=== PATIENT | female | born 1955 | race Caucasian/White ===

== ENCOUNTER 2022-09-16 08:45 | Day surgery (SDC) | payer MEDICARE, SELFPAY ==
[2022-09-16 09:23] LABS: Glucometer 117 mg/dL (74-106)
[2022-09-16 09:37] VITALS: BP 121/89; PULSE 63; RESP 16; TEMP 36.6; O2SAT 97
[2022-09-16 09:46] VITALS: RESP 20
[2022-09-16 09:47] VITALS: BP 146/73; PULSE 64; O2SAT 94
[2022-09-16] MEDS: METHYLPREDNISOLONE ACETATE 40 MG/ML VIAL INJ (09:50)
[2022-09-16] MEDS: IOHEXOL 240 MG/ML - 10 ML VIAL INJ (09:50)
[2022-09-16] MEDS: 0.9 % SODIUM CHLORIDE 10 ML SYRINGE - SALINE FLUSH 2 ML INJ (09:50)
[2022-09-16] MEDS: BUPIVACAINE HCL 0.25% PF 25 MG/10 ML VIAL 5 ML INJ (09:50)
[2022-09-16] MEDS: LIDOCAINE HCL 2% PF 100 MG/5 ML VIAL INJ (09:50)
[2022-09-16 09:53] VITALS: BP 141/71; PULSE 60; RESP 20; O2SAT 95
--- NOTE | 2022-09-16 11:47 | P.ON_ITS ---
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 Immediate complications none. Anesthesia: 2% lidocaine plain for skin wheal. After informed consent was obtained, patient brought to the OR placed in the supine position. Skin overlying the area was prepped and draped using betadine. 25-gauge 1/2 inch needle was used for skin wheal over the medial aspect of the joint identified under fluoroscopy. Omnipaque dye was used to confirm needle tip placement within the glenohumeral joint space 0.5 mL use of the injection. Subsequently Depomedrol 40mg and Marcaine 0.25% 4ml was injected into the space. No indication of intravascular or intraneuronal needle tip placement or injection was noted post procedure. The needle was removed, patient transferred to Recovery room in stable condition to discharged home after meeting criteria. Surgeon: Contreras Christian Condition: stable
== END 2022-09-16 09:55 | disposition home or self-care (01) ==
PROVIDERS: PCP Family Medicine; Visit Provider Anesthesiology Pain Medicine
DX: M19.012 Primary osteoarthritis, left shoulder (principal); M19.011 Primary osteoarthritis, right shoulder; Z79.84 Long term (current) use of oral hypoglycemic drugs
CPT/HCPCS: 20610; 36415; 77002; 82948; J1030; Q9966

== ENCOUNTER 2022-10-07 12:50 | Outpatient (OUT) | payer MEDICARE, SELFPAY ==
--- NOTE | 2022-10-07 | CONS_ITS ---
CONSULTATION DATE: ??10/07/2022 TO:? Rene Contreras M.D. HISTORY:? Patient presents today complaining of 5-7/10 pain in her lower back, predominantly on the right side.? It was sharp, stabbing pain, increased with activities such as standing, walking and performing transitioning maneuvers.? She feels most comfortable in the semi-recumbent position.? Denies any change in bowel and bladder habits or new sensorimotor changes in the lower extremities.? Since her last visit, she discontinued her baclofen, Flexeril, diclofenac and Norflex.? EXAM:? Her examination is notable for patient having no clinical radiculopathy or myelopathy involving the lower extremities.? Patient had severe pain with lumbar facet joint loading maneuvers, occurring on the right at L4-5 and L5-S1 with associated myofascial spasm of the lumbar paravertebral muscles.? IMPRESSION:? Our impression is patient appears to have chronic pain secondary to lumbosacral spondylosis with facet loading pain clinically.? Her last rhizotomy at the L3, 4 and 5 level was performed on 11/19/2021.? She reports she had significant reduction in pain symptoms starting in the immediate post procedural period, and she had significant relief until approximately 4-6 weeks ago in the lumbar area.? RECOMMENDATIONS:? At this point, it would be appropriate to repeat her rhizotomy using radiofrequency ablation of the right L3, L4 and L5 medial branches for pain relief.? In the interim, I have provided her with Tylenol #3, one pill daily to b.i.d. p.r.n. as tolerated.? I have given her 45 pills to last one month?s time. As part of providing excellent, safe, comprehensive care, the following was completed at our patient's visit: 1. A medication reconciliation and review to ensure accurate knowledge of current/active medications, including asking our patients to inform us about any dqce-gwx-ugjbels medications or herbal remedies/nutritional supplements/alternative remedies. 2. A review to specifically ensure our patients have had annual screening for: elevated body mass index (BMI, see intake chart for exact total), tobacco use, screening for depression, and screening for unhealthy alcohol use.? When screening is concerning, patients are provided with education and the specific recommendation to discuss the concerning health issue and treatment options with their primary care provider. CARLOS A
== END 2022-10-07 12:51 | disposition home or self-care (01) ==
PROVIDERS: PCP Family Medicine; Visit Provider Anesthesiology Pain Medicine
DX: M47.817 Spondylosis without myelopathy or radiculopathy, lumbosacral region (principal); M54.50 Low back pain, unspecified; G89.29 Other chronic pain
CPT/HCPCS: G0463

== ENCOUNTER 2022-11-25 06:47 | Day surgery (SDC) | payer MEDICARE, SELFPAY ==
[2022-11-25 07:06] VITALS: BP 135/77; PULSE 57; RESP 16; TEMP 36.5; O2SAT 95
[2022-11-25] MEDS: 0.9 % SODIUM CHLORIDE 500 ML IV (07:14)
[2022-11-25 07:27] LABS: Glucometer 132 mg/dL (74-106)
[2022-11-25] MEDS: BUPIVACAINE HCL 0.25% PF 25 MG/10 ML VIAL 4 ML INJ (07:45)
[2022-11-25] MEDS: LIDOCAINE HCL 2% 400 MG/20 ML MDV 8 ML INJ (07:46)
[2022-11-25] MEDS: METHYLPREDNISOLONE ACETATE 40 MG/ML VIAL INJ (07:46)
[2022-11-25 08:05] VITALS: BP 126/84; PULSE 67; RESP 16; TEMP 36.6; O2SAT 99
[2022-11-25 08:06] VITALS: BP 127/79; PULSE 68; RESP 16; TEMP 36.6; O2SAT 97
--- NOTE | 2022-11-25 08:25 | W.PM.PROCNOT ---
Date of procedure: 11/25/22 Pre-op diagnosis: lumbar spondylosis Post-op diagnosis: same as pre-op Procedure: Right lumbar 3,4,5 Radiofrequency ablation Under fluoroscopic guidance Rhizotomy was created using radio frequency ablation at 80?C for 90 seconds 1 to 2 lesions created at each site. Post lesioning injection of 2 mL each of 0.25% Marcaine and 2% lidocaine with Depo-Medrol 40mg. 0.5 to 1 mL injected at each site IV in place yes If Intravenous fluids: NS at KVO Anesthesia local 2% lidocaine for Anesthesia Other: MAC Timeout process compliant After informed consent obtained.Patient brought to the procedure room placed in the prone position skin overlying the area was prepped and draped in a sterile fashion using betadine. 25 gauge needle was used to create a skin wheal over each of the targeted areas utilizing 2% lidocaine. A rhizotomy needle with a 10 mm active tip was inserted over each of the anesthetized areas and directed towards each of the medial branches accomplished under fluoroscopic guidance. after encountering the same we had positive sensory stimulation, negative motor stimulation was noted. lesions were then created. Post lesioning, steroid solution was injected needles removed. Patient was transferred to recovery room in stable condition to be discharged home after meeting criteria. Anesthesia: MAC Surgeon: Contreras Christian Condition: stable
== END 2022-11-25 08:24 | disposition home or self-care (01) ==
PROVIDERS: PCP Family Medicine; Visit Provider Anesthesiology Pain Medicine
DX: M47.816 Spondylosis without myelopathy or radiculopathy, lumbar region (principal); K21.9 Gastro-esophageal reflux disease without esophagitis; F41.9 Anxiety disorder, unspecified; E78.00 Pure hypercholesterolemia, unspecified; I10 Essential (primary) hypertension; E66.9 Obesity, unspecified; M19.90 Unspecified osteoarthritis, unspecified site; Z68.37 Body mass index [BMI] 37.0-37.9, adult
CPT/HCPCS: 36415; 36416; 64635; 64636; 82948; J1030; J2704

== ENCOUNTER 2022-12-16 12:38 | Outpatient (OUT) | payer MEDICARE, SELFPAY ==
[2022-12-16 12:57] LABS: Bilirubin Urine NEGATIVE (NEGATIVE); Blood Urine NEGATIVE (NEGATIVE); Clarity Urine CLEAR (CLEAR); Color Urine LT. YELLOW (YELLOW); Glucose Urine UA NEGATIVE (NEGATIVE); Ketones Urine NEGATIVE (NEGATIVE); Leukocyte Esterase Urine LARGE (NEGATIVE); Nitrite Urine NEGATIVE (NEGATIVE); Protein Urine NEGATIVE (NEG/TRACE); Urobilinogen Urine 0.2 EU/dL (0.2-1.0)
== END 2022-12-16 12:39 | disposition home or self-care (01) ==
PROVIDERS: PCP Family Medicine; Visit Provider Family Medicine
DX: R30.0 Dysuria (principal)
CPT/HCPCS: 81003; 87086

== ENCOUNTER 2022-12-25 13:49 | Outpatient (OUT) | payer MEDICARE, SELFPAY ==
--- NOTE | 2022-12-25 14:32 | P.CN_ITS ---
Consult Note: HPI Data of Consult Patient: known to practice within the last 3 years Requesting Physician: Charlee Vargas NP Primary Care Provider: Rene Contreras MD Consult Narrative Reason for consult: procedure f/u Narrative: Carin Duncan a pleasant 67 year old female presents to the office for follow up on chronic low back pain. Recently underwent a Right lumbar 3,4,5 Radiofrequency ablation with no pain relief or functional improvement. Today rating pain 8/10. cc:: CC: Charlee Vargas NP Review of Systems ROS Status of ROS 10 or more systems reviewed and unremarkable except as noted in history and below Musculoskeletal Reports: back pain PFSH PFSH Medical History Surgical History Social History Smoking status: Never smoker Meds Home Medications and Allergies Home Medications Medication Instructions Recorded Confirmed Type acetaminophen 325 mg tablet 650 mg PO Q4H PRN pain 09/11/22 11/25/22 History (Tylenol) ascorbic acid (vitamin C) 1,000 mg 1 g PO QDAY 09/11/22 11/25/22 History capsule aspirin 81 mg tablet,delayed 81 mg PO QDAY 09/11/22 11/25/22 History release biotin 5 mg capsule 5 mg PO QDAY 09/11/22 11/25/22 History cholecalciferol (vitamin D3) 50 50 mcg PO BID 09/11/22 11/25/22 History mcg (2,000 unit) capsule cinnamon bark 500 mg capsule 1,000 mg PO QDAY 09/11/22 11/25/22 History (Cinnamon) cranberry 500 mg capsule 500 mg PO BID 09/11/22 11/25/22 History garlic 500 mg capsule 500 mg PO QDAY 09/11/22 11/25/22 History hydrochlorothiazide 12.5 mg capsule 12.5 mg PO QDAY 09/11/22 11/25/22 History losartan 25 mg tablet 25 mg PO QDAY 09/11/22 11/25/22 History metformin 500 mg tablet 500 mg PO BID 09/11/22 11/25/22 History metoprolol succinate 100 mg 100 mg PO BID 09/11/22 11/25/22 History tablet,extended release 24 hr omega 2-bap-suh-fish oil 1,200 mg 1,250 cap PO .daily 09/11/22 11/25/22 History (144 mg-216 mg) capsule (Fish Oil) pantoprazole 40 mg tablet,delayed 40 mg PO QAM 09/11/22 11/25/22 History release (Protonix) liothyronine 5 mcg tablet 5 mcg PO 09/16/22 History acetaminophen 300 mg-codeine 30 mg 1 tab PO BID 10/07/22 11/25/22 History tablet baclofen 10 mg tablet 10 mg PO BID 10/07/22 11/25/22 History magnesium oxide 400 mg PO DAILY 11/25/22 11/25/22 History red beet root 250 mg-sour rodriguez tab PO 11/25/22 History extract 0.5 mg chewable tablet zinc 50 mg tablet 50 mg PO DAILY 11/25/22 11/25/22 History Allergies Allergy/AdvReac Type Severity Reaction Status Date / Time hydrocodone [From Vicodin] Allergy Mild ITCHY Verified 11/25/22 06:53 nickel Allergy Mild RASH, ITCHY Verified 11/25/22 06:53 oxycodone [From Percocet] Allergy Mild ITCHY Verified 11/25/22 06:53 latex AdvReac Mild Blister Verified 11/25/22 06:53 PCN Allergy Mild Rash Uncoded 11/25/22 06:53 Exam Constitutional Documenting provider has reviewed patient's vital signs: yes Common normals: no apparent distress, oriented x3, healthy appearing, alert and well nourished General appearance: cooperative [facility] Common normals: normocephalic, hearing grossly normal bilaterally and moist oral mucous membranes Head and scalp: normocephalic Eye Common normals: PERRL Pupil: PERRL Neck & C-Spine Common normals: full ROM General: normal visual inspection Chest Common normals: inspection of chest normal Respiratory Common normals: normal respiratory effort, no retractions and no use of accessory muscles Back & Pelvis Lumbar spine/lower back: ROM limited, pain with ROM and straight leg raise negative bilaterally Other: predominately axial low back pain on right side without radiculopathy. no trigger points identified Neuro Common normals: oriented x3, CN's II-XII intact bilaterally, moves all extremities, no focal motor deficits, no sensory deficits noted and deep tendon reflexes 2+ bilaterally Sensorium/orientation: alert Gait (neuro): antalgic Motor exam: strength 5/5 throughout and no movement abnormalities noted Psych Common normals: mental status grossly normal, thought process normal, cooperative, affect normal, speech normal and activity/motor behavior normal Speech: normal speech Thought process: normal thought process Results Additional Findings Additional findings: I have checked an [place] report on this patient today and there are no aberrancies noted in the prescribing history.?? A drug screen was completed and reviewed within the last year, and if there has not been a drug screen completed we ordered one today to monitor higher risk, state monitored pain medication use. As part of providing excellent, safe, comprehensive care, the following was completed at our patient's visit: 1. A medication reconciliation and review to ensure accurate knowledge of current/active medications, including asking our patients to inform us about any alew-nqv-libxxdj medications or herbal remedies/nutritional supplements/alternative remedies. 2. A review to specifically ensure our patients have had annual screening for: elevated body mass index (BMI), tobacco use, screening for depression, and sc reening for unhealthy alcohol use. When screening is concerning, patients are provided with education and the specific recommendation to discuss the concerning health issue and treatment options with their primary care provider. Assessment and Plan Assessment and Plan (1) Lumbar spondylosis: (2) Low back pain: (3) Muscle spasm: (4) Obesity: Assessment and Plan: The patient was counseled that proper dietary changes and consistent participation in a home exercise plan can lead to weight loss. Weight loss can help to improve functionality in patients with chronic pain.? Plan patient did not respond to most recent procedure right l3/4 4/5 RFA discussed discrepancies in [place]AR[place] report, if patient continues to fill with other physicians after surgical repair of left shoulder management is done she will be switched to a NNCP (she had been receiving narcotics from PCP due to a misunderstanding) start duloxetine 30mg HS after surgery, can increase to 60mg hs after four weeks if no side effects f/u 6 weeks
== END 2022-12-25 13:50 | disposition home or self-care (01) ==
LOC: PM 13:50
PROVIDERS: PCP Family Medicine; Visit Provider Nurse Practitioner
DX: M47.816 Spondylosis without myelopathy or radiculopathy, lumbar region (principal); M54.50 Low back pain, unspecified; M62.838 Other muscle spasm; E66.9 Obesity, unspecified
CPT/HCPCS: G0463

== ENCOUNTER 2022-12-25 15:00 | Outpatient (OUT) | payer MEDICARE, SELFPAY ==
--- NOTE | 2022-12-25 16:05 | CA_ITS ---
Patient: MIK ANDERSEN Exam Date: 12/25/2022 : 1955 Gender:F [facility] : [facility] Admission #: [id number] Family : Order #: [id number] CLICK HERE TO VIEW EXAM ECHOCARDIOGRAM REPORT PROCEDURE: CA ECHO DOPPLER COMPLETE INDICATIONS: PRE OP COMPARISON: None. DESCRIPTION: COMPLETE ECHOCARDIOGRAM Real-time transthoracic echocardiography with 2D, M-mode, spectral and color flow Doppler performed. QUALITY: Technical quality was good. LEFT VENTRICLE: Normal chamber size. Mild concentric left ventricular hypertrophy. LV EF: Global left ventricular systolic function is normal. Calculated left ventricular ejection fraction is 61% DIASTOLIC: Normal diastolic function. ATRIAL SEPTUM: Inadequately seen. LEFT ATRIUM: Moderate dilatation. RIGHT ATRIUM: Mild dilatation. RIGHT VENTRICLE: Normal chamber size. Normal right ventricular systolic function. TRICUSPID VALVE: Normal mobility and thickness. No stenosis with trivial regurgitation. No evidence of pulmonary hypertension. RVSP 27mmHg MITRAL VALVE: Normal mobility and thickness. No evidence of mitral valve stenosis. Mitral annular calcification. Mild mitral regurgitation. AORTIC VALVE: Normal trileaflet appearance. No visible sclerosis. Normal leaflet mobility. No evidence of aortic valve stenosis. Trivial aortic regurgitation. AORTIC ROOT: Normal diameter and appearance. PULMONIC VALVE: Normal thickness and mobility. No stenosis. No regurgitation. PERICARDIUM: No evidence of pericardial effusion. IVC: Collapses with inspirations. Normal size. CONCLUSION: Global left ventricular systolic function is normal; visually estimated ejection fraction is 60 to 65%. Mild left ventricular hypertrophy. Biatrial enlargement. The right ventricle is normal in size and systolic function. Mild mitral regurgitation. Adult Echocardiography Procedure Report Left Ventricle LVEDD (3.7 - 5.6 cm): 4.16 cm LVESD (2.2 - 4.0 cm): 2.45 cm LVIVS thickness (0.6 - 1.2 cm): 1.24 cm LVPW thickness (0.5 - 1.0 cm): 0.96 cm e': 0.11 m/s E - e': 7.82 LVOT Max Gradient: 5.87 mm[Hg] LVOT Area (cm2): 1.21 m/s Peak Velocity (LVOT): 1.21 m/s Mean Velocity (LVOT): 0.77 m/s LVOT Diameter 2.07 cm Left Ventricular Ejection Fraction: 60.92 % Left Atrium LA Volume Index (2D A2C): 52.79 ml/m2 Left Atrium Systolic Dimension: 4.20 cm Mitral Valve MV E to A Ratio: 0.92 Mitral Valve A-Wave Peak Velocity: 0.92 m/s Mitral Valve E-Wave Peak Velocity: 0.84 m/s Right Ventricle RV Internal Diastolic Dimension: 3.38 cm Aorta AO Root Diam: 2.90 cm Ascending Ao Diam: 2.97 cm Aortic Valve Deceleration Bracken: 0.79 m/s2 Pressure Half-Time: 1.19 s Peak Velocity(Antegrade Flow): 1.64 m/s Peak Gradient(Antegrade Flow): 10.71 mm[Hg] Mean Velocity(Antegrade Flow): 1.04 m/s Mean Gradient(Antegrade Flow): 5.08 mm[Hg] Velocity Time Integral: 38.94 cm Tricuspid Valve Peak Velocity (Regurgitant Flow): 2.21 m/s, 2.16 m/s, 2.43 m/s Pulmonic Valve Mean Gradient: 2.27 mm[Hg], 3.14 mm[Hg] Mean Velocity: 0.71 m/s, 0.83 m/s Peak Velocity: 1.10 m/s Peak Gradient: 4.13 mm[Hg], 5.69 mm[Hg] Right Atrium Right Atrium Systolic Pressure: 78.52 ml, 78.52 ml Dictated by: Nola Adnrade M.D. on 12/26/2022 at 10:10 Approved by: Nola Andrade M.D. on 12/26/2022 at 10:12
== END 2022-12-25 15:01 | disposition home or self-care (01) ==
LOC: CARD 15:00
PROVIDERS: PCP Family Medicine; Visit Provider Nurse Practitioner Family
DX: M47.816 Spondylosis without myelopathy or radiculopathy, lumbar region (principal); M54.50 Low back pain, unspecified; M62.838 Other muscle spasm; E66.9 Obesity, unspecified; Z01.818 Encounter for other preprocedural examination; I34.0 Nonrheumatic mitral (valve) insufficiency
CPT/HCPCS: 93306; G0463

== ENCOUNTER 2023-02-04 13:39 | Outpatient (OUT) | payer MEDICARE, SELFPAY ==
--- NOTE | 2023-02-04 14:02 | P.CN_ITS ---
Consult Note: HPI Data of Consult Patient: known to practice within the last 3 years Requesting Physician: Charlee Vargas NP Primary Care Provider: Rene Contreras MD Consult Narrative Reason for consult: procedure f/u Narrative: Carin Duncan a pleasant 67 year old female presents to the office for follow up on chronic low back pain. Today rating pain 10/10 in low back. Patient is now cleared by orthopedics and can be medically managed by our office. Patient would like to discuss restarting opioid therapy as she previously benefitted from this. cc:: CC: Charlee Vargas NP Review of Systems ROS Status of ROS 10 or more systems reviewed and unremarkable except as noted in history and below Musculoskeletal Reports: back pain PFSH PFSH Medical History Acid reflux ?K21.9 - Gastro-esophageal reflux disease without esophagitis (ICD-10) Anxiety ?F41.9 - Anxiety disorder, unspecified (ICD-10) Bronchitis ?J40 - Bronchitis, not specified as acute or chronic (ICD-10) High cholesterol ?E78.00 - Pure hypercholesterolemia, unspecified (ICD-10) Hypertension ?I10 - Essential (primary) hypertension (ICD-10) Low back pain ?M54.50 - Low back pain, unspecified (ICD-10) Obesity ?E66.9 - Obesity, unspecified (ICD-10) Osteoarthritis ?M19.90 - Unspecified osteoarthritis, unspecified site (ICD-10) Surgical History H/O total hip arthroplasty ?Z96.649 - Presence of unspecified artificial hip joint (ICD-10) H/O total hip arthroplasty ?Z96.649 - Presence of unspecified artificial hip joint (ICD-10) History of cholecystectomy ?Z90.49 - Acquired absence of other specified parts of digestive tract (ICD- 10) History of excision of lesion ?Z98.890 - Other specified postprocedural states (ICD-10) ?Z87.2 - Personal history of diseases of the skin and subcutaneous tissue (ICD-10) History of tonsillectomy ?Z90.89 - Acquired absence of other organs (ICD-10) Hx of adenoidectomy ?Z90.89 - Acquired absence of other organs (ICD-10) S/P rotator cuff repair ?Z98.890 - Other specified postprocedural states (ICD-10) Social History Smoking status: Never smoker Meds Home Medications and Allergies Home Medications Medication Instructions Recorded Confirmed Type acetaminophen 325 mg tablet 650 mg PO Q4H PRN pain 09/11/22 11/25/22 History (Tylenol) ascorbic acid (vitamin C) 1,000 mg 1 g PO QDAY 09/11/22 11/25/22 History capsule aspirin 81 mg tablet,delayed 81 mg PO QDAY 09/11/22 11/25/22 History release biotin 5 mg capsule 5 mg PO QDAY 09/11/22 11/25/22 History cholecalciferol (vitamin D3) 50 50 mcg PO BID 09/11/22 11/25/22 History mcg (2,000 unit) capsule cinnamon bark 500 mg capsule 1,000 mg PO QDAY 09/11/22 11/25/22 History (Cinnamon) cranberry 500 mg capsule 500 mg PO BID 09/11/22 11/25/22 History garlic 500 mg capsule 500 mg PO QDAY 09/11/22 11/25/22 History hydrochlorothiazide 12.5 mg capsule 12.5 mg PO QDAY 09/11/22 11/25/22 History losartan 25 mg tablet 25 mg PO QDAY 09/11/22 11/25/22 History metformin 500 mg tablet 500 mg PO BID 09/11/22 11/25/22 History metoprolol succinate 100 mg 100 mg PO BID 09/11/22 11/25/22 History tablet,extended release 24 hr omega 4-nhu-stx-fish oil 1,200 mg 1,250 cap PO .daily 09/11/22 11/25/22 History (144 mg-216 mg) capsule (Fish Oil) pantoprazole 40 mg tablet,delayed 40 mg PO QAM 09/11/22 11/25/22 History release (Protonix) liothyronine 5 mcg tablet 5 mcg PO 09/16/22 History acetaminophen 300 mg-codeine 30 mg 1 tab PO BID 10/07/22 11/25/22 History tablet baclofen 10 mg tablet 10 mg PO BID 10/07/22 11/25/22 History magnesium oxide 400 mg PO DAILY 11/25/22 11/25/22 History red beet root 250 mg-sour rodriguez tab PO 11/25/22 History extract 0.5 mg chewable tablet zinc 50 mg tablet 50 mg PO DAILY 11/25/22 11/25/22 History Allergies Allergy/AdvReac Type Severity Reaction Status Date / Time hydrocodone [From Vicodin] Allergy Mild ITCHY Verified 11/25/22 06:53 nickel Allergy Mild RASH, ITCHY Verified 11/25/22 06:53 oxycodone [From Percocet] Allergy Mild ITCHY Verified 11/25/22 06:53 latex AdvReac Mild Blister Verified 11/25/22 06:53 PCN Allergy Mild Rash Uncoded 11/25/22 06:53 Exam Constitutional Documenting provider has reviewed patient's vital signs: yes Common normals: no apparent distress, oriented x3, healthy appearing, alert and well nourished General appearance: cooperative [facility]EN[facility] Common normals: normocephalic, hearing grossly normal bilaterally and moist oral mucous membranes Head and scalp: normocephalic Eye Common normals: PERRL Pupil: PERRL Neck & C-Spine Common normals: full ROM General: normal visual inspection Chest Common normals: inspection of chest normal Respiratory Common normals: normal respiratory effort, no retractions and no use of accessory muscles Back & Pelvis Lumbar spine/lower back: ROM limited, pain with ROM and straight leg raise negative bilaterally Other: continues to have low back pain on right side weakness and increase in pain with standing Extremity Common normals: normal to inspection and full ROM Neuro Common normals: oriented x3, CN's II-XII intact bilaterally, moves all extremities, no focal motor deficits, no sensory deficits noted and deep tendon reflexes 2+ bilaterally Sensorium/orientation: alert Gait (neuro): antalgic Motor exam: strength 5/5 throughout and no movement abnormalities noted Psych Common normals: mental status grossly normal, thought process normal, cooperative, affect normal, speech normal and activity/motor behavior normal Speech: normal speech Thought process: normal thought process Assessment and Plan Assessment and Plan (1) Lumbar spondylosis: (2) Low back pain: (3) Muscle spasm: (4) Lumbar degenerative disc disease: Plan -right L4-5 L5-S1 TFESI with Dr Palacio based on chronic pain and MRI findings -precinct captain reviewed and signed -yearly UDS today, should be negative for opioids -continue duloxetine 60mg daily, will consider increasing dose in the future -restart tylenol #3 QD-BID PRN moderate severe pain -narcan discussed and prescribed -f/u 2 weeks after injection
== END 2023-02-04 13:40 | disposition home or self-care (01) ==
PROVIDERS: PCP Family Medicine; Visit Provider Nurse Practitioner
DX: M47.816 Spondylosis without myelopathy or radiculopathy, lumbar region (principal); M54.50 Low back pain, unspecified; M62.838 Other muscle spasm; M51.36 Other intervertebral disc degeneration, lumbar region
CPT/HCPCS: G0463

== ENCOUNTER 2023-02-16 07:48 | Day surgery (SDC) | payer MEDICARE, SELFPAY ==
[2023-02-16 08:26] VITALS: BP 142/87; PULSE 61; RESP 16; TEMP 36.2; O2SAT 98
[2023-02-16 08:30] LABS: Glucometer 121 mg/dL (74-106)
[2023-02-16 09:27] VITALS: BP 171/81; PULSE 63; RESP 18; O2SAT 94
[2023-02-16] MEDS: TRIAMCINOLONE ACETONIDE 40 MG/ML VIAL 80 MG INJ (09:27)
[2023-02-16] MEDS: LIDOCAINE HCL 2% PF 100 MG/5 ML VIAL 4 ML INJ (09:27)
[2023-02-16] MEDS: BUPIVACAINE HCL 0.25% PF 25 MG/10 ML VIAL 2 ML INJ (09:27)
[2023-02-16 09:28] VITALS: BP 150/82; PULSE 60; RESP 18; O2SAT 95
--- NOTE | 2023-02-16 09:29 | P.ON_ITS ---
Date of procedure: 02/16/23 Pre-op diagnosis: Lumbar stenosis with neurogenic claudication Post-op diagnosis: same as pre-op Procedure: Procedure: Right L4-5, L5-S1 transforaminal epidural steroid injection Medications: Bupivacaine 0.25% 2cc, kenalog 80mg The patient was seen and examined in the preoperative holding area.? Informed consent was obtained and placed on the chart.? Patient was brought to the medical procedure unit and placed in the prone position where a timeout was completed verifying the correct patient, procedure site, position, and planned special equipment using sterile aseptic technique.? Under direct fluoroscopic visualization a 25-gauge Quincke tipped spinal needle was advanced to the designated neural foramen where contrast dye was injected to show adequate spread.? The needle was inserted at level right L4-5. There was no evidence of vascular or adverse uptake.? Epidural spread was appreciated.? The above- mentioned injectate was then placed in a 1.5 mL aliquot preceded by negative aspiration.? The needle was removed. The needle was inserted and the procedure repeated at level right L5-S1.? The surgery site was covered.? Patient was taken to the postprocedural recovery area and monitored for an appropriate length of time before found suitable for discharge in the accompaniment of a responsible adult. Anesthesia: Local Surgeon: Flaquito Palacio Pathology: none sent Condition: stable Disposition: no change
== END 2023-02-16 09:32 | disposition home or self-care (01) ==
PROVIDERS: PCP Family Medicine; Visit Provider Anesthesiology
DX: M48.062 Spinal stenosis, lumbar region with neurogenic claudication (principal); Z79.84 Long term (current) use of oral hypoglycemic drugs; Z79.82 Long term (current) use of aspirin; Z79.899 Other long term (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 therapy
CPT/HCPCS: 36415; 64483; 64484; 82948

== ENCOUNTER 2023-02-26 13:29 | Outpatient (OUT) | payer MEDICARE, SELFPAY ==
--- NOTE | 2023-02-26 14:15 | P.CN_ITS ---
Consult Note: HPI Data of Consult Patient: known to practice within the last 3 years Requesting Physician: Charlee Vargas NP Primary Care Provider: Rene Contreras MD Consult Narrative Reason for consult: f/u Narrative: Carin Duncan a pleasant 67 year old female presents for evaluation and management of chronic low back pain. Pain 5-6/10 in low back without radiculopathy. Patient reporting 50-60% pain relief and functional improvement ongoing. Patient reports this is the best she has felt in a long time and this injection worked really well for her. Patient benefitting from current medication regimen, has not needed tylenol #3 or NSAIDs since injection. cc:: CC: Charlee Vargas NP Review of Systems ROS Status of ROS 10 or more systems reviewed and unremarkable except as noted in history and below Musculoskeletal Reports: back pain PFSH PFSH Medical History Acid reflux ?K21.9 - Gastro-esophageal reflux disease without esophagitis (ICD-10) Anxiety ?F41.9 - Anxiety disorder, unspecified (ICD-10) Bronchitis ?J40 - Bronchitis, not specified as acute or chronic (ICD-10) High cholesterol ?E78.00 - Pure hypercholesterolemia, unspecified (ICD-10) Hypertension ?I10 - Essential (primary) hypertension (ICD-10) Low back pain ?M54.50 - Low back pain, unspecified (ICD-10) Obesity ?E66.9 - Obesity, unspecified (ICD-10) Osteoarthritis ?M19.90 - Unspecified osteoarthritis, unspecified site (ICD-10) Surgical History H/O total hip arthroplasty ?Z96.649 - Presence of unspecified artificial hip joint (ICD-10) H/O total hip arthroplasty ?Z96.649 - Presence of unspecified artificial hip joint (ICD-10) History of cholecystectomy ?Z90.49 - Acquired absence of other specified parts of digestive tract (ICD- 10) History of excision of lesion ?Z98.890 - Other specified postprocedural states (ICD-10) ?Z87.2 - Personal history of diseases of the skin and subcutaneous tissue (ICD-10) History of tonsillectomy ?Z90.89 - Acquired absence of other organs (ICD-10) Hx of adenoidectomy ?Z90.89 - Acquired absence of other organs (ICD-10) S/P rotator cuff repair ?Z98.890 - Other specified postprocedural states (ICD-10) Social History Smoking status: Never smoker Meds Home Medications and Allergies Home Medications Medication Instructions Recorded Confirmed Type acetaminophen 325 mg tablet 650 mg PO Q4H PRN pain 09/11/22 02/16/23 History (Tylenol) ascorbic acid (vitamin C) 1,000 mg 1 g PO QDAY 09/11/22 02/16/23 History capsule aspirin 81 mg tablet,delayed 81 mg PO QDAY 09/11/22 02/16/23 History release biotin 5 mg capsule 5 mg PO QDAY 09/11/22 02/16/23 History cholecalciferol (vitamin D3) 50 50 mcg PO BID 09/11/22 02/16/23 History mcg (2,000 unit) capsule cinnamon bark 500 mg capsule 1,000 mg PO QDAY 09/11/22 02/16/23 History (Cinnamon) cranberry 500 mg capsule 500 mg PO BID 09/11/22 02/16/23 History garlic 500 mg capsule 500 mg PO QDAY 09/11/22 02/16/23 History hydrochlorothiazide 12.5 mg capsule 12.5 mg PO QDAY 09/11/22 02/16/23 History losartan 25 mg tablet 25 mg PO QDAY 09/11/22 02/16/23 History metformin 500 mg tablet 500 mg PO BID 09/11/22 02/16/23 History metoprolol succinate 100 mg 100 mg PO BID 09/11/22 02/16/23 History tablet,extended release 24 hr omega 8-dtl-utg-fish oil 1,200 mg 1,250 cap PO .daily 09/11/22 02/16/23 History (144 mg-216 mg) capsule (Fish Oil) pantoprazole 40 mg tablet,delayed 40 mg PO QAM 09/11/22 02/16/23 History release (Protonix) liothyronine 5 mcg tablet 5 mcg PO 09/16/22 History baclofen 10 mg tablet 10 mg PO BID 10/07/22 02/16/23 History magnesium oxide 400 mg PO DAILY 11/25/22 02/16/23 History red beet root 250 mg-sour rodriguez tab PO 11/25/22 History extract 0.5 mg chewable tablet zinc 50 mg tablet 50 mg PO DAILY 11/25/22 02/16/23 History acetaminophen 300 mg-codeine 30 mg 1 tab PO BID PRN pain #45 tabs 02/04/23 02/16/23 Rx tablet duloxetine 60 mg capsule,delayed 60 mg PO DAILY #30 caps 02/04/23 02/16/23 Rx release naloxone 4 mg/actuation nasal 4 mg intranasal Q3M PRN opioid 02/04/23 02/16/23 Rx spray (Narcan) overdose #2 ea duloxetine 60 mg capsule,delayed 60 mg PO DAILY 02/05/23 02/16/23 History release (Cymbalta) Allergies Allergy/AdvReac Type Severity Reaction Status Date / Time hydrocodone [From Vicodin] Allergy Mild ITCHY Verified 02/16/23 08:19 nickel Allergy Mild RASH, ITCHY Verified 02/16/23 08:19 oxycodone [From Percocet] Allergy Mild ITCHY Verified 02/16/23 08:19 latex AdvReac Mild Blister Verified 02/16/23 08:19 PCN Allergy Mild Rash Uncoded 02/16/23 08:19 Exam Constitutional Documenting provider has reviewed patient's vital signs: yes Common normals: no apparent distress, oriented x3, healthy appearing, alert and well nourished General appearance: cooperative [facility] Common normals: normocephalic, hearing grossly normal bilaterally and moist oral mucous membranes Head and scalp: normocephalic Eye Common normals: PERRL Pupil: PERRL Neck & C-Spine Common normals: full ROM General: normal visual inspection Chest Common normals: inspection of chest normal Respiratory Common normals: normal respiratory effort, no retractions and no use of accessory muscles Back & Pelvis Lumbar spine/lower back: pain with ROM and straight leg raise negative bilaterally Extremity Common normals: normal to inspection and full ROM Neuro Common normals: oriented x3, CN's II-XII intact bilaterally, moves all extremities, no focal motor deficits, no sensory deficits noted and deep tendon reflexes 2+ bilaterally Sensorium/orientation: alert Gait (neuro): antalgic Motor exam: strength 5/5 throughout and no movement abnormalities noted Psych Common normals: mental status grossly normal, thought process normal, cooperative, affect normal, speech normal and activity/motor behavior normal Speech: normal speech Thought process: normal thought process Assessment and Plan Assessment and Plan (1) Lumbar degenerative disc disease: (2) Muscle spasm: (3) Lumbar spondylosis: (4) Chronic prescription opiate use: Assessment and Plan: I feel these medications are improving the patient's quality of life and allow them to tolerate activities of daily living as well as participate in recreational activity.? The patient does not report intolerable side effects. The patient is NOT opioid naive and non-pharmacologic and non-opioid treatment has failed to significantly relieve the patient's pain and improve functio nality. The patient has a diagnosis that is related to a somatic or visceral pain etiology. ? ?? I reviewed with the patient the potential risks and side effects with the use of? opioid medications including but not limited to respiratory depression,? sedation, and even . I verified the patient has access to naloxone should? these effects occur. I advised the patient to avoid the use of any other? sedation substances including alcohol, THC, and benzodiazepines while? taking opioid medications due to the risk of compounding side effects and? detrimental outcomes. 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 drug screen, and opioid start talking forms. The patient was advised to let? their family know they had Naloxone in case they would need to administer? the medication.? ?? A drug screen was completed within the last year, and no aberrancies were noted regarding their use of controlled substances. The patient understands they are subject to the terms and conditions of the pain contract that they have signed. ? ?? I have checked an [facility] report on this patient today and there are no aberrancies noted in the prescribing history.? Plan continue current medication regimen f/u 3 months to evaluate need for repeat TFESI
== END 2023-02-26 13:30 | disposition home or self-care (01) ==
LOC: PM 13:32
PROVIDERS: PCP Family Medicine; Visit Provider Nurse Practitioner
DX: M51.36 Other intervertebral disc degeneration, lumbar region (principal); M62.838 Other muscle spasm; M47.816 Spondylosis without myelopathy or radiculopathy, lumbar region; Z79.891 Long term (current) use of opiate analgesic
CPT/HCPCS: G0463

== ENCOUNTER 2023-04-16 13:31 | Outpatient (OUT) | payer MEDICARE, SELFPAY ==
--- NOTE | 2023-04-16 14:02 | XR_ITS ---
The [address] [address] Patient Name: MIK ANDERSEN MRN: [id number] date: 1955 Sex: F Assigned Patient Location: LAB Current Patient Location: Accession/Order Number: [id number] Exam Date: 04/16/2023 14:08 Report Date: 04/17/2023 07:23 At the request of: AVE MUNGUIA Procedure: XR lumbar spine 2-3V EXAMINATION: XR lumbar spine 2-3V HISTORY: overweight E66.3 COMPARISON: No relevant comparison available. FINDINGS: BONES: Mild to moderate degenerative spondylosis and facet osteoarthropathy. 9 mm anterolisthesis of L4 in relation L5. Bilateral hip arthroplasty DISC SPACES: Mild to moderate disc space narrowing with endplate sclerosis and vacuum disc most significant L4-S1 PARASPINOUS: Negative. No paraspinous abnormality is seen. OTHER: Negative. XR/XR lumbar spine 2-3V IMPRESSION: [id number] degenerative changes 9 mm anterolisthesis of L4 and L5 Electronically authenticated by: GERONIMO LOPEZ Date: 04/17/2023 07:23
[2023-04-16 14:38] LABS: Basophils Absolute Auto 0.1 10^3/uL (0.0-0.1); Basophils Percent Auto 0.6 % (0.2-2.0); Eosinophils Absolute Auto 0.1 10^3/uL (0.0-0.7); Eosinophils Percent Auto 1.5 % (0.9-7.0); Hematocrit 39.4 % (36.0-48.0); Hemoglobin 12.9 g/dL (12.0-16.0); Immature Granulocytes Abs Auto 0.06 10^3/uL (0.00-0.03); Immature Granulocytes Pct Auto 0.7 % (0.0-0.5); Lymphocytes Absolute Auto 1.9 10^3/uL (1.2-3.8); Lymphocytes Percent Auto 20.7 % (20.5-60.0); Mean Corpuscular HGB Conc 32.7 g/dL (29.9-35.2); Mean Corpuscular Hemoglobin 30.1 pg (26.7-34.0); Mean Corpuscular Volume 92.1 fL (81.0-99.0); Mean Platelet Volume 9.5 fL (9.5-13.5); Monocytes Absolute Auto 0.8 10^3/uL (0.3-0.8); Monocytes Percent Auto 9.1 % (1.7-12.0); Neutrophils Absolute Auto 6.1 10^3/uL (1.4-6.5); Neutrophils Percent Auto 67.4 % (43.0-75.0); Platelet Count 406 10^3/uL (150-450); Red Blood Count 4.28 10^6/uL (4.20-5.40); Red Cell Distribution Width 13.5 % (11.0-15.0); White Blood Count 9.1 10^3/uL (4.0-11.0)
[2023-04-16 14:40] LABS: Alanine Aminotransferase 67 U/L (14-59); Albumin Globulin Ratio 0.9; Albumin Level 3.4 g/dL (3.4-5.0); Alkaline Phosphatase 136 U/L (46-116); Anion Gap 9.8; Aspartate Amino Transferase 18 U/L (15-37); BUN Creatinine Ratio 17.3; Bilirubin Total 0.5 mg/dL (0.2-1.0); Calcium 9.8 mg/dL (8.5-10.1); Carbon Dioxide 32.7 mmol/L (21.0-32.0); Chloride 99 mmol/L (98-107); Estimated GFR (African America >60 (>=60); Estimated GFR (Non-African Ame 53 (>=60); Globulin 3.7 g/dL; Glucose 104 mg/dL (74-106); Potassium 3.5 mmol/L (3.5-5.1); Sodium 138 mmol/L (136-145); Thyroid Stimulating Hormone 1.444 uIU/mL (0.358-3.740); Total Protein 7.1 g/dL (6.4-8.2)
[2023-04-16 15:19] LABS: Free T4 0.92 ng/dL (0.76-1.46)
== END 2023-04-16 13:32 | disposition home or self-care (01) ==
LOC: LAB 13:34
PROVIDERS: PCP Family Medicine; Visit Provider Family Medicine
DX: E66.3 Overweight (principal); M51.36 Other intervertebral disc degeneration, lumbar region
CPT/HCPCS: 36415; 72100; 80053; 82728; 84439; 84443; 85025

== ENCOUNTER 2023-04-29 11:50 | Outpatient (OUT) | payer MEDICARE, SELFPAY ==
--- OUTSIDE RECORDS SUMMARY | 2023-04-29 11:54 | XMS_ITS | CCD ---
Author Name Unknown Address [address] [place] [address] Organization [facility] Care Team Providers Care Pesticide Chemist Name Role Phone Ave Contreras MD Primary Care Provider [phone] [address] CONTR[address]AS Referring Unavailable AVE CONTRERAS Primary Care Unavailable Ave Contreras MD Primary Care Provider [phone] Ave Contreras MD Primary Care Provider [phone] AVE CONTRERAS Primary Care Unavailable DANAE MEYERS Referring Unavailable DANAE MEYERS Referring Unavailable AVE CONTRERAS Primary Care Unavailable AVE CONTRERAS Primary Care Unavailable AVE CONTRERAS Referring Unavailable AVE CONTRERAS Primary Care Unavailable SILVER TRIANA. Referring Unavailable AVE CONTRERAS Primary Care Unavailable DANAE MEYERS Referring Unavailable TRIANA ., DR SIVLER Duke Admitting Unavailable TRIANA ., DR SILVER Duke Attending Unavailable HOY ., DR DORADO Primary Care Unavailable TRIANA ., DR SILVER Duke Admitting Unavailable TRIANA ., DR SILVER Duke Attending Unavailable HOY ., DR DORADO Primary Care Unavailable TRIANA ., DR SILVER Duke Consulting Unavailable TRIANA ., DR SILVER Duke Admitting Unavailable TRIANA ., DR SILVER Duke Attending Unavailable EZRA ., DR DORADO Primary Care Unavailable TRIANA ., DR SILVER Duke Consulting Unavailable EMMANUEL LOVELL Consulting Unavailable CHIQUIS MCCLURE Consulting Unavailable TRIANA ., DR SILVER Duke Admitting Unavailable TRIANA ., DR SILVER Duke Attending Unavailable HOVeronica ., DR DORADO Primary Care Unavailable MEYERS ., MR DANAE Admitting Unavailable MEYERS ., MR DANAE Attending Unavailable EZRA ., DR DORADO Primary Care Unavailable WEST, DR GERONIMO Pires Consulting Unavailable MEYERS ., MR DANAE Consulting Unavailable TRIANA ., DR SILVER Duke Admitting Unavailable TRIANA ., DR SILVER Duke Attending Unavailable HOY ., DR DORADO Primary Care Unavailable TRIANA ., DR SILVER Duke Consulting Unavailable EMMANUEL LOVELL Consulting Unavailable TRIANA ., DR SILVER Duke Admitting Unavailable TRIANA ., DR SILVER Duke Attending Unavailable HOY ., DR DORADO Primary Care Unavailable GILMORE ., MALENA Consulting Unavailable LAKSHMIPATHY ., NARENDRANATH Admitting Darline vailable LAKSHMIPATHY ., NARENDRANATH Attending Darline vailable HOY ., DR DORADO Primary Care Unavailable LAKSHMIPATHY ., NARENDRANKARL Consulting Darline vailable TRIANA ., DR SILVER Duke Admitting Unavailable TRIANA ., DR SILVER Duke Attending Unavailable HOY ., DR DORADO Primary Care Unavailable TRIANA ., DR SILEVR Duke Consulting Unavailable GILMORE ., MALENA Consulting Unavailable LAKSHMIPATHY ., NARENDRANATH Admitting Darline vailable LAKSHMIPATHY ., NARENDNANCYATH Attending Darline vailable HOY ., DR DORADO Primary Care Unavailable MONTEZ VARGAS Consulting Unavailable LAKSHMIPATHY ., NARENDRANATH Consulting Darline vailable LAKSHMIPATHY ., NARENDRANATH Admitting Darline vailable LAKSHMIPATHY ., NARENDNANCYATH Attending Darline vailable HOY ., DR DORADO Primary Care Unavailable MAXIMILIANO MORALES Consulting Unavailable LAKSHMIPATHY ., NARENDRANATH Consulting Darline vailable HOY ., DR DORADO Primary Care Unavailable LAKSHMIPATHY ., NARENDRANATH Admitting Darline vailable LAKSHMIPATHY ., NARENDRANATH Attending Darline vailable LAKSHMIPATHY ., NARENDRANATH Consulting Darline vailable TRIANA ., DR SILVER Duke Admitting Unavailable TRIANA ., DR SILVER Duke Attending Unavailable HOY ., DR ODRADO Primary Care Unavailable GILMORE ., MALENA Consulting Unavailable LAKSHMIPATHY ., NARENDRANATH Admitting Darline vailable LAKSHMIPATHY ., NARENDRANATH Attending Darline vailable HOY ., DR DORADO Primary Care Unavailable LAKSHMIPATHY ., NARENDRANATH Admitting Darline vailable LAKSHMIPATHY ., NARENDRANATH Attending Darline vailable HOY ., DR DORADO Primary Care Unavailable LAKSHMIPATHY ., NARENDRANATH Consulting Dalrine vailable HOY ., DR DORADO Admitting Unavailable HOY ., DR DORADO Attending Unavailable HOY ., DR DORADO Primary Care Unavailable HOY ., DR DORADO Consulting Unavailable TRIANA ., DR SILVER Duke Admitting Unavailable TRIANA ., DR SILVER Duke Attending Unavailable HOY ., DR DORADO Primary Care Unavailable TRIANA ., DR SILVER Duke Consulting Unavailable BANDAR MARY Consulting Unavailable HOY ., DR DORADO Admitting Unavailable HOY ., DR DORADO Attending Unavailable HOY ., DR DORADO Primary Care Unavailable HOY ., DR DORADO Consulting Unavailable TRIANA ., DR SILVER Duke Admitting Unavailable TRIANA ., DR SILVER Duke Attending Unavailable HOY ., DR DORADO Primary Care Unavailable GILMORE ., MALENA Consulting Unavailable HOY ., DR DORADO Primary Care Unavailable SORAIDA ., JUAN R Admitting Unavailable SORAIDA ., JUAN R Attending Unavailable FLY, DR BANDAR Patino Consulting Unavailable SORAIDA ., JUAN R Consulting Unavailable ANA SINGLETON Consulting Unavailable HOY ., DR DORADO Admitting Unavailable HOY ., DR DORADO Attending Unavailable HOY ., DR DORADO Primary Care Unavailable HOY ., DR DORADO Consulting Unavailable BENNIE MORAN Consulting Unavailable TRIANA ., DR SILVER Duke Admitting Unavailable TRIANA ., DR SILVER Duke Attending Unavailable HOY ., DR DORADO Primary Care Unavailable GILMORE ., MALENA Consulting Unavailable HOY ., DR DORADO Admitting Unavailable HOY ., DR DORADO Attending Unavailable HOY ., DR DORADO Primary Care Unavailable HOY ., DR DORADO Consulting Unavailable Erick Mckeon Admitting Unavail able AVE CONTRERAS Primary Care Unavailable Erick Mckeon Attending Unavail able AVE CONTRERAS Primary Care Unavailable Erick Mckeon Attending Unavail able Erick Mckeon Admitting Unavail able Hakeem ENRIQUE, Flaquito Ridley Attending Unavailable ERICK MCKEON Attending Unavailable Manuel VANN Attending Unavailable Ave Contreras Referring Unavailable Allergies Allergy Classification Reported Allergen(s) Allergy Type Date of Onset Reaction(s) Facility (6 sources) [facility] / [facility] Work Phone: (6 sources) Acetaminophen / oxyCODONE Drug Allergy [address] [facility] [employer] Work Phone: (8 sources) Latex; Translations: [Latex] Propensity to adverse reactions to drug 1 Other (See Comments) [facility] (8 sources) nickel sulfate; Translations: [Nickel] Drug Allergy 4 [facility] [employer] (9 sources) Penicillins; Translations: [Penicillins] Propensity to adverse reactions to drug 1 Rash [facility] Work Phone: (3 sources) Acetaminophen / HYDROcodone; Translations: [Vicodin] Drug Allergy 3 [facility] Repository (3 sources) Acetaminophen / oxyCODONE; Translations: [Percocet] Drug Allergy 3 [facility] Rep[facility] (2 sources) Latex Drug allergy (disorder) 3 [facility] Repository (1 source) Leucine Drug Allergy 3 [facility] (1 source) Penicillin; Translations: [penicillin] Drug Allergy [facility] (1 source) HYDROcodone; Translations: [HYDROcodone] Drug Allergy [facility] Repository Medications Current Medications Medication Drug Class(es) Dates Sig (Normalized) Sig (Original) acetaminophen 300 mg / codeine phosphate 30 mg oral tablet (6 sources) Opioid Agonist Start: 08-24-2013 take 1-2 tablets by mouth every four hours as needed acetaminophen-code ine (TYLENOL/CODEINE #3) 300-30 MG per tablet Indications: Hip pain, bilateral Take 1-2 tablets by mouth every 4 hours as needed. 50 tablet 3 08/24/2013 Active ALPRAZolam 0.5 mg oral tablet (6 sources) Benzodiazepine Start: 01-02-2015 take 1 tablet by mouth three times daily as needed for anxiety ALPRAZolam (XANAX) 0.5 MG tablet Indications: Generalized anxiety disorder Take 1 tablet by mouth 3 times daily as needed for Sleep or Anxiety 90 tablet 2 01/02/2015 Active azithromycin 250 mg oral tablet (6 sources) Macrolide Antimicrobial Start: 05-09-2017 azithromycin (ZITHROMAX) 250 MG tablet Take 1 tablet by mouth daily Take 2 tablets day 1 Take 1 tablet days 2-5 6 tablet 0 05/09/2017 Active benazepril hydrochloride 10 mg oral tablet (6 sources) Angiotensin Converting Enzyme Inhibitor take 2 tablets by mouth once daily benazepril (LOTENSIN) 10 MG tablet Take 20 mg by mouth daily. 0 Active biotin 5 mg oral tablet (6 sources) Biotin 5000 MCG TABS Indications: Routine gynecological examination Take by mouth. 0 Active cinnamon bark 500 mg oral capsule (6 sources) take 4 capsules by mouth once daily Cinnamon (GNP CINNAMON) 500 MG CAPS Take 2,000 mg by mouth daily. 0 Active COCONUT OIL PO (6 sources) COCONUT OIL PO Indications: Routine gynecological examination Take by mouth. 0 Active Fish Oils (6 sources) FISH OIL 2,400 m g by Does not apply route daily. 0 Active 24 hr metoprolol succinate 50 mg extended release oral tablet (6 sources) beta-Adrenergic [place] take 2 tablets by mouth once daily metoprolol (TOPROL-XL) 50 MG XL tablet Take 100 mg by mouth daily. 0 Active Multiple Vitamins-Minerals (HM MULTIVITAMIN ADULT GUMMY) CHEW (6 sources) Multiple Vitamins-Minerals (HM MULTIVITAMIN ADULT GUMMY) CHEW Indications: Routine gynecological examination Take by mouth. 0 Active pantoprazole 40 mg oral granules (6 sources) Proton Pump Inhibitor take 40 mg by mouth once daily Pantoprazole Sodium (PROTONIX) 40 MG PACK packet Take 40 mg by mouth daily. 0 Active Problems Active Problems Problem Classification Problem Date Documented Date Episodic/Chronic Anxiety disorders (1 source) Anxiety disorder, unspecified; Translations: [ANXIETY DISORDER UNSPECIFIED] Onset: 3 Chronic Congestive heart failure; nonhypertensive (1 source) Unspecified diastolic (congestive) heart failure; Translations: [UNSPECIFIED DIASTOLIC HEART FAILURE] Onset: 2 Chronic Diabetes mellitus without complication (1 source) Type 2 diabetes mellitus without complications; Translations: [TYPE 2 DM WITHOUT COMPLICATIONS] Onset: 2 Chronic Diseases of white blood cells (4 sources) Elevated white blood cell count, unspecified; Translations: [ELEVATED WHITE BLOOD CELL COUNT UNS] Onset: 2 Chronic Disorders of lipid metabolism (1 source) Pure hypercholesterolemia, unspecified; Translations: [PURE HYPERCHOLESTEROLEMIA UNSPEC] Onset: 3 Chronic Esophageal disorders (1 source) Gastro-esophageal reflux disease without esophagitis; Translations: [GERD WITHOUT ESOPHAGITIS] Onset: 3 Chronic Essential hypertension (1 source) Essential (primary) hypertension; Translations: [ESSENTIAL PRIMARY HYPERTENSION] Onset: 3 Chronic Fluid and electrolyte disorders (1 source) Dehydration; Translations: [DEHYDRATION] Onset: 3 Episodic Hypertension with complications and secondary hypertension (1 source) Hypertensive heart disease with heart failure; Translations: [HTN HEART DISEASE W/HEART FAIL] Onset: 2 Chronic Mood disorders (1 source) Mood disorders; Translations: [DEPRESSION UNSPECIFIED] Onset: 3 Other aftercare (1 source) snf (current) use of aspirin; Translations: [JAIL CURRENT USE OF ASPIRIN] Onset: 3 Episodic Other aftercare (1 source) Other terminal gauger supervisor (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 therapy; Translations: [OTH JAIL CURRENT DRUG THERAPY] Onset: 3 Episodic Other aftercare (1 source) snf (current) use of oral hypoglycemic drugs; Translations: [BI TRI OPERATOR USE ORAL HYPOGLYCEMIC DX] Onset: 3 Episodic Other connective tissue disease (1 source) Presence of right artificial hip joint; Translations: [PRESENCE RIGHT ARTIFICIAL HIP JOINT] Onset: 3 Chronic Other connective tissue disease (4 sources) Neuralgia and neuritis, unspecified; Translations: [NEURALGIA AND NEURITIS UNSPECIFIED] Onset: 3 Episodic Other connective tissue disease (4 sources) Bicipital tendinitis, left shoulder; Translations: [BICIPITAL TENDINITIS LEFT SHOULDER] Onset: 3 Episodic Other connective tissue disease (1 source) Bicipital tendinitis, right shoulder; Translations: [BICIPITAL TENDINITIS RIGHT SHOULDER] Onset: 3 Episodic Other nervous system disorders (4 sources) Other specified mononeuropathies of right lower limb; Translations: [OTH SPEC MONONEUROPATH RT LOW LIMB] Onset: 3 Chronic Other nervous system disorders (2 sources) Other chronic pain; Translations: [OTHER CHRONIC PAIN] Onset: 2 Chronic Other nervous system disorders (1 source) Other specified mononeuropathies; Translations: [OTHER SPECIFIED MONONEUROPATHIES] Onset: 3 Chronic Other nervous system disorders (1 source) Chronic pain syndrome; Translations: [CHRONIC PAIN SYNDROME] Onset: 3 Chronic Other non-traumatic joint disorders (3 sources) Pain in right hip; Translations: [Pain in right hip] Onset: 2 Episodic Other non-traumatic joint disorders (4 sources) Pain in left hip; Translations: [PAIN IN LEFT HIP] Onset: 3 Episodic Other nutritional; endocrine; and metabolic disorders (1 source) Obesity, unspecified; Translations: [OBESITY UNSPECIFIED] Onset: 3 Chronic Other nutritional; endocrine; and metabolic disorders (1 source) Body mass index (BMI) 40.0-44.9, adult; Translations: [BODY MASS INDEX BMI 40.0-44.9 ADULT] Onset: 3 Chronic Other screening for suspected conditions (not mental disorders or infectious disease) (4 sources) Abnormal results of kidney function studies; Translations: [ABNORM RESULTS KIDNEY FUNCTION STDY] Onset: 3 Episodic Spondylosis; intervertebral disc disorders; other back problems (7 sources) Other intervertebral disc degeneration, lumbar region; Translations: [Spondylosis without myelopathy or radiculopathy, lumbar region] Onset: 2 Chronic Spondylosis; intervertebral disc disorders; other back problems (9 sources) Sacrococcygeal disorders, not elsewhere classified; Translations: [Spinal stenosis, site unspecified] Onset: 2 Episodic Syncope (4 sources) Syncope and collapse; Translations: [SYNCOPE AND COLLAPSE] Onset: 3 Episodic Unclassified (4 sources) LOW BACK PAIN, UNSPECIFIED; Translations: [LOW BACK PAIN, UNSPECIFIED] Onset: 2 Urinary tract infections (1 source) Urinary tract infection, site not specified; Translations: [UTI SITE NOT SPECIFIED] Onset: 3 Episodic Past or Other Problems Problem Classification Problem Date Documented Da te Episodic/Chronic Deficiency and other anemia (1 source) Anemia, unspecified; Translations: [ANEMIA UNSPECIFIED] Onset: 03-31-2022 Episodic Malaise and fatigue (1 source) Other fatigue; Translations: [OTHER FATIGUE] Onset: 03-31-2022 Episodic Other connective tissue disease (1 source) Other muscle spasm; Translations: [OTHER MUSCLE SPASM] Onset: 02-12-2022 Episodic Unclassified (1 source) LOW BACK PAIN, UNSPECIFIED; Translations: [LOW BACK PAIN, UNSPECIFIED] Onset: 06-10-2022 Results Test Name Value Interpretation Reference Range Facility Physician Referralon 024 Physician Referral [id number] [facility] Physician Referral [id number]#[id number] 0[facility] Coding Queryon 01-09-2023 Coding Query [id number] [facility]ordon 01-01-2023 MAGR Postoperative Record MAGR Phase II Record Summary Primary Physician: Erick Mckeon DO Finalized Date/Time: 01/01/23 07:41:18 Pt. Name: CARIN ANDERSEN/Sex: 1955 FEMALE Med Rec #: [id number] Physician: Erick Mckeon DO Financial #: [id number] Pt. Type: O Room/Bed: [facility] Admit/Disch: 12/29/22 08:33:12 - 12/30/22 15:10:00 Institution: Phase II Case Times MAGR Pre-Care Text: Patient is free from s/s of injury. Patient remains free from compromised physical state related to surgery or anesthesia. Patient comfort maintained. Patient/family verbalize understanding of discharge instructions. Entry 1 In PACU II 12/29/22 14:15:00 Discharge from PACU 12/29/22 15:00:00 II Last Modified By: Deanne Perera RN 01/01/23 07:41:16 Post-Care Text: The patient remains free from s/s of injury. Patient's vital signs stable, circulation maintained, return to preop mental and physical status, opsite/dressing intact, minimal or absent nausea and vomiting, tolerates po intake. Patient verbalizes adequate pain control. Patient/family express understanding of discharge instructions. General Comments: 2 [facility] PHASE II Finalized By: Trever, Deanne RN Document Signatures Signed By: Deanne Perera RN 01/01/23 07:41 [facility] Coding Summaryon 12-31-2022 Coding Summary HTMLBase 64 SypmqcruFDl9hXq+PGhlYW Q+HA0JJLOoH65wbQGscJ9u V5ALDGjHImnhKZKUDFuYPl TjssDfYB0ewJKoNTAl IC8+CL0hSBKtGmbujBXsg0 W8pGD1A81xmr5hSVwzvEM0 LTHdRbMbowfod6abaCv5LW cuNmluOyBt ZKGouA52AXB9kQ40Uz71qD UerRQhp2wwhQx0GwFdASKa YKE0uQlnCGrdv3WsQZRvA6 5dxQXas4E9 XNDwhIivwSQgTrBxoBI4aT 1gQJopjrepx4mdamwoBjh4 zi96pEKij1Z6dRF9B5Axoi B8QNSniRGn WmsnsORIgH4ogjocz2ggeq uvAnMuBKCxSJv0MGy5HTMc jHydKjInVM93IRQ1MLSmfw QuO1HiCLMw yCntOoL1b2C3Va3LX0QTKa ggT4XEMNETVCxgoLZ+PC90 vy80J3YbKztcEka3DPDoFD Y9rWK9tG5w HGVmZExqg9C7qSX2I8Qoao Ezpa7gg2vpOYMjCZhuH71o rPCrw3I6ULXjbEK2HQIzqO roSgEwbV87 Oyc+HYMwcGnav8OhQzgtx6 wkw5lowNt2AvppWNLxguIx sKdpCRQ4r0MpAb9fVIDhbR H1qXS1eP8l PqQlQrE9KAocI511QfEanG IdBarkN00eA2KbvVN+PHRy Waz1FFZxmNvuFU5mV6ThDJ RpbmctbGVm nPqaMG8sUPAsychkRUIyrZ 3sBPZjW4r7KkYaOmD5KZzj Q2ElUKSundeuBh92gR9fTc HmMuW3DQwu S0VjxpE2PHFroPGuEYovZB S5H43ke6X8PSVmCCZuANB1 yQI6zC3mlLfxzwtyoNWcsQ sgdmVydGlj YMvyDLrlO700MGKxbKvaBe NvZGluZyBEYXRlOiAgMDkv MjAvMjAyMzwvdGQ+PHRkIH O8dNpeMLRs wGBcXAqvZt9xwGmcuWdlSD 9jMHJskhzkRTJqrM2qUIXr xTWkkLtwTD5nNKRijblwx2 31IcGwYGE9 HOUzoJPoF1FaxJ5jRiKlVU DqGRAcP9PylACkIXhzG273 NAujGgO8NNCivzPlG2VcSF FsaWduOiB0 m9V4Vl4So2RcdraxQ8HhjA YfKxLvAirgUHv6K1KxFhdy dHI+EI40KMKkYO57XQl7UO M5tZxcMUdv NNQkG6AmaA1iWgJkQOFsHI RkOyc+PHRhYmxlIHdpZHRo QZysNZPaTdGeuQegNQ9rMp 9yZGVyLWNv uBfuaJWyWjOat5luTKXvZE wpWR4zpNtvJ5HcjVS1EQAf k6y1Pi03P47yM9KpwQP+PG HxsOI7aIW3 gT7tFfBwKiV3YJizD380Ke WaiJJjLlzis5xln7mshJr0 SaB8HSCdubJttSauBHB3u6 RdZp75M10q IHdpZHRoPSIxNSUiIHZhbG fnml5uiX3sAw7+PGNvbCB3 zZC3mJ1yZlSiTkP2FTihQ1 49InRvcCIv Zpxjd3tca9giuAx9MtDxZQ EmucXjsZeiIZW7e0HiUv27 R5KgoXbwm1AsSte0zv58uJ Esq8G1tLE1 A7EfFTNwfmsezLFatMejVJ 5vKXIhnvqqRPMmvS2iTCAn S8k6QqFsDfR7HPatR5Fcjj F9UUVyaJFr JPIpnPGDdM8dfuixh7iodu duTqPmCCBhVPg3QAz7SMJk mGdeGbDgSCA0IgZ8STT1wA JqwT5ewNut cpnotA6zLjt+SYZ1yPXdhU ONCB5hEuiziDD+PHRkIHN0 uVjhARllDLQvtE0rNOQpM1 r9RgWgTtA6 VLfcQ7LjmgL5ZEQocDSmGB SfhGKAvI6cakqvc4wujrsv MoQbBSNpFQj5ZYs1FHPofK duOiBsZWZ0 BtE1UZN3lQWzpV9kxMytpx uvvB8fGlr+QmlydGggRGF0 DMq4H9IpJqk6ZOFdvOlpLF 0ncGFkZGlu Yz2nyNpilFnaAB3pZYXbxv lkz917FuWau8ucHBDnoMWa STaoARZ5G93dw1J9XRCtRB GyPOY2vRG5 zR8bmOjtkoyhcDGynUogum RnyPniTKaeFGcjI817JSMv cNiwHnFsOHs0L6ByFmv9TN LabVhqDL6q bHDfANvfBb8hsWrwsSujOI 2fDTFnrmybq937MrJwu6mw ZRRlsCDrAHdrLWV8U91qq9 Y4MUCjCPCw KLB3vPV0eQ1whAzcmsoheQ VmdDsgdmVydGljYWwtYWxp U112JKOkeViyDxZtdWf5H3 JaSwx5BCSm qZlzPO3qdXHsMRfvOf9yyC zswAyaSR9fPRBxzcadi939 SiQgs9knTGHctSWqSJbwZM P6M16zq6Q1 LXLgSTGaSZR9qXP0sH6cyB lnbjogbGVmdDsgdmVydGlj PVxlHThyS232SFNowNuuFj BhdGllbnQg IFliJMl7B1TzMzobxZS+PC 85VBWkQZ12kMElfVLjj7cj kQf8MnQqIQXyCWD0xNegTI vlt2StWDSo F40kaZTwo1I0SCSkeKfatD OzYmYksDW6uB5dCLsqyznk g0owvcdhIrqdv8bace38fZ 76C39bAVvj ZHRoPSIzMCUiIHZhbGlnbj 4kvI2eEz7+BHYgtGL7aFT0 rC5uCUMaOzD6PIudW195Vg RvcCIvPjxj k6grp2vzkFh1MbA0VLCzkw WwfJdwLVI6z9OgPq91H99w IHdpZHRoPSIyMCUiIHZhbG albz5ddS0c Ii8+QYIiuEH6lLQ1hK1zDa KbVzY6FOiiT809QvBrwXCt PjdcT42yO2DznSM+PHRyPj d2TRTjhFdh TJ6jsBEkINzqVn6aDLV5Tx TiMzBjCDlsR2GjFBPpqzdz athcxMC9UTDuMCOfzZ45Ii 9udDogMTBw rZNWaM3ognfby7azlfksWk VlDAGuLHa7HWq2LVDlwQxx HmHwHVI3ToB9XSJ4mOJqzQ 1hbGlnbjog dH2wE8PyDKBhjnylAf15cW 2pHwAjLhO9OXhtRgj+Sk9O DDFeIUSPQp6TEBdlBCtTBm wvdGQ+PHRk TBT4zBmlWEurOKAtbZ5hPK XmY5b9IlQzQxB9ANnmL4Lf JHTjfxoyMg84aJ9oEhOeUl N7NFdcY6Iu quD3FHQrrQHrTYlkDUM6F1 4cc6J3LHBbDWSlOBP3eTK4 oK9qoQrnjbwmtCMsfHlvov VydGljYWwt UQtsI311WGVmsMmzYjWxYe S8StW4SDg3X9NlAbq6AEOp lGeiJZ2xkFToPZnoTa6axC fedRlqIQ8y UPEnlppqMEPorL5gGDLpeY RwsBstXL1oQIHfbwpmy681 CxAuFTK6UWDvrAQvO1QuiR 9yOiAjMDAw JLBaA2UbtBLcCHpzV237WY vfRoJ6MVVtwmMiV3TfJGAe cVulQkO3k1U5Dj45SETIQI FyczwvdGQ+ DBDmCBC2sLhoVEbsVCIphZ 9qIBFcF1w2RtPnNjJ0SBud I3LgYRMkxkfiFs66pI0fEs HrCpF0LQwm D8SdgzW2WMVupUEpMCjnIG T5Q10ca7K9JEYvLJHsKKE3 lPB7oC7eqStmayjcrHUpdK sgdmVydGlj UTqiOXmsB114DORqlHqbCd ZFTUFMRTwvdGQ+PHRkIHN0 ePelAWioFUKudP3mPUHpS2 q9FlKyPzC7 ZFeuY7EwNGZxqfewEn20iJ 4mNzEtItR5WSamN1IbftH0 UUTrqLOlMPbeFDI0Q30kc2 L3OCWnMYVs JYB9dNA6gD6lqQaabippgA VmdDsgdmVydGljYWwtYWxp L100PGUmpLxeYh1ap9Cdvh G0aU0qMG22 AM00N3NjHtplfHOtlPE+PH RhYmxlIHdpZHRoPScxMDAl RfDevDbiIK6yCh3yWEQiXX NvbGxhcHNl CrYbc0rhDRFeVKdgUR2hxT ykN2YgvJX0OTHhd3c6Zh46 W97wN6CjaEF+NSTykAY8sK B6eN3zVsVr FzB9BPkkU601UrCpsCYiXv ydi6dpp4juzAq7GoBmIXFv hjArlHclWDV3a4XyEh02J8 9sIHdpZHRo HUYdMIPoVBMsdOhqat7soL 9wIi8+TJEuoED5hNC2qU2y TtHdCzT3SXyeU367LmGiaQ ZwWmbpT04m H8YqeFN+THRwTwn0KSQfxT kkKV0enPCrCVnvEt6gIZZ5 RkDyLbXcNKjvF0ToUOUqnu ctcmlnaHQ6 UUReDDNkrB69Ww5jmMquIc 9xNWVvLFU9RIMnyXOgZ0Sd jJ7vUeQuTVUqXMMmP6WsqS TfQJrbS185 FFcsKbN4MREvlcMtT9CkMK QbzIyfXoS3w3T1Fy3MsXdo gQZoLW2lZhQuPZp4Z5BuJr t6MLJnjYni YV4xrQPxEWbiPd7maYsshZ zdSH4jCCDjkqfrw055ZpFo v0dbVJEqnEGwMSbhWEF9Y1 2pj6C3MCXj STUbBTM4iGD7cR5opTseiu ogbGVmdDsgdmVydGljYWwt UDurI680PTRleDqgDcJDRb u4U6QpGyj2 OMSfcIwpXC4jxGQhRKkmJp 8ixOnbbQqeKU3gZBZavlbf d646CuGru3efNZCekKXoYM jyAZU1I62l l5U4QMEbRFZqVST0yZH5aB 1hbGlnbjogbGVmdDsgdmVy rSoqQYjiBGweW834DOWebQ pmUa3PTrf3 B7PbPcm8LCPwpLsjRT2huX YnGGdeSf7hiTbknMyeUI1b YGMcngpsp123KmWgj1zvKQ EwcHQgVGlt WRN8F23ao9P3TDYnMGCrCM P3lMH1nD2bdFkvyedefULs dDsgdmVydGljYWwtYWxpZ2 46IHRvcDsn PlBheWVyOjwvdGQ+PC90cj 57M5JcJxzwOnn8QAQvNEH1 hZV8xL9mRHBjKBoqy4D4rH D3P9IwpmKq ci1 (more content not included)... [facility] Consent Formson 12-31-2022 Consent Forms [id number]#1.00 [facility] Discharge Instructionson Discharge Instructions [id number]#1.00 [facility] Outside Recordson 12-31-2022 Outside Records [id number]#1.00 [facility] Provider Orderson 12-31-2022 Provider Orders [id number]#1.00 [facility] Telemetry Stripson Telemetry Strips [id number]#1.0 0[facility] Consultation/Specialist Note on 12-30-2022 Consultation/Specia list Note Patient: CARIN ANDERSEN Age: 67 years Sex: FEMALE : 1955 Associated Diagnoses: None Author: MAGDALENO PITTS Basic Information 1 day s/p LT reverse TSA (DOS 12/29/22) Subjective pt doing well, she notes she is looking forward to going home today, pain is ok at this point, she notes she is still feeling the block at this point. Review of Systems denies nausea Health Status Allergies: Allergic Reactions (All) Moderate Latex- Blister. Percocet- Itching. Vicodin- Itching. Mild Nickel- Rash. Penicillin- Rash. Objective dressing the left shoulder is clean dry and intact, kryo cuff intact, arm sling on, able to make a fist, flex and extend the wrist and has a little flexion and extension of the elbow, nv intact distally Impression and Plan d/c home today, f/U in office 7-10 days s/p surgery [Electronically Signed on: 12/30/2022 08:48 EDT] JUAN DANIELMAGDALENO HANSON [Verified on: 12/30/2022 08:48 EDT] MAGDALENO PITTS [facility] Discharge Noteon 12-30-2022 Discharge Note discharge instructio ns reviewed with patient and daughter, belongings packed, skin wam and dry, foam dressing dry, polar care sent home with patient, denies pain, awaiting wheelchair to private vehicle. [Electronically Signed on: 12/30/2022 15:08 EDT] Ariela Dewitt RN [Verified on: 12/30/2022 15:08 EDT] Ariela Dewitt RN [facility] Discharge Note patient refusing discharge instructions at this time, patient is choosing to wait for daughter to be her for instructions, when daughter arrives will review discharge instructions. [Electronically Signed on: 12/30/2022 13:57 EDT] Ariela Dewitt RN [Verified on: 12/30/2022 13:57 EDT] Ariela Dewitt RN [facility] Inpatient Patient Summaryon 12-30-2022 Inpatient Patient Summary [address] [address] Patient Discharge Instructions Name: CARIN ANDERSEN : 1955 [facility]: [id number] Patient Address: [address] [place] [address] Primary Care Provider: Name: AVE CONTRERAS After you are discharged if you find you have any questions, please, call [phone] ext [phone] to speak to a nurse. The Pharmacy at [facility] is open Thursday through Thursday from 9A to 6P and Thursday and Thursday from 9A to 5P Discharge Diagnosis: Arthritis of left glenohumeral joint Prescription Information: If you have been given a prescription for narcotics, seek immediate medical attention if you have any difficulty breathing or any sudden status changes such as confusion and sleepiness. If you or anyone you know is experiencing suicidal thoughts, mental health, alcohol and/or drug addiction problems; contact the Mental Health & Recovery [facility] 03/11 Crisis Hotline -Text 9FLYZ uk 004599. If you received any narcotics, sedation, or any other medication that causes drowsiness for the next 24 hours, unless otherwise directed: ? Do not drive a car. ? Do not operate machinery such as power tools, lawn mowers, drills, sewing machines, or stoves ? Avoid alcoholic beverages and drugs for allergies, nerves, or sleep ? Do not make important personal or business decisions or sign any legal documents [facility] would like to thank you for allowing us to assist you with your healthcare needs. The following includes patient education materials and information regarding your injury/illness. CARIN ANDERSEN has been given the following list of follow-up instructions, prescriptions, and patient education materials: Follow-up Instructions With: Address: When: Erick Mckeon [address] [place] [address], [address] [place], [place] [id number] Business (1) 01/06/2023 10:45 AM Medications During the course of your visit, your medication list was updated with the most current information. The details of those changes are reflected below: Medications That Were Updated - Follow Below Instructions Other Medications Updated: cranberry (Cranberry oral capsule) 1 tab(s) Oral 2 times a day. Medications to Continue That Have Not Changed Other Medications ascorbic acid (Vitamin C 1000 mg oral tablet) 3 tab(s) Oral every day. aspirin (aspirin 81 mg oral delayed release tablet) 1 tab(s) Oral every day. baclofen (baclofen 10 mg oral tablet) 1 tab(s) Oral every day. biotin (biotin 5000 mcg oral capsule) 1 cap(s) Oral every day. cholecalciferol (Vitamin D3 1000 intl units oral tablet) 1 tab(s) Oral 2 times a day. garlic (Garlic Oil oral capsule) 1 cap(s) Oral 2 times a day. hydroCHLOROthiazide (hydroCHLOROthiazide 25 mg oral tablet) 1 tab(s) Oral every day. liothyronine (liothyronine 5 mcg oral tablet) 1 tab(s) Oral every day. losartan (losartan 25 mg oral tablet) 1 tab(s) Oral every day. magnesium gluconate (magnesium gluconate 250 mg oral tablet) 1 tab(s) Oral every day. metFORMIN (metFORMIN 500 mg oral tablet) 1 tab(s) Oral 2 times a day. metoprolol (metoprolol tartrate 25 mg oral tablet) 1 tab(s) Oral 2 times a day. omega-3 polyunsaturated fatty acids (Fish Oil 1000 mg oral capsule) 1 cap(s) Oral 2 times a day. pantoprazole (pantoprazole 40 mg oral delayed release tablet) 1 tab(s) Oral every day. simvastatin (simvastatin 20 mg oral tablet) 1 tab(s) Oral every day. Template Non-Formulary (beet root) Oral every day. Template Non-Formulary (veggie and fruit tablet) Oral 2 times a day. traMADol (traMADol 50 mg oral tablet) 1 tab(s) Oral Every 12 hours scheduled time as needed as needed for pain. zinc gluconate (zinc (as gluconate) 50 mg oral tablet) 1 tab(s) Oral every day. It is important to always keep an active list of medications available so that you can share with other providers and manage your medications appropriately. As an additional courtesy, we are also providing you with your final active medications list that you can keep with you. ascorbic acid (Vitamin C 1000 mg oral tablet) 3 tab(s) Oral every day. aspirin (aspirin 81 mg oral delayed release tablet) 1 tab(s) Oral every day. baclofen (baclofen 10 mg oral tablet) 1 tab(s) Oral every day. biotin (biotin 5000 mcg oral capsule) 1 cap(s) Oral every day. cholecalciferol (Vitamin D3 1000 intl units oral tablet) 1 tab(s) Oral 2 times a day. cranberry (Cranberry oral capsule) 1 tab(s) Oral 2 times a day. garlic (Garlic Oil oral capsule) 1 cap(s) Oral 2 times a day. hydroCHLOROthiazide (hydroCHLOROthiazide 25 mg oral tablet) 1 tab(s) Oral every day. liothyronine (liothyronine 5 mcg oral tablet) 1 tab(s) Oral every day. losartan (losartan 25 mg oral tablet) 1 tab(s) Oral every day. magnesium gluconate (magnesium gluconate 250 mg oral tablet) 1 tab(s) Oral every day. metFORMIN (metFORMIN 500 mg oral tablet) 1 tab(s) Oral 2 times a da (more content not included)... Normal [facility] Anesthesia Noteon 12-29-2022 Anesthesia Note Patient: CARIN ANDERSEN Age: 67 years Sex: FEMALE : 1955 Associated Diagnoses: None Author: Aramis Kelley MD Postoperative Information Post Operative Note: Operative Day. Anesthetic utilized: General. Health Status Allergies: Allergic Reactions (All) Moderate Latex- Blister. Percocet- Itching. Vicodin- Itching. Mild Nickel- Rash. Penicillin- Rash. Problem list: All Problems Hypertension / SNOMED CT 6477354528 / Confirmed Type 2 diabetes mellitus / SNOMED CT 526712548 / Confirmed Physical Examination Vital Signs (last 24 hrs) Last Charted Heart Rate Monitored L 58 bpm (DEC 29 13:31) Resp Rate 16 br/min (DEC 29 13:31) SBP 114 mmHg (DEC 29 13:31) DBP 68 mmHg (DEC 29 13:31) Review / Management Condition: Stable. Assessment Anesthetic outcome No anesthetic complications noted. Adequate pain relief. awake, no pain. Hydration appears adequate. No Complaint of nausea and vomiting. Plan Transfer/ Discharge: Patient can be discharged from PACU when criteria met. Condition good. [Electronically Signed on: 12/29/2022 13:36 EDT] Aramis Kelley MD [Verified on: 12/29/2022 13:36 EDT] Aramis Kelley MD [facility] Anesthesia Note Patient: CARIN ANDERSEN Age: 67 years Sex: FEMALE : 1955 Associated Diagnoses: None Author: Aramis Kelley MD Preoperative Information Anesthesia history: Patient history: No difficult intubation, No malignant hyperthermia. Family history: No malignant hyperthermia. Review of Systems Constitutional: Negative. Respiratory: Negative, No shortness of breath. Cardiovascular: No chest pain. Neurologic: Alert and oriented X4. Health Status Allergies: Allergic Reactions (All) Moderate Latex- Blister. Percocet- Itching. Vicodin- Itching. Mild Nickel- Rash. Penicillin- Rash. Current medications: Home Medications (20) Active aspirin 81 mg oral delayed release tablet 81 mg = 1 tab(s), PO, Daily baclofen 10 mg oral tablet 10 mg = 1 tab(s), PO, Daily beet root , PO, Daily biotin 5,000 unit(s), PO, Daily Cranberry oral capsule 1 tab(s), PO, BID Fish Oil 1000 mg oral capsule 1,000 mg = 1 cap(s), PO, BID Garlic Oil oral capsule 1 cap(s), PO, BID hydroCHLOROthiazide 25 mg oral tablet 25 mg = 1 tab(s), PO, Daily liothyronine 5 mcg oral tablet 5 mcg = 1 tab(s), PO, Daily losartan 25 mg oral tablet 25 mg = 1 tab(s), PO, Daily magnesium gluconate 250 mg oral tablet 250 mg = 1 tab(s), PO, Daily metFORMIN 500 mg oral tablet 500 mg = 1 tab(s), PO, BID metoprolol tartrate 25 mg oral tablet 25 mg = 1 tab(s), PO, BID pantoprazole 40 mg oral delayed release tablet 40 mg = 1 tab(s), PO, Daily simvastatin 20 mg oral tablet 20 mg = 1 tab(s), PO, Daily traMADol 50 mg oral tablet 50 mg = 1 tab(s), PRN, PO, q12hr veggie and fruit tablet , PO, BID Vitamin C 1000 mg oral tablet 3,000 mg = 3 tab(s), PO, Daily Vitamin D3 1000 intl units oral tablet 25 mcg = 1 tab(s), PO, BID zinc (as gluconate) 50 mg oral tablet 50 mg = 1 tab(s), PO, Daily Problem list: All Problems Hypertension / SNOMED CT 8131908704 / Confirmed Type 2 diabetes mellitus / SNOMED CT 826636860 / Confirmed Histories Family History: Entire family history is negative. Procedure history: Cholecystectomy (48745415). Back (471329648). Comments: 12/03/2022 13:11 Kimberly Soto RN cyst removed Hip arthroplasty (689722561). Arthroscopic repair of rotator cuff. ([id number]). Heel (904873076). Comments: 12/03/2022 13:11 Kimberly Soto RN heel spur Social History Electronic Cigarette/Vaping Assessment Electronic Cigarette Use: Never. Alcohol Assessment Use: Past. Tobacco Assessment Former tobacco user Tobacco Use:. Substance Abuse Assessment Substance use: Never. . Social & Psychosocial Habits Alcohol 12/03/2022 Alcohol Use: Past Substance Use 12/03/2022 Substance use: Never Tobacco 12/03/2022 Smoking tobacco use: Former tobacco user Electronic Cigarette/Vaping 12/03/2022 Electronic Cigarette Use: Never . Physical Examination Vital Signs (last 24 hrs) Last Charted Heart Rate Monitored L 58 bpm (DEC 29 10:40) Resp Rate 14 br/min (DEC 29 10:40) SBP H 149 mmHg (DEC 29 10:40) DBP L 58 mmHg (DEC 29 10:40) Airway: Mallampati classification: II (soft palate, fauces, uvula visible). Temporomandibular joint mobility: Good. Mouth: Adequate opening, Teeth ( unremarkable ). Neck: Supple, Non-tender, Full range of motion, very thick, full neck. Respiratory: Lungs are clear to auscultation. Cardiovascular: Regular rhythm. Neurologic: Alert, Oriented. Review / Management Laboratory Results Plan [place] [employer]esthesiologists (ASA) physical status classification: Class II. Anesthetic Preoperative Plan Anesthesia: General. , Regional (Interscalene Block, for post op pain control per surgeon request). Anesthetic plan, risks, benefits, and alternatives discussed with the patient and/or family. Patient verbalized understanding. Informed consent was given. Consent was signed by the patient. [Electronically Signed on: 12/29/2022 10:46 EDT] Aramis Kelley MD [Verified on: 12/29/2022 10:46 EDT] Aramis Kelley MD [facility] MAGR Intraoperative Recordon 12-29-2022 MAGR Intraoperative Record MAGR Intra-Op Record Summary Primary Physician: Erick Mckeon DO Finalized Date/Time: 12/29/22 13:29:31 Pt. Name: CARIN ANDERSEN/Sex: 1955 FEMALE Med Rec #: [id number] Physician: Erick Mckeon DO Financial #: [id number] Pt. Type: D Room/Bed: [facility] Admit/Disch: 12/29/22 08:33:12 - Institution: Case Times MAGR Entry 1 Patient In Room Time 12/29/22 11:14:00 Out Room Time 12/29/22 13:25:00 Anesthesia Start Time 12/29/22 11:13:00 Stop Time 12/29/22 13:29:00 Surgery Start Time 12/29/22 11:52:00 Stop Time 12/29/22 13:17:00 Last Modified By: Radha Tai RN 12/29/22 13:29:26 Case Attendance MAGR Entry 1 Entry 2 Entry 3 Case Attendee Erick Mckeon Diane RN Kerro, Robert M MD Andrew DO Role Performed Surgeon - Primary Appetizer Packer Anesthesiologist of Record Time In 12/29/22 11:28:00 12/29/22 11:14:00 12/29/22 11:14:00 Time Out 12/29/22 13:05:00 12/29/22 13:25:00 12/29/22 13:25:00 Procedure Arthroplasty Shoulder Arthroplasty Shoulder Arthroplasty Shoulder Total Reverse(Left) Total Reverse(Left) Total Reverse(Left) Last Modified By: Radha Tai RN, Diane RN Kokinda, Diane RN 12/29/22 13:25:19 12/29/22 13:25:19 12/29/22 13:25:19 Entry 4 Entry 5 Entry 6 Case Attendee Montez Villatoro NeelDena CURING PRESS OPERATOR Dafne Maya CST CURING PRESS OPERATOR Role Performed Stage Technician Stage Technician Scrub Personnel Time In 12/29/22 11:14:00 12/29/22 11:14:00 12/29/22 11:14:00 Time Out 12/29/22 13:25:00 12/29/22 13:25:00 12/29/22 13:25:00 Procedure Arthroplasty Shoulder Arthroplasty Shoulder Arthroplasty Shoulder Total Reverse(Left) Total Reverse(Left) Total Reverse(Left) Last Modified By: Radha Tai RN, Diane RN Kokinda, Diane RN 12/29/22 13:25:19 12/29/22 13:25:19 12/29/22 13:25:19 General Comments: IKE WINSLOW AND LORI NORIEGA -ARTHREX REPS Surgical Procedures MAGR Pre-Care Text: A.20 Verifies operative procedure, surgical site, and laterality Im.150 Develops individualized plan of care Entry 1 Procedure Arthroplasty Shoulder Primary Procedure Yes Total Reverse Primary Surgeon Erick Mckeon DO Surgeon Comment LEFT REVERSE TOTAL Start 12/29/22 11:52:00 SHOULDER Stop 12/29/22 13:17:00 Anesthesia Type General Surgical Service Orthopedics Wound Class Clean Technique Details Closure Technique Primary Entire procedure No was performed via laparoscope or robotic assistance Last Modified By: Radha Tai RN 12/29/22 13:25:24 Post-Care Text: O.730 The patient's care is consistent with the individualized perioperative plan of care General Case Data MAGR Pre-Care Text: A.350.1 Classifies surgical wound Entry 1 Case Information OR MAGR OR 05 Case Level Level 5 Wound Class Clean Specialty Orthopedics ASA Class 2 Diagnosis Preop Diagnosis DJD Postop Same As Preop Yes Postop Diagnosis DJD Blunt or No Is the procedure No penetrating injury considered occured prior to Emergent/Urgent? the start of the procedure: Last Modified By: Radha Tai RN 12/29/22 12:03:26 Post-Care Text: O.760 Patient receives consistent and comparable care regardless of the setting Time Out MAGR Entry 1 Time out date/time 12/29/22 11:51:00 All team members Yes have introduced themselves by name and role Surgeon, Yes Surgeon reviews Yes anesthesia, nurse critical or confirm patient, unexpected steps, site, procedure operative duration, anticipated blood loss Anesthesia team Yes Nursing team Yes reviews any reviews sterility patient-specific (including concerns indicator results) and equipment issues/concerns Antibiotic Antibiotic Yes Administration Time 11:13 prophylaxis given within the last 60 minutes Last Modified By: Radha Tai RN 12/29/22 12:03:58 Patient Positioning MAGR Pre-Care Text: A.280 Identifies baseline musculoskeletal status Im.40 Positions the patient Im.80 Applies safety devices Entry 1 Procedure Arthroplasty Shoulder Body Position Beach Chair Total Reverse(Left) Left Arm Position Resting at Side Right Arm Position Resting at Side Left Leg Position Other/see comments Right Leg Position Other/see comments Feet Uncrossed? Yes Press Points Checked Yes Additional PILLOWS USED UNDER Positioning Device Pillow, Safety Strap Information LEGS, PILLOW UNDER CALVES TO KEEP HEELS OFF THE MATRESS, NON-OPERATIVE ARM IN ARM SUPPORT Outcome Met (O.80) Yes Last Modified By: Radha Tai RN 12/29/22 12:04:10 Post-Care Text: E.290 Evaluates musculoskeletal status O.80 Patient is free from signs and symptoms of injury related to positioning Skin Prep MAGR Pre-Care Text: A.30 Verifies allergies Im.270 Performs skin preparation Im.270.1 Implements protective measures to prevent skin and tissue injury due to chemical sources Entry 1 Skin Prep Syntegrity Prep Agents (Im.270) (more content not included)... Normal [facility] MAGR Intraoperative Record MAGR Intra-Op Record Summary Primary Physician: Finalized Date/Time: 12/29/22 11:13:51 Pt. Name: NATHALYHASNELDamir PHILLIPS /Sex: 1955 FEMALE Med Rec #: [id number] Physician: Erick Mckeon DO Financial #: [id number] Pt. Type: D Room/Bed: [facility] Admit/Disch: 12/29/22 08:33:12 - Institution: Case Times MAGR Entry 1 Patient In Room Time 12/29/22 10:25:00 Out Room Time 12/29/22 11:14:00 Anesthesia Start Time 12/29/22 10:26:00 Stop Time 12/29/22 10:37:00 Surgery Start Time 12/29/22 10:30:00 Stop Time 12/29/22 10:37:00 Last Modified By: Mariposa Bullard RN 12/29/22 11:13:42 General Comments: nerve block to left shoulder Case Attendance MAGR Entry 1 Entry 2 Entry 3 Case Attendee Aramis Kelley MD, Lora RN Slauterbeck, Linda RN Role Performed Anesthesiologist of Appetizer Packer Appetizer Packer Record Time In 12/29/22 10:25:00 12/29/22 10:23:00 12/29/22 10:24:00 Time Out 12/29/22 10:37:00 12/29/22 10:40:00 12/29/22 10:46:00 Procedure Interscalene Block(Left) Interscalene Block(Left) Interscalene Block(Left) Last Modified By: Mariposa Bullard RN, Linda RN Slauterbeck, Linda RN 12/29/22 10:44:44 12/29/22 10:44:44 12/29/22 10:44:44 Surgical Procedures MAGR Pre-Care Text: A.20 Verifies operative procedure, surgical site, and laterality Im.150 Develops individualized plan of care Entry 1 Procedure Interscalene Block Primary Procedure Yes Primary Surgeon Aramis Kelley MD Modifiers Left Surgeon Comment SCALENE BLOCK LEFT Start 12/29/22 10:30:00 REVERSE TOTAL SHOULDER Stop 12/29/22 10:37:00 Anesthesia Type Regional Block Surgical Service Anesthesia Wound Class Clean Technique Details Closure Technique N/A Entire procedure No was performed via laparoscope or robotic assistance Last Modified By: Mariposa Bullard RN 12/29/22 10:45:22 Post-Care Text: O.730 The patient's care is consistent with the individualized perioperative plan of care General Case Data MAGR Pre-Care Text: A.350.1 Classifies surgical wound Entry 1 Case Information OR MAGR Proc Room Case Level None Wound Class Clean Specialty Anesthesia ASA Class 2 Diagnosis Preop Diagnosis SCALENE BLOCK PRIOR TO Postop Same As Preop Yes LEFT REVERSE TOTAL SHOULDER Postop Diagnosis SCALENE BLOCK PRIOR TO LEFT REVERSE TOTAL SHOULDER Blunt or No Is the procedure No penetrating injury considered occured prior to Emergent/Urgent? the start of the procedure: Last Modified By: Mariposa Bullard RN 12/29/22 10:46:10 Post-Care Text: O.760 Patient receives consistent and comparable care regardless of the setting Time Out MAGR Entry 1 Time out date/time 12/29/22 10:26:00 All team members Yes have introduced themselves by name and role Surgeon, Yes Surgeon reviews Yes anesthesia, nurse critical or confirm patient, unexpected steps, site, procedure operative duration, anticipated blood loss Anesthesia team Yes Nursing team Yes reviews any reviews sterility patient-specific (including concerns indicator results) and equipment issues/concerns Antibiotic Antibiotic N/A prophylaxis given within the last 60 minutes Is essential Yes imaging displayed? Last Modified By: Mariposa Bullard RN 12/29/22 10:46:47 Patient Positioning MAGR Pre-Care Text: A.280 Identifies baseline musculoskeletal status Im.40 Positions the patient Im.80 Applies safety devices Entry 1 Procedure Interscalene Block(Left) Body Position Supine Left Arm Position Resting at Side Right Arm Position Resting at Side Left Leg Position Extended Right Leg Position Extended Feet Uncrossed? Yes Press Points Checked Yes Outcome Met (O.80) Yes Last Modified By: Mariposa Bullard RN 12/29/22 10:47:14 Post-Care Text: E.290 Evaluates musculoskeletal status O.80 Patient is free from signs and symptoms of injury related to positioning Skin Prep MAGR Pre-Care Text: A.30 Verifies allergies Im.270 Performs skin preparation Im.270.1 Implements protective measures to prevent skin and tissue injury due to chemical sources Entry 1 Skin Prep Syntegrity Prep Agents (Im.270) Chlorhexidine Gluconate Prep By Aramis Kelley MD and Alcohol Prep Area (Im.270) Shoulder, Neck Prep Area Details Left Skin Prep Agent Dry Yes Without Pooling Hair Removal Syntegrity Hair Removal Methods No hair removal performed Outcome Met (O.100) Yes Last Modified By: Mariposa Bullard RN 12/29/22 10:48:06 Post-Care Text: E.10 Evaluates for signs and symptoms of physical injury to skin and tissue O.100 Patient is free from signs and symptoms of chemical injury Departure from OR MAGR Entry 1 Present on Depart Oxygen Via Stretcher Post-op Destination [place] Skin DFO Condition Intact Description Condition Warm Description Report Given To Radha Tai RN Airway Maintenance Patient Status Stable Oxygen in Use? Yes Airway D (more content not included)... [facility] MAGR PACU Recordon MAGR PACU Record MAGR PACU Record Summary Primary Physician: Erick Mckeon DO Finalized Date/Time: 12/29/22 14:30:30 Pt. Name: CARIN ANDERSENO.B./Sex: 1955 FEMALE Med Rec #: [id number] Physician: Erick Mckeon DO Financial #: [id number] Pt. Type: D Room/Bed: [facility] Admit/Disch: 12/29/22 08:33:12 - Institution: PACU Case Times MAGR Entry 1 In PACU I 12/29/22 13:25:00 Discharge from PACU 12/29/22 14:14:00 I Last Modified By: James Rhoades RN 12/29/22 14:30:27 Finalized By: James Rhoades RN Document Signatures Signed By: James Rhoades RN 12/29/22 14:30 [facility] MAGR Preoperative Recordon 0 12-29-2022 MAGR Preoperative Record MAGR Pre-Op Record Summary Primary Physician: Erick Mckeon DO Finalized Date/Time: 12/29/22 14:30:46 Pt. Name: CARIN ANDERSEN /Sex: 1955 FEMALE Med Rec #: [id number] Physician: Erick Mckeon DO Financial #: [id number] Pt. Type: D Room/Bed: [facility] Admit/Disch: 12/29/22 08:33:12 - Institution: Pre-Op Case Times MAGR Pre-Care Text: Patient will be optimally prepared for surgery. Patient is free from s/s of injury. Provide information to patient/family related to plan of care. Verify patient allergies. Confirm identity and verify consent before the operative or invasive procedure. Entry 1 Patient Arrival Time 12/29/22 08:50:00 Preop Departure 12/29/22 11:13:00 Last Modified By: James Rhoades RN 12/29/22 14:30:43 Post-Care Text: Patient is prepared mentally and physically and is ready for surgery. The patient remains free from s/s of injury. Patient/family express understanding of plan of care and participate in decisions affecting his or her perioperrative plan of care. Allergies documented appropriately. Patient identifiers and consent correct. General Comments: pt arrives to [facility] ambulatory. denies CP,cough,cold, COVID like symptoms. pt has diabetes, denies pacemaker/defib, sleep apnea. pt verbalizes understanding of post op anesthesia orders including no driving for 24 hours. Finalized By: James Rhoades RN Document Signatures Signed By: James Rhoades RN 12/29/22 14:30 Normal [facility] Nutrition Noteon 12-29-2022 Nutrition Note Pt admitted for scheduled Lt shoulder surgery. Currently NPO. Pre-op wt 93.4kg w/ no recent previous wts on file. 12/03 pre-op labs reviewed, Na 135L. Pt w/ DM, this am BS at 113mg/dl. Per med hx, Pt does take several OTC vitamins/minerals/supp lements. No chewing/swallowing problems identified. Once diet advanced, recommend 1800CD DM for carb consistency. Other than age at 67y w/ surgery, Pt appears at low nutrition risk. Will monitor wts, intake and labs. Normal [facility] Operative Report - Surgeon/P hosseinmarlene 12-29-2022 Operative Report - Surgeon/Physician Preoperative diagnosis: Primary osteoarthritis left shoulder Postoperative diagnosis: Same Procedure: Reverse total shoulder replacement left Surgeon: Bobbi Mckeon D.O. Anesthesia: General Indications for surgery: Radiographic findings consistent with arthritis progressive pain symptoms with loss of function and failure of conservative treatment Estimated blood loss: 100 Complications: No complications Findings: [id number] and flattening of the humeral head and inferior humeral head osteophyte with absence of articular cartilage in the glenoid and humeral head Procedure summary: After administration of general anesthesia the patient was placed in the beachchair position the left shoulder was prepped with isopropyl alcohol and then with Betadine. The patient was draped out in the usual fashion and a timeout was taken. An anterior incision with the anterior deltopectoral approach was utilized. The cephalic vein was identified and it was mobilized laterally with the deltoid. The pectoralis and conjoined tendon and biceps tendon were all identified. The pectoralis was released about a centimeter and then the biceps was transected at the level of the pectoralis. The capsule and what remained of the subscapularis were reflected medially and the shoulder was dislocated there was gross deformity of the humeral head with advanced arthritic changes. Utilizing a 20 degree version guide a cut was taken. The humerus was opened with a hand-held reamer and then broaching sequentially up to size 7. The size 7 broach was left in place and my attention was turned towards the glenoid. What remained of the labrum was excised the biceps stump was excised. A 24 mm baseplate guide was used to inserted a Steinmann pin. Reaming was performed over this to prepare the glenoid surface and then reaming was performed for the central post to 25 mm. 2 mm offset 24 baseplate with a 25 mm post was impacted into place it was snug and secure. It was stabilized with 2 nonlocking screws and 2 locking screws. Next a 36+4 glenosphere was impacted into place. This was further stabilized with a locking screw centrally that was torqued between 4 and 5. The proximal humerus was prepared with the reamer and then a neutral cup was clicked into place for trial reductions with a +3 mm poly. The shoulder was stable the deltoid was tensioned with good range of motion. The trial components were removed and the broach was removed and a size 7 apex stem with a neutral cup was assembled on the back table and then implanted into the patient. Next 3 mm x 36 liner was clicked into place and the shoulder was reduced. The shoulder was taken through range of motion it was stable. There was no tendency towards dislocation there was good range of motion and the deltoid was tensioned appropriately. The joint was soaked in diluted Betadine and then dried. The subcutaneous fascia was closed with a 2-0 Vicryl then a running 2-0 Vicryl stitch and then a running 3-0 Vicryl subcuticular closure followed by tincture benzoin and Steri-Strips. Sterile dressings were applied. The patient tolerated the surgery without complications. [Electronically Signed on: 12/29/2022 13:39 EDT] Erick Mckeon DO [Verified on: 12/29/2022 13:39 EDT] Erick Mckeon DO Normal [facility] POCT Glucose Levelon 023 Glucose [Mass/Vol] 108 mg/dL Normal 74-118 [facility] Comment on above: Performed By: #### 4 [id number] ####[facility] (DEFAULT)[address] [place] [address] 06959 Glucose [Mass/Vol] 113 mg/dL Normal 74-118 [facility] Comment on above: Performed By: #### 4 [id number] ####[facility] (DEFAULT)[address] [place] [address] 67454 Patient Handouton 12-29-[address] PERRY POST OPERATIVE SHOULDER INSTRUCTIONS SURGEONS WRITTEN INSTRUTCTIONS: 1. If you have been given a cryo cuff after surgery you should use it as much as possible for the first 24-48 hours. After that it is optional. TIP: Many patients prefer to use it a little longer because it helps reduce pain 2. You should wiggle your fingers frequently 3. Change your dressings in 1 day. If steri-strips have been applied DO NOT remove them. When the wound is clean and dry you may leave it open to air but again DO NOT remove any steri-strips that have been applied 4. You may shower in 1 day but do not let the water stream directly strike the wound 5. Do pendulum exercises for at least 10 minutes twice a day 6. If you have any problems or concerns, please call the office at [phone] 7. Follow up as scheduled [facility] Progress Note - Nurseon - Progress Note - Nurse Patient arrives via bed to room from recovery. Drowsy but easily aroused. Vital signs per iview. Oxygen sat 88% while patient dozing so oxygen applied at 2 liters per NC until more awake. Daughter at bedside. Denies pain. [Electronically Signed on: 12/29/2022 15:56 EDT] Netta Henriquez RN [Verified on: 12/29/2022 15:56 EDT] Netta Henriquez RN [facility] Progress Note - Nurseon 12-12 Progress Note - Nurse Pre op phone call, spoke with patient. Confirmed time of arrival for 0600 on 12/29/22. Reviewed pre op instructions. Patient questioned if we got the ECHO results? States that her family doctor Dr. Contreras ([place]) had ordered it for clearance for the upcoming surgery. Informed I was not aware of the ECHO being done but would look into it. Informed that she would only hear back if something was abnormal with the ECHO. Verbalized understanding. [Electronically Signed on: 12/26/2022 09:30 EDT] Maximiliano Collado RN [Verified on: 12/26/2022 09:30 EDT] Maximiliano Collado RN Call made to Dr. Mckeon's office, spoke with Inez. Informed of the above. States she will have Ariela call me back. [Electronically Signed on: 12/26/2022 09:34 EDT] Maximiliano Collado RN from Dr. Mckeon's office called. Stated they are waiting for the ECHO to be read and will hopefully have the clearance letter today or first thing Thursday. Will call and inform patient that they will be coming in at 0830 instead of 0600. [Electronically Signed on: 12/26/2022 10:08 EDT] Maximiliano Collado RN [facility] C Urineon 12-05-2022 C Urine Urine Culture ordere d as a result of parameters set on specific urine dip and urine microsopic results. 30,000 cfu/ml Klebsiella pneumoniae ORGANISM Klepne --- SUSCEPTIBILITY -- ORGANISM ID: 1 ANTIBIOTIC INTERPRETATION LONNY STATUS ORGANISM KlepneKlepne Amik S <=16 Verified Amox/Cla S <=8/4 Verified Amp R >16 Verified Amp/Sul S <=8/4 Verified Azt S 8 Verified Cefaz S <=2 Verified Cefep S <=8 Verified Cefo S <=2 Verified Ceftaz S <=1 Verified Ceftri S <=1 Verified Cefur S <=4 Verified Ceph S <=8 Verified Cipro S <=1 Verified Ertap S <=0.5 Verified Gent S <=2 Verified Imi S <=1 Verified Levo S <=2 Verified Nitro S <=32 Verified Pip/Gerard S <=16 Verified Tetra S <=4 Verified Tobra S <=4 Verified Tri/Sulf S <=2/38 Verified Normal [facility] Comment on above: Performed By: #### 1 [id number] #### [facility] (DEFAULT) [address] [place] [address] Coding Summaryon 12-05-2022 Coding Summary HTMLBase 64 SfztlluaCPr3hCf+PGhlYW Q+KO0IFICxQ58guUOdyM4a R9PIMBsXYadsSQIWBVuSJd TmnvSvKU2qiHYbBNTs IC8+CZ2jOIUzXzduvXErl3 N1yOM0L66gqr5vQDghwPO7 GOYyNrHantenk1knjGq6YE cuNmluOyBt PTShnQ24OZE2oW09Th97gG AtmAJna2rgpYe6NlTgFHLr IBX8yRcvYVarb2XzWLCjK7 8poSRon5B2 TWIgcLuimEMaItZwhNL2pP 2tIPvnolzhn4qradizSax7 oj91rQMue7T0yST3B7Papv S7PZQfwBOv ExorbDWQaW7yrxnvp4rqey jkOfQfAVCoFPj3UOp2BCBs wDzxUxVjDU66URX4WSAxls CgJ5WaQIVn pUonJdN4u7C2Hw3HC8TWRz edC8REHDIUSOyurTA+PC90 tt86A4XpZmawDpj9ATXxVZ C1xRV5gE4n BYFdJQofn7X1eRE9E5Sjdf Reyt2vq0haOLQmJZuyJ50c jQGqh9D5RROdwJD7BGDcoP ndWhDahC13 Oyc+GCKffUnlo4McIaaal3 zon0tpgEe5GiimFXGiaaGd uLtrRAS7g9RvEh1uZOLgpM E3sZE2pO0g RxFuCqD6PZwxI886XgTsqR UsWsftJ30gN6OoiZA+PHRy Wxb7WQNfkAulMS7cD3OtBA RpbmctbGVm xNlxHX8hHRBjcdbuFJWfqH 0sBGYbU5v7RiDnZgP4FRrx W7JaAFYqcmieBe34bK0iKf FvKtM3RFwm D2KppoN4JUPthMRsJFhqGB W2V52oq6R0QWKeNITeCFI0 dDK2eN6rcNhbgysoaMLvgR sgdmVydGlj DKugIIxzB542KEOczKdeVy NvZGluZyBEYXRlOiAgMDgv MjUvMjAyMzwvdGQ+PHRkIH F6rRcaRAQc oJZrXLsoQs3aaWnzsNrsLO 6uAHAwllpxAKLgzV3cFNNj wFGqjOklOM0qWUItusbvf2 90FaRsUWF2 INDqkLNhU7CbdI7aHrIeHG RlWAQnJ9LanTAsTOjxX058 YTxdRnI1MSYbvoSkO9MiDY FsaWduOiB0 d1F1Sa2Br9MfodeuC3XobH JpBcBaCpodIAt8H2VnIjld dHI+NM81EPKeUR10YRt0NC V2sMfwNAkw FJNiJ9JkpO7fNcAxJADyEJ RkOyc+PHRhYmxlIHdpZHRo TKyzEOGkQuDjaSlnXQ1fOm 9yZGVyLWNv cDojhFYkHoTfq5boGRDpVR htAH5dqKpuL7IuaAZ6DUNs u6n8Vw57H03jV8DocSU+PG BagVH2aTQ0 dX9mImBuRrJ9ERsaC755Cg PsoZRyPcxlr1bgq7xaxIx9 NoO6ZLYfxzUfvEllZBO0k4 RuEf87X95a IHdpZHRoPSIxNSUiIHZhbG rfvr8rfJ5yMn3+PGNvbCB3 xMZ4gS8nKdViZbA6ULbsT7 49InRvcCIv Uqlgw2roj6urvEv4AvOmYF MrbeFcySnbRKW8l2SxDv61 H0FxmJarn9OxOjc6ai08wC Qhk5X3gPE2 U2JhZJHevbzhlTMgtGyeBK 4xSVDwocezNFCttL7nZCKv Y0x1PyDuYmE1HEtyD8Eitv Z4HJLneYAv WMBxnIPUwV7roumpp6mnpy lzFyJfZJOiTFc6AOo9PXMp jEzgNaIuHDG0YxQ9SPU7zX NkiZ6czDvy caunqP2qBkc+HQZ5iKAhuJ GUIA6aIdppnEA+PHRkIHN0 yVnnGMxyMETwtL1aBDLhO6 x9GlLeSoD5 LOsgD9PiwsO7CCOzuFNmFK NqqQPJcM6evrwss9mafaey TzVpWEUgJKk1NBy8RPUviO duOiBsZWZ0 MlI4ACR8oJQifC0aoUswfl lmpZ1jObh+QmlydGggRGF0 ALp6Q8TzUta4KFKqoLwuKZ 0ncGFkZGlu Us1akRyzrUhzMU1bGWMyjg hmw736CdFul3ziCNYxzFEk ONklXAA4M02mf8I0IYWdSG VtBUT1cNX8 vZ6zeLgypifyiXBwzWtvst LumWveKWrwVHlgY743BJOh fMecByMdAJz3U9KhEzz6GH UlxDspXI9t xAJaVImnBp3trOshqOrsEL 9oDCAndjzra949PuFkn6ld FNIjeROmIYevHTH4T73sy5 K9CPNyXEGx JHH2sKG9lE7ywRnhsxiauV VmdDsgdmVydGljYWwtYWxp M366PKUkwUisUbHzcJh2R2 JkUnv8FRBt sJluQN6xpTWfDWodGh8mrK rbuSeaHT6fXWCksppcp356 NpBfc2fjHBQdwXEyVQdwJF T8Q79le8J7 PDMpVVDgJMZ9cBI2jB3ezZ lnbjogbGVmdDsgdmVydGlj SRucUKorO184FPUwpXwxNg BhdGllbnQg CYqgXMc7F4GeEwabmIW+PC 56KQHxAQ75gNUlgEXxm7br rCz1DkXeTJXuUCZ3nXpiYV ofx6ZqVKVq Y67xfGTyc0S6MLUfuUjudR VzSuDtxUP2wM3fXCbkckek j6zpfhxbSxahw8vlom50fQ 93T16xTUwd ZHRoPSIzMCUiIHZhbGlnbj 6vqT8nWl5+TXHguBK3kGT7 jL5hKNGfQwC3VHzaB224Fu RvcCIvPjxj z4xib6utbOs0IvB8QPEomd CfbSreMJK7u6MaRt03I90w IHdpZHRoPSIyMCUiIHZhbG zxae3fjV8o Ii8+LYVqlNK3yBU0mQ7oPx OvRaK4LOmwB577UzCauZDg WoedN20wY8JwaSS+PHRyPj v1HNFadBfh WH6vbBOrSEadEf2dIHB4Vr LdMgXtCGsoK6VaCCThmlzo sxpynKE0LSNsCCAnpE41Ry 9udDogMTBw zPTQcU2icsdkx3txavckQb MrPSLrQIf8ELo1RXIvoMds VbDrVCJ4DgY1TPX5uELsnC 1hbGlnbjog bD8aW0JjYLAuaapiIl54aT 3aDfZtDtS1YPswAii+Sk9O SDMxGHAFPh9TQTixOBtILe wvdGQ+PHRk RSI4vWvnMXgdWKWmdR9dBJ CfO4g7KgDwItW2SFavM4Fw VKMbozrmZx84iT3gNyUyNl J6YPkgP6Aa woH9SVHumIMnSHcxSAM8N9 1va7L5NNVqTGWrPTF6xBU7 dH9fuNmoiqqxqRPqnHpthv VydGljYWwt SCdzD788HDZeqFsqPbXhZs A5DzQ6XAa4V5RoBns9CDYs jSluGA3xtUOsLSteVp7tmT ftmCmnUW1s FRDfqnbmVRNbpQ7lPRVjuJ WdxOsqNW2tFOAspxjbn017 PcQmCMC9ELXsjUQxD6IuyZ 9yOiAjMDAw PJMiJ3MpoNTvJTgcS611GG zeLoS2YJXbpjVwS1CoACWa gGnlTpW1s9R2Hw09MIIVYZ FyczwvdGQ+ GGRsBJJ4gQqqZAkvLESvxB 5tGFOkO0n1KoPnFgE9CLbi B3FlDXJlwsofRh96kE2bVm MgQnB4GPrd P9CylvK3RXSusKRfRMgwVC Q8S10wy1S4TRJkYCAuZQR3 fHV9zR5roDummcmleDTweC sgdmVydGlj KVcxTUreX686WQBqgAggOw ZFTUFMRTwvdGQ+PHRkIHN0 cLxwSAxiFBFukZ5jSCJoR1 m1FqZpNqA3 WUdxH8GfWNMlrevmKy86bP 8oRxDsNvK2RZmcV5AzncQ2 PZJpuODaQPzvPTR0D88hd6 Q4AXSpSHMz MOI4wSA1yT0otUwceotbaW VmdDsgdmVydGljYWwtYWxp C148FQYmzYokHy8WUH81ZZ 37H6FlZryk dGFibGU+PHRhYmxlIHdpZH MoGTeoNAOnIcNljNtmFV1s As2kVIJkKSRvvAaawTTfMm Trc6ihTWUu BVubQI0xwDavK5ZzdSR7YX Chj0d1Fy20D89hZ4QlyRJ+ RLIsdUO9gOJ7xH3qUvBjLq D0EWxdF920 XcJokWDyUqmyj9wvy2lamS h7WnVlAQDnxlVhhEfmHMC9 m5NmQi53I02zORjzERSoFV IyMCUiIHZh nUllre9qcO4rAy9+PGNvbC V4tYL2uS9eNnHeEcS2LJxl I819PcSrvTKdNpgqK69cA9 JvdXA+PHRy Evw8DATpnGstJC3mkCIlKS seTb3xBPG6YuIpUgEiSVta X4TaLLUhqnhpbwxwaLI2IR PuUXHdoS75 Ll3rrWfxOp9qJUQmPNN7RK VooUFvU6CkaQ0tBrVeJNLk QPJlT3FgzHAgMIlhL020FU piDpD5VCIi sfEwJ0KhWMNfqUjiWhY9g0 B4Yd4RgMpyvQPcUA7vKdWv JNk6K2IqTrw3NLHbxPchPS 0ncGFkZGlu Ic5xlBaghIjuUC9sNPTkps xqj588NpVqn4qvSHNkjCXx UFvmDGW4A16bf6K5CSTdDS IzMQA7uBH6 pA7dpOqhhrkydIEdeJpmyu GelMbgVNtySUvdG565KEAg hCsnVuMGGoq4M6HdPti5OB UrpSmaJX3m kIAcOPubOn2ttErgmOkkRM 6jHOWztudje515LfLiw8ml VUGahFNuKQubXCQ8Q22zm0 Q7ZSYrRYMu NUE4vDI3fC0lfCczgejtzV VmdDsgdmVydGljYWwtYWxp T433GIUyjCzlOf7XLay1I9 HhBiq2TPCu nFknKD0clHPvYAznXv0jmQ cppEgkCR2nOVDfnsaci452 HfNhz6xzJYCrwIRwZLntWL Q5Q12wz5B5 WIYtDYNwOWK8lMF0xW9ugS lnbjogbGVmdDsgdmVydGlj NIuaYRymV607DYPfkJjqQx BheWVyOjwv dGQ+FW14ww40D6JcXtovIs n8HKPoOMZ3aVP6eX9aYZXn ZMbbr2E6fUR9T7PulzPaii 2fv9fbAWCw ZTo (more content not included)... Normal [facility] C MRSA Screenon 12-04-2022 C MRSA Screen Negative [facility] Comment on above: Performed By: #### 1 [id number] ####[facility] (DEFAULT)[address] [place] [address] 20969 Provider Orderson 12-04-2022 Provider Orders [id number] TGTIFF Normal [facility] .Auto Diff 1on 12-03-2022 Auto Costilla % 10 % Normal 12 [facility] Comment on above: Performed By: #### 1 [id number], [id number], [id number] ####[facility] (DEFAULT)[address] [place] [address] 95731 Baso Abs# 0.1 x10 Normal 0.0-0.2 [facility] Comment on above: Performed By: #### 1 [id number], [id number], [id number] ####[facility] (DEFAULT)[address] [place] [address] 17430 Basophils/100 WBC (Bld) 0.5 % Normal 0.2-2.0 [facility] Comment on above: Performed By: #### 1 [id number], [id number], [id number] ####[facility] (DEFAULT)[address] [place] [address] 14924 Eos Abs# 0.1 x10 Normal 0.0-0.4 [facility] Comment on above: Performed By: #### 1 [id number], [id number], [id number] ####[facility] (DEFAULT)[address] [place] [address] 98898 Eosinophils/100 WBC (Bld) 1.1 % Normal 0.9-4.0 [facility] Comment on above: Performed By: #### 1 [id number], [id number], [id number] ####[facility] (DEFAULT)[address] [place] [address] 01194 Lymph Abs# 2.1 x10 Normal 1.3-2.9 [facility] Comment on above: Performed By: #### 1 [id number], [id number], [id number] ####[facility] (DEFAULT)[address] [place] [address] 36027 Lymphocytes/100 WBC (Bld) 18 % Normal 14-48 [facility] Comment on above: Performed By: #### 1 [id number], [id number], [id number] ####[facility] (DEFAULT)[address] [place] [address] Costilla Abs# 1.2 x10 High 0.0-0.8 [facility] Comment on above: Performed By: #### 1 [id number], [id number], [id number] ####[facility] (DEFAULT)[address] [place] [address] Neut Abs# 8.6 x10 Normal 1.5-9.2 [facility] Comment on above: Performed By: #### 1 [id number], [id number], [id number] ####[facility] (DEFAULT)[address] [place] [address] 86962 Neutrophils/100 WBC (Bld) 71 % Normal 44-88 [facility] Comment on above: Performed By: #### 1 [id number], [id number], [id number] ####[facility] (DEFAULT)[address] [place] [address] 27554 BMP Standardon 12-03-2022 eGFR Non AA 49 mL/min/1.73m2 Invalid Interpretation Code [facility] Comment on above: Performed By: #### 1 [id number], [id number], [id number] ####[facility] (DEFAULT)[address] [place] [address] 37956 eGFR AA 59 mL/min/1.73m2 Invalid Interpretation Code [facility] Comment on above: Performed By: #### 1 [id number], [id number], [id number] ####[facility] (DEFAULT)[address] [place] [address] 43902 Anion gap [Moles/Vol] 12.9 mmol/L Normal 5.0-19.0 [facility] Comment on above: Performed By: #### 1 [id number], [id number], [id number] ####[facility] (DEFAULT)[address] [place] [address] 66562 Calcium [Mass/Vol] 9.2 mg/dL Normal 8.9-10.3 [facility] Comment on above: Performed By: #### 1 [id number], [id number], [id number] ####[facility] (DEFAULT)[address] [place] [address] 60782 Chloride [Moles/Vol] 98 mmol/L Low 101-111 [facility] Comment on above: Performed By: #### 1 [id number], [id number], [id number] ####[facility] (DEFAULT)[address] [place] [address] 59919 CO2 [Moles/Vol] 28 mmol/L Normal 21-32 [facility] Comment on above: Performed By: #### 1 [id number], [id number], [id number] ####[facility] (DEFAULT)[address] [place] [address] 76440 Creatinine [Mass/Vol] 1.12 mg/dL Normal 0.60-1.30 [facility] Comment on above: Performed By: #### 1 [id number], [id number], [id number] ####[facility] (DEFAULT)[address] [place] [address] 00175 Glucose [Mass/Vol] 110.0 mg/dL Normal 74.0-118.0 [facility] Comment on above: Performed By: #### 1 [id number], [id number], [id number] ####[facility] (DEFAULT)[address] [place] [address] 68449 Osmolality 273 mOsm/L Invalid Interpretation Code [facility] Comment on above: Performed By: #### 1 [id number], [id number], [id number] ####[facility] (DEFAULT)[address] [place] [address] 89420 Potassium [Moles/Vol] 3.9 mmol/L Normal 3.6-5.1 [facility] Comment on above: Performed By: #### 1 [id number], [id number], [id number] ####[facility] (DEFAULT)[address] [place] [address] 21132 Sodium [Moles/Vol] 135.0 mmol/L Low 136.0-144.0 [facility] Comment on above: Performed By: #### 1 [id number], [id number], [id number] ####[facility] (DEFAULT)[address] [place] [address] 01177 Urea nitrogen [Mass/Vol] 20 mg/dL Normal 8-26 [facility] Comment on above: Performed By: #### 1 [id number], [id number], [id number] ####[facility] (DEFAULT)[address] [place] [address] 60947 Urea nitrogen/Creatinine [Mass ratio] 17.8 mg/mg High 4.6-16.2 [facility] Comment on above: Performed By: #### 1 [id number], [id number], [id number] ####[facility] (DEFAULT)[address] [place] [address] 37887 CBC w/ Auto Diffon 3 Erythrocyte distribution width (RBC) [Ratio] 12.7 % Normal 11.5-15.0 [facility] Comment on above: Performed By: #### 1 [id number], [id number], [id number] ####[facility] (DEFAULT)[address] [place] [address] 75757 Hematocrit (Bld) [Volume fraction] 38.4 % Normal 33.7-40.4 [facility] Comment on above: Performed By: #### 1 [id number], [id number], [id number] ####[facility] (DEFAULT)[address] [place] [address] 33558 Hemoglobin (Bld) [Mass/Vol] 12.9 g/dL Normal 11.3-15.9 [facility] Comment on above: Performed By: #### 1 [id number], [id number], [id number] ####[facility] (DEFAULT)[address] [place] [address] 73789 Man Diff? Auto Invalid Interpretation Code [facility] Comment on above: Performed By: #### 1 [id number], [id number], [id number] ####[facility] (DEFAULT)[address] [place] [address] 81145 MCH (RBC) [Entitic mass] 31 pg Normal 24-34 [facility] Comment on above: Performed By: #### 1 [id number], [id number], [id number] ####[facility] (DEFAULT)[address] [place] [address] 53841 MCHC (RBC) [Mass/Vol] 34 g/dL Normal 26-37 [facility] Comment on above: Performed By: #### 1 [id number], [id number], [id number] ####[facility] (DEFAULT)[address] [place] [address] 97301 MCV (RBC) [Entitic vol] 92 fL Normal 81-100 [facility] Comment on above: Performed By: #### 1 [id number], [id number], [id number] ####[facility] (DEFAULT)[address] [place] [address] 23852 Platelet 403 x10 Normal 138-427 [facility] Comment on above: Performed By: #### 1 [id number], [id number], [id number] ####[facility] (DEFAULT)[address] [place] [address] 89922 Platelet mean volume (Bld) [Entitic vol] 8.4 fL Normal 6.3-10.2 [facility] Comment on above: Performed By: #### 1 [id number], [id number], [id number] ####[facility] (DEFAULT)[address] [place] [address] RBC 4.18 x10 Normal 3.70-5.30 [facility] Comment on above: Performed By: #### 1 [id number], [id number], [id number] ####[facility] (DEFAULT)[address] [place] [address] WBC 12.1 x10 High 3.5-10.5 [facility] Comment on above: Performed By: #### 1 [id number], [id number], [id number] ####[facility] (DEFAULT)[address] [place] [address] UA Oovxk3co 12-03-2022 UA Bacteria 1+ Normal [facility] Comment on above: Order Comment: Urina lysis Microscopic order added on by Discern Expert Rules system. Performed By: #### 1 [id number], [id number], [id number] #### [facility] (DEFAULT) [address] [place] [address] UA Gran Cast 0-5 [facility] Comment on above: Order Comment: Urina lysis Microscopic order added on by Discern Expert Rules system. Performed By: #### 1 [id number], [id number], [id number] #### [facility] (DEFAULT) [address] [place] [address] UA Hyal Cast 0-5 Normal [facility] Comment on above: Order Comment: Urina lysis Microscopic order added on by Discern Expert Rules system. Performed By: #### 1 [id number], [id number], [id number] #### [facility] (DEFAULT) [address] [place] [address] UA Mucous 1+ Normal [facility] Comment on above: Order Comment: Urina lysis Microscopic order added on by Discern Expert Rules system. Performed By: #### 1 [id number], [id number] #### [facility] (DEFAULT) [address] [place] [address] UA RBC 5-10 [facility] Comment on above: Order Comment: Urina lysis Microscopic order added on by Discern Expert Rules system. Performed By: #### 1 [id number], [id number], [id number] #### [facility] (DEFAULT) [address] [place] [address] UA Squam Epi Few [facility] Comment on above: Order Comment: Urina lysis Microscopic order added on by Discern Expert Rules system. Performed By: #### 1 [id number], [id number], [id number] #### [facility] (DEFAULT) [address] [place] [address]56 UA WBC 60-70 [facility] Comment on above: Order Comment: Urina lysis Microscopic order added on by Kingmaker Expert Rules system. Performed By: #### 1 [id number], [id number], [id number] #### [facility] (DEFAULT) [address] [place] [address] UA w Culture if Ind Standard on 12-03-2022 Breakpoint UA [facility] Comment on above: Performed By: #### 1 [id number], [id number], [id number] #### [facility] (DEFAULT) [address] [place] [address] Color (U) Yellow [facility] Comment on above: Performed By: #### 1 [id number], [id number], [id number] #### [facility] (DEFAULT) [address] [place] [address] Culture? Indicated Invalid Interpretation Code [facility] Comment on above: Result Comment: Resu lt created by rule GL_MAGR_ADD_UA_CULT Result created by rule GL_MAGR_ADD_UA_CULT Result created by rule GL_MAGR_ADD_UA_CULT1 Result created by rule GL_MAGR_ADD_UA_CULT Performed By: #### 1 [id number], [id number], [id number] #### [facility] (DEFAULT) [address] [place] [address]161 Glucose (U) [Mass/Vol] Negative [facility] Comment on above: Performed By: #### 1 [id number], [id number], [id number] #### [facility] (DEFAULT) [address] [place] [address]11 Ketones Ql (U) Negative Normal [facility] Comment on above: Performed By: #### 1 [id number], [id number], [id number] #### [facility] (DEFAULT) [address] [place] [address] Micro? Indicated Invalid Interpretation Code [facility] Comment on above: Result Comment: Resu lt created by rule GL_MAGR_ADD_UA_MICRO Performed By: #### 1 [id number], [id number], [id number] #### [facility] (DEFAULT) [address] [place] [address]4722 UA Bilirubin Negative Normal [facility] Comment on above: Performed By: #### 1 [id number], [id number], [id number] #### [facility] (DEFAULT) [address] [place] [address]4533 UA Blood TRACE Abnormal NEGATIVE [facility] Comment on above: Performed By: #### 1 [id number], [id number], [id number] #### [facility] (DEFAULT) [address] [place] [address] UA Clarity CLOUDY Abnormal CLEAR [facility] Comment on above: Performed By: #### 1 [id number], [id number], [id number] #### [facility] (DEFAULT) [address] [place] [address]3448 UA Leuk Est LARGE Abnormal NEGATIVE [facility] Comment on above: Performed By: #### 1 [id number], [id number], [id number] #### [facility] (DEFAULT) [address] [place] [address] UA Nitrite Negative Normal NEGATIVE [facility] Comment on above: Performed By: #### 1 [id number], [id number], [id number] #### [facility] (DEFAULT) [address] [place] [address]657 UA pH 6.0 Normal 5-8 [facility] Comment on above: Performed By: #### 1 [id number], [id number], [id number] #### [facility] (DEFAULT) [address] [place] [address] UA Protein Negative Normal NEGATIVE [facility] Comment on above: Performed By: #### 1 [id number], [id number], [id number] #### [facility] (DEFAULT) [address] [place] [id number] UA Spec Grav 1.025 Normal 1.001-1.035 [facility] Comment on above: Performed By: #### 1 [id number], [id number] #### [facility] (DEFAULT) [address] [place] [id number] UA Urobilinogen 1.0 mg/dL Normal 0.2-1.0 [facility] Comment on above: Performed By: #### 1 [id number] #### [facility] (DEFAULT) [address] [place] [id number] Urine Source Clean Catch Normal [facility] Comment on above: Performed By: #### 1 [id number] #### [facility] (DEFAULT) [address] [place] [id number] CBC AUTO DIFFon 05-29-2022 BASO # 0.0 103/ul Normal 0.0-0.1 [facility] Comment on above: Performed By: #### C BC #### [facility] [address] [place] [address] Dr. Abdirashid Page Basophils/100 WBC (Bld) 0.3 % Normal 0.2-2.0 [facility] Comment on above: Performed By: #### C BC #### [facility] [address] [place] [address] Dr. Abdirashid Page EO # 0.1 103/ul Normal 0.0-0.7 [facility] Comment on above: Performed By: #### C BC #### [facility] [address] [place] [address] Dr. Abdirashid Page Eosinophils/100 WBC (Bld) 0.5 % Critically low 0.9-7.0 [facility] Comment on above: Performed By: #### C BC #### [facility] [address] [place] [address] Dr. Abdirashid Page Erythrocyte distribution width (RBC) [Ratio] 12.7 % Normal 11.0-15.0 [facility] Comment on above: Performed By: #### C BC #### [facility] [address] [place] [address] Dr. Abdirashid Page Hematocrit (Bld) [Volume fraction] 36.0 % Normal 36.0-48.0 [facility] Comment on above: Performed By: #### C BC #### [facility] [address] [place] [address] Dr. Abdirashid Page Hemoglobin (Bld) [Mass/Vol] 12.0 g/dL Normal 12.0-16.0 [facility] Comment on above: Performed By: #### C BC #### [facility] [address] [place] [address] Dr. Abdirashid Page IG # 0.05 10e3/ul Critically high 0.00-0.03 [facility] Comment on above: Performed By: #### C BC #### [facility] [address] [place] [address] Dr. Abdirashid Page IG % 0.4 % Normal 0.0-0.5 [facility] Comment on above: Performed By: #### C BC #### [facility] [address] [place] [address] Dr. Abdirashid Page LYMPH # 1.5 103/ul Normal 1.2-3.8 [facility] Comment on above: Performed By: #### C BC #### [facility] [address] [place] [address] Dr. Abdirashid Page Lymphocytes/100 WBC (Bld) 11.8 % Critically low 20.5-60.0 [facility] Comment on above: Performed By: #### C BC #### [facility] [address] [place] [address] Dr. Abdirashid Page MANUAL DIFF REQ NO Normal [facility] Comment on above: Performed By: #### C BC #### [facility] [address] [address] [address] Abdirashid Page MCH (RBC) [Entitic mass] 31.7 pg Normal 26.7-34.0 [facility] Comment on above: Performed By: #### C BC #### [facility] [address] [address] [address] Abdirashid Page MCHC (RBC) [Mass/Vol] 33.3 g/dL Normal 29.9-35.2 [facility] Comment on above: Performed By: #### C BC #### [facility] [address] [address] [address] Abdirashid Page MCV (RBC) [Entitic vol] 95.2 fL Normal 81.0-99.0 [facility] Comment on above: Performed By: #### C BC #### [facility] [address] [place] [address] Dr. Abdirashid Page MONO # 1.1 103/ul Critically high 0.3-0.8 [facility] Comment on above: Performed By: #### C BC #### [facility] [address] [address] [address] Abdirashid Page Monocytes/100 WBC (Bld) 8.2 % Normal 1.7-12.0 [facility] Comment on above: Performed By: #### C BC #### [facility] [address] [address] [address] Abdirashid Page NEUT # 10.2 103/ul Critically high 1.4-6.5 [facility] Comment on above: Performed By: #### C BC #### [facility] [address] [address] [address] Abdirashid Page Neutrophils/100 WBC (Bld) 78.8 % Critically high 43.0-75.0 [facility] Comment on above: Performed By: #### C BC #### [facility] [address] [address] [address] Abdirashid Page Platelet mean volume (Bld) [Entitic vol] 9.3 fL Critically low 9.5-13.5 [facility] Comment on above: Performed By: #### C BC #### [facility] [address] [place], [place] [address] Dr. Abdirashid Page PLT 435 103/ul Normal 150-450 [facility] Comment on above: Performed By: #### C BC #### [facility] [address] [place], [place] [address] Dr. Abdirashid Page RBC 3.78 106/ul Critically low 4.20-5.40 [facility] Comment on above: Performed By: #### C BC #### [facility] [address] [place], [place] [address] Dr. Abdirashid Page WBC 13.0 103/ul Critically high 4.0-11.[address] [facility] Comment on above: Performed By: #### C BC #### [facility] [address] [place] [address] HEAD WO CONon 05-29-2022 CT HEAD WO CON EXAMINATION: CT HEAD WO CON HISTORY: Syncope COMPARISON: No relevant comparison available. TECHNIQUE: Axial CT images were obtained without IV contrast. Dose reduction techniques were achieved by using automated exposure control and/or adjustment of mA and/or kV according to patient size and/or use of iterative reconstruction technique. FINDINGS: BRAIN: No edema, hemorrhage, mass, acute infarction, or inappropriate atrophy. CSF SPACES: No hydrocephalus, subarachnoid hemorrhage, or mass. Appropriate for age. SKULL: No fracture, mass, or other significant visible lesion. SINUSES: No significant mucosal thickening or fluid on the limited views. ORBITS: No appreciable abnormality on the limited views. OTHER: Empty pituitary fossa. IMPRESSION: 1. No intracranial hemorrhage. Normal CT appearance of brain. 2. 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 3. No fracture of the calvarium or scalp hematoma. Electronically authenticated by: BANDAR BILL Date: 2022-05-29 15:30 Normal [facility] CULTURE URINEon 05-29-2022 CULTURE URINE Culture Observations : LIGHT GROWTH OF MIXED GENITAL MADELEINE. NO POTENTIAL PATHOGENS SEEN. Normal [facility] Comment on above: Performed By: #### C MP #### [facility] [address] [place] [address] Dr. Abdirashid Page ER URINE PROFILEon 3 Bilirubin Ql (U) Negative Normal NEGATIVE [facility] Comment on above: Performed By: #### U MICRO, ERUR #### [facility] [address] [address] [address] Abdirashid Page Clarity (U) CLEAR Normal CLEAR [facility] Comment on above: Performed By: #### U MICRO, ERUR #### [facility] [address] [address] [address] Abdirashid Page Color (U) YELLOW Normal YELLOW [facility] Comment on above: Performed By: #### U MICRO, ERUR #### [facility] [address] [address] [address] Abdirashid Page ERUAHD A micrscopic examination will be performed if indicated. Normal [facility] Comment on above: Performed By: #### U MICRO, ERUR #### [facility] [address] [address] [address] Abdirashid Page Glucose Ql (U) 250 mg/dl Abnormal NEGATIVE [facility] Comment on above: Performed By: #### U MICRO, ERUR #### [facility] [address] [address] [address] Abdirashid Page Hemoglobin Ql (U) Negative Normal NEGATIVE [facility] Comment on above: Performed By: #### U MICRO, ERUR #### [facility] [address] [place] [address] Dr. Abdirashid Page Ketones Ql (U) Negative Normal NEGATIVE [facility] Comment on above: Performed By: #### U MICRO, ERUR #### [facility] [address] [address] [address] Abdirashid Page LEUKOCYTES MODERATE Abnormal NEGATIVE [facility] Comment on above: Performed By: #### U MICRO, ERUR #### [facility] [address] [address] [address] Abdirashid Page Nitrite Ql (U) Negative Normal NEGATIVE [facility] Comment on above: Performed By: #### U MICRO, ERUR #### [facility] [address] [address] [address] Abdirashid Page pH (U) 5.5 [pH] Normal 5-9 [facility] Comment on above: Performed By: #### U MICRO, ERUR #### [facility] [address] [place] [address] Dr. Abdirashid Paeg SPEC GRAVITY 1.025 Normal 1.005-<=1.025 [facility] Comment on above: Performed By: #### U MICRO, ERUR #### [facility] [address] [place] [address] Dr. Abdirashid Page UA PROTEIN Negative Normal NEGATIVE/ TRACE [facility] Comment on above: Performed By: #### U MICRO, ERUR #### [facility] [address] [place] [address] Dr. Abdirashid Page UR MICRO IND INDICATED Normal [facility] Comment on above: Performed By: #### U MICRO, ERUR #### [facility] [address] [place] [address] Dr. Abdirashid Page Urobilinogen Qn (U) 0.2 {Mary Ann'U}/dL Normal 0.2 - 1. 0 [facility] Comment on above: Performed By: #### U MICRO, ERUR #### [facility] [address] [place] [address] Dr. Abdirashid Page POINT OF CARE GLUCOSEon 05-14 Glucose [Mass/Vol] 142 mg/dL Critically high 74-106 [facility] Comment on above: Performed By: #### C BC #### [facility] [address] [place] [address] Dr. Abdirashid Page PROF 14(COMP METB)on 023 Albumin [Mass/Vol] 3.6 g/dL Normal 3.4-5.0 [facility] Comment on above: Performed By: #### C ETHEL HSTROPN #### [facility] [address] [place] [address] Dr. Abdirashid Page Albumin/Globulin [Mass ratio] 1.2 {ratio} Normal [facility] Comment on above: Performed By: #### C ETHEL HSTROPN #### [facility] [address] [address] [address] Abdirashid Page ALP [Catalytic activity/Vol] 77 U/L Normal 46-116 [facility] Comment on above: Performed By: #### C MP, HSTROPN #### [facility] [address] [address] [address] Abdirashid Page ALT [Catalytic activity/Vol] 39 U/L Normal 14-59 [facility] Comment on above: Performed By: #### C MP, HSTROPN #### [facility] [address] [place] [address] Dr. Abdirashid Page Anion gap [Moles/Vol] 13.2 mmol/L Normal [facility] Comment on above: Performed By: #### C ETHEL, HSTROPN #### [facility] [address] [place] [address] Dr. Abdirashid Page AST [Catalytic activity/Vol] 20 U/L Normal 15-37 [facility] Comment on above: Performed By: #### C ETHEL, HSTROPN #### [facility] [address] [place] [address] Dr. Abdirashid Page Bilirubin [Mass/Vol] 0.4 mg/dL Normal 0.2-1.0 [facility] Comment on above: Performed By: #### C ETHEL, HSTROPN #### [facility] [address] [place] [address] Dr. Abdirashid Page Calcium [Mass/Vol] 9.2 mg/dL Normal 8.5-10.1 [facility] Comment on above: Performed By: #### C MP, HSTROPN #### [facility] [address] [place] [address] Dr. Abdirashid Page Chloride [Moles/Vol] 98 mmol/L Normal 98-107 [facility] Comment on above: Performed By: #### C MP, HSTROPN #### [facility] [address] [place] [address] Dr. Abdirashid Page CO2 [Moles/Vol] 30.3 mmol/L Normal 21.0-32.[address] [facility] Comment on above: Performed By: #### C MP, HSTROPN #### [facility] [address] [address] [address] Abdirashid Page Creatinine [Mass/Vol] 1.58 mg/dL Critically high 0.55-1.02 [facility] Comment on above: Performed By: #### C MP, HSTROPN #### [facility] [address] [address] [address] Abdirashid Page EGFR-AF WELSH 40 mL/min/1.73m2 Critically low >=60 [facility] Comment on above: Performed By: #### C MP, HSTROPN #### [facility] [address] [place] [address] Dr. Abdirashid Page EGFR-NON AF WELSH 33 mL/min/1.73m2 Critically low >=60 [facility] Comment on above: Performed By: #### C MP, HSTROPN #### [facility] [address] [address] [address] Abdirashid Page Globulin (S) [Mass/Vol] 2.9 g/dL Normal [facility] Comment on above: Performed By: #### C MP, HSTROPN #### [facility] [address] [place] [address] Dr. Abdirashid Page Glucose [Mass/Vol] 156 mg/dL Critically high 74-106 [facility] Comment on above: Performed By: #### C MP, HSTROPN #### [facility] [address] [address] [address] Abdirashid Page Potassium [Moles/Vol] 3.5 mmol/L Normal 3.5-5.1 [facility] Comment on above: Performed By: #### C MP, HSTROPN #### [facility] [address] [place] [address] Dr. Abdirashid Page Protein [Mass/Vol] 6.5 g/dL Normal 6.4-8.2 [facility] Comment on above: Performed By: #### C MP, HSTROPN #### [facility] [address] [place] [address] Dr. Abdirashid Page Sodium [Moles/Vol] 138 mmol/L Normal 136-145 [facility] Comment on above: Performed By: #### C MP, HSTROPN #### [facility] [address] [place] [address] Dr. Abdirashid Page Urea nitrogen [Mass/Vol] 26.0 mg/dL Critically high 7.0-18.0 [facility] Comment on above: Performed By: #### C MP, HSTROPN #### [facility] [address] [place] [address] Dr. Abdirashid Page Urea nitrogen/Creatinine [Mass ratio] 16.5 mg/mg Normal [facility] Comment on above: Performed By: #### C MP, HSTROPN #### [facility] [address] [place] [address] Dr. Abdirashid Page TROPONIN, HIGH SENSITIVITYon 05-29-2022 HSTROP 35.4 pg/mL Normal 4.0-51.3 [facility] Comment on above: Result Comment: CUT- OFF POINTS HAVE BEEN ESTABLISHED BASED ON THE FOURTH UNIVERSAL DEFINITIONS OF MYOCARDIAL INFARCTION. THE UPPER REFERENCE LIMIT (URL) OF TROPONIN, DEFINED THE 99TH PERCENTILE OF cTnI DISTRIBUTION IN A REFERENCE POPULATION, HAS BEEN CONFIRMED THE DECISION THRESHOLD FOR AL DIAGNOSIS. Performed By: #### H STROPN #### [facility] [address] [place] [address] Dr. Abdirashid Page HSTROP 36.5 pg/mL Normal 4.0-51.3 [facility] Comment on above: Result Comment: CUT- OFF POINTS HAVE BEEN ESTABLISHED BASED ON THE FOURTH UNIVERSAL DEFINITIONS OF MYOCARDIAL INFARCTION. THE UPPER REFERENCE LIMIT (URL) OF TROPONIN, DEFINED THE 99TH PERCENTILE OF cTnI DISTRIBUTION IN A REFERENCE POPULATION, HAS BEEN CONFIRMED THE DECISION THRESHOLD FOR AL DIAGNOSIS. Performed By: #### C MP, HSTROPN #### [facility] [address] [place] [address] Dr. Abdirashid Page URINE MICROSCOPIC ONLYon BACTERIA TRACE Abnormal NONE SEEN [facility] Comment on above: Performed By: #### U MICRO, ERUR #### [facility] [address] [place] [address] Dr. Abdirashid Page Bacteria identified Cx Nom (U) INDICATED Normal [facility] Comment on above: Performed By: #### U MICRO, ERUR #### [facility] [address] [place] [address] Dr. Abdirashid Page CAST NONE SEEN Normal NONE SEEN [facility] Comment on above: Performed By: #### U MICRO, ERUR #### [facility] [address] [place] [address] Dr. Abdirashid Page Crystals LM Nom (Urine sed) SEEN Abnormal NONE SEEN [facility] Comment on above: Performed By: #### U MICRO, ERUR #### [facility] [address] [place] [address] Dr. Abdirashid Page Epithelial cells LM Ql (Urine sed) MODERATE Abnormal NONE SEEN /RARE [facility] Comment on above: Performed By: #### U MICRO, ERUR #### [facility] [address] [place] [address] Dr. Abdirashid Page MUCOUS NONE SEEN Normal NONE SEEN [facility] Comment on above: Performed By: #### U MICRO, ERUR #### [facility] [address] [place] [address] Dr. Abdirashid Page RBC 2-5 Abnormal 0-2 [facility] Comment on above: Performed By: #### U MICRO, ERUR #### [facility] [address] [place] [address] Dr. Abdirashid Page WBC 10-20 Abnormal NONE SEEN [facility] Comment on above: Performed By: #### U MICRO, ERUR #### [facility] [address] [place] [address] Dr. Abdirashid Page CULTURE URINEon 05-06-2022 CULTURE URINE Culture Observations : MODERATE GROWTH OF MIXED GENITAL MADELEINE. NO POTENTIAL PATHOGENS SEEN. Normal [facility] Comment on above: Performed By: #### C MP #### [facility] [address] [place] [address] Dr. Abdirashid Page UA RANDOM W/MICROSCOPICon BACTERIA SMALL Abnormal NONE SEEN [facility] Comment on above: Performed By: #### U MICRO, ERUR #### [facility] [address] [address] [address] Abdirashid Page Bilirubin Ql (U) MODERATE Abnormal NEGATIVE [facility] Comment on above: Performed By: #### U MICRO, ERUR #### [facility] [address] [address] [address] Abdirashid Page CAST NONE SEEN Normal NONE SEEN [facility] Comment on above: Performed By: #### U MICRO, ERUR #### [facility] [address] [address] [address] Abdirashid Page Clarity (U) CLEAR Normal CLEAR [facility] Comment on above: Performed By: #### U MICRO, ERUR #### [facility] [address] [address] [address] Abdirashid Page Color (U) LT. YELLOW Normal YELLOW [facility] Comment on above: Performed By: #### U MICRO, ERUR #### [facility] [address] [address] [address] Abdirashid Page Crystals LM Nom (Urine sed) NONE SEEN Normal NONE SEEN [facility] Comment on above: Performed By: #### U MICRO, ERUR #### [facility] [address] [place] [address] Dr. Abdirashid Page Epithelial cells LM Ql (Urine sed) FEW Abnormal NONE SEEN /RARE [facility] Comment on above: Performed By: #### U MICRO, ERUR #### [facility] [address] [address] [address] Abdirashid Page Glucose Ql (U) Negative Normal NEGATIVE [facility] Comment on above: Performed By: #### U MICRO, ERUR #### [facility] [address] [address] [address] Abdirashid Page Hemoglobin Ql (U) TRACE-INTACT Abnormal NEGATIVE [facility] Comment on above: Performed By: #### U MICRO, ERUR #### [facility] [address] [place] [address] Dr. Abdirashid Page Ketones Ql (U) TRACE Abnormal NEGATIVE [facility] Comment on above: Performed By: #### U MICRO, ERUR #### [facility] [address] [address] [address] Abdirashid Page LEUKOCYTES MODERATE Abnormal NEGATIVE [facility] Comment on above: Performed By: #### U MICRO, ERUR #### [facility] [address] [address] [address] Abdirashid Page MUCOUS NONE SEEN Normal NONE SEEN [facility] Comment on above: Performed By: #### U MICRO, ERUR #### [facility] [address] [address] [address] Abdirashid Page Nitrite Ql (U) Negative Normal NEGATIVE [facility] Comment on above: Performed By: #### U MICRO, ERUR #### [facility] [address] [place] [address] Dr. Abdirashid Paeg pH (U) 5.5 [pH] Normal 5-9 [facility] Comment on above: Performed By: #### U MICRO, ERUR #### [facility] [address] [address] [address] Abdirashid Page RBC 0-2 Normal 0-2 [facility] Comment on above: Performed By: #### U MICRO, ERUR #### [facility] [address] [place] [address] Dr. Abdirashid Page SPEC GRAVITY >=1.030 Abnormal 1.005-<=1.025 [facility] Comment on above: Performed By: #### U MICRO, ERUR #### [facility] [address] [address] [address] Abdirashid Page UA PROTEIN TRACE Normal NEGATIVE/ TRACE [facility] Comment on above: Performed By: #### U MICRO, ERUR #### [facility] [address] [address] [address] Abdirashid Page Urobilinogen Qn (U) 0.2 {Mary Ann'U}/dL Normal 0.2 - 1. 0 [facility] Comment on above: Performed By: #### U MICRO, ERUR #### [facility] [address] [place] [address] Dr. Abdirashid Page WBC 20-50 Abnormal NONE SEEN [facility] Comment on above: Performed By: #### U MICRO, ERUR #### [facility] [address] [address] [address] Abdirashid Page US KIDNEYSon 05-06-2022 US KIDNEYS EXAM: US KIDNEYS HISTORY: Abnormal renal function COMPARISON: None. TECHNIQUE: Multiple sonographic images of the kidneys and urinary bladder were obtained, supplemented with Doppler. FINDINGS: The right kidney measures 9.2 x 4.4 x 6.8 cm, with cortical thickness of 15 mm. No focal abnormality is identified within. There is no evidence of hydronephrosis. The left kidney measures 9.8 x 4.7 x 6.4 cm. The cortex measures 11 mm in thickness. An echogenic focus is present measuring 0.5 x 0.4 x 0.4 cm. No focal abnormality is otherwise identified within. There is no evidence of hydronephrosis. The urinary bladder is not very well distended, with a calculated volume of 27 cc. Incidentally noted is a leiomyoma in the uterus measuring 2.0 x 2.6 x 2.0 cm. IMPRESSION: An echogenic focus in the upper pole of the left kidney may be a renal calculus. There is no evidence of an intrarenal mass on either side, and no evidence of hydronephrosis. The urinary bladder evaluation is limited by the lack of distention. Electronically authenticated by: BENNIE MORAN Date: 2022-05-06 13:20 Normal [facility] CBC AUTO DIFFon 04-29-2022 BASO # 0.1 103/ul Normal 0.0-0.1 [facility] Comment on above: Performed By: #### U MICRO, ERUR #### [facility] [address] [address] [address] Abdirashid Page Basophils/100 WBC (Bld) 0.4 % Normal 0.2-2.0 [facility] Comment on above: Performed By: #### U MICRO, ERUR #### [facility] [address] [address] [address] Abdirashid Page EO # 0.1 103/ul Normal 0.0-0.7 [facility] Comment on above: Performed By: #### U MICRO, ERUR #### [facility] [address] [address] [address] Abdirashid Page Eosinophils/100 WBC (Bld) 0.9 % Normal 0.9-7.0 [facility] Comment on above: Performed By: #### U MICRO, ERUR #### [facility] [address] [address] [address] Abdirashid Page Erythrocyte distribution width (RBC) [Ratio] 13.6 % Normal 11.0-15.0 [facility] Comment on above: Performed By: #### U MICRO, ERUR #### [facility] [address] [address] [address] Abdirashid Page Hematocrit (Bld) [Volume fraction] 33.4 % Critically low 36.0-48.0 [facility] Comment on above: Performed By: #### U MICRO, ERUR #### [facility] [address] [place] [address] Dr. Abdirashid Page Hemoglobin (Bld) [Mass/Vol] 10.9 g/dL Critically low 12.0-16.0 [facility] Comment on above: Performed By: #### U MICRO, ERUR #### [facility] [address] [address] [address] bAdirashid Page IG # 0.21 10e3/ul Critically high 0.00-0.03 [facility] Comment on above: Performed By: #### U MICRO, ERUR #### [facility] [address] [place] [address] Dr. Abdirashid Page IG % 1.5 % Critically high 0.0-0.5 [facility] Comment on above: Performed By: #### U MICRO, ERUR #### [facility] [address] [address] [address] Abdirashid Page LYMPH # 2.8 103/ul Normal 1.2-3.8 [facility] Comment on above: Performed By: #### U MICRO, ERUR #### [facility] [address] [place] [address] Dr. Abdirashid Page Lymphocytes/100 WBC (Bld) 19.9 % Critically low 20.5-60.0 [facility] Comment on above: Performed By: #### U MICRO, ERUR #### [facility] [address] [place] [address] Dr. Abdirashid Page MANUAL DIFF REQ NO Normal [facility] Comment on above: Performed By: #### U MICRO, ERUR #### [facility] [address] [place] [address] Dr. Abdirashid Page MCH (RBC) [Entitic mass] 31.6 pg Normal 26.7-34.0 [facility] Comment on above: Performed By: #### U MICRO, ERUR #### [facility] [address] [place] [address] Dr. Abdirashid Page MCHC (RBC) [Mass/Vol] 32.6 g/dL Normal 29.9-35.2 [facility] Comment on above: Performed By: #### U MICRO, ERUR #### [facility] [address] [place] [address] Dr. Abdirashid Page MCV (RBC) [Entitic vol] 96.8 fL Normal 81.0-99.0 [facility] Comment on above: Performed By: #### U MICRO, ERUR #### [facility] [address] [place] [address] Dr. Abdirashid Page MONO # 1.3 103/ul Critically high 0.3-0.8 [facility] Comment on above: Performed By: #### U MICRO, ERUR #### [facility] [address] [place] [address] Dr. Abdirashid Page Monocytes/100 WBC (Bld) 9.1 % Normal 1.7-12.0 [facility] Comment on above: Performed By: #### U MICRO, ERUR #### [facility] [address] [place] [address] Dr. Abdirashid Page NEUT # 9.5 103/ul Critically high 1.4-6.5 [facility] Comment on above: Performed By: #### U MICRO, ERUR #### [facility] [address] [place] [address] Dr. Abdirashid Page Neutrophils/100 WBC (Bld) 68.2 % Normal 43.0-75.0 [facility] Comment on above: Performed By: #### U MICRO, ERUR #### [facility] [address] [address] [address] Abdirashid Page Platelet mean volume (Bld) [Entitic vol] 9.4 fL Critically low 9.5-13.5 [facility] Comment on above: Performed By: #### U MICRO, ERUR #### [facility] [address] [address] [address] Abdirashid Page PLT 476 103/ul Critically high 150-450 [facility] Comment on above: Performed By: #### U MICRO, ERUR #### [facility] [address] [place] [address] Dr. Abdirashid Page RBC 3.45 106/ul Critically low 4.20-5.40 [facility] Comment on above: Performed By: #### U MICRO, ERUR #### [facility] [address] [place] [address] Dr. Abdirashid Page WBC 14.0 103/ul Critically high 4.0-11.0 [facility] Comment on above: Performed By: #### U MICRO, ERUR #### [facility] [address] [place] [address] Dr. Abdirashid Page PROF 14(COMP METB)on 023 Albumin [Mass/Vol] 3.6 g/dL Normal 3.4-5.0 [facility] Comment on above: Performed By: #### C MP #### [facility] [address] [place] [address] Dr. Abdirashid Page Albumin/Globulin [Mass ratio] 1.2 {ratio} Normal [facility] Comment on above: Performed By: #### C MP #### [facility] [address] [place] [address] Dr. Abdirashid Page ALP [Catalytic activity/Vol] 83 U/L Normal 46-116 [facility] Comment on above: Performed By: #### C MP #### [facility] [address] [address] [address] Abdirashid Page ALT [Catalytic activity/Vol] 24 U/L Normal 14-59 [facility] Comment on above: Performed By: #### C MP #### [facility] [address] [place] [address] Dr. Abdirashid Page Anion gap [Moles/Vol] 14.4 mmol/L Normal [facility] Comment on above: Performed By: #### C MP #### [facility] [address] [address] [address] Abdirashid Page AST [Catalytic activity/Vol] 15 U/L Normal 15-37 [facility] Comment on above: Performed By: #### C MP #### [facility] [address] [place] [address] Dr. Abdirashid Page Bilirubin [Mass/Vol] 0.3 mg/dL Normal 0.2-1.0 [facility] Comment on above: Performed By: #### C MP #### [facility] [address] [place] [address] Dr. Abdirashid Page Calcium [Mass/Vol] 9.3 mg/dL Normal 8.5-10.1 [facility] Comment on above: Performed By: #### C MP #### [facility] [address] [place] [address] Dr. Abdirashid Page Chloride [Moles/Vol] 100 mmol/L Normal 98-107 [facility] Comment on above: Performed By: #### C MP #### [facility] [address] [place] [address] Dr. Abdirashid Page CO2 [Moles/Vol] 26.8 mmol/L Normal 21.0-32.0 [facility] Comment on above: Performed By: #### C MP #### [facility] [address] [place] [address] Dr. Abdirashid Page Creatinine [Mass/Vol] 2.20 mg/dL Critically high 0.55-1.02 [facility] Comment on above: Performed By: #### C MP #### [facility] [address] [place] [address] Dr. Abdirashid Page EGFR-AF WELSH 27 mL/min/1.73m2 Critically low >=60 [facility] Comment on above: Performed By: #### C MP #### [facility] [address] [address] [address] Abdirashid Page EGFR-NON AF WELSH 22 mL/min/1.73m2 Critically low >=60 [facility] Comment on above: Performed By: #### C MP #### [facility] [address] [address] [address] Abdirashid Page Globulin (S) [Mass/Vol] 3.1 g/dL Normal [facility] Comment on above: Performed By: #### C MP #### [facility] [address] [address] [address] Abdirashid Page Glucose [Mass/Vol] 126 mg/dL Critically high 74-106 [facility] Comment on above: Performed By: #### C MP #### [facility] [address] [address] [address] Abdirashid Page Potassium [Moles/Vol] 4.2 mmol/L Normal 3.5-5.1 [facility] Comment on above: Performed By: #### C MP #### [facility] [address] [address] [address] Abdirashid Page Protein [Mass/Vol] 6.7 g/dL Normal 6.4-8.2 [facility] Comment on above: Performed By: #### C MP #### [facility] [address] [address] [address] Abdirashid Page Sodium [Moles/Vol] 137 mmol/L Normal 136-145 [facility] Comment on above: Performed By: #### C MP #### [facility] [address] [address] [address] Abdirashid Page Urea nitrogen [Mass/Vol] 39.0 mg/dL Critically high 7.0-18.0 [facility] Comment on above: Performed By: #### C MP #### [facility] [address] [address] [address] Abdirashid Page Urea nitrogen/Creatinine [Mass ratio] 17.7 mg/mg Normal [facility] Comment on above: Performed By: #### C MP #### [facility] [address] [place], [place] [address] Dr. Abdirashid Page MRI LSPINE WO CONon 04-14-19 MRI LSPINE WO CON EXAMINATION: MRI LSSTAPLES WO CON HISTORY: Spinal stenosis COMPARISON: No relevant comparison available. TECHNIQUE: A variety of imaging planes and parameters were utilized for visualization of suspected pathology. FINDINGS: For the purposes of numbering, sagittal T2 image # 8 extends from the T10 vertebral body superiorly to the S3 level inferiorly. PARASPINAL AREA: Normal with no visible mass. BONES: 4 mm anterolisthesis of L4 in relation L5. Moderate diffuse degenerative spondylosis. Areas of signal abnormality in the T12 and L1 vertebral body likely representing hemangiomas. CORD/CAUDA EQUINA: Normal caliber, contour, and signal intensity. DISC LEVELS: 12-L1: Moderate disc space narrowing and disc desiccation. Mild posterior disc protrusion. No central canal or foraminal stenosis L1-L2: Moderate degenerative disc disease is present without visible neural impingement. L2-L3: Early degenerative disc disease is present without focal protrusion or neural impingement. L3-L4: Early degenerative disc disease is present without focal protrusion or neural impingement. L4-L5: 4 mm anterolisthesis of L4 on L5. Moderate diffuse bulge/pseudobulge with ligamentum flavum hypertrophy and facet osteoarthropathy. No central canal stenosis. Mild right and no left foraminal stenosis L5-S1: Disc desiccation. Extension of the disc into the inferior endplate of L5, Schmorl's node. Mild broad-based posterior disc herniation the protrusion type extending up to 3.2 mm. No central or right foraminal stenosis. Mild narrowing of the left neural foramen. IMPRESSION: Degenerative changes resulting in mild right L4-L5 and left L5-S1 neural foraminal stenosis Electronically authenticated by: GERONIMO LOPEZ Date: 2022-04-14 16:39 Normal [facility] CBC AUTO DIFFon 04-10-2022 BASO # 0.1 103/ul Normal 0.0-0.1 [facility] Comment on above: Performed By: #### C BC #### [facility] [address] [place], [place] [address] Dr. Abdirashid Page Basophils/100 WBC (Bld) 0.5 % Normal 0.2-2.0 [facility] Comment on above: Performed By: #### C BC #### [facility] [address] [place] [address] Dr. Abdirashid Page EO # 0.1 103/ul Normal 0.0-0.7 [facility] Comment on above: Performed By: #### C BC #### [facility] [address] [place] [address] Dr. Abdirashid Page Eosinophils/100 WBC (Bld) 1.1 % Normal 0.9-7.0 [facility] Comment on above: Performed By: #### C BC #### [facility] [address] [place] [address] Dr. Abdirashid Page Erythrocyte distribution width (RBC) [Ratio] 14.2 % Normal 11.0-15.0 [facility] Comment on above: Performed By: #### C BC #### [facility] [address] [place] [address] Dr. Abdirashid Page Hematocrit (Bld) [Volume fraction] 32.7 % Critically low 36.0-48.0 [facility] Comment on above: Performed By: #### C BC #### [facility] [address] [place] [address] Dr. Abdirashid Page Hemoglobin (Bld) [Mass/Vol] 10.9 g/dL Critically low 12.0-16.0 [facility] Comment on above: Performed By: #### C BC #### [facility] [address] [place] [address] Dr. Abdirashid Page IG # 0.22 10e3/ul Critically high 0.00-0.03 [facility] Comment on above: Performed By: #### C BC #### [facility] [address] [place] [address] Dr. Abdirashid Page IG % 2.2 % Critically high 0.0-0.5 [facility] Comment on above: Performed By: #### C BC #### [facility] [address] [place] [address] Dr. Abdirashid Page LYMPH # 2.1 103/ul Normal 1.2-3.8 [facility] Comment on above: Performed By: #### C BC #### [facility] [address] [place] [address] Dr. Abdirashid Page Lymphocytes/100 WBC (Bld) 20.9 % Normal 20.5-60.0 [facility] Comment on above: Performed By: #### C BC #### [facility] [address] [place] [address] Dr. Abdirashid Page MANUAL DIFF REQ NO Normal [facility] Comment on above: Performed By: #### C BC #### [facility] [address] [place] [address] Dr. Abdirashid Page MCH (RBC) [Entitic mass] 31.9 pg Normal 26.7-34.0 [facility] Comment on above: Performed By: #### C BC #### [facility] [address] [place] [address] Dr. Abdirashid Page MCHC (RBC) [Mass/Vol] 33.3 g/dL Normal 29.9-35.2 [facility] Comment on above: Performed By: #### C BC #### [facility] [address] [place] [address] Dr. Abdirashid Page MCV (RBC) [Entitic vol] 95.6 fL Normal 81.0-99.0 [facility] Comment on above: Performed By: #### C BC #### [facility] [address] [place] [address] Dr. Abdirashid Page MONO # 1.0 103/ul Critically high 0.3-0.8 [facility] Comment on above: Performed By: #### C BC #### [facility] [address] [place] [address] Dr. Abdirashid Page Monocytes/100 WBC (Bld) 10.1 % Normal 1.7-12.0 [facility] Comment on above: Performed By: #### C BC #### [facility] [address] [place] [address] Dr. Abdirashid Page NEUT # 6.4 103/ul Normal 1.4-6.5 [facility] Comment on above: Performed By: #### C BC #### [facility] [address] [place] [address] Dr. Abdirashid Page Neutrophils/100 WBC (Bld) 65.2 % Normal 43.0-75.0 [facility] Comment on above: Performed By: #### C BC #### [facility] [address] [address] [address] Abdirashid Page Platelet mean volume (Bld) [Entitic vol] 8.9 fL Critically low 9.5-13.5 [facility] Comment on above: Performed By: #### C BC #### [facility] [address] [place] [address] Dr. Abdirashid Page PLT 409 103/ul Normal 150-450 [facility] Comment on above: Performed By: #### C BC #### [facility] [address] [place] [address] Dr. Abdirashid Page RBC 3.42 106/ul Critically low 4.20-5.40 [facility] Comment on above: Performed By: #### C BC #### [facility] [address] [place] [address] Dr. Abdirashid Page WBC 9.8 103/ul Normal 4.0-11.0 [facility] Comment on above: Performed By: #### C BC #### [facility] [address] [place] [address] Dr. Abdirashid Page PROF 14(COMP METB)on 022 Albumin [Mass/Vol] 3.3 g/dL Critically low 3.4-5.0 [facility] Comment on above: Performed By: #### C MP #### [facility] [address] [place] [address] Dr. Abdirashid Page Albumin/Globulin [Mass ratio] 1.0 {ratio} Normal [facility] Comment on above: Performed By: #### C MP #### [facility] [address] [place] [address] Dr. Abdirashid Page ALP [Catalytic activity/Vol] 79 U/L Normal 46-116 [facility] Comment on above: Performed By: #### C MP #### [facility] [address] [address] [address] Abdirashid Page ALT [Catalytic activity/Vol] 31 U/L Normal 14-59 [facility] Comment on above: Performed By: #### C MP #### [facility] [address] [address] [address] Abdirashid Page Anion gap [Moles/Vol] 13.3 mmol/L Normal [facility] Comment on above: Performed By: #### C MP #### [facility] [address] [address] [address] Abdirashid Page AST [Catalytic activity/Vol] 20 U/L Normal 15-37 [facility] Comment on above: Performed By: #### C MP #### [facility] [address] [place] [address] Dr. Abdirashid Page Bilirubin [Mass/Vol] 0.5 mg/dL Normal 0.2-1.0 [facility] Comment on above: Performed By: #### C MP #### [facility] [address] [address] [address] Abdirashid Page Calcium [Mass/Vol] 9.2 mg/dL Normal 8.5-10.1 [facility] Comment on above: Performed By: #### C MP #### [facility] [address] [address] [address] Abdirashid Page Chloride [Moles/Vol] 101 mmol/L Normal 98-107 [facility] Comment on above: Performed By: #### C MP #### [facility] [address] [address] [address] Abdirashid Page CO2 [Moles/Vol] 27.9 mmol/L Normal 21.0-32.0 [facility] Comment on above: Performed By: #### C MP #### [facility] [address] [address] [address] Abdirashid Page Creatinine [Mass/Vol] 1.36 mg/dL Critically high 0.55-1.02 [facility] Comment on above: Performed By: #### C MP #### [facility] [address] [address] [address] Abdirashid Page EGFR-AF WELSH 47 mL/min/1.73m2 Critically low >=60 [facility] Comment on above: Performed By: #### C MP #### [facility] [address] [address] [address] Abdirashid Page EGFR-NON AF WELSH 39 mL/min/1.73m2 Critically low >=60 [facility] Comment on above: Performed By: #### C MP #### [facility] [address] [address] [address] Abdirashid Page Globulin (S) [Mass/Vol] 3.4 g/dL Normal [facility] Comment on above: Performed By: #### C MP #### [facility] [address] [address] [address] Abdirashid Page Glucose [Mass/Vol] 120 mg/dL Critically high 74-106 [facility] Comment on above: Performed By: #### C MP #### [facility] [address] [address] [address] Abdirashid Page Potassium [Moles/Vol] 5.2 mmol/L Critically high 3.5-5.1 [facility] Comment on above: Performed By: #### C MP #### [facility] [address] [address] [address] Abdirashid Page Protein [Mass/Vol] 6.7 g/dL Normal 6.4-8.2 [facility] Comment on above: Performed By: #### C MP #### [facility] [address] [address] [address] Abdirashid Page Sodium [Moles/Vol] 137 mmol/L Normal 136-145 [facility] Comment on above: Performed By: #### C MP #### [facility] [address] [address] [address] Abdirashid Page Urea nitrogen [Mass/Vol] 32.0 mg/dL Critically high 7.0-18.0 [facility] Comment on above: Performed By: #### C MP #### [facility] [address] [place] [address] Dr. Abdirashid Page Urea nitrogen/Creatinine [Mass ratio] 23.5 mg/mg Normal [facility] Comment on above: Performed By: #### C MP #### [facility] [address] [place] [address] Dr. Abdirashid Page BNPon 03-27-2022 Natriuretic peptide B (Bld) [Mass/Vol] 455.0 pg/mL Normal <=900.0 [facility] Comment on above: Performed By: #### C MP #### [facility] [address] [place] [address] Dr. Abdirashid Page CARDIAC ROGER ADMITon 022 CK [Catalytic activity/Vol] 61 U/L Normal 26-192 [facility] Comment on above: Performed By: #### C MP #### [facility] [address] [place] [address] Dr. Abdirashid Page CK.MB [Mass/Vol] 3.26 ng/mL Normal <=3.60 [facility] Comment on above: Performed By: #### C MP #### [facility] [address] [place] [address] Dr. Abdirashid Page HSTROP 27.9 pg/mL Normal 4.0-51.3 [facility] Comment on above: Result Comment: CUT- OFF POINTS HAVE BEEN ESTABLISHED BASED ON THE FOURTH UNIVERSAL DEFINITIONS OF MYOCARDIAL INFARCTION. THE UPPER REFERENCE LIMIT (URL) OF TROPONIN, DEFINED THE 99TH PERCENTILE OF cTnI DISTRIBUTION IN A REFERENCE POPULATION, HAS BEEN CONFIRMED THE DECISION THRESHOLD FOR AL DIAGNOSIS. Performed By: #### C MP #### [facility] [address] [place] [address] Dr. Abdirashid Page PILAR 113 ng/mL Critically high 9-82 [facility] Comment on above: Performed By: #### C MP #### [facility] [address] [place] [address] Dr. Abdirashid Page CBC AUTO DIFFon 03-27-2022 BASO # 0.1 103/ul Normal 0.0-0.1 [facility] Comment on above: Performed By: #### C BC #### [facility] [address] [address] [address] Abdirashid Page Basophils/100 WBC (Bld) 0.4 % Normal 0.2-2.0 [facility] Comment on above: Performed By: #### C BC #### [facility] [address] [address] [address] Abdirashid Page EO # 0.1 103/ul Normal 0.0-0.7 [facility] Comment on above: Performed By: #### C BC #### [facility] [address] [address] [address] Abdirashid Page Eosinophils/100 WBC (Bld) 0.5 % Critically low 0.9-7.0 [facility] Comment on above: Performed By: #### C BC #### [facility] [address] [address] [address] Abdirashid Page Erythrocyte distribution width (RBC) [Ratio] 13.6 % Normal 11.0-15.0 [facility] Comment on above: Performed By: #### C BC #### [facility] [address] [address] [address] Abdirashid Page Hematocrit (Bld) [Volume fraction] 34.5 % Critically low 36.0-48.0 [facility] Comment on above: Performed By: #### C BC #### [facility] [address] [address] [address] Abdirashid Page Hemoglobin (Bld) [Mass/Vol] 11.5 g/dL Critically low 12.0-16.0 [facility] Comment on above: Performed By: #### C BC #### [facility] [address] [address] [address] Abdriashid Page IG # 0.48 10e3/ul Critically high 0.00-0.03 [facility] Comment on above: Performed By: #### C BC #### [facility] [address] [address] [address] Abdirashid Page IG % 3.2 % Critically high 0.0-0.5 [facility] Comment on above: Performed By: #### C BC #### [facility] [address] [address] [address] Abdirashid Page LYMPH # 1.8 103/ul Normal 1.2-3.8 [facility] Comment on above: Performed By: #### C BC #### [facility] [address] [place] [address] Dr. Abdirashid Page Lymphocytes/100 WBC (Bld) 12.1 % Critically low 20.5-60.0 [facility] Comment on above: Performed By: #### C BC #### [facility] [address] [place] [address] Dr. Abdirashid Page MANUAL DIFF REQ NO Normal [facility] Comment on above: Performed By: #### C BC #### [facility] [address] [place] [address] Dr. Abdirashid Page MCH (RBC) [Entitic mass] 31.9 pg Normal 26.7-34.0 [facility] Comment on above: Performed By: #### C BC #### [facility] [address] [place] [address] Dr. Abdirashid Page MCHC (RBC) [Mass/Vol] 33.3 g/dL Normal 29.9-35.2 [facility] Comment on above: Performed By: #### C BC #### [facility] [address] [place] [address] Dr. Abdirashid Page MCV (RBC) [Entitic vol] 95.6 fL Normal 81.0-99.0 [facility] Comment on above: Performed By: #### C BC #### [facility] [address] [place] [address] Dr. Abdirashid Paeg MONO # 1.4 103/ul Critically high 0.3-0.8 [facility] Comment on above: Performed By: #### C BC #### [facility] [address] [place] [address] Dr. Abdirashid Page Monocytes/100 WBC (Bld) 9.6 % Normal 1.7-12.0 [facility] Comment on above: Performed By: #### C BC #### [facility] [address] [address] [address] Abdirashid Page NEUT # 11.1 103/ul Critically high 1.4-6.[address] [facility] Comment on above: Performed By: #### C BC #### [facility] [address] [address] [address] Abdirashid Page Neutrophils/100 WBC (Bld) 74.2 % Normal 43.0-75.0 [facility] Comment on above: Performed By: #### C BC #### [facility] [address] [address] [address] Abdirashid Page Platelet mean volume (Bld) [Entitic vol] 9.4 fL Critically low 9.5-13.5 [facility] Comment on above: Performed By: #### C BC #### [facility] [address] [place] [address] Dr. Abdirashid Page PLT 415 103/ul Normal 150-450 [facility] Comment on above: Performed By: #### C BC #### [facility] [address] [place] [address] Dr. Abdirashid Page RBC 3.61 106/ul Critically low 4.20-5.40 [facility] Comment on above: Performed By: #### C BC #### [facility] [address] [place] [address] Dr. Abdirashid Page WBC 15.0 103/ul Critically high 4.0-11.0 [facility] Comment on above: Performed By: #### C BC #### [facility] [address] [place] [address] Dr. Abdirashid Page FREE THYROXINE INDEX T7on FTI 2.70 Normal 1.30-4.50 [facility] Comment on above: Performed By: #### C MP #### [facility] [address] [place] [address] Dr. Abdirashid Page T3U 36.0 % Normal 30.0-39.0 [facility] Comment on above: Performed By: #### C MP #### [facility] [address] [address] [address] Abdirashid Paeg T4 [Mass/Vol] 7.50 ug/dL Normal 4.80-13.90 [facility] Comment on above: Performed By: #### C MP #### [facility] [address] [address] [address] Abdirashid Page IRONon 03-27-2022 Iron [Mass/Vol] 104.0 ug/dL Normal 50.0-170.[address] [facility] Comment on above: Performed By: #### C MP #### [facility] [address] [address] [address] Abdirashid Page PROF 14(COMP METB)on 022 Albumin [Mass/Vol] 3.3 g/dL Critically low 3.4-5.0 [facility] Comment on above: Performed By: #### C MP #### [facility] [address] [place] [address] Dr. Abdirashid Page Albumin/Globulin [Mass ratio] 1.0 {ratio} Normal [facility] Comment on above: Performed By: #### C MP #### [facility] [address] [address] [address] Abdirashid Page ALP [Catalytic activity/Vol] 69 U/L Normal 46-116 [facility] Comment on above: Performed By: #### C MP #### [facility] [address] [place] [address] Dr. Abdirashid Page ALT [Catalytic activity/Vol] 36 U/L Normal 14-59 [facility] Comment on above: Performed By: #### C MP #### [facility] [address] [place] [address] Dr. Abdirashid Page Anion gap [Moles/Vol] 13.6 mmol/L Normal [facility] Comment on above: Performed By: #### C MP #### [facility] [address] [place] [address] Dr. Abdirashid Page AST [Catalytic activity/Vol] 16 U/L Normal 15-37 [facility] Comment on above: Performed By: #### C MP #### [facility] [address] [address] [address] Abdirashid Page Bilirubin [Mass/Vol] 0.6 mg/dL Normal 0.2-1.0 [facility] Comment on above: Performed By: #### C MP #### [facility] [address] [address] [address] Abdirashid Page Calcium [Mass/Vol] 9.1 mg/dL Normal 8.5-10.1 [facility] Comment on above: Performed By: #### C MP #### [facility] [address] [address] [address] Abdirashid Page Chloride [Moles/Vol] 103 mmol/L Normal 98-107 [facility] Comment on above: Performed By: #### C MP #### [facility] [address] [address] [address] Abdirashid Page CO2 [Moles/Vol] 27.4 mmol/L Normal 21.0-32.[address] [facility] Comment on above: Performed By: #### C MP #### [facility] [address] [address] [address] Abdirashid Page Creatinine [Mass/Vol] 1.90 mg/dL Critically high 0.55-1.02 [facility] Comment on above: Performed By: #### C MP #### [facility] [address] [address] [address] Abdirashid Page EGFR-AF WELSH 32 mL/min/1.73m2 Critically low >=60 [facility] Comment on above: Performed By: #### C MP #### [facility] [address] [address] [address] Abdirashid Page EGFR-NON AF WELSH 27 mL/min/1.73m2 Critically low >=60 [facility] Comment on above: Performed By: #### C MP #### [facility] [address] [address] [address] Abdirashid Page Globulin (S) [Mass/Vol] 3.4 g/dL Normal [facility] Comment on above: Performed By: #### C MP #### [facility] [address] [address] [address] Abdirashid Page Glucose [Mass/Vol] 122 mg/dL Critically high 74-106 T [facility] Comment on above: Performed By: #### C MP #### [facility] [address] [address] [address] Abdirashid Page Potassium [Moles/Vol] 5.0 mmol/L Normal 3.5-5.1 [facility] Comment on above: Performed By: #### C MP #### [facility] [address] [address] [address] Abdirashid Page Protein [Mass/Vol] 6.7 g/dL Normal 6.4-8.2 [facility] Comment on above: Performed By: #### C MP #### [facility] [address] [address] [address] Abdirashid Page Sodium [Moles/Vol] 139 mmol/L Normal 136-145 [facility] Comment on above: Performed By: #### C MP #### [facility] [address] [address] [address] Abdirashid Page Urea nitrogen [Mass/Vol] 55.0 mg/dL Critically high 7.0-18.0 [facility] Comment on above: Performed By: #### C MP #### [facility] [address] [address] [address] Abdirashid Page Urea nitrogen/Creatinine [Mass ratio] 28.9 mg/mg Normal [facility] Comment on above: Performed By: #### C MP #### [facility] [address] [address] [address] Abdirashid Page TSHon 03-27-2022 TSH 1.585 uIU/mL Normal 0.358-3.740 [facility] Comment on above: Performed By: #### C MP #### [facility] [address] [address] [address] Abdirashid Page [id number] 11-23-2021 SARS-CoV-2 (COVID-19) RNA KATIA+probe Ql (Unsp spec) Normal [facility] Comment on above: Performed By: #### C OVID #### [address] [place], [place] [id number] [employer]pper [employer]er: Armin Corbett MD [facility] [address] [place] [address] [employer]pper Miner: Geronimo Callaway MD SARS-CoV-2 (COVID-19) RNA KATIA+probe Ql (Unsp spec) Not detected Normal NOTDET [facility] Comment on above: Result Comment: The specimen is NEGATIVE for SARS-CoV-2, the novel coronavirus associated with COVID-19. A negative result does not rule out COVID-19. Cristian SARS-CoV-2 for use on the Cristian [employer]GRIMAPS[employer]/8800 [employer] is a real-time RT-PCR test intended for the qualitative detection of nucleic acids from SARS-CoV-2 in clinician-collected nasal, nasopharyngeal, and oropharyngeal swab specimens from individuals who meet COVID-19 clinical and/or epidemiological criteria. Cristian SARS-CoV-2 is for use only under Emergency Use Authorization (EUA) in laboratories certified under Clinical Laboratory Improvement Amendments of 1988 (CLIA), 42 U.S.C. ?263a, that meet requirements to perform high or moderate complexity tests. An individual without symptoms of COVID-19 and who is not shedding SARS-CoV-2 virus would expect to have a negative (not detected) result in this assay. Fact sheet for Healthcare Providers: https://www.fda.gov/media/858443/download Fact sheet for Patients: https://www.fda.gov/media/523900/download METHODOLOGY: RT-PCR Performed By: #### C OVID #### [facility] [address] [place], [place] [id number] Copper Miner: Armin Corbett MD [facility] [address] [place] [address] [place] [address] [employer] Miner: Geronimo Callaway MD [id number] 11-22-2021 SARS-CoV-2 (COVID-19) RNA KATIA+probe Ql (Unsp spec) .NASOPHARYNGEAL SWAB Normal [facility] Comment on above: Performed By: #### C OVID #### [address] [place], [place] [id number] [employer]er: Armin Corbett MD [facility] [address] [place] [address] Copper Miner: MD ANNA Tucker-CoV-2on 11-16-2021 SARS-CoV-2 (COVID-19) RNA KATIA+probe Ql (Unsp spec) Normal [facility] Comment on above: Performed By: #### C OVID #### [address] [address] [employer]er: Armin Corbett MD [facility] [address] [place] [address] Copper Miner: Geronimo Callaway MD SARS-CoV-2 (COVID-19) RNA KATIA+probe Ql (Unsp spec) Not detected [facility] Comment on above: Result Comment: The specimen is NEGATIVE for SARS-CoV-2, the novel coronavirus associated with COVID-19. A negative result does not rule out COVID-19. Cristian SARS-CoV-2 for use on the Cristian [employer]GRIMAPS[employer]/8800 [employer] is a real-time RT-PCR test intended for the qualitative detection of nucleic acids from SARS-CoV-2 in clinician-collected nasal, nasopharyngeal, and oropharyngeal swab specimens from individuals who meet COVID-19 clinical and/or epidemiological criteria. Cristian SARS-CoV-2 is for use only under Emergency Use Authorization (EUA) in laboratories certified under Clinical Laboratory Improvement Amendments of 1988 (CLIA), 42 U.S.C. ?263a, that meet requirements to perform high or moderate complexity tests. An individual without symptoms of COVID-19 and who is not shedding SARS-CoV-2 virus would expect to have a negative (not detected) result in this assay. Fact sheet for Healthcare Providers: https://www.fda.gov/media/629958/download Fact sheet for Patients: https://www.fda.gov/media/211641/download METHODOLOGY: RT-PCR Performed By: #### C OVID #### [address] [place] [address] Copper Miner: Armin Corbett MD [facility] [address] [place] [address] Copper Miner: Geronimo Callaway MD [id number] 11-15-2021 SARS-CoV-2 (COVID-19) RNA KATIA+probe Ql (Unsp spec) .NASOPHARYNGEAL SWAB Normal [facility] Comment on above: Performed By: #### C OVID #### [address] [address] [employer] Miner: Armin Corbett MD [facility] [address] [place] [address] [employer] Miner: Geronimo Callaway MD CBC with Diffon 08-16-2021 Abs. Basophil 0.05 k/uL Normal 0.00-0.20 [facility] Comment on above: Performed By: #### C DP, CP, LIPRF, TSH, FT3, VD25, T4, GLYHGB #### [address] [address] [employer]er: Armin Corbett MD Abs.Imm.Granulocyte 0.08 k/uL Normal 0.00-0.30 [facility] Comment on above: Performed By: #### C DP, CP, LIPRF, TSH, FT3, VD25, T4, GLYHGB #### [address] [address] [employer]er: Armin Corbett MD Abs.Neutrophil (Seg) 11.43 k/uL High 1.50-8.10 [facility] Comment on above: Performed By: #### C DP, CP, LIPRF, TSH, FT3, VD25, T4, GLYHGB #### [address] [address] [employer]er: Armin Corbett MD Basophils/100 WBC (Bld) 0 % Normal 0-2 [facility] Comment on above: Performed By: #### C DP, CP, LIPRF, TSH, FT3, VD25, T4, GLYHGB #### [place] [address] [employer] Miner: Armin Corbett MD Eosinophils (Bld) [#/Vol] 0.05 10*3/uL Normal 0.00-0.44 [facility] Comment on above: Performed By: #### C DP, CP, LIPRF, TSH, FT3, VD25, T4, GLYHGB #### [place] [address] [employer] Miner: Armin Corbett MD Eosinophils/100 WBC (Bld) 0 % Low 1-4 [facility] Comment on above: Performed By: #### C DP, CP, LIPRF, TSH, FT3, VD25, T4, GLYHGB #### [place] [address] [employer]er: Armin Corbett MD Erythrocyte distribution width (RBC) [Ratio] 13.1 % Normal 11.8-14.4 [facility] Comment on above: Performed By: #### C DP, CP, LIPRF, TSH, FT3, VD25, T4, GLYHGB #### [place] [address] [employer] Miner: Armin Corbett MD Hematocrit (Bld) [Volume fraction] 39.4 % Normal 36.3-47.1 [facility] Comment on above: Performed By: #### C DP, CP, LIPRF, TSH, FT3, VD25, T4, GLYHGB #### [place] [address] Co[employer] Miner: Armin Corbett MD Hemoglobin (Bld) [Mass/Vol] 12.7 g/dL Normal 11.9-15.1 [facility] Comment on above: Performed By: #### C DP, CP, LIPRF, TSH, FT3, VD25, T4, GLYHGB #### [address] [address] [employer]er: Armin Corbett MD Immature granulocytes/100 WBC (Bld) 1 % High 0 [facility] Comment on above: Performed By: #### C DP, CP, LIPRF, TSH, FT3, VD25, T4, GLYHGB #### [address] [address] [employer]er: Armin Corbett MD Lymphocytes (Bld) [#/Vol] 2.24 10*3/uL Normal 1.10-3.70 [facility] Comment on above: Performed By: #### C DP, CP, LIPRF, TSH, FT3, VD25, T4, GLYHGB #### [place] [address] [employer] Miner: Armin Corbett MD Lymphocytes/100 WBC (Bld) 15 % Low 24-43 [facility] Comment on above: Performed By: #### C DP, CP, LIPRF, TSH, FT3, VD25, T4, GLYHGB #### [facility] [employer] [address] [place] [address] [employer]er: Armin Corbett MD MCH (RBC) [Entitic mass] 31.4 pg Normal 25.2-33.5 [facility] Comment on above: Performed By: #### C DP, CP, LIPRF, TSH, FT3, VD25, T4, GLYHGB #### [address] [address] [employer]er: Armin Corbett MD MCHC (RBC) [Mass/Vol] 32.2 g/dL Normal 28.4-34.8 [facility] Comment on above: Performed By: #### C DP, CP, LIPRF, TSH, FT3, VD25, T4, GLYHGB #### [address] [address] [employer]er: Armin Corbett MD MCV (RBC) [Entitic vol] 97.3 fL Normal 82.6-102.9 [facility] Comment on above: Performed By: #### C DP, CP, LIPRF, TSH, FT3, VD25, T4, GLYHGB #### [address] [address] [employer]er: Armin Corbett MD Monocytes (Bld) [#/Vol] 1.32 10*3/uL High 0.10-1.20 [facility] Comment on above: Performed By: #### C DP, CP, LIPRF, TSH, FT3, VD25, T4, GLYHGB #### [address] [address] [employer]er: Armin Corbett MD Monocytes/100 WBC (Bld) 9 % Normal 3-12 [facility] Comment on above: Performed By: #### C DP, CP, LIPRF, TSH, FT3, VD25, T4, GLYHGB #### [address] [address] [employer]er: Armin Corbett MD Neutrophil (Seg) 75 % High 36-65 [facility] Comment on above: Performed By: #### C DP, CP, LIPRF, TSH, FT3, VD25, T4, GLYHGB #### [address] [address] [employer]er: Armin Corbett MD NRBC Automated 0.0 per 100 WBC Normal 0.0 [facility] Comment on above: Performed By: #### C DP, CP, LIPRF, TSH, FT3, VD25, T4, GLYHGB #### [address] [address] [employer]er: Armin Corbett MD Platelet mean volume (Bld) [Entitic vol] 10.1 fL Normal 8.1-13.5 [facility] Comment on above: Performed By: #### C DP, CP, LIPRF, TSH, FT3, VD25, T4, GLYHGB #### [address] [address] [employer]er: Armin Corbett MD Platelets (Bld) [#/Vol] 411 10*3/uL Normal 138-453 [facility] Comment on above: Performed By: #### C DP, CP, LIPRF, TSH, FT3, VD25, T4, GLYHGB #### [address] [address] [employer]er: Armin Corbett MD RBC (Bld) [#/Vol] 4.05 10*6/uL Normal 3.95-5.11 [facility] Comment on above: Performed By: #### C DP, CP, LIPRF, TSH, FT3, VD25, T4, GLYHGB #### [address] [address] [employer]er: Armin Corbett MD WBC (Bld) [#/Vol] 15.2 10*3/uL High 3.5-11.3 [facility] Comment on above: Performed By: #### C DP, CP, LIPRF, TSH, FT3, VD25, T4, GLYHGB #### [address] [address] [employer]er: Armin Corbett MD Comp Metabolic Profon 2021 (cont.) Normal [facility] Comment on above: Result Comment: Aver age GFR for 60-69 years old: 85 mL/min/1.73sq m Chronic Kidney Disease: <60 mL/min/1.73sq m Kidney failure: <15 mL/min/1.73sq m eGFR calculated using average adult body mass. Additional eGFR calculator available at: http://www.globalrph.ColoWrap/multiple_crcl_2011.htm Performed By: #### C DP, CP, LIPRF, TSH, FT3, VD25, T4, GLYHGB #### [address] [address] [employer]er: Armin Corbett MD Albumin [Mass/Vol] 4.8 g/dL Normal 3.5-5.2 [facility] Comment on above: Performed By: #### C DP, CP, LIPRF, TSH, FT3, VD25, T4, GLYHGB #### [address] [address] [employer]er: Armin Corbett MD Albumin/Glob Ratio 1.9 Normal 1.0-2.5 [facility] Comment on above: Performed By: #### C DP, CP, LIPRF, TSH, FT3, VD25, T4, GLYHGB #### [facility] [employer] [address] [place] [address] [employer]er: Armin Corbett MD Alkaline Phos 91 U/L Normal 35-104 [facility] Comment on above: Performed By: #### C DP, CP, LIPRF, TSH, FT3, VD25, T4, GLYHGB #### [facility] [employer] [address] [place] [address] [employer]er: Armin Corbett MD ALT [Catalytic activity/Vol] 17 U/L Normal 5-33 [facility] Comment on above: Performed By: #### C DP, CP, LIPRF, TSH, FT3, VD25, T4, GLYHGB #### [facility] [employer] [address] [place] [address] [employer]er: Armin Corbett MD Anion gap [Moles/Vol] 19 mmol/L High 9-17 [facility] Comment on above: Performed By: #### C DP, CP, LIPRF, TSH, FT3, VD25, T4, GLYHGB #### [address] [address] [employer]er: Armin Corbett MD AST [Catalytic activity/Vol] 17 U/L Normal <32 [facility] Comment on above: Performed By: #### C DP, CP, LIPRF, TSH, FT3, VD25, T4, GLYHGB #### [address] [address] [employer]er: Armin Corbett MD Bilirubin [Mass/Vol] 0.27 mg/dL Low 0.3-1.2 [facility] Comment on above: Performed By: #### C DP, CP, LIPRF, TSH, FT3, VD25, T4, GLYHGB #### [address] [address] [employer]er: Armin Corbett MD Calcium [Mass/Vol] 9.6 mg/dL Normal 8.6-10.4 [facility] Comment on above: Performed By: #### C DP, CP, LIPRF, TSH, FT3, VD25, T4, GLYHGB #### [address] [address] [employer]er: Armin Corbett MD Chloride [Moles/Vol] 96 mmol/L Low 98-107 [facility] Comment on above: Performed By: #### C DP, CP, LIPRF, TSH, FT3, VD25, T4, GLYHGB #### [address] [address] [employer] Miner: Armin Corbett MD CO2 [Moles/Vol] 20 mmol/L Normal 20-31 [facility] Comment on above: Performed By: #### C DP, CP, LIPRF, TSH, FT3, VD25, T4, GLYHGB #### [address] [address] [employer] Miner: Armin Corbett MD Creatinine [Mass/Vol] 1.06 mg/dL High 0.50-0.90 [facility] Comment on above: Performed By: #### C DP, CP, LIPRF, TSH, FT3, VD25, T4, GLYHGB #### [address] [address] [employer] Miner: Armin Corbett MD GFR, Amer >60 Normal >60 [facility] Comment on above: Performed By: #### C DP, CP, LIPRF, TSH, FT3, VD25, T4, GLYHGB #### [address] [address] [employer] Miner: Armin Corbett MD GFR,non Amer 52 mL/min Low >60 [facility] Comment on above: Performed By: #### C DP, CP, LIPRF, TSH, FT3, VD25, T4, GLYHGB #### [address] [address] [employer] Miner: Armin Corbett MD Glucose [Mass/Vol] 101 mg/dL High 70-99 [facility] Comment on above: Performed By: #### C DP, CP, LIPRF, TSH, FT3, VD25, T4, GLYHGB #### [address] [address] Co[employer] Miner: Armin Corbett MD Potassium [Moles/Vol] 4.4 mmol/L Normal 3.7-5.3 [facility] Comment on above: Performed By: #### C DP, CP, LIPRF, TSH, FT3, VD25, T4, GLYHGB #### [address] [address] [employer] Miner: Armin Corbett MD Protein [Mass/Vol] 7.3 g/dL Normal 6.4-8.3 [facility] Comment on above: Performed By: #### C DP, CP, LIPRF, TSH, FT3, VD25, T4, GLYHGB #### [facility] [address] [place], [place] [id number] Co[employer] Miner: Armin Corbett MD Sodium [Moles/Vol] 135 mmol/L Normal 135-144 [facility] Comment on above: Performed By: #### C DP, CP, LIPRF, TSH, FT3, VD25, T4, GLYHGB #### [facility] [address] [place], [place] [id number] Copper Miner: Armin Corbett MD Urea nitrogen [Mass/Vol] 27 mg/dL High 8-23 [facility] Comment on above: Performed By: #### C DP, CP, LIPRF, TSH, FT3, VD25, T4, GLYHGB #### [facility] [place], [place] [id number] Copper Miner: Armin Corbett MD Comprehensive Metabolic Pane [facility] 08-16-2021 Albumin [Mass/Vol] 4.8 g/dL 3.5 - 5.2 g/dL [facility] Albumin/Globulin [Mass ratio] 1.9 {ratio} [facility] ALP (Bld) [Catalytic activity/Vol] 91 U/L 35 - 104 U/L [facility] ALT [Catalytic activity/Vol] 17 U/L 5 - 33 U/L [facility] Anion gap [Moles/Vol] 19 mmol/L High 9 - 17 mmol/L [facility] AST [Catalytic activity/Vol] 17 U/L <32 [facility] Bilirubin [Mass/Vol] 0.27 mg/dL Low 0.3 - 1.2 mg/dL [facility] Calcium [Mass/Vol] 9.6 mg/dL 8.6 - 10. 4 mg/dL [facility] Chloride [Moles/Vol] 96 mmol/L Low 98 - 107 mmol/L [facility] CO2 [Moles/Vol] 20 mmol/L 20 - 31 mmol/L [facility] Creatinine [Mass/Vol] 1.06 mg/dL High 0.50 - 0.90 mg/dL [facility] Free PSA/Total PSA [Mass fraction] 7.3 g/dL 6.4 - 8.3 g/dL [facility] [employer] GFR >60 >60 mL/min [facility] [employer] GFR Non- 52 mL/min Low >60 [facility] [employer] GFR/1.73 sq M.predicted MDRD (S/P/Bld) [Vol rate/Area] [facility] Comment on above: Average GFR for 60-6 9 years old: 85 mL/min/1.73sq m Chronic Kidney Disease: <60 mL/min/1.73sq m Kidney failure: <15 mL/min/1.73sq m eGFR calculated using average adult body mass. Additional eGFR calculator available at: http://www.Brand Thunder/multiple_crcl_2012.htm Glucose [Mass/Vol] 101 mg/dL High 70 - 99 mg/dL [facility] Interpretation and review of laboratory results Abnormal [facility] [employer] Potassium [Moles/Vol] 4.4 mmol/L 3.7 - 5.3 mmol/L [facility] Sodium [Moles/Vol] 135 mmol/L 135 - 144 mmol/L [facility] Urea nitrogen (BldV) [Mass/Vol] 27 mg/dL High 8 - 23 mg/dL [facility] Hemoglobin A1Con 08-16-2021 Glucose [Mass/Vol] 146 mg/dL Normal [facility] Comment on above: Result Comment: The ADA and AACC recommend providing the estimated average glucose result to permit better patient understanding of their HBA1c result. Performed By: #### C DP, CP, LIPRF, TSH, FT3, VD25, T4, GLYHGB #### [facility] [address] [place] [address] Copper Miner: Armin Corbett MD HbA1c (Bld) [Mass fraction] 6.7 % High 4.0-6.0 [facility] Comment on above: Performed By: #### C DP, CP, LIPRF, TSH, FT3, VD25, T4, GLYHGB #### [facility] [address] [place], [place] [id number] Co[employer] Miner: Armin Corbett MD Lipid Prof, Fastingon 2021 Cholesterol [Mass/Vol] 193 mg/dL Normal <200 [facility] Comment on above: Result Comment: Cholesterol Guidelines: <200 Desirable 200-240 Borderline >240 Undesirable Performed By: #### C DP, CP, LIPRF, TSH, FT3, VD25, T4, GLYHGB #### [address] [id number] [employer]er: Armin Corbett MD Cholesterol in HDL [Mass/Vol] 57 mg/dL Normal >40 [facility] Comment on above: Result Comment: HDL Guidelines: <40 Undesirable 40-59 Borderline >59 Desirable Performed By: #### C DP, CP, LIPRF, TSH, FT3, VD25, T4, GLYHGB #### [place] [address] [employer] Miner: Armin Corbett MD Cholesterol in LDL [Mass/Vol] 116 mg/dL Normal 0-130 [facility] Comment on above: Result Comment: LDL Guidelines: <100 Desirable 100-129 Near to/above Desirable 130-159 Borderline >159 Undesirable Direct (measured) LDL and calculated LDL are not interchangeable tests. Performed By: #### C DP, CP, LIPRF, TSH, FT3, VD25, T4, GLYHGB #### [place] [id number] [employer] Miner: Armin Corbett MD Cholesterol.total/C holesterol in HDL [Mass ratio] 3.4 {ratio} Normal <5 [facility] Comment on above: Performed By: #### C DP, CP, LIPRF, TSH, FT3, VD25, T4, GLYHGB #### [address] [id number] [employer]er: Armin Corbett MD Triglyceride,Fastin g 100 mg/dL Normal <150 [facility] Comment on above: Result Comment: Triglyceride Guidelines: <150 Desirable 150-199 Borderline 200-499 High >499 Very high Based on AHA Guidelines for fasting triglyceride, January 2012. Performed By: #### C DP, CP, LIPRF, TSH, FT3, VD25, T4, GLYHGB #### [facility] [address] [place] [address] [id number] [employer] Min[employer]: Armin Corbett MD Lipid, Fastingon 08-16-2021 Cholesterol [Mass/Vol] 193 mg/dL <200 [facility] Comment on above: Cholesterol Guidelines: <200 Desirable 200-240 Borderline >240 Undesirable Cholesterol in HDL [Mass/Vol] 57 mg/dL >40 [facility] Comment on above: HDL Guidelines: <40 Undesirable 40-59 Borderline >59 Desirable Cholesterol in LDL [Mass/Vol] 116 mg/dL 0 - 130 mg/dL [facility] Comment on above: LDL Guidelines: <100 Desirable 100-129 Near to/above Desirable 130-159 Borderline >159 Undesirable Direct (measured) LDL and calculated LDL are not interchangeable tests. Cholesterol.total/C holesterol in HDL [Mass ratio] 3.4 {ratio} <5 [facility] Triglyceride, Fasting 100 mg/dL <150 [facility] Comment on above: Triglyceride Guidelines: <150 Desirable 150-199 Borderline 200-499 High >499 Very high Based on AHA Guidelines for fasting triglyceride, January 2012. No Panel Informationon 08-16 [facility] T3, Freeon 08-16-2021 Free T3 [Mass/Vol] 4.17 pg/mL Normal 2.02-4.43 [facility] Comment on above: Performed By: #### C DP, CP, LIPRF, TSH, FT3, VD25, T4, GLYHGB #### [facility] [employer] [address] [place] [id number] [employer] Miner: Armin Corbett MD TSHon 08-16-2021 TSH Qn 3.06 m[IU]/L [facility] Thyroid Stim. Horm.on 2021 Thyroid Stim. Horm. 3.06 uIU/mL Normal 0.30-5.00 [facility] Comment on above: Performed By: #### C DP, CP, LIPRF, TSH, FT3, VD25, T4, GLYHGB #### [employer] [address] [place] [id number] [employer]: Armin Corbett MD Thyroxine T4on 08-16-2021 T4 [Mass/Vol] 6.5 ug/dL Normal 4.5-10.9 [facility] Comment on above: Performed By: #### C DP, CP, LIPRF, TSH, FT3, VD25, T4, GLYHGB #### [employer] [address] [place], [place] [id number] [employer]: Armin Corbett MD Vitamin D 25 OHon 08-16-2021 Vitamin D 25 OH 57.6 ng/mL Normal >29.9 [facility] Comment on above: Result Comment: Reference Range: Vitamin D status Range Deficiency <20 ng/mL Mild Deficiency 20-30 ng/mL Sufficiency 30-100 ng/mL Toxicity >100 ng/mL Performed By: #### C DP, CP, LIPRF, TSH, FT3, VD25, T4, GLYHGB #### [employer] [address] [place], [place] [id number] [employer]: Armin Corbett MD CBC with Auto Differentialon 08-15-2021 Absolute Eos # 0.05 [facility] th Absolute Immature Granulocyte 0.08 [facility] Absolute Lymph # 2.24 [facility] Absolute Costilla # 1.32 [facility] lt Basophils (Bld) [#/Vol] 0.05 10*3/uL [facility] Basophils/100 WBC (Bld) 0 % 0 - 2 % [facility] Eosinophils/100 WBC (Bld) 0 % Low 1 - 4 % [facility] Hematocrit (Bld) [Volume fraction] 39.4 % 36.3 - 47.1 % [facility] Hemoglobin.gastroin testinal spec 1 Ql (Stl) 12.7 g/dL 11.9 - 15.1 g/dL [facility] Immature granulocytes/100 WBC (Bld) 1 % High 0 [facility] Interpretation and review of laboratory results Abnormal [facility] Lymphocytes/100 WBC (Bld) 15 % Low 24 - 43 % [facility] MCH (RBC) [Entitic mass] 31.4 pg 25.2 - 33.5 pg [facility] MCHC (RBC) [Mass/Vol] 32.2 g/dL 28.4 - 34.8 g/dL [facility] MCV (RBC) [Entitic vol] 97.3 fL 82.6 - 102.9 fL [facility] Monocytes/100 WBC (Bld) 9 % 3 - 12 % [facility] NRBC Automated 0.0 0.0 per 100 WBC [facility] Platelet distribution width (Bld) [Ratio] 13.1 % 11.8 - 14.4 % [facility] Platelet mean volume (Bld) [Entitic vol] 10.1 fL 8.1 - 13.5 fL [facility] Platelets (Bld) [#/Vol] 411 10*3/uL [facility] RBC (Bld) [#/Vol] 4.05 10*6/uL 3.95 - 5.1 1 m/uL [facility] Segmented neutrophils/100 WBC (Bld) 75 % High 36 - 65 % [facility] Segs Absolute 11.[address] [facility] WBC (Bld) [#/Vol] 15.2 10*3/uL [facility] Encounters Encounter Date Encounter Type Care Provider Facility Start: 04-29-2023 ambulatory Manuel VANN Facility :[facility] [place] Start: 04-16-2023 ambulatory Manuel VANN [facility] Start: 03-24-2023 End: 03-24-2023 ambulatory ERICK MCKEON Not Available Start: 02-16-2023 End: 02-17-2023 ambulatory Flaquito Palacio MD Facility:[facility] Start: 12-29-2022 End: 12-30-[address] [facility] Facility:[facility] Start: 12-03-2022 End: 12-04-2022 ambulatory Erick Mckeon Facility:[facility] Start: 07-29-2022 End: 07-29-2022 ambulatory NARENDRANATH LAKSHMIPATHY . Facility:[facility] Start: 07-22-2022 End: 07-22-2022 ambulatory NARENDRANATH LAKSHMIPATHY . Facility:[facility] Start: 07-17-2022 End: 07-18-2022 ambulatory NARENDRANATH LAKSHMIPATHY . Facility:[facility] Start: 07-01-2022 End: 07-01-2022 ambulatory NARENDRANKARL ELMORE . Facility:[facility] Start: 06-10-2022 End: 06-11-[address] CONTR[address] . Facility:[facility] Start: 05-29-2022 End: 05-29-[address] CONTR[address] . Facility:[facility] Start: 05-08-2022 End: 05-09-[address] SILVER TRIANA . Facility:[facility] Start: 05-06-2022 End: 05-07-[address] CONTR[address] . Facility:[facility] Start: 04-29-2022 End: 04-30-[address] CONTRER[address] . Facility:[facility] Start: 04-14-2022 End: 04-15-2022 ambulatory MR DANAE MEYERS . Facility:[facility] Start: 04-10-2022 End: 04-10-2022 Subsequent hospital visit by physician Bonnie Mireles PTA [facility] Start: 04-10-2022 End: 04-11-[address] CONTR[facility] . Facility:[facility] Start: 03-27-2022 End: 03-28-[address] CONTR[facility] . Facility:[facility] Start: 03-25-2022 End: 03-26-2022 ambulatory DANAE [facility] Start: 03-24-2022 End: 03-25-[address] [facility] Start: 03-24-2022 End: 03-24-2022 Subsequent hospital visit by physician Bonnie Mireles PTA [facility] Physical [facility] Comment on above: Arrived Start: 03-20-2022 End: 03-21-[address] [facility] Start: 03-20-2022 End: 03-20-2022 Subsequent hospital visit by physician Sanam Viveros PT [facility] Physical Therapy Comment on above: Arrived Start: 02-05-2022 End: 02-06-[address] SILVER TRIANA . Facility:[facility] Start: 01-01-2022 End: 01-02-[address] SILVER TRIANA . Facility:[facility] Start: 11-26-2021 End: 11-26-[address] SILVER TRIANA . Facility:[facility] Start: 11-22-2021 End: 11-22-2021 Subsequent hospital visit by physician Nicole Covid Screening Schedule [facility] Covid Screening Comment on above: Arrived Start: 11-22-2021 End: 11-23-[address] [facility] Start: 11-19-2021 End: 11-19-[address] SILVER TRIANA . Facility:[facility] Start: 11-16-[address] SILVER TRIANA . Faci lity:[facility] Start: 11-15-2021 End: 11-16-[address] [facility] Start: 11-15-2021 End: 11-15-2021 Subsequent hospital visit by physician Nicole Covid Screening Schedule [facility] Covid Screening Comment on above: Arrived Start: 10-22-2021 End: 10-23-[address] SILVER TRIANA . Facility:[facility] Start: 09-24-2021 End: 09-24-[address] SILVER TRIANA . Facility:[facility] Start: 08-29-2021 End: 08-30-[address] SILVER TRIANA . Facility:[facility] Start: 08-15-2021 End: 08-16-[address] [facility]ERAS [facility] Start: 08-15-2021 End: 08-15-2021 Subsequent hospital visit by physician Ave Contreras MD Work Phone: [facility] Start: 08-13-2021 End: 08-13-[address] SILVER TRIANA . Facility:[facility] Procedures Date Procedure Procedure Detail Performing Clinician Start: 08-15-2021 Comprehensive metabo lic panel Ave Contreras MD Work Phone: Start: 08-15-[address] Contreras MD Work Phone: Start: 01-02-2015 Microscopic observat ion [Identifier] in Cervix by Cyto stain Ave Contreras MD Work Phone: Plan of Treatment Date Care Activity Detail Author Start: 08-15-2026 Lipid panel Lipids [facility] Start: 08-28-2022 ambulatory Ambulatory Facility:[facility] Start: 04-10-2022 End: 04-10-2022 Patient encounter procedure 04/10/2022 Appointment Physical Therapy Bonnie Mireles PTA [facility] Start: 04-08-2022 End: 04-08-2022 Patient encounter procedure 04/08/2022 Appointment Physical Therapy Bonnie Mireles PTA [facility] Start: 04-03-2022 End: 04-03-2022 Patient encounter procedure 04/03/2022 Appointment Physical Therapy Bonnie Mireles PTA [facility] Start: 03-25-2022 End: 03-25-2022 Patient encounter procedure 03/25/2022 Appointment Physical Therapy Bonnie Mireles PTA [facility] Start: 03-24-2022 End: 03-24-2022 Patient encounter procedure 03/24/2022 Appointment Physical Therapy Bonnie Mireles PTA [facility] Start: 2022 Pneumococcal 65+ yea rs Vaccine (1 - PCV) Pneumococcal 65+ years Vaccine (1 - PCV) [facility] Start: 12-12-2021 Influenza vaccination M [facility] Start: 11-15-2021 Hemoglobin A1c measurement A1C test (Diabetic or Prediabetic) [facility] Start: 11-11-2021 Influenza vaccination Flu vaccine (# 1) [facility] Start: 01-02-2018 Screening for malign ant neoplasm of cervix [facility] Start: 06-26-2014 Creatinine measurement Creatinine [facility] Start: 06-26-2014 Potassium [Moles/vol ume] in Serum or Plasma Potassium [facility] Start: 2012 Screening for osteoporosis DEX A (modify frequency per FRAX score) [facility] Start: 2007 Screening for malign ant neoplasm of breast Breast cancer screen [facility] Start: 2007 Shingles vaccine (1 of 2) Kincaid gles vaccine (1 of 2) [facility] Start: 2002 Screening for malign ant neoplasm of colon [facility] Start: 1997 Lipid panel Lipids [facility] Start: 1987 Screening for malign ant neoplasm of cervix HPV (without or with Pap) [facility] Start: 1976 DTaP/Tdap/Td vaccine (1 - Tdap) DTaP/Tdap/Td vaccine (1 - Tdap) [facility] Start: 1975 Hepatitis C screening Hepatitis C sc reen [facility] Start: 1972 HIV screening HIV screen [facility] Start: 1969 Depression Screen Depression Screen [facility] Start: 1962 COVID-19 Vaccine (1) COVID-19 Vaccin e (1) [facility] Start: 1957 COVID-19 Vaccine (#1) COVID-19 Vacci ne (#1) Expa End: 11-15-2021 COVID-19 [employer] Work Phone: Comment on above: Once for 1 Occurrenc es starting 11/15/2021 until 11/15/2021 End: 11-22-2021 COVID-19 BON [employer] Phone: Comment on above: Once for 1 Occurrenc es starting 11/22/2021 until 11/22/2021 End: 08-15-2021 Hemoglobin A1c/Hemoglobin.total in Blood [employer] Phone: Comment on above: Once for 1 Occurrenc es starting 08/15/2021 until 08/15/2021 End: 08-15-2021 T4 [employer] Phone: Comment on above: Once for 1 Occurrenc es starting 08/15/2021 until 08/15/2021 End: 08-15-2021 Triiodothyronine (T3) Free [Mass/volume] in Serum or Plasma [employer] Phone: Comment on above: Once for 1 Occurrenc es starting 08/15/2021 until 08/15/2021 End: 08-15-2021 Vitamin D 25 Hydroxy [employer] Phone: Comment on above: Once for 1 Occurrenc es starting 08/15/2021 until 08/15/2021 Payers Date Payer Category Payer Unknown 2022 Medicare 2014 Unknown [id number] 1.2.84 [id number] 1959 Medicare [id number] 1959 Unknown [id number] 1959 Unknown [id number] 1957 Unknown [id number] 2.16. 840.1.363427.3.579.2.175 1957 Unknown [id number] 2.16.8 40.1.749639.3.579.2.173 1957 Unknown [id number] 2.16.8 40.1.014259.3.579.2.173 1957 Unknown [id number] 2.16.8 40.1.248149.3.579.2.173 1957 Unknown [id number] 2.16.8 40.1.095617.3.579.2.173 1957 Unknown [id number] 2.16.8 40.1.453614.3.579.2.173 1957 Unknown [id number] 2.16.84 0.1.123639.3.579.2.593 1957 Unknown [id number] 2.16.84 0.1.429545.3.579.2.593 1957 Unknown [id number] 2.16.84 0.1.676994.3.579.2.593 1957 Unknown [id number] 2.16.84 0.1.586932.3.579.2.593 1957 Unknown [id number] 2.16.84 0.1.505956.3.579.2.593 1957 Unknown [id number] 2.16.84 0.1.061229.3.579.2.593 1957 Unknown [id number] 2.16.84 0.1.133974.3.579.2.593 1957 Unknown [id number] 2.16.84 0.1.476686.3.579.2.593 1957 Unknown [id number] 2.16.84 0.1.646762.3.579.2.593 1957 Unknown [id number] 2.16.84 0.1.895291.3.579.2.593 1957 Unknown [id number] 2.16.84 0.1.403303.3.579.2.593 1957 Unknown [id number] 2.16.84 0.1.544777.3.579.2.593 1957 Unknown [id number] 2.16.84 0.1.573551.3.579.2.593 1957 Unknown [id number] 2.16.84 0.1.593787.3.579.2.593 1957 Unknown [id number] 2.16.84 0.1.655920.3.579.2.593 1957 Unknown [id number] 2.16.84 0.1.802911.3.579.2.593 1957 Unknown [id number] 2.16.84 0.1.600436.3.579.2.593 1957 Unknown [id number] 2.16.84 0.1.788869.3.579.2.593 1957 Unknown [id number] 2.16.84 0.1.046567.3.579.2.593 1957 Unknown [id number] 2.16.84 0.1.260934.3.579.2.593 1957 Unknown [id number] 2.16.84 0.1.594228.3.579.2.593 1957 Unknown [id number] 2.16.84 0.1.988843.3.579.2.593 1957 Unknown [id number] 2.16.84 0.1.901232.3.579.2.593 1957 Unknown [id number] 2.16.8 40.1.350587.3.579.2.718 1957 Unknown [id number] 2.16.8 40.1.580558.3.579.2.718 1957 Unknown [id number] 2.16. 840.1.581063.3.579.2.196 1957 Unknown [id number] 2.16.840 .1.067269.3.579.2.1259 1957 Unknown [id number] 2.16.8 40.1.346723.3.579.2.727 Unknown [id number] Social History Date Type Detail Facility Start: 02-12-2012 End: 05-09-2017 Tobacco smoking status NHIS Ex-smoker [facility] End: 06-11-2011 History of tobacco use Current smoker [employer] Phone: Start: 02-12-2012 End: 05-09-2017 Tobacco use and exposure Smokeless tobacco non-user [employer] Phone: Start: 05-09-2017 Alcohol intake Current drinke r of alcohol (finding) [employer] Phone: Start: 1955 Sex Assigned At Not on file [employer] Phone: End: 06-11-2011 History of tobacco use Cigarette Smoker RAFAL DON [employer] Phone: Clinical Notes 08-29-2021 to 01-01-2023 Bonnie Mireles, ART TRACER - 04/10/2022 3:45 PM Bella Viveros, PT - 03/20/2022 1:30 PM EST Note Date & Type Note Facility 01-01-2023 Note [id number] 12-30-[address] PERRY POST OPERATIVE SHOULDER INSTRUCTIONS SURGEONS WRITTEN INSTRUTCTIONS: 1. If you have been given a cryo cuff after surgery you should use it as much as possible for the first 24-48 hours. After that it is optional. TIP: Many patients prefer to use it a little longer because it helps reduce pain 2. You should wiggle your fingers frequently 3. Change your dressings in 1 day. If steri-strips have been applied DO NOT remove them. When the wound is clean and dry you may leave it open to air but again DO NOT remove any steri-strips that have been applied 4. You may shower in 1 day but do not let the water stream directly strike the wound 5. Do pendulum exercises for at least 10 minutes twice a day 6. If you have any problems or concerns, please call the office at [phone] 7. Follow up as scheduled [facility] 12-30-2022 Note [facility] 2SOUT Clinical Discharge Summary PERSON INFORMATION Name CARIN ANDERSEN Age 67 Years 1955 Sex FEMALE Language Chinese PCP [address] CONTRER[facility] Marital Status Single Phone Med Service Observation Acct# Arrival 12/29/2022 08:33:12 Visit Reason SURGERY - LEFT REVERSE TOTAL SHOULDER Acuity LOS 000 26:35 Address: [address] [place], [place] [id number] Comment: PROVIDER INFORMATION VITALS INFORMATION Vital Sign Triage Latest Temp Oral 35.9 DegC 36.8 DegC Temp Temporal Temp Intravascular Temp Axillary Temp Rectal 02 Sat 100 % 94 % Respiratory Rate 16 br/min 18 br/min Peripheral Pulse Rate 56 bpm 70 bpm Apical Heart Rate Blood Pressure 138 mmHg / 95 mmHg 106 mmHg / 70 mmHg Comment: MEDICAL INFORMATION Allergy Info: Nickel; Latex; Vicodin; Percocet; penicillin Medication List: Medications That Were Updated - Follow Below Instructions Other Medications Updated: cranberry (Cranberry oral capsule) 1 tab(s) Oral 2 times a day. Medications to Continue That Have Not Changed Other Medications ascorbic acid (Vitamin C 1000 mg oral tablet) 3 tab(s) Oral every day. aspirin (aspirin 81 mg oral delayed release tablet) 1 tab(s) Oral every day. baclofen (baclofen 10 mg oral tablet) 1 tab(s) Oral every day. biotin (biotin 5000 mcg oral capsule) 1 cap(s) Oral every day. cholecalciferol (Vitamin D3 1000 intl units oral tablet) 1 tab(s) Oral 2 times a day. garlic (Garlic Oil oral capsule) 1 cap(s) Oral 2 times a day. hydroCHLOROthiazide (hydroCHLOROthiazide 25 mg oral tablet) 1 tab(s) Oral every day. liothyronine (liothyronine 5 mcg oral tablet) 1 tab(s) Oral every day. losartan (losartan 25 mg oral tablet) 1 tab(s) Oral every day. magnesium gluconate (magnesium gluconate 250 mg oral tablet) 1 tab(s) Oral every day. metFORMIN (metFORMIN 500 mg oral tablet) 1 tab(s) Oral 2 times a day. metoprolol (metoprolol tartrate 25 mg oral tablet) 1 tab(s) Oral 2 times a day. omega-3 polyunsaturated fatty acids (Fish Oil 1000 mg oral capsule) 1 cap(s) Oral 2 times a day. pantoprazole (pantoprazole 40 mg oral delayed release tablet) 1 tab(s) Oral every day. simvastatin (simvastatin 20 mg oral tablet) 1 tab(s) Oral every day. Template Non-Formulary (beet root) Oral every day. Template Non-Formulary (veggie and fruit tablet) Oral 2 times a day. traMADol (traMADol 50 mg oral tablet) 1 tab(s) Oral Every 12 hours scheduled time as needed as needed for pain. zinc gluconate (zinc (as gluconate) 50 mg oral tablet) 1 tab(s) Oral every day. Comment: Lab and Radiology Results Laboratory or Other Results This Visit (last charted value for your 12/29/2022 visit) Chemistry 12/29/2022 1:31 PM Glucose, POC: 108 mg/dL -- Normal range between ( 74 and 118 ) Diagnostic Radiology 12/29/2022 1:47 PM XR Shoulder 1 View Left: XR Shoulder 1 View Left Radiology Report 12/29/2022 1:47 PM Radiology Report: Radiology Report DIET & ACTIVITY Patient Activity Level: Patient Diet: Regular Patient Activity Restrictions: DISCHARGE INFORMATION Discharge Disposition: Discharge Location: DEPART REASON INCOMPLETE INFORMATION PATIENT EDUCATION INFORMATION Instructions: Linda- Post Op Shoulder (CUSTOM) Follow up: With: Address: When: Erick Mckeon [address] [place] [address], [address] [place] [address] Business (1) 01/06/2023 10:45 AM DIAGNOSIS Arthritis of left glenohumeral joint Comment: PHYS DOC NOTES [facility] 12-29-2022 Note [id number] [facility] 12-29-2022 Note CLINICAL HISTORY: Po stoperative evaluation left shoulder arthroplasty COMPARISON: None available TECHNIQUE: Frontal view of the left shoulder. FINDINGS: Postsurgical changes of total reverse shoulder arthroplasty. Alignment appears anatomic on this single frontal view. No periprosthetic abnormality. Mild degenerative changes of the acromioclavicular joint. IMPRESSION: Postsurgical changes of left shoulder arthroplasty. Final Signed (Electronic Signature): Aramis Sanchez DO 12/29/22 4:32 pm Technologist: NESSA CHAVARRIA [facility] Comment on above: Order Comment: fawad lt status post shoulder replacement 07-17-2022 Note CONSULTATION CONSULTATION DATE: 07/17/2022 TO: Ave Contreras M.D. CHIEF COMPLAINT: Includes severe bilateral hip pain, buttock pain, worse on the right than left side. HISTORY: She describes it at 5-7/10 pain, burning in character, sensitive to light touch, also seems to increase with activity such as standing, walking and performing transitioning maneuvers. She feels most comfortable in the semi-recumbent position. Denies any change in bowel and bladder habits or new sensorimotor changes in the lower extremities EXAM: Notable for patient having dysesthesia and hyperesthesia overlying the distribution of the lateral cutaneous branch of the iliohypogastric nerve bilaterally, more significant on the right than the left side. 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 She has undergone a diagnostic injection bilaterally, of the same nerve, under fluoroscopic guidance. She reports the pain symptoms were improved by 100% starting in the immediate post procedural period, lasting for several hours, with recurrence of pain back to her baseline. RECOMMENDATIONS: I recommend proceeding with a rhizotomy using radiofrequency ablation of the lateral cutaneous branch of the iliohypogastric nerve, starting on the right side initially and then proceeding to the left side, approximately 1-2 weeks lateral. I have asked her to trial Zonegran 50 mg at h.s. and re-trial Zanaflex one week after starting her Zonegran. As part of providing excellent, safe, comprehensive care, the following was completed at our patient's visit: 1. A medication reconciliation and review to ensure accurate knowledge of current/active medications, including asking our patients to inform us about any mevj-ion-yiauhwd medications or herbal remedies/nutritional supplements/alternative remedies. 2. A review to specifically ensure our patients have had annual screening for: elevated body mass index (BMI, see intake chart for exact total), tobacco use, screening for depression, and screening for unhealthy alcohol use. When screening is concerning, patients are provided with education and the specific recommendation to discuss the concerning health issue and treatment options with their primary care provider. [facility] 06-10-2022 Note CONSULTATION CONSULTATION DATE: 06/10/2022 TO: Dr. Ave Contreras and Dr. Carin Fernandez CHIEF COMPLAINT: Includes severe bilateral lower back pain. HISTORY OF PRESENT ILLNESS: She presented today complaining of 5-7/10 pain in her lower back, occurring bilaterally, describes it as sharp pain, increased with activities such as standing, walking and performing transitioning maneuvers. She feels most comfortable in the semi-recumbent position. Denies any change in bowel and bladder habits or new sensorimotor changes in the lower extremities. EXAM: Notable for the patient having a non-focal sensorimotor exam of the lower extremities. DTRs were symmetrical. She has a negative straight leg raise. She had no clinical myelopathy involving the lower extremities. The patient did have tenderness along the SI joints bilaterally, as well as positive bilateral Gaenslen's maneuver, pelvic compression test and Reid's test. Patient had significant myofascial dysfunction along the lumbar paravertebral muscles occurring bilaterally. She also had significant dysesthesias and hypoesthesia long the distribution of the lateral cutaneous and hypogastric nerve, also occurring bilaterally. 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 RECOMMENDATIONS: I recommended bilateral SI joint injection under fluoroscopy guidance. I have actually discontinued Flexeril secondary to ineffectiveness. Will trial her on Zanaflex 4 mg pill, half a pill to one pill up to b.i.d. as tolerated. I have asked her to discontinue her Xanax and have also recommended Narcan spray available. We did discuss these benzodiazepines and offered analgesics with the patient. All her questions answered. She agrees to proceed with the outlined plan. [facility] 05-08-2022 Note CONSULTATION CONSULTATION DATE: 05/08/2022 HISTORY OF PRESENT ILLNESS: This is a 67-year-old female who returns to the clinic for a three month follow up. She was last seen at the end of January and had pain 8/10. At that time, she received bilateral trapezius and trigger point injections, which she reports next to no relief. The patient states her pain is 8/10 today. She has bilateral anterior shoulder pain, which she was told by her PCP is tendonitis, and diffuse lower back pain. She did go to Dr. Shane's office and they proceeded to do lumbar imaging, lumbar MRI which does show significant disc herniation between L5 and S1. The patient does have a Neurosurgery appointment pending with Dr. Carin Fernandez in [place] [facility]. She also feels she is having spasms in her back. She can walk for short periods of time, but then she needs to sit down. She did have radiofrequency ablations in November of this year which afforded her minimal to no relief. Current medication include diclofenac 75 mg b.i.d., tramadol 50 mg b.i.d. p.r.n., baclofen 10 mg, which she stopped taking due to being ineffective, and a vitamin regimen. She has recently been placed on metformin and has had approximately a 20 pound weight loss. The patient is very discouraged with this pain at this time. We had discussed, in the past, increasing different pain medications, but she does have an allergy to hydrocodone and oxycodone. Patient does feel better when she bends forward or when she is sitting down. Standing and walking and doing housework are the most painful activities for her. Patient's REVIEW OF SYSTEMS / PAST MEDICAL HISTORY / ALLERGIES and IMAGES have been reviewed and noted on the chart. PHYSICAL EXAM: VITAL SIGNS: Blood pressure 105/70, heart rate is 59. Temperature is 96.9. She is 5'4 , weighs 108 kg. GENERAL IMPRESSION: Pleasant, appropriate, obvious discomfort sitting in the chair. FOCUSED EXAM - BACK: Range of motion is guarded in lateral rotation and flexion/extension. Paravertebral muscles are taut but non-spasmodic. Tenderness is reproduced upon compression along the lower lumbar facets of L3, L4, L5 bilaterally. Amrik's point is non-tender at this time. MUSCULOSKELETAL: Bilateral upper extremities motor is 4/5 bilaterally. Range of motion of bilateral shoulders is guarded in lateral raises and adduction. Point tenderness along bilateral bicipital head tendon sheath and compression reproduces the patient's pain pattern. Lower extremities bilaterally motor is 4/5. Patient walks unassisted with a stable gait. NEUROLOGICAL: Radicular sensory is intact. Negative polyneuropathy. DIAGNOSIS: Bilateral bicipital head tendon sheath tendonitis, lumbar degenerative disc disease, lumbar disc displacement and lumbar spondylosis. PLAN: Patient will receive bilateral bicipital tendon sheath injections in the office today, which she does consent to. We will increase her tramadol to 100 mg b.i.d. We will also start her on Flexeril 10 mg q.h.s. and I encouraged her to use a menthol heat rub with heat application. We will see her in three months' time, unless otherwise indicated. We did ask that she call the office with an update after her Neurosurgery appointment in early May. Patient agrees with this plan. [facility] 05-08-2022 Note CONSULTATION PROCEDURE DATE: 05/08/2022 PREOPERATIVE DIAGNOSIS: Bilateral bicipital head sheath tendonitis. POSTOPERATIVE DIAGNOSIS: Bilateral bicipital head sheath tendonitis. PROCEDURE: Bilateral bicipital head tendon sheath injection. Subsequent to obtaining informed consent, the patient was placed in the upright sitting position. Alcohol prep was used to sterilize each location. A 25 gauge needle with 0.125% Marcaine and 40 mg of Kenalog was placed was divided into two locations. The needle was placed to rest inside each bicipital head tendon. Negative heme. Medication was injected in a slow pattern. Patient tolerated the procedure well and will be followed up in the clinic. [facility] 04-10-2022 History of Present illness Narrative [facility] Inpatient/Observation/Outpatient Rehabilitation Date: 04/10/2022 Patient Name: Carin Andersen [] Inpatient Acute/Observation [x] Outpatient : 1955 [x] Pt cancelled due to: [] No Reason Given [] Sick/ill [x] Other: No reason given to studio receptionist for today's cancelled visit, however ART TRACER did speak with patient earlier in the week and she stated she had some medical issues going on that she is seeking a doctor's advice for. Therapist/Mop Maker will attempt to see this patient, at our earliest opportunity. Bonnie Mireles, ART TRACER [id number] Date: 04/10/2022 documented in this encounter [employer] Work Phone: 03-20-2022 History of Present illness Narrative [facility] Outpatient Physical Therapy Evaluation Date: 03/20/2022 Patient: Carin Andersen : 1955 CSN #: [id number] Referring Physician: Danae Meyers PA-C Medical Diagnosis: R hip pain, M25.551 Treatment Diagnosis: Low back and R hip pain PT Insurance Information: [place] Total # of Visits Approved: 12 Total # of Visits to Date: 1 No Show: 0 Canceled Appointment: 0 Subjective Subjective: Patient reports hx of back pain for years and R hip pain started recently. Had xrays for R hip on Thursday that showed trochanteric bursitis and liner of JONATHAN is wearing down. MRI pending insurance approval. 11/20 pain after work and being on her feet all day. Heat packs and cold packs that provide temporary relief but then it comes right back. Pain medications don't help. Additional Pertinent Hx: Hx of B JONATHAN's, arthritis, HTN, anxiety Observations: General Observations Description: Pt stands with lumbar hyperlordosis and B anterior pelvic tilt, Moderate TTP L5/S1, R PSIS, R greater trochanter; (-) B slump, SLR, (-) B LIANE, good pelvic alignment, relief with manual lumbar traction with therapy ball Objective Strength Strength LLE L Hip Flexion: 4-/5 L Hip ABduction: 4/5 L Hip ADduction: 4/5 L Knee Flexion: 4/5 L Knee Extension: 4-/5 L Ankle Dorsiflexion: 4/5 Lumbar Assessment AROM Lumbar Spine Lumbar spine general AROM: flexion: 6 in from floor, no pain; B SB: to knees, no pain Special Tests: Strength RLE R Hip Flexion: 3/5 R Hip ABduction: 4/5 R Hip ADduction: 4/5 R Knee Flexion: 4/5 R Knee Extension: 4-/5 R Ankle Dorsiflexion: 4-/5 Strength LLE L Hip Flexion: 4-/5 L Hip ABduction: 4/5 L Hip ADduction: 4/5 L Knee Flexion: 4/5 L Knee Extension: 4-/5 L Ankle Dorsiflexion: 4/5 Exercises: Exercise 1: HEP: PPT, marching, glut sets, LTR Manual: Manual Traction: Gentle manual lumbar traction with therapy ball with relief of pain noted Functional Outcome Measures Get out of bed: Somewhat difficult Sleep through the night: Somewhat difficult Turn over in bed: Somewhat difficult Ride in a car: Minimally difficult Stand up for 20-30 minutes: Fairly difficult Sit in a chair for several hours: Somewhat difficult Climb one flight of stairs: Fairly difficult Walk a few blocks (300-400 m): Fairly difficult Walk several kilometers - miles: Unable to do Reach up to high shelves: Minimally difficult Throw a ball: Unable to do Run one block (about 100 m): Unable to do Take food out of the refrigerator: Somewhat difficult Make your bed: Fairly difficult Put on socks (pantyhose): Somewhat difficult Bend over to clean the bathtub: Very difficult Move a chair: Somewhat difficult Pull or push heavy doors: Somewhat difficult Carry two bags of groceries: Somewhat difficult Lift and carry a heavy suitcase: Very difficult [place] Total Score: 55 Assessment Assessment: Patient is 67 year old female with dx of R hip pain who presents with lower back and R hip pain 8/10 at worst after working all day on her feet.Pt stands with lumbar hyperlordosis and B anterior pelvic tilt, Moderate TTP L5/S1, R PSIS, R greater trochanter; (-) B slump, SLR, (-) B LIANE, good pelvic alignment, relief with manual lumbar traction with therapy ball. Patient with decreased lumbar AROM flexion: 6 in from floor with pain and B SB: to knees with no pain. Patient with decreased core strength: 3+/5 and decreased R hip flex: 3/5 compared to L hip flex: 4-/5. Patient to benefit from aquatic physical therapy to offload the spine and the R hip and to improve strength and ROM to return to PLOF. Therapy Prognosis: Good Decision Making: Low Complexity Patient Education PT eval, POC, HEP Pt verbalized/demonstrated good understanding: [X] Yes [] No, pt required further clarification. Goals Short Term Goals Time Frame for Short Term Goals: 3 weeks Short Term Goal 1: Patient to initiate HEP for improved lumbar ROM and core strength. Short Term Goal 2: Patient to tolerate 45 min of aquatic exercise to decrease low back and L hip pain. Short Term Goal 3: Patient to be instructed in gentle core and B hip strengthening to improve lumbar stability. [employer] Developer Goals Time Frame for Fdc Goals : 6 weeks Fdc Goal 1: Patient to be safe and independent with HEP. Fdc Goal 2: Patient to have improved core and B hip strength >/=4/5 all planes for improved lumbar stability. Fdc Goal 3: Patient to have improved lumbar AROM flexion: 4in from floor with no increase in pain. [employer] Goal 4: Patient to report >/=75% improvement in symptoms for improved QOL. Minutes Tracking: Time In: 1330 Time Out: 1410 Minutes: 40 Timed Code Treatment Minutes: 39 Minutes Sanam Viveros PT, DPT 03/20/2022 documented in this encounter [employer] Work Phone: 02-05-2022 Note CONSULTATION PROCEDURE DATE: PREOPERATIVE DIAGNOSIS: Bilateral thoracic trapezius spasms and bilateral lumbar paravertebral spasms. POSTOPERATIVE DIAGNOSIS: Bilateral thoracic trapezius spasms and bilateral lumbar paravertebral spasms. PROCEDURE: Bilateral thoracic trapezius injections and bilateral lumbar paravertebral injections. Subsequent to obtaining informed consent, the patient was placed in upright standing forward flexion position. A 25 gauge needle with 2 cc Marcaine, 1 cc 40 mg of Kenalog, and 2 cc of normal saline, was divided into four locations. Needle was placed to rest inside each location of the trigger points. Negative heme. Medication was injected in a slow, fan-like pattern. Patient tolerated the procedure well with no overt complications, will be followed up in the office in three months' time. [facility] 01-01-2022 Note CONSULTATION CONSULTATION DATE: 01/01/2022 HISTORY OF PRESENT ILLNESS: This is a pleasant, 66-year-old female returning to the clinic status post bilateral lumbar RFAs of L2, L3 and L4, L5 completed on 11/26/2021. The patient states she is uncertain of the relief as she is having increased pressure, ache and tightening to her lumbar region. She reports her pain with activity 7-8/10 and in the standing position. Standing, working, physical activity is aggravating to her pain. The pain decreases to 2/10 with sitting. 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 Current medications include diclofenac 50 mg b.i.d., tramadol 50 mg b.i.d. by her PCP for shoulder pain, and Xanax p.r.n. She denies any new radicular pain, radiating pain or vasomotor changes. Patient's REVIEW OF SYSTEMS / PAST MEDICAL HISTORY / ALLERGIES and IMAGES have been reviewed and they are noted on the chart. PHYSICAL EXAM: VITAL SIGNS: Blood pressure 167/95, heart rate is 85. Temperature is 97.3. She is 5'4 , weighs 116.4 kg. GENERAL IMPRESSION: Pleasant, appropriate, no acute distress. FOCUSED EXAM - BACK: Significant paravertebral spasming noted to lower thoracic and lower lumbar regions. Compression along these muscles reproduced the patient's pain symptomatology. No reproduction of spinal axial pain upon compression along the lower lumbar facets, indicative of successful RFA. Amrik's point non-tender. Negative FABERs and compression test. Range of motion is functional in lateral rotation and flexion/extension. MUSCULOSKELETAL: Motor is intact bilateral lower extremities, 4/5 bilaterally. Slight muscle atrophy noted to bilateral quadriceps. Patient walks with an antalgic gait without an assistive device. NEUROLOGICALLY: Radicular sensory is intact. Negative polyneuropathy. DIAGNOSIS: Lumbar and thoracic paravertebral spasms, lumbar spondylosis, lumbar degenerative disc disease and chronic lower back pain. PLAN: The patient will start on baclofen 10 mg q.h.s. We will preauthorize for thoracic and lumbar paravertebral trigger point injections. She was instructed to use Voltaren 1% gel mixed with Vicks VapoRub to her back with heat application to follow. Stretches were demonstrated and encouraged as well. Upon authorization, patient will be brought back to the clinic to receive her trigger point injections and patient agrees to move forward. [facility] 10-22-2021 Note CONSULTATION CONSULTATION DATE: 10/22/2021 CHIEF COMPLAINT: Low back pain. HISTORY OF PRESENT ILLNESS: This is a very pleasant, 66-year-old female who has had successful diagnostic medial branch blocks on two separate occasions. Both times afforded the patient 95-100% relief for 24 hours or so. 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 The patient currently reports the pain as a 6/10, worse with walking. The patient enjoys walking. The patient currently takes diclofenac 75 mg b.i.d., tramadol 50 mg b.i.d. but does not take this since it did not help her, Xanax on a p.r.n. basis and has been taking a vitamin regimen. The patient is focused now with regards to her own wellness and health. The patient's PAST MEDICAL HISTORY / SURGICAL HISTORY / REVIEW OF SYSTEMS are noted on the chart, along with the MEDICATION LIST / ALLERGIES and RADIOLOGICAL IMAGES. PHYSICAL EXAMINATION: GENERAL: Upon physical examination, this is a pleasant, cooperative female who does not appear to be in any acute distress. VITAL SIGN: Slightly elevated at 135/92 with a heart rate of 62. At a height of 5'4 , the patient weighs 116 kg. FOCUSED EVALUATION: Extension, compression, direct palpation along the posterior elements aggravate the patient's pain concordant with facet arthropathy, lumbar spondylosis. EXTREMITIES: No pedal edema is noted. Quality of the muscles is poor; however, within normal limits. NEUROLOGICALLY: The patient does not have any radicular symptomatology. PSYCHIATRICALLY: Affect is appropriate. IMPRESSION: Chronic vertebrogenic low back pain, lumbar degenerative disc disease, lumbar spondylosis. PLAN: We will do a U-Tox in the office today. Questions/answers were done. The patient will be scheduled for a therapeutic rhizotomy radiofrequency ablation of the dorsal rami at the level of L2-L3 and L4-L5 bilaterally, initially on the right hand side, followed by the left hand side. The patient understands and would like to proceed. [facility] Signed and Approved by: DR SILVER TRIANA . 10/29/2021 09:28:00 [facility] 08-29-2021 Note CONSULTATION CONSULTATION DATE: 08/29/2021 This is a pleasant 66-year-old female returning to the clinic status post #1 bilateral MBB to L2, L3 and L4, L5 that afforded her 100% relief for two days. Following that her pain returned to baseline which was is 6 out of 10. The patient reports activity such as standing, walking, ADLs and physical activity as aggravating factors; sitting and sleeping relieves her pain. She currently takes Tylenol, diclofenac 50 mg b.i.d., multivitamin and fish oil. She is pleased with the results and would like to move forward with the second injection. The patient is somewhat concerned that she has a 2-day-long shopping trip with her daughter coming up this weekend and she is afraid her pain will become too great with all the walking. She denies any new radicular pain or vasomotor changes. REVIEW OF SYSTEMS, PAST MEDICAL HISTORY, ALLERGIES AND IMAGES: Have been reviewed and noted in the chart. PHYSICAL EXAM: VITAL SIGNS: Blood pressure 96/66, heart rate is 56, temperature is 97.4. Height is 5'4 , weighs 115.6 kg. GENERAL APPEARANCE: Pleasant, appropriate and in no acute distress sitting in the chair. FOCUSED EXAM: BACK: Range of motion is guarded in lateral rotation and flexion/extension. Reproduction of spinoaxial pain noted to direct compression along the posterior elements of the facets of L2, L3, and L4, L5 which was concordant with ill facet arthropathy, lumbar spondylosis. Amrik's point mildly tender to the right with referral pain to the right hip. MUSCULOSKELETAL: Motor is intact, 4 out of 5 bilaterally. The patient ambulates with a stable gait. NEUROLOGICAL: Negative polyneuropathy, bilateral patellar reflexes +2. DIAGNOSIS: Lumbar spondylosis, lumbar degenerative disk, spinoaxial lower back pain, obesity. PLAN: We will move forward with the #2 bilateral MBB to L2, 3 and L4, L5 pending insurance authorization. In regards to her upcoming trip, I will give her 3 days' worth of Tramadol 50 mg b.i.d. and dispense 6 tablets. The patient was made aware of the risks and benefits of this medication. In the meantime, nutrition importance was discussed as was vitamins. She is to continue with heat rub and heat source daily to her back. The patient agrees with the plan of care and would like to move forward and she will be followed up in the office post-procedure. [facility] Signed and Approved by: MALENA GILMORE . 09/02/2021 15:07:00 [facility] Advance Directives No Advanced Directives Records FoundDocuments on File Type Date Recorded Patient [employer] Expl anation ACP-Advance Directive ACP-Power of Vp Purchasing Latest Code Status on File Code Status Date Activated Date Inactivated Comments Full Code 03/11/2012 4:45 PM 03/12/2012 8:39 AM Full Code 02/12/2012 4:33 PM 02/12/2012 7:14 PM Summary Purpose Family History No Family History Records FoundNo Family History Records FoundNo Family History Records FoundNo Family History Records FoundNo Family History Records FoundNo Family History Records FoundNo Family History Records Found Additional Source Comments Care Teams (unrecognized sec tion and content) Pesticide Chemist Relationship Specialty Start Date End Date Ave Contreras MD [address] [phone] PCP - General 12/22/11 Pesticide Chemist Relationship Specialty Start Date End Date Ave Contreras MD [address] [id number] PCP - General 12/22/11 Pesticide Chemist Relationship Specialty Start Date End Date Ave Contreras MD [address] [phone] PCP - General 12/22/11 Pesticide Chemist Relationship Specialty Start Date End Date Ave Contreras MD [address] [place] [id number] PCP - General 12/22/11 INFORMATION SOURCE (unrecogn ized section and content) DATE CREATED AUTHOR 08/16/2021 [facility] DATE CREATED AUTHOR AUTHOR'S ORGANIZ ATION 05/08/2022 [facility] DATE CREATED AUTHOR AUTHOR'S ORGANIZ ATION 07/30/2022 [facility] DATE CREATED AUTHOR AUTHOR'S ORGANIZ ATION 01/16/2023 [facility] DATE CREATED AUTHOR AUTHOR'S ORGANIZ ATION 03/12/2023 [facility] DATE CREATED AUTHOR AUTHOR'S ORGANIZ ATION 03/26/2023 [facility] DATE CREATED AUTHOR AUTHOR'S ORGANIZ ATION 04/17/2023 [facility] FOR RECORDS PERTAINING TO PATIENTS WHO ARE OR HAVE BEEN ENROLLED IN A CHEMICAL DEPENDENCY/SUBSTANCEABUSE PROGRAM, SOME INFORMATION MAY BE OMITTED. This clinical summary was aggregated from multiple sources. Caution should be exercised in using it in the provision of clinical care. This summary normalizes information from multiple sources, and as a consequence, information in this document may materially change the coding, format and clinical context of patient data. In addition, data may be omitted in some cases. CLINICAL DECISIONS SHOULD BE BASED ON THE PRIMARY CLINICAL RECORDS. [facility] [employer] [facility]. provides no warranty or guarantee of the accuracy or completeness of information in this document.
--- NOTE | 2023-04-29 12:03 | MR_ITS ---
[address] [address] Patient Name: MIK ANDERSEN MRN: [id number] date: 1955 Sex: F Assigned Patient Location: MRI Current Patient Location: MRI Accession/Order Number: [id number] Exam Date: 04/29/2023 12:25 Report Date: 04/29/2023 13:37 At the request of: AVE MUNGUIA Procedure: MR lumbar spine wo con EXAMINATION: MR lumbar spine wo con HISTORY: Low Back Pain M54.50 , left leg radiculopathy COMPARISON: 04/16/2023 TECHNIQUE: A variety of imaging planes and parameters were utilized for visualization of suspected pathology. FINDINGS: For the purposes of numbering, sagittal T2 image # 8 extends from the T10-T11 vertebral body superiorly to the S4-S5 level inferiorly. PARASPINAL AREA: Normal with no visible mass. BONES: 7 mm anterolisthesis of L4 in relation L5. Mild degenerative spondylosis. Moderate facet osteoarthropathy. Heterogeneous appearance of the marrow likely age-related change. Decreased T1 increased T2 and STIR signal centered at L5-S1 likely Modic 2 changes CORD/CAUDA EQUINA: Normal caliber, contour, and signal intensity. DISC LEVELS: 12-L1: Moderate degenerative disc disease is present without visible neural impingement. L1-L2: Moderate degenerative disc disease is present without visible neural impingement. L2-L3: Moderate degenerative disc disease is present without visible neural impingement. L3-L4: Disc desiccation. Mild posterior disc/osteophyte complex and facet osteoarthropathy. No central canal stenosis or left foraminal stenosis. Mild narrowing of the right neural foramen best seen on sagittal image 11 L4-L5: 7 mm anterolisthesis of L4 in relation L5. Moderate disc space narrowing and disc desiccation. Moderate diffuse bulge/pseudobulge and facet osteoarthropathy. No central canal or left foraminal stenosis. Moderate narrowing of the right neural foramen, sagittal image 11 L5-S1: Severe disc space narrowing with mild diffuse disc/osteophyte complex. Bilateral facet osteoarthropathy. No central canal stenosis. Mild bilateral foraminal stenosis MR/MR lumbar spine wo con IMPRESSION: Degenerative changes and 7 mm anterolisthesis of L4 and L5 Right foraminal stenosis L3-4, L4-5 and L5-S1 Left foraminal stenosis at L5-S1 Electronically authenticated by: GERONIMO LOPEZ Date: 04/29/2023 13:37
== END 2023-04-29 11:51 | disposition home or self-care (01) ==
LOC: MRI 11:50
PROVIDERS: PCP Family Medicine; Visit Provider Family Medicine
DX: M54.50 Low back pain, unspecified (principal); M51.36 Other intervertebral disc degeneration, lumbar region
CPT/HCPCS: 72148

== ENCOUNTER 2023-05-27 10:25 | Outpatient (REF) | payer MEDICARE, SELFPAY ==
--- OUTSIDE RECORDS SUMMARY | 2023-06-01 10:50 | XMS_ITS | CCD ---
Author Name Unknown Address [address] [place] [address] Organization [facility] Care Team Providers Care Sock Knitter Name Role Phone Ave Contreras MD Primary Care Provider [phone] [address] CONTR[address]AS Referring Unavailable AVE CONTRERAS Primary Care Unavailable Ave Contreras MD Primary Care Provider [phone] Ave Contreras MD Primary Care Provider [phone] AVE CONTRERAS Primary Care Unavailable DANAE MEYERS Referring Unavailable MEYERS, DANAE Referring Unavailable HOAVE Grove M Primary Care Unavailable HOYAVE M Primary Care Unavailable HOYPATAVE M Referring Unavailable AVE CONTRERAS M Primary Care Unavailable SILVER TRIANA. Referring Unavailable AVE CONTRERAS M Primary Care Unavailable DANAE MEYERS Referring Unavailable TRIANA ., DR SILVER Duke Admitting Unavailable TRIANA ., DR SILVER Duke Attending Unavailable HOY ., DR DORADO Primary Care Unavailable TRIANA ., DR SILVER Duke Admitting Unavailable TRIANA ., DR SILVER Dkue Attending Unavailable EZRA ., DR DORADO Primary [...] TRIANA ., DR SILVER Duke Consulting Unavailable LILIYA EMMANUEL Consulting Unavailable TRIANA ., DR SILVER Duke Admitting Unavailable TRIANA ., DR SILVER Duke Attending Unavailable HOY ., DR DORADO Primary Care Unavailable GILMORE ., MALENA Consulting Unavailable LAKSHMIPATHY ., NARENDRANATH Admitting Darline vailable LAKSHMIPATHY ., NARENDRANATH Attending Darline vailable HOY ., DR DORADO Primary Care Unavailable LAKSHMIPATHY ., NARENDRANATH Consulting Darline vailable TRIANA ., DR SILVER Duke Admitting Unavailable TRIANA ., DR SILVER Duke Attending Unavailable HOY ., DR DORADO Primary Care Unavailable TRIANA ., DR SILVER Duke Consulting Unavailable GILMORE ., MALENA Consulting Unavailable LAKSHMIPATHY ., NARENDRANATH Admitting Darline vailable LAKSHMIPATHY ., NARENDNANCYATH Attending Darline vailable HOY ., DR DORADO Primary Care Unavailable SHARPMONTEZ Consulting Unavailable LAKSHMIPATHY ., NARENDRANATH Consulting Darline vailable LAKSHMIPATHY ., NARENDRANATH Admitting Darline vailable LAKSHMIPATHY ., NARENDNANCYATH Attending Darline vailable HOY ., DR DORADO Primary Care Unavailable MAXIMILIANO MORALES Consulting Unavailable LAKSHMIPATHY ., NARENDNANCYATH Consulting Darline vailable HOY ., DR DORADO [...] Primary Care Unavailable LAKSHMIPATHY ., NARENDRANATH Consulting Darline vailable HOY ., DR AVE Admitting Unavailable HOY ., DR DORADO Attending [...] Ridley Attending Unavailable ERICK MCKEON Attending Unavailable Ave Contreras Primary Care Physician [phone] Diana Colon Primary Care Physician Diana Jimenez Unavailable Unavailable MD Ave Contreras Primary Care Provider [phone] MD Manuel Silverio Attending Provider Manuel SILVERIO Attending Unavailable Manuel SILVERIO Attending Unavailable Ave Contreras Referring Unavailable Manuel SILVERIO Attending Unavailable Ave Contreras Referring Unavailable Ave Contreras Primary Care Unavailable Manuel Silverio Attending Unavailable Manuel Silverio Admitting Unavailable Allergies Allergy Classification Reported Allergen(s) Allergy Type Date of Onset Reaction(s) Facility (8 sources) Acetaminophen / HYDROcodone; Translations: [acetaminophen-hy drocodone] Drug Allergy 1 Itching, Itching (finding) [employer] Work Phone: (8 sources) Acetaminophen / oxyCODONE; Translations: [acetaminophen-ox ycodone] Drug Allergy 1 Itching, Itching (finding) [employer] Work Phone: (13 sources) Latex; Translations: [Latex] Propensity to adverse reactions to drug 1 Other (See Comments), Eruption of skin (disorder) [employer] (13 sources) nickel sulfate; Translations: [Nickel] Drug Allergy 4 Eruption of skin (disorder) [facility] (12 sources) Penicillins; Translations: [Penicillins] Propensity to adverse reactions to drug 1 Rash [employer] Work Phone: (4 sources) Acetaminophen / HYDROcodone; Translations: [Vicodin] Drug Allergy 3 [facility] (4 sources) Acetaminophen / oxyCODONE; Translations: [Percocet] Drug Allergy 3 [facility] (2 sources) Latex Drug allergy (disorder) 3 [facility] (1 source) Leucine Drug Allergy 3 [facility] (4 sources) Penicillin; Translations: [penicillin] Drug Allergy Eruption of skin (disorder) [facility] (3 sources) HYDROcodone; Translations: [HYDROcodone] Drug Allergy 3 [facility] (2 sources) Acetaminophen; Translations: [acetaminophen] Drug Allergy 3 [facility] (1 source) homatropine / HYDROcodone; Translations: [Hydrocodone Compound] Drug Allergy [facility] [employer] [facility] (2 sources) oxyCODONE; Translations: [oxycodone] Drug Allergy 3 [facility] (1 source) Acetaminophen Drug Allergy 3 [facility] (1 source) Latex Drug allergy (disorder) 3 [facility] (1 source) nickel Drug Allergy 3 [facility] (1 source) oxyCODONE Drug Allergy 3 [facility] Medications Current Medications Medication Drug Class(es) Dates Sig (Normalized) Sig (Original) acetaminophen 300 mg / codeine phosphate 30 mg oral tablet (6 sources) Opioid Agonist Start: 08-24-2013 take 1-2 tablets by mouth every four hours as needed acetaminophen-cod eine (TYLENOL/CODEINE #3) 300-30 MG per tablet Indications: Hip pain, bilateral Take 1-2 tablets by mouth every 4 hours as needed. 50 tablet 3 08/24/2013 Active Acidophilus Probiotic Blend (2 sources) Start: 04-20-2023 Acidophilus Probiotic Blend Refill(s) 0 Start Date: 04/20/23 Status: Ordered ALPRAZolam 0.5 mg oral tablet (6 sources) Benzodiazepine Start: 01-02-2015 take 1 tablet by mouth three times daily as needed for anxiety ALPRAZolam (XANAX) 0.5 MG tablet Indications: Generalized anxiety disorder Take 1 tablet by mouth 3 times daily as needed for Sleep or Anxiety 90 tablet 2 01/02/2015 Active aspirin 81 mg delayed release oral tablet (3 sources) Platelet Aggregation Inhibitor, Nonsteroidal Anti-inflammatory Drug Start: 04-20-2023 take 1 tablet by mouth once daily aspirin 81 mg Oral EC Tab 81 mg = 1 tab(s), Oral, Daily, Refills(s) 0 Start Date: 04/20/23 Status: Ordered take 1 tablet by mouth once latonia y aspirin 81 mg chewable tablet chew 1 tablet (81 mg) by oral route once daily azithromycin 250 mg oral tablet (6 sources) [...] gynecological examination Take by mouth. 0 Active Cranberry preparation (2 sources) Non-Standardized Food Allergenic Extract, Non-Standardized Plant Allergenic Extract Start: 04-20-2023 Cranberry Refill(s) 0 Start Date: 04/20/23 Status: Ordered duloxetine 30 mg Cap-DR (2 sources) Start: 04-20-2023 take 1 capsule by mouth twice daily duloxetine 30 mg Cap-DR = 1 cap(s), Oral, BID, Refills(s) 0 Start Date: 04/20/23 Status: Ordered Fish Oils (8 sources) Start: 04-20-2023 take 1 capsule by mouth twice daily Fish Oil 1200 mg oral capsule 1,200 mg = 1 cap(s), Oral, BID, Refills(s) 0 Start Date: 04/20/23 Status: Ordered FISH OIL 2,400 m g by Does not apply route daily. 0 Active hydroCHLOROthiazide 25 mg oral tablet (2 sources) Thiazide Diuretic Start: 04-20-2023 take 1 tablet by mouth once daily hydrochlorothiazide 25 mg Tab 25 mg = 1 tab(s), Oral, Daily, Refills(s) 0 Start Date: 04/20/23 Status: Ordered liothyronine sodium 0.005 mg oral tablet (2 sources) l-Triiodothyron ine Start: 04-20-2023 take 1 tablet by mouth once daily Cytomel 5 mcg Tab 5 mcg = 1 tab(s), Oral, Daily, Refills(s) 0 Start Date: 04/20/23 Status: Ordered losartan potassium 25 mg oral tablet (3 sources) Angiotensin 2 Receptor [facility] Start: 04-20-2023 take 1 tablet by mouth once daily losartan 25 mg Tab 25 mg = 1 tab(s), Oral, Daily, Refills(s) 0 Start Date: 04/20/23 Status: Ordered take 1 tablet by mouth once latonia y losartan 50 mg tablet take 1 tablet (50 mg) by oral route once daily metFORMIN hydrochloride 500 mg oral tablet (3 sources) Biguanide Start: 04-20-2023 take 1 tablet by mouth twice daily metformin 500 mg Tab 500 mg = 1 tab(s), Oral, BID, Refills(s) 0 Start Date: 04/20/23 Status: Ordered metoprolol tartrate 100 mg oral tablet (9 sources) beta-Adrenergic [facility] Start: 04-20-2023 take 1 tablet by mouth twice daily metoprolol tartrate 100 mg Tab 100 mg = 1 tab(s), Oral, BID, Refills(s) 0 Start Date: 04/20/23 Status: Ordered take 1 tablet by mouth once latonia y metoprolol succinate ER 100 mg tablet,extended release 24 hr take 1 tablet (100 mg) by oral routetwice daily take 2 tablets by mouth once reinadlo ly metoprolol (TOPROL-XL) 50 MG XL tablet Take 100 mg by mouth daily. 0 Active Multiple Vitamins-Minerals (HM MULTIVITAMIN ADULT GUMMY) CHEW (6 sources) Multiple Vitamins-Minerals (HM MULTIVITAMIN ADULT GUMMY) CHEW Indications: Routine gynecological examination Take by mouth. 0 Active pantoprazole 40 mg delayed release oral tablet (9 sources) Proton Pump Inhibitor Start: take 1 tablet by mouth once daily Pantoprazole [address] Tab 40 mg = 1 tab(s), Oral, Daily, Refills(s) 0 Start Date: 04/20/23 Status: Ordered take 40 mg by mouth once daily P antoprazole Sodium (PROTONIX) 40 MG PACK packet Take 40 mg by mouth daily. 0 Active simvastatin 20 mg oral tablet (3 sources) HMG-CoA Reductase Inhibitor Start: 04-20-2023 take 1 tablet by mouth once daily in the evening simvastatin 20 mg Tab 20 mg = 1 tab(s), Oral, qPM, Refills(s) 0 Start Date: 04/20/23 Status: Ordered take 1 tablet by avleria th once daily in the evening simvastatin 40 mg tablet take 1 tablet ( 40 mg) by oral route once daily in the evening Vitamin D3 2000 intl units oral Tab (2 sources) Start: 04-20-2023 take 2 tablets by mouth once daily Vitamin D3 2000 intl units oral Tab = 2 tab(s), Oral, Daily, tab(s), Refills(s) 0 Start Date: 04/20/23 Status: Ordered Completed/Discontinued Medications Medication Drug Class(es) Dates Sig (Normalized) Sig (Original) baclofen 5 mg oral tablet (1 source) gamma-Aminobutyric Acid-ergic Agonist take 1 tablet by mouth three times daily as needed baclofen 5 mg tablet take 1 tablet (5 mg) by oral route 3 times per day prn Problems Active Problems Problem Classification Problem Date Documented Date Episodic/Chronic Anxiety disorders (3 sources) Anxiety disorder, unspecified; Translations: [Anxiety] Onset: 06-02-2022 04-20-2023 Chronic Congestive heart failure; nonhypertensive (3 sources) Unspecified diastolic (congestive) heart failure; Translations: [Acute combined systolic and diastolic heart failure] Onset: 03-31-2022 04-20-2023 Chronic Diabetes mellitus without complication (3 sources) Type 2 diabetes mellitus without complications; Translations: [Diabetes mellitus] Onset: 03-31-2022 04-20-2023 Chronic Diseases of white blood cells (4 sources) Elevated white blood cell count, unspecified; Translations: [ELEVATED WHITE BLOOD CELL COUNT UNS] Onset: 04-10-2022 Chronic Disorders of lipid metabolism (5 sources) Pure hypercholesterolemia, unspecified; Translations: [Hypercholesterolemia] Onset: 06-02-2022 04-20-2023 Chronic Esophageal disorders (3 sources) Gastro-esophageal reflux disease without esophagitis; Translations: [Gastroesophageal reflux disease] Onset: 06-02-2022 04-20-2023 Chronic Essential hypertension (3 sources) Essential (primary) hypertension; Translations: [Hypertensive disorder] Onset: 06-02-2022 04-20-2023 Chronic Fluid and electrolyte disorders (1 source) Dehydration; Translations: [DEHYDRATION] Onset: 06-02-2022 Episodic Hypertension with complications and secondary hypertension (1 source) Hypertensive heart disease with heart failure; Translations: [HTN HEART DISEASE W/HEART FAIL] Onset: 03-31-2022 Chronic Mood disorders (1 source) Mood disorders; Translations: [DEPRESSION UNSPECIFIED] Onset: 06-02-2022 Other aftercare (1 source) residential (current) use of aspirin; Translations: [DETENTION CURRENT USE OF ASPIRIN] Onset: 06-02-2022 Episodic Other aftercare (1 source) Other assisted (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 therapy; Translations: [OTH DETENTION CURRENT DRUG THERAPY] Onset: 06-02-2022 Episodic Other aftercare (1 source) residential (current) use of oral hypoglycemic drugs; Translations: [FIELD ADVISOR USE ORAL HYPOGLYCEMIC DX] Onset: 06-02-2022 Episodic Other connective tissue disease (1 source) Presence of right artificial hip joint; Translations: [PRESENCE RIGHT ARTIFICIAL HIP JOINT] Onset: 06-02-2022 Chronic Other connective tissue disease (4 sources) Neuralgia and neuritis, unspecified; Translations: [NEURALGIA AND NEURITIS UNSPECIFIED] Onset: 07-01-2022 Episodic Other connective tissue disease (4 sources) Bicipital tendinitis, left shoulder; Translations: [BICIPITAL TENDINITIS LEFT SHOULDER] Onset: 05-08-2022 Episodic Other connective tissue disease (1 source) Bicipital tendinitis, right shoulder; Translations: [BICIPITAL TENDINITIS RIGHT SHOULDER] Onset: 05-12-2022 Episodic Other connective tissue disease (1 source) Pain in right leg Onset: 05-28-2023 Episodic Other connective tissue disease (1 source) Pain in left leg Onset: 05-28-2023 Episodic Other nervous system disorders (4 sources) Other specified mononeuropathies of right lower limb; Translations: [OTH SPEC MONONEUROPATH RT LOW LIMB] Onset: 07-22-2022 Chronic Other nervous system disorders (2 sources) Other chronic pain; Translations: [OTHER CHRONIC PAIN] Onset: 01-03-2022 Chronic Other nervous system disorders (1 source) Other specified mononeuropathies; Translations: [OTHER SPECIFIED MONONEUROPATHIES] Onset: 07-26-2022 Chronic Other nervous system disorders (1 source) Chronic pain syndrome; Translations: [CHRONIC PAIN SYNDROME] Onset: 06-15-2022 Chronic Other nervous system disorders (1 source) Other disturbances of skin sensation Onset: 05-28-2023 Episodic Other non-traumatic joint disorders (3 sources) Pain in right hip; Translations: [Pain in right hip] Onset: 03-24-2022 Episodic Other non-traumatic joint disorders (4 sources) Pain in left hip; Translations: [PAIN IN LEFT HIP] Onset: 07-17-2022 Episodic Other nutritional; endocrine; and metabolic disorders (1 source) Obesity, unspecified; Translations: [OBESITY UNSPECIFIED] Onset: 06-02-2022 Chronic Other nutritional; endocrine; and metabolic disorders (1 source) Body mass index (BMI) 40.0-44.9, adult; Translations: [BODY MASS INDEX BMI 40.0-44.9 ADULT] Onset: 06-02-2022 Chronic Other nutritional; endocrine; and metabolic disorders (2 sources) Body mass index 30+ - obesity 04-29-2023 Chronic Other nutritional; endocrine; and metabolic disorders (2 sources) Morbid obesity 04-29-2023 Chronic Other nutritional; endocrine; and metabolic disorders (2 sources) Obese 04-20-2023 Chronic Other screening for suspected conditions (not mental disorders or infectious disease) (4 sources) Abnormal results of kidney function studies; Translations: [ABNORM RESULTS KIDNEY FUNCTION STDY] Onset: 05-06-2022 Episodic Other skin disorders (2 sources) Epidermoid cyst; Translations: [Epidermal cyst] Onset: 04-29-2023 Episodic Other skin disorders (2 sources) Epidermoid cyst of skin of neck 04-29-2023 Episodic Spondylosis; intervertebral disc disorders; other back problems (7 sources) Other intervertebral disc degeneration, lumbar region; Translations: [Spondylosis without myelopathy or radiculopathy, lumbar region] Onset: 11-26-2021 Chronic Spondylosis; intervertebral disc disorders; other back problems (11 sources) Sacrococcygeal disorders, not elsewhere classified; Translations: [Spinal stenosis, site unspecified] Onset: 02-05-2022 Episodic Syncope (4 sources) Syncope and collapse; Translations: [SYNCOPE AND COLLAPSE] Onset: 05-29-2022 Episodic Thyroid disorders (2 sources) Hypothyroidism 04-20-2023 Chronic Unclassified (4 sources) LOW BACK PAIN, UNSPECIFIED; Translations: [LOW BACK PAIN, UNSPECIFIED] Onset: 10-24-2021 Urinary tract infections (1 source) Urinary tract infection, site not specified; Translations: [UTI SITE NOT SPECIFIED] Onset: 06-02-2022 Episodic Past or Other Problems Problem Classification [...] Test Name Value Interpretation Reference Range Facility Ambulatory Visit Summaryon 0 05-27-2023 Ambulatory Visit Summary CARIN ANDERSEN :1955 Visit Date:05/27/2023 Ambulatory Visit Instructions Your Care Team Attending Physician - SOO ENRIQUE, Manuel Patino Primary Care Physician - Ezra ENRIQUE, Ave Referring Physician - Ave Contreras MD This Is Your Medications List aspirin (aspirin 81 mg Oral EC Tab) cholecalciferol (Vitamin D3 2000 intl units oral Tab) cranberry (Cranberry) duloxetine (duloxetine 30 mg Cap-DR) hydrochlorothiazide (hydrochlorothiazide 25 mg Tab) lactobacillus acidophilus (Acidophilus Probiotic Blend) liothyronine (Cytomel 5 mcg Tab) losartan (losartan 25 mg Tab) metformin (metformin 500 mg Tab) metoprolol (metoprolol tartrate 100 mg Tab) omega-3 polyunsaturated fatty acids (Fish Oil 1200 mg oral capsule) pantoprazole (Pantoprazole [address] Tab) simvastatin (simvastatin 20 mg Tab) Procedures Performed Arthroplasty of left hip, Arthroplasty of left shoulder, Arthroplasty of right hip, Cholecystectomy, Colonoscopy, Cystectomy, EGD - esophagogastroduodenos copy, Excision of calcaneal spur, Excision of cyst, Radiofrequency ablation of nerve root of lumbar spine using fluoroscopic guidance, Rotator cuff repair. What to do next Scheduled Follow-Up Appointments Thursday 2:00 PM EST With: Manuel SILVERIO MD Where: General Surgery [facility] General Surgery Office/Clini c Noteon 05-27-2023 General Surgery Office/Clinic Note Chief Complaint in-office excisional biopsy HPI Staff Presents for in-office excisional biopsy right neck. History of Present Illness patient here for excisional biopsy of right neck epidermal cyst, no change since recent evaluation. Review of Systems ROS - Provider Constitutional: no fever, no sweats, no weight loss. Eyes: no glasses, no blurred vision, no visual loss. ENMT: no dentures, no hoarseness, no swallowing difficulties, no hearing loss, no ear infection(s), no nose bleeds. Cardiovascular: normal blood pressure, no chest pain, regular heartbeat, no heart murmur. Respiratory: no shortness of breath, no cough, no asthma, no wheezing. Gastrointestinal: no nausea, no vomiting, no diarrhea, no constipation, no blood in stool, no change in bowel habits, no abdominal pain, no hepatitis. Genitourinary: no kidney stones, no urine infection, no dysuria. Musculoskeletal: no pain, no weakness. Skin: no changing moles, no rash, yes skin lumps. Neurologic: no seizures, no epilepsy, no headache. Psychiatric: no emotional or psychiatric problem. Heme/Lymph: no bleeding problems, no anemia, no blood clots, no transfusions. Allergy/Immunologic: no swollen lymph nodes/glands, no IV drug abuse. Other: Additional ROS info: Except as noted in the above Review of Systems and in the History of Present Illness, all other systems have been reviewed and are negative or noncontributory. Physical Exam skin: 1 cm epidermal cyst right lateral neck, no inflammation or drainage. Procedure patient brought to the procedure room, placed in supine position, area prepped and draped in sterile fashion; anesthetized with 1 % lidocaine; lesion excised in elliptical fashion down to subcutaneous fat; closed with interrupted 4-0 nylon sutures; total length of incision 1.3 cm; tolerated well; ebl < 3 ml; sterile dressing applied. Assessment/Plan 1. Epidermal cyst of neck (L72.0: Epidermal cyst) excised under local anesthesia, tolerated well; may shower tomorrow, remove dressing and leave open to air; take ibuprofen as needed for pain. f/u in 7-10 days for suture removal, call sooner if problems/questions. Follow-up No qualifying data available Problem List/Past Medical History Ongoing Acute combined systolic and diastolic heart failure.. Anxiety BMI 35.0-35.9,adult Diabetes mellitus Epidermal cyst of neck Gastroesophageal reflux disease Hypercholesterolemia Hyperlipidemia Hypertensive disorder Hypothyroidism Lumbar spinal stenosis Morbid obesity Obese Historical No qualifying data Procedure/Surgical History Arthroplasty of left hip, Arthroplasty of left shoulder, Arthroplasty of right hip, Cholecystectomy, Colonoscopy, Cystectomy, EGD - esophagogastroduodenos copy, Excision of calcaneal spur, Excision of cyst, Radiofrequency ablation of nerve root of lumbar spine using fluoroscopic guidance, Rotator cuff repair. Medications Acidophilus Probiotic Blend aspirin 81 mg Oral EC Tab, 81 mg= 1 tab(s), Oral, Daily Cranberry Cytomel 5 mcg Tab, 5 mcg= 1 tab(s), Oral, Daily duloxetine 30 mg Cap-DR, 1 cap(s), Oral, BID Fish Oil 1200 mg oral capsule, 1200 mg= 1 cap(s), Oral, BID hydrochlorothiazide 25 mg Tab, 25 mg= 1 tab(s), Oral, Daily losartan 25 mg Tab, 25 mg= 1 tab(s), Oral, Daily metformin 500 mg Tab, 500 mg= 1 tab(s), Oral, BID metoprolol tartrate 100 mg Tab, 100 mg= 1 tab(s), Oral, BID Pantoprazole [address] Tab, 40 mg= 1 tab(s), Oral, Daily simvastatin 20 mg Tab, 20 mg= 1 tab(s), Oral, qPM Vitamin D3 2000 intl units oral Tab, 2 tab(s), Oral, Daily Allergies Latex (Skin rash) Nickel (Skin rash) Percocet (Itching) Vicodin (Itching) penicillin (Rash) Social History Alcohol - Denies Alcohol Use, 04/29/2023 Substance Abuse - Denies Substance Abuse, 04/29/2023 Tobacco Former smoker, quit more than 30 days ago Tobacco Use:. Never Smokeless Tobacco Use:. Cigarettes, 0.25 per day. Started age 15.0 Years. Stopped age 54 Years., 04/29/2023 Family History Dementia: Mother. Immunizations Vaccine Date Status Comments influenza virus vaccine, inactivated - Not Given Patient Refuses Normal [facility] Comment on above: Result Comment: Elec tronically Signed By: Manuel SILVERIO MD\.br\Date and Time Signed: 05/27/23 19:27 EST Tyson 05-27-2023 L Specimen: [id number] Received: 05/28/23- Status: PERLA Shala Num: [id number] Spec Type: Surgical Subm Dr: Manuel Silverio MD FACS Tissues: A Skin Cyst (EPIDERM CYST NCECK) Procedures: HE, Gross/Micro L3 Age/ Patient Sex Location Account Attending Physician Carin Andersen 68/F [facility] [id number] Manuel Silverio MD FACS SPEC NUM: [id number] RECD: 05/28/23 STATUS: PERLA LAST NUM: [id number] BONIFACIO: 05/27/23 DR: Manuel Silverio MD FACS ENTERED: 05/28/[address] [facility] [address]: Lakisha,Lab SPEC TYPE: Surgical DEPT: JACINTA CUTLER ENTERED BY: [id number] RECV BY: [id number] ORDERED: HE, Gross/Micro L3 ORDERED: HE, Gross/Micro L3 Pathological Diagnosis Cyst, Right Neck, Excision: Epidermal Inclusion Cyst. Clinical Information 1 year history of epidermal cyst. No drainage, erythema or tenderness Gross Description Received in formalin labeled with the patient's name, date of and R neck is a multifocally disrupted 1.0 x 0.9 x 0.8 cm white-camp cystic nodule with potential overlying 1.0 x 0.6 cm ellipse of kolb-camp skin. The specimen is trisected perpendicular to the potential skin surface to demonstrate a cavitary space filled with white-kolb material. Entirely submitted in one cassette labeled A1. CPT Codes 16945 ---- ---- Specimen: [id number] Received: 05/28/23 Status: PERLA Last Num: [id number] Spec Type: Surgical Subm Dr: Manuel Silverio MD FACS Tissues: A Skin Cyst (EPIDERM CYST NCECK) Procedures: HE, Gross/Micro L3 ---- Patient: Carin Andersen [id number] (Continued) ---- Signed (signature on file) Jordon Vincent MD 05/30/23 1047 [facility] Ambulatory Visit Summaryon 0 04-29-2023 Ambulatory Visit Summary CARIN ANDERSEN :1955 Visit Date:04/29/2023 Ambulatory Visit Instructions Your Care Team Attending Physician - SOO ENRIQUE, Manuel Patino Primary Care Physician - Ezra ENRIQUE, Ave Referring Physician - Ave Contreras MD This Is Your Medications List Contact prescribing physician if questions or concerns aspirin (aspirin 81 mg Oral EC Tab) cholecalciferol (Vitamin D3 2000 intl units oral Tab) cranberry (Cranberry) duloxetine (duloxetine 30 mg Cap-DR) hydrochlorothiazide (hydrochlorothiazide 25 mg Tab) lactobacillus acidophilus (Acidophilus Probiotic Blend) liothyronine (Cytomel 5 mcg Tab) losartan (losartan 25 mg Tab) metformin (metformin 500 mg Tab) metoprolol (metoprolol tartrate 100 mg Tab) omega-3 polyunsaturated fatty acids (Fish Oil 1200 mg oral capsule) pantoprazole (Pantoprazole [address] Tab) simvastatin (simvastatin 20 mg Tab) Procedures Performed Arthroplasty of left hip, Arthroplasty of left shoulder, Arthroplasty of right hip, Cholecystectomy, Colonoscopy, Cystectomy, EGD - esophagogastroduodenos copy, Excision of calcaneal spur, Excision of cyst, Radiofrequency ablation of nerve root of lumbar spine using fluoroscopic guidance, Rotator cuff repair. Discharge Vitals Heart Rate (Peripheral) 72 Respiratory Rate 16 Blood Pressure 130/86 Height 162.5 cm Height 64 in Weight 92.8 kg Weight 204.16 lb BMI 35.14 What to do next Scheduled Follow-Up Appointments Thursday 2:00 PM EST With: Manuel SILVERIO MD Where: General Surgery Nill/Said Lakisha Normal [facility] Facesheeton 04-29-2023 Facesheet [id number]#1 .00TIFF [facility] Physician Referralon 024 Physician Referral [id number]#1.0 0TIFF [facility] Physician Referral [id number]#1.0 0TIFF [facility] Coding Queryon 01-09-2023 Coding Query [id number]#1.00 [facility] 01-01-2023 MAGR Postoperative Record MAGR Phase II Record Summary Primary Physician: Erick Mckeon DO Finalized Date/Time: 01/01/23 07:41:18 Pt. Name: CARIN ANDERSEN/Sex: 1955 FEMALE Med Rec #: [id number] Physician: Erick Mckeon DO Financial #: [id number] Pt. Type: O Room/Bed: [facility]/1 Admit/Disch: 12/29/22 08:33:12 - 12/30/22 15:10:00 Institution: [...] understanding of discharge instructions. General Comments: 2 [facility] PHASE II Finalized By: Deanne Perera RN Document Signatures Signed By: Deanne Perera RN 01/01/23 07:[address] [facility] Coding Summaryon 12-31-2022 Coding Summary HTMLBase 64 CrdebiciUQz7pQj+PGhlYW Q+NA5AAZRmD76fuGEzaR2s A4CWQWdIGxqwKJJOPXzJEe VmofRgHC8vvMJzVXIr IC8+OP2yWNZdBwzirZKae4 F9dJS3S87ioa9fAFktjBN1 YLCqDvXgcfhwo7hhbRe4NX cuNmluOyBt ZFBxcO11JWN3cK76Ot92qE HlvQBwv7rlaOv3KoSkJXRg YBI9sMgyCIhlo4LlKWYxG6 1kxHNyn0F2 JZKewFrmpYBwViDqeNZ1aR 5tDFefhamvo8opyttqHzx9 ud00dWFja1E3kHK5N7Dscr P5CHHjvPTd QnfbkFYTpE8oolapg9svgz seTvTyJOTfVTh7KFo3KHCo bNfrIeOjJX94PGN1RJUqrr IhW4UtHXPl bGhnBvQ2w7H7Cz0JK8FXQc tuI8TWAHFDVNbkdQS+PC90 fh70S2VzRoxpGqa6DYBnMS B3zWF9tD4u VWUhQTfhq3I6bQS7S9Gnns Uwxi2sk2auPLBxCMbaD74l hIPam0J5RSXfaIR9XWWabQ kgRlTjoX85 Oyc+QUEsxXzua7PeMawry3 ujg7nunKo5EbdaQYMfgjUo xTtqLQU3u5TwRg3nUQAdsP U6mDG0gQ0q BgPxNhO8HLdkG558FwUvhH ZzVyfcC35gS8LqcAQ+PHRy Qrd5TAGnyQcfAQ0gG9NiVD RpbmctbGVm wJnwLP1nZBLaewvaQCNzmD 2bIJWaA2j2NhQiLhO3BWsu F2ZiQWMjgzdhEk69mI6iVh LmEyZ7PToi E1HlvyJ5GDRpmCXiOXjbJB C1S33dx7J0ALXmIRKuCDE1 eBM2dT4znWcllhdvmXVrsY sgdmVydGlj CWfqZOliW182ITQkdIrdLo NvZGluZyBEYXRlOiAgMDkv MjAvMjAyMzwvdGQ+PHRkIH I0dYrcZBJy aKBrXJxaLn8lsFxptKgxOU 5mCYJchgqrIWQgoL2xUSIq eMKumIotZU4pVCWyjkadn5 23QfGiHEB0 HGNnlHFwP0IrgK7hLbVvEU VbHBVgL2AizKHzCOdzS981 RTrzUfT0MQQuzmFuC8QaGK FsaWduOiB0 a5A0Ey9Pa0SjbvjyL6BxiS WbDeRcSrcyDAq2T7JhPnlk dHI+UT47VMFyKH78KIy5BP E0xPokOOeg DDZuR5TlfQ7nHhCpKGCrIV RkOyc+PHRhYmxlIHdpZHRo ISvmWKCvQeAdxOdjSB6cAo 9yZGVyLWNv oKzpqLIvDrBbm4ruZFNyLH ceHM6guTdxJ7XozTP2JPCy q5j7St74K70gC3HawMF+PG WngKP4aWA5 yP8mGgQnRaC9ZAyrF085Wn SvuQMuZmica2dwg0shnJw3 PyO6RFLcnxRqyQrwFIZ0e8 LtJx20O10k IHdpZHRoPSIxNSUiIHZhbG ooxk0vjX2xKr4+PGNvbCB3 fRY2bQ1jWdFbTjM4TMtcM3 49InRvcCIv Ttqps6nwh4gjjOc1DbSyUK AgxdPqxRnnVBK3d6PfSh85 Y3NquHlbf9EoOgz2ol80yQ Hkh0C5lQL9 N6NnOGOlyhnjrNSeyMeeBZ 6qFDYzrpqlFBWhdY7cNAGi V2j0YvVnOfD4OQibM9Xmjc C7JJMeaUZk VTLfqNZMvH0wfbkhn4stgt stNsRwUBIvLQw2KKz8UJFt kFzlFgJqOLO4UaZ3CIE8xK LphR0qdPvs qsruoY9xBdu+QXS6iZWygD NCRK9lLigpvTO+PHRkIHN0 iEjgQBtlKEMobQ9eAUMcR0 v2CeQdWfU9 HIuoT8SkrgR0CIKiwGPnMK QeaNMItG5senkkh2yvhtyb WyCdGAGnDUe0AQv1HDFnmO duOiBsZWZ0 YgA5ULU8vJHjhE4umZvpmj vrmN1tFkh+QmlydGggRGF0 FKl7A2UvQut5AEGzoIhfED 0ncGFkZGlu Qy0uhHbguPleRT6fLSObqm gtz249CtOfi1oeQBGfmZUu KNnyHGT2S06eo8N5XCAkEQ IcMHG2jIY2 cV2voQvleybxfJKlyFsqsx CadGnpLIqzKRmjY944SITo dLvvRbAiOZd0H8GcDlo2SD JzfBgsFF7z tNPdRFcqJz8vkMrfnLseFL 7hOZWyjdwmr523JuReo2qu YQIgtLQiFUxmACS6R87ub8 M4LHFkLHKl BDU3zXX7dQ0pqFfhhztroS VmdDsgdmVydGljYWwtYWxp T786GMWhtPteWvBwcLa1E0 WjZry0QXRd mIzuDP6bfRMlZPjgFw7znB advElyOB2uSKOpiopeo141 DwOex5auQECynSGeDNcfWV B0N06xw4R8 OAAkFHAeXRA2mAN2wV6czD lnbjogbGVmdDsgdmVydGlj ZAmdEYyoV055XKLwoJfmOk BhdGllbnQg AZkdXJo0O5FxAeokgFR+PC 66ZDPtMX31kAQnyAYcx4ga qHb5TiUwAOEaBHZ7iGveKU zde3VsQEQe H91uoKDnm8Q7ZUTwbGrruB OuDgWfuSN1dY3eTQdvxpyy r6qkcjhhRnutm8apui99aE 47U18yNSor ZHRoPSIzMCUiIHZhbGlnbj 1caN0lHx2+VVXhxJJ6jYN5 kK4lMSLkAeZ8PCvzW487Cg RvcCIvPjxj s1lce7owrMl7VzA0DZVkdf DphExhKYT4n4VvHy43A18p IHdpZHRoPSIyMCUiIHZhbG djlq1dxB2o Ii8+BFNnmFG2cZW6pJ2jMp MtUpW9IHnaB140XjCxfHNe UxptZ98iX7LcyCJ+PHRyPj i6WZTadStt PQ0noVQkHLofMf2lZIT6Yg UlIhJyNTxiU4BkEZOwqqcq ezjxqNN8FJPvPCDyyK20Jo 9udDogMTBw tFGWhW5uttmob9oiqrmbJy CgVKAuAJv8IYt4UGTyfYob KzZbLRH2VkI7YSL8zADwaN 1hbGlnbjog qA5xP9OxDBZzukmhIz28aA 1xMxOfFuQ1YLrbYsk+Sk9O QJKaTZVVYv4OJNguZJlCCh wvdGQ+PHRk QEQ6tBoaVTgnQNTotZ9uGL GiT0u4FkXeDvT2MGnrI6Jj QSBaimgsGc79cC6wFxZhWu V1DGbtJ9Jz heG6YPJolNPnWDvaMYO2Y6 1yl4E4TWCuCCExCVD9iTG8 uG2vnFwxffhpxTIemCfyuc VydGljYWwt QAmlX851CQUxsRupHmUjNg H1ZiA8PIl7N6AaMex3ZCEt oLdvVB3roEWyFPktXv6yjQ qcxOxgHU9d XFUhqhsvOTRxhU8bWAIkwB TwuJjqOL2fPIBhluxut209 JjHhNUX4TQSiaVOlK1RzzJ 9yOiAjMDAw MYFuN7UxvSAaBKcmV471QO zgQoO1BVJkheXkQ4ZoBNQp sXngAbQ9p7U5Gy39MMDILA FyczwvdGQ+ NGBoOST6kSrvXHevPDXfhU 5dKNZbY5u3LiUuNlL1UGup M7EmCBPvcxxiCj04rH6fOj IwChF6PNmh E2EkxiG6ZILxrITdDGkkNH M6X02xf1E5DCMrCBKqVXT6 yLL5nW5wvQzitaeriXAzaD sgdmVydGlj KRalTWkcK340YJHcuGijKb ZFTUFMRTwvdGQ+PHRkIHN0 jYjaAVpeQEIqhD2vANHhB5 l4HoKsDiH4 UBdgT6TkXBZqvjtcIp73pT 2mQdBeOmP2UDiqD9MaorV2 JTTbpTIbDQiiUOE8H25vw9 Y9YYWzKQQs PFJ2nBZ6bL9msOuwlsudiV VmdDsgdmVydGljYWwtYWxp P457GDFdtOvoVp0hx2Jvon K7nE3bLB41 WX99K7PsDuigbAFyyVC+PH RhYmxlIHdpZHRoPScxMDAl WpZqoQbnKR7sIf5sJNYkJO NvbGxhcHNl GaHzi4pbXUXiLOudPB9imP xbO2IemVV1TDDte8m2Yw00 Q21mK7OueGJ+VGXioHK7dZ F6nB1qUpDo LiL9SRebM889EnOavNXiCq whg5vle6rgtHi8EnBpSSYx tgXzsNmfXWS6k9MuNu65D1 9sIHdpZHRo UTPhXOOlSEExcQnjkr5kuX 9wIi8+HVAzzQL8rKF8eI4r EpMbRhW2JOexO941GaZsyZ YnPvvdF02f D7YwvCK+UDEiZot1RHNakW whVK7ofRQfJMioEq0zOZL3 VvVmPjOvWBnxA3CiSBDift ctcmlnaHQ6 ZGMjRIMxeC61Wh0ziEwvDk 0sEOQzXBL5USYnlDPdA3Pc vA1nSfAwXQIjIMLyL1BesJ MyGJccY090 ETbaPbR0BZGseaYsP3RkNC PisTplYfS1u8J3Wb5WgOvy cGUoRG2gOeRxSHu6O3QyWo h4MXBihVuc PW3xtFCbBBeqQw5fmDmqlG wfQR4sKLZrkghhn604UuGo p7tkJWKnbYVjMXezWNF4D9 7od0T2AYRv JQAwVTC5fFZ0dN7ulNmunq ogbGVmdDsgdmVydGljYWwt ZXbuB929WKItvGmbTwDWJq w7G1WzZxx1 YNBacGsjNG1goPRfWJroHc 6trOdgmYouUT8jLKKxozmk j130SdEfu2gzEGYitLYoSS nyYIR6X79n f4J1KSCgUFAwFNL2mZU6fK 1hbGlnbjogbGVmdDsgdmVy rOhlWLdfIKskI186LLLcpI vjWv8FMmv6 S3PjSpo4ASHihEffEH3rhV ExAMyaZd0wfUhcbRkxZI1b IZDiffert806CaRbj1pnNU EwcHQgVGlt WKU6H34av9P3EAQdDJNmQX Q6pAG4yC4leOpmecmewZVn dDsgdmVydGljYWwtYWxpZ2 46IHRvcDsn PlBheWVyOjwvdGQ+PC90cj 05L5MpEiduDsp5KQKpTSK9 bJA0uB7oPROmOOokq0S7oH L6A3WrjsLx ci1 (more content not included)... [facility] Consent Formson 12-31-2022 Consent Forms [id number]#1.00 [facility] Discharge Instructionson Discharge Instructions [id number]#1.00 [facility] Outside Recordson 12-31-2022 Outside Records [id number]#1.00 [facility] Provider Orderson 12-31-2022 Provider Orders [id number]#1.00 [facility] Telemetry Stripson Telemetry Strips [id number]#1.[address] [facility] Consultation/Specialist Note on 12-30-2022 Consultation/Specia list Note [...] surgery [Electronically Signed on: 12/30/2022 08:48 EDT] MAGDALENO PITTS [Verified on: 12/30/2022 08:48 EDT] JUAN DANIELVALENTIN MAGDALENO [facility] Discharge Noteon 12-30-2022 Discharge Note discharge instructio alva reviewed with patient and daughter, belongings packed, skin wam and dry, foam dressing dry, polar care sent home with patient, denies pain, awaiting wheelchair to private vehicle. [Electronically Signed on: 12/30/2022 15:08 EDT] Ariela Dewitt RN [Verified on: 12/30/2022 15:08 EDT] Ariela Dewitt RN [facility] Discharge Note patient refusing discharge instructions at this time, patient is choosing to wait for daughter to be her for instructions, when daughter arrives will review discharge instructions. [Electronically Signed on: 12/30/2022 13:57 EDT] Ariela Dewitt RN [Verified on: 12/30/2022 13:57 EDT] Ariela Dewitt RN Normal [facility] Inpatient Patient Summaryon 12-30-2022 [place] [address] Patient Discharge Instructions Name: CARIN ANDERSEN : 1955 Patient Address: [address] [place] [address] Primary Care Provider: Name: AVE CONTRERAS After you are discharged if you find you have any questions, please, call [phone] ext [phone] to speak to a nurse. The Pharmacy at [facility] is open Thursday through Thursday from [...] problems; contact the Mental [facility] Recovery [facility] 03/11 Crisis Hotline -Text 4HAGV pr [phone]. If you received any narcotics, sedation, or [...] business decisions or sign any legal documents [facility] would like to thank you for allowing us to assist you with your healthcare needs. The following includes patient education materials and information regarding your injury/illness. CARIN ANDERSEN has been given the following list of follow-up instructions, prescriptions, and patient education materials: Follow-up Instructions With: Address: When: Erick Mckeon [address] [place] [address], [address] [place] [id number] Business (1) 01/06/2023 10:45 AM Medications During [...] a da (more content not included)... Normal [facility] Anesthesia Noteon 12-29-2022 Anesthesia Note Patient: CARIN ANDERSEN Age: 67 years Sex: FEMALE : 1955 Associated Diagnoses: None Author: Aramis Kelley MD Postoperative Information Post Operative Note: Operative Day. Anesthetic utilized: General. Health Status Allergies: Allergic Reactions (All) Moderate Latex- Blister. Percocet- Itching. Vicodin- Itching. Mild Nickel- Rash. Penicillin- Rash. Problem list: All Problems Hypertension / SNOMED CT 7389543303 / Confirmed Type 2 diabetes mellitus / SNOMED CT 016653604 / Confirmed Physical Examination Vital Signs (last 24 hrs) Last Charted Heart Rate Monitored L 58 bpm (SEP 18 13:31) Resp Rate 16 br/min (DEC 29 [...] on: 12/29/2022 13:36 EDT] Aramis Kelley MD [facility] Anesthesia Note Patient: CARIN ANDERSEN [...] list: All Problems Hypertension / SNOMED CT 0174201666 / Confirmed Type 2 diabetes mellitus / SNOMED CT 219333457 / Confirmed Histories Family History: Entire family history is negative. Procedure history: Cholecystectomy (84362938). Back (687973553). Comments: 12/03/2022 13:11 Kimberly Stoo RN cyst removed Hip arthroplasty (080750630). Arthroscopic repair of rotator cuff. (6270438002). Heel (551834562). Comments: 12/03/2022 13:11 Kimberly Soto RN heel [...] Heart Rate Monitored L 58 bpm (DEC 18 10:40) Resp Rate 14 br/min (DEC 18 10:40) SBP H 149 mmHg (DEC 18 10:40) DBP L 58 mmHg (DEC 18 10:40) Airway: Mallampati classification: II (soft palate, fauces, uvula visible). Temporomandibular joint mobility: Good. Mouth: Adequate opening, Teeth ( unremarkable ). Neck: Supple, Non-tender, Full range of motion, very thick, full neck. Respiratory: Lungs are clear to auscultation. Cardiovascular: Regular rhythm. Neurologic: Alert, Oriented. Review / Management Laboratory Results Plan [employer] (ASA) physical status classification: [...] on: 12/29/2022 10:46 EDT] Aramis Kelley MD [facility] MAGR Intraoperative Recordon 12-29-2022 MAGR Intraoperative Record MAGR Intra-Op Record Summary Primary Physician: Erick Mckeon DO Finalized Date/Time: 12/29/22 13:29:31 Pt. Name: HANSEL ANDERSENDamir Dove./Sex: 1955 FEMALE Med Rec #: [id number] Physician: Erick Mckeon DO Financial #: [id number] Pt. Type: D Room/Bed: [facility] Admit/Disch: 12/29/22 08:33:12 - Institution: Case Times [...] Andrew DO Role Performed Surgeon - Primary Care Services Manager Anesthesiologist of Record Time In 12/29/22 11:28:00 12/29/22 11:14:00 12/29/22 11:14:00 Time Out 12/29/22 13:05:00 12/29/22 13:25:00 12/29/22 13:25:00 Procedure Arthroplasty Shoulder Arthroplasty Shoulder Arthroplasty Shoulder Total Reverse(Left) Total Reverse(Left) Total Reverse(Left) Last Modified By: Radha Tai RN, Diane RN Kokinda, Diane RN 12/29/22 13:25:19 12/29/22 13:25:19 12/29/22 13:25:19 Entry 4 Entry 5 Entry 6 Case Attendee Montez Villatoro NeelDena luong CST, Kelly CST ELECTRIC POWER SUPERINTENDENT Role Performed Engine Lathe Set Up Operator Tool Engine Lathe Set Up Operator Tool Scrub Personnel Time In 12/29/22 11:14:00 12/29/22 [...] Yes Total Reverse Primary Surgeon Erick Mckeon Modifiers Left Bubba DO Surgeon Comment LEFT REVERSE TOTAL Start [...] Prep Agents (Im.270) (more content not included)... [facility] MAGR Intraoperative Record MAGR Intra-Op Record Summary Primary Physician: Finalized Date/Time: 12/29/22 11:13:51 Pt. Name: CARIN ANDERSEN JACQUELINE /Sex: 1955 FEMALE Med Rec #: [id number] Physician: Erick Mckeon DO Financial #: [id number] Pt. Type: D Room/Bed: [facility] Admit/Disch: 12/29/22 08:33:12 - Institution: Case Times [...] Slauterbeck, Linda RN Role Performed Anesthesiologist of Care Services Manager Care Services Manager Record Time In 12/29/22 10:25:00 12/29/22 10:23:00 [...] Yes Airway D (more content not included)... [facility] PACU Record MAGR PACU Record Summary Primary Physician: Erick Mckeon DO Finalized Date/Time: 12/29/22 14:30:30 Pt. Name: CARIN ANDERSEN/Sex: 1955 FEMALE Med Rec #: [id number] Physician: Erick Mckeon DO Financial #: [id number] Pt. Type: D Room/Bed: [facility]/ Admit/Disch: 12/29/22 08:33:12 - Institution: PACU Case Times MAGR Entry 1 In PACU I 12/29/22 13:25:00 Discharge from PACU 12/29/22 14:14:00 I Last Modified By: James Rhoades RN 12/29/22 14:30:27 Finalized By: James Rhoades RN Document Signatures Signed By: James Rhoades RN 12/29/22 14:[address] [facility] MAGR Preoperative Recordon 0 12-29-2022 MAGR Preoperative Record MAGR Pre-Op Record Summary Primary Physician: Erick Mckeon DO Finalized Date/Time: 12/29/22 14:30:46 Pt. Name: CARIN ANDERSENN /Sex: 1955 FEMALE Med Rec #: [id number] Physician: Erick Mckeon DO Financial #: [id number] Pt. Type: D Room/Bed: [facility] Admit/Disch: 12/29/22 08:33:12 - Institution: Pre-Op Case [...] consent correct. General Comments: pt arrives to W ambulatory. denies CP,cough,cold, COVID like symptoms. pt has diabetes, denies pacemaker/defib, sleep apnea. pt verbalizes understanding of post op anesthesia orders including no driving for 24 hours. Finalized By: James Rhoades RN Document Signatures Signed By: James Rhoades RN 12/29/22 14:[address] [facility] Nutrition Noteon 12-29-2022 Nutrition Note Pt admitted [...] Will monitor wts, intake and labs. Normal [facility] Operative Report - Surgeon/P pietro 12-29-2022 Operative Report - Surgeon/Physician Preoperative diagnosis: Primary osteoarthritis left shoulder Postoperative diagnosis: Same Procedure: Reverse total shoulder replacement left Surgeon: Bobbi Mckeon D.O. Anesthesia: General Indications for surgery: Radiographic findings consistent with arthritis progressive pain symptoms with loss of function and failure of conservative treatment Estimated blood loss: 100 Complications: No complications Findings: Oqnn-be-bvrs and flattening of the humeral head and [...] 12/29/2022 13:39 EDT] Erick Mckeon DO Normal [facility] POCT Glucose Levelon 023 Glucose [Mass/Vol] 108 mg/dL Normal 74-118 [facility] Comment on above: Performed By: #### 4 [id number] ####[facility] (DEFAULT)[address] [place] [id number] Glucose [Mass/Vol] 113 mg/dL Normal 74-118 [facility] Comment on above: Performed By: #### 4 [id number] ####[facility] (DEFAULT)[address] [place] [address] Patient Handouton 12-29-[address] PERRY [...] or concerns, please call the office at [phone]. Follow up as scheduled [facility] Progress Note - Nurseon 12-12 Progress Note - Nurse Patient arrives via bed to room from recovery. Drowsy but easily aroused. Vital signs per iview. Oxygen sat 88% while patient dozing so oxygen applied at 2 liters per NC until more awake. Daughter at bedside. Denies pain. [Electronically Signed on: 12/29/2022 15:56 EDT] Netta Henriquez RN [Verified on: 12/29/2022 15:56 EDT] Netta Henriquez RN [facility] Progress Note - Nurseon 12-12 Progress Note - Nurse Pre op phone call, spoke with patient. Confirmed time of arrival for 0600 on 12/29/22. Reviewed pre op instructions. Patient questioned if we got the ECHO results? States that her family doctor Dr. Contreras (Ruth) had ordered it for clearance for the [...] on: 12/26/2022 09:34 EDT] Maximiliano Collado RN Ariela from Dr. Mckeon's office called. Stated they are waiting for the ECHO to be read and will hopefully have the clearance letter today or first thing Thursday. Will call and inform patient that they will be coming in at 0830 instead of 0600. [Electronically Signed on: 12/26/2022 10:08 EDT] Maximiliano Collado RN [facility] C Urineon 12-05-2022 C Urine [...] <=4 Verified Tri/Sulf S <=2/38 Verified Normal [facility] Comment on above: Performed By: #### 1 [id number] #### [facility] (DEFAULT) [address] [place] [address] Coding Summaryon 12-05-2022 C[facility] RlyenxfgFCf3mXl+PGhlYW Q+PL3RNOUtK02tsPFqlL3a E4RYNByWWyluORJPBJtKAj NzjgJyDD3cdGGxZNSg IC8+BR4kCSZxKwzigXFvu7 V9qQT4Z64eyx6wGNwqpDW2 WJZzGzWoxjuwp1hcgBo5EK cuNmluOyBt CIYirT32QAP6gB16Yh32iJ GryWVtk1mlxIj5QwDsPWLl NRM8aEhtFKcth4SqAGJuL8 4ucEIfy6W1 ZRDuqOoazFAsSeWwxCC8fO 6jUMabmlinb7rmnbrlAtw3 yx64dJSlg5R3bUL4Y1Muwy S5UCIljEUz FbtumEPWqC2unrrnt5hbtn gaNoEvOXNdICd0GYd9HLQw vPqpFxTuPB26DOH9ZEZpts FmF2FpTCDh iJnfHrA4j1Y4Fs3OG1VEMp cgF1SHUNOUBUkxgFV+PC90 ta81R2CgQqllXam8WEBqHE M3fAB3zN3m BWGqJNyfe6Y6kII8G5Vquc Gaxa4zq1rnSRWhMZrkL38s gQAtm6K1KEBvuYF7JAEwnK kiApFaeR60 Oyc+DPYylSqyp9QjYhpgr3 zbd3httWm1ZczqGOJhxyQu yGdmHQF2z8WwDm0eSJXrcR S1wOS2qF1i BqDsNdK9CNeqC379VnQlyP EvUkhmG47nR7XskUN+PHRy Ojr3EJTjaSfoFM7qV5BjAU RpbmctbGVm hGigOV2vCVWlbvauWAIzbB 4dQSFyR2p4PaOhGaP5SGdk Q9XdWKHuohzaVq06eB7vNp IiAdB2ITyu Z5WwlgO2MTGybURwQXdbQM G2O59ar7D0ZPZoOTLsZCX8 yFK5fX0nqJiqsjmefZWnsH sgdmVydGlj PSllKFohV951BVWuyWnwOt NvZGluZyBEYXRlOiAgMDgv MjUvMjAyMzwvdGQ+PHRkIH M1dBgpTTDb zXTvSXuyCa1axTmfrTphZA 6fBXAyyqxwWBBdqL0gAXYx dOOfoRtlLG8aHWGggpawg8 40ObOgSNL9 TZYgxUTvX6IlfY7tCeIaJW IvXVOiX6OifFVdSAyvB499 WYzjClF2IETnqaIeN2QkFB FsaWduOiB0 f5N6Zx2Td7NuszxeX5UrhJ KrFnQuZfepKDo5J3EwSmlg dHI+XC77ADGpIM27YQf2AN H6eCmwVLxn QBFeN2UeoE4iBsVjEVPxYV RkOyc+PHRhYmxlIHdpZHRo VFpqDHDsKsEkgRraWQ1eRb 9yZGVyLWNv oYklmMNjXeScp0qyKCGvKX kfWM2elAwwA6QeqAH8GQHi w6g7Pv47W91oB5QfvGZ+PG EhiKH0oTT8 iX3oLkWvDuU4LKuoA358Ph GxjIPoPmldv3pif3aquJp2 XtI5KIQoooHmxAyyRYP0s7 NaEn40B48q IHdpZHRoPSIxNSUiIHZhbG iijc8ayH2jOj6+PGNvbCB3 yWA8aC0fBeQmHzI9QMxpX0 49InRvcCIv Dfnyj4ohm6aomKh4WhLsCS UcqtYjmJujJJV2i7LyPj59 T8YngGtec9VlJpf5im84dL Fsi7Q7uEA2 Y5VgDBXhehdvzZVdcSbmWW 7uTGAkwzuuUUFzhU4mGIYq R5a0LqZqKbL2AYowH5Aqve Q3VGEeuLLt LXLteIGTwB6cqibdz7igqk yeDoFaIQYuJRk2MCi7ACVu qQlwUuSlUCT8UdY1LKJ4oV QeeZ8prVtk nrducD3mHdn+XGL6cRRkcD HEQE1lSddwtBY+PHRkIHN0 oMrzWYfeFSKilS4rSWNcR0 c2FwXbAyV2 ZBleP1TfpnA4PDZhpQMwUL EcyQFHxQ0rcazsa2gtgiej RhDtWLSzLAi6KUt4NPMvnI duOiBsZWZ0 VnU3VBX0kPNsiU3wnXtmns ijhH6vRdl+QmlydGggRGF0 SCl7F2FbVsd8QBLzaDgeWN 0ncGFkZGlu Ex5wtXxvjFfyIJ5iZEBrfp qlf834MdLyk3czVXXqoOAc ACusFMZ1T84vx9W9RKFmRM TrBFJ2jIQ8 aP0xnEzhkrigoZLkeXcpnk ThfZwsZRtlCLhiF972ZXSi lQkdMkAfPLh1E1KuWeq1KN OzjLypMS2y wZTwSCdaMn0yoDxivAkiKD 5yOALjpfmpj844LbUmu5cs TWXlxZEqJFrxAZB0I30by2 L7ONReXHYp EIU5pQG4zE2dsPojgltryQ VmdDsgdmVydGljYWwtYWxp F104DJCbrAheFxZfoSn4B5 LsGqz0VAFy xJawYH1opGVaDBbkEn1skG kgdBtpTM8rLZVrcvmya293 UzHxe2buDGEsfKSnZVokDA E8N40cz0C0 JROiPHYbAGU3oDX2cS5snV lnbjogbGVmdDsgdmVydGlj RWbqHXtsQ657XZQafAkjKw BhdGllbnQg HDznBUq0H6EsDkvebZN+PC 72VSLdUH39mGHhvRIwi4yh fIh0UtFaTFHjJUQ8iRqhRJ xtj6OgIYJm A28okPGnt3L5RFGefIzecD LfIpAuwJS1bT2cPLxyehzx f6hynxljMnnff5pgft46qS 26N58nGRcl ZHRoPSIzMCUiIHZhbGlnbj 5rqH1vYn8+PCScaIA5pVG1 bI2lQSJcQnL2YZrpX027Nf RvcCIvPjxj x9brw0hauIt5UkZ1FCTnbj VhjBxwMVU0r0XxOh80F61h IHdpZHRoPSIyMCUiIHZhbG uzej6jvM4f Ii8+VHHjwXK3hJL2mZ6mLm EmPlU5EEoyV516XwCzlKFx IctqE11uB0QcxCT+PHRyPj p0PJTaaEst QA6osXKfKOvvKh6uZEI8Fk VtPwCtLVlnO9PkPNCvakmi acfjnRG2GBZaTPHcgT30Bx 9udDogMTBw kBXYhM9ordxrh1nsoavaPm EyZMGrZPv5EZz9KCMebBtt ZtFgUPK6LvB4UHH0uWJvvY 1hbGlnbjog sO8aI1EeEJCylvcuXx30pG 9mMnFzLfC7SHimSvj+Sk9O ITFvSGHGLj1ITYqjTSdAHs wvdGQ+PHRk YPR7hFadQRriJZVfrW6dJV GbC3d4FoEnMmE1OWazH9Jk UWQjvapxCz25kA8tJdDzJu M3DPflA2Ir uxK3KXWrxXAcEKbjTFI5D7 7yu1N6QECxJXUwPUJ2vGV6 wZ4xsXbmcaxquYKxyFpfhi VydGljYWwt RMhpX627QMZzdOjfJySgAj Y7SvL5GMl2J9ZhPgp4XPKl mTmjMI5qvXSgYIniLg5nwC wpkUdvSB1c YUVjqalrAKKkjL7uKGEkyQ RkoBgvMW7iQEUmrptdq616 PcMiLRC6MQVqhTAsI6RucQ 9yOiAjMDAw VVPuG7JbhROpICtuX149UY joLaB8OVIwndCtX4SuQBZn qVqdRnI4c4N2Fo30TYLLDQ FyczwvdGQ+ DMZkJXV9wIdqAUoiYPYgdX 9oRUVmQ6b5PoUjEbV3WZsi R1KlYAQvmjizTo22aM7cIs PqHkC4VPjn B7SswzQ1LUOvhDXkMZplRM B8B53ud4P8EJPzHAJtHSI4 sXQ8rP0imMtcnnxkgYZcxT sgdmVydGlj COcmTSnmY609IJDsbPkmXt ZFTUFMRTwvdGQ+PHRkIHN0 sEivOHplBIXriC6nSSHjU0 w8CoRlJsD5 IVqhR8IgXAQnhfmfBk30rT 9uUzWqGmN5XRouP4LiyoM4 MKVvjLHmXMchDTD5P01se2 W1GUQhWPRp AOU5lZI6oK1dzBrrcnrhxI VmdDsgdmVydGljYWwtYWxp K634OXDbgPjoWn1OXC43AU 84B9FdFzfa dGFibGU+PHRhYmxlIHdpZH OpWEfoLUYmOfVkrCovQF5a Kj9mPNDoEOMtbGozjPAuBg Qtn1giNNHm BSywJJ9veBigV0VwgXV7BK Tsx4z2Hq25S14dR7ZesIL+ GLHkzAV1nJV7eI5iByNhVx Q8DHooO765 IrQmeXTvRtson8awu0gdpP w9NnErDREljzQzqWnpFNB6 x0VhLk48A10sVRmaEMBxQN IyMCUiIHZh dYtjzc6xeZ7pEt2+PGNvbC P6qPQ9rR3xYmMtCuL2PHog O709PmByiKFoJivfB84lA5 JvdXA+PHRy Poz2RDRiqKxtWW4esXZzOH bkHj8wUPS0RaBxEbBmXHdk O5QvFTWdqlmarsfgoMD0ZA QpRGCllI22 Ui6qyDrnBt0qMQQhDEV1TG SvyCNhK4LpsR1eAuUjVCYa GZDzU0EcfFKtPSsoH123VV jtMjX9OVVw rnPxB9LcCNSuwWhmEdB0o8 Y1By9WuUbspVGqBG8cMyMi YEl1Y1IiZpf2UIYyvHqoOT 0ncGFkZGlu Xj3qdGhnkHxzSS8aWAAeoz uzh857KjLzp0zbTRBirSHy YOzuWVZ2I51hp6O0YGPnDH XaREP9wXX9 mO0kbCaukuizfMVxlZwnbi CmwNfdCEixTGknR047YGGw jOdtPsOANqo8O7CuXzs7LH CqkEnaMU1k kROuCRvxEx1kqNvarZivGG 3pQWHizggrz585BhVax1mn AVXruXNeVGqbGCL2N30pa3 T4JBMaPKXw OEE0rPJ6wD2btQanufcctG VmdDsgdmVydGljYWwtYWxp C855UITbmNhdSt0GUhq1E2 WtUjb4CACo uLwzAJ1kiBIgNHijWi4wxT hecLfpJE9tXDColntfo426 TmRrs1blTSNheAFjBKzzDO Z3M45uh7K3 OJXiMRPsGXF1eWI5fK7igO lnbjogbGVmdDsgdmVydGlj HPmaZHcqW952EJNloMmfJd BheWVyOjwv dGQ+QG50rd86Q0OgMdsbNl i4OSXvVEO3cEW5gT8pFGJc EBfbq5R4oKA0F0YlmzPabo 7md5mzWIXt ZTo (more content not included)... [facility] C MRSA Screenon 12-04-2022 C MRSA Screen Negative [facility] Comment on above: Performed By: #### 1 [id number] ####[facility] (DEFAULT)[address] [place] [address] Provider Orderson 12-04-2022 Provider Orders [id number] TGTIFF [facility] .Auto Diff 112-03-2022 Auto [place] % 10 % Normal 12 [facility] Comment on above: Performed By: #### 1 [id number] ####[facility] (DEFAULT)[address] [place] [address] Baso Abs# 0.1 x10 Normal 0.0-0.2 [facility] Comment on above: Performed By: #### 1 [id number] ####[facility] (DEFAULT)[address] [place] [address] 03752 Basophils/100 WBC (Bld) 0.5 % Normal 0.2-2.0 [facility] Comment on above: Performed By: #### 1 [id number], [id number], [id number] ####[facility] (DEFAULT)[address] [place] [address] 31923 Eos Abs# 0.1 x10 Normal 0.0-0.4 [facility] Comment on above: Performed By: #### 1 [id number], [id number], [id number] ####[facility] (DEFAULT)[address] [place] [address] 82652 Eosinophils/100 WBC (Bld) 1.1 % Normal 0.9-4.0 [facility] Comment on above: Performed By: #### 1 [id number], [id number], [id number] ####[facility] (DEFAULT)[address] [place] [address] 09347 Lymph Abs# 2.1 x10 Normal 1.3-2.9 [facility] Comment on above: Performed By: #### 1 [id number], [id number], [id number] ####[facility] (DEFAULT)[address] [place] [address] 71376 Lymphocytes/100 WBC (Bld) 18 % Normal 14-48 [facility] Comment on above: Performed By: #### 1 [id number], [id number], [id number] ####[facility] (DEFAULT)[address] [place] [address] 22320 Charlton Abs# 1.2 x10 High 0.0-0.8 [facility] Comment on above: Performed By: #### 1 [id number], [id number], [id number] ####[facility] (DEFAULT)[address] [place] [address] 91297 Neut Abs# 8.6 x10 Normal 1.5-9.2 [facility] Comment on above: Performed By: #### 1 [id number], [id number], [id number] ####[facility] (DEFAULT)[address] [place] [address] 90642 Neutrophils/100 WBC (Bld) 71 % Normal 44-88 [facility] Comment on above: Performed By: #### 1 [id number], [id number], [id number] ####[facility] (DEFAULT)[address] [place] [address] BMP Standardon 12-03-2022 eGFR Non AA 49 mL/min/1.73m2 Invalid Interpretation Code [facility] Comment on above: Performed By: #### 1 [id number], [id number], [id number] ####[facility] (DEFAULT)[address] [place] [address] 22969 eGFR AA 59 mL/min/1.73m2 Invalid Interpretation Code [facility] Comment on above: Performed By: #### 1 [id number], [id number], [id number] ####[facility] (DEFAULT)[address] [place] [address] 27620 Anion gap [Moles/Vol] 12.9 mmol/L Normal 5.0-19.0 [facility] Comment on above: Performed By: #### 1 [id number], [id number], [id number] ####[facility] (DEFAULT)[address] [place] [address] 60871 Calcium [Mass/Vol] 9.2 mg/dL Normal 8.9-10.3 [facility] Comment on above: Performed By: #### 1 [id number], [id number], [id number] ####[facility] (DEFAULT)[address] [place] [address] 36116 Chloride [Moles/Vol] 98 mmol/L Low 101-111 [facility] Comment on above: Performed By: #### 1 [id number], [id number], [id number] ####[facility] (DEFAULT)[address] [place] [address] 77423 CO2 [Moles/Vol] 28 mmol/L Normal 21-32 [facility] Comment on above: Performed By: #### 1 [id number], 58960747, 4121249 ####[facility] (DEFAULT)[address] [place] [address] 42767 Creatinine [Mass/Vol] 1.12 mg/dL Normal 0.60-1.30 [facility] Comment on above: Performed By: #### 1 [id number], [id number], [id number] ####[facility] (DEFAULT)[address] [place] [address] 42491 Glucose [Mass/Vol] 110.0 mg/dL Normal 74.0-118.0 [facility] Comment on above: Performed By: #### 1 [id number], [id number], [id number] ####[facility] (DEFAULT)[address] [place] [address] 99379 Osmolality 273 mOsm/L Invalid Interpretation Code [facility] Comment on above: Performed By: #### 1 [id number], [id number], [id number] ####[facility] (DEFAULT)[address] [place] [address] 52879 Potassium [Moles/Vol] 3.9 mmol/L Normal 3.6-5.1 [facility] Comment on above: Performed By: #### 1 [id number], 70079830, 9486649 ####[facility] (DEFAULT)[address] [place] [address] 97915 Sodium [Moles/Vol] 135.0 mmol/L Low 136.0-144.0 [facility] Comment on above: Performed By: #### 1 [id number], [id number], 6652221 ####[facility] (DEFAULT)[address] [place] [address] 88060 Urea nitrogen [Mass/Vol] 20 mg/dL Normal 8-26 [facility] Comment on above: Performed By: #### 1 [id number], 34215163, 9810013 ####[facility] (DEFAULT)[address] [place] [address] 60828 Urea nitrogen/Creatinine [Mass ratio] 17.8 mg/mg High 4.6-16.2 [facility] Comment on above: Performed By: #### 1 [id number], 78868398, 8830521 ####[facility] (DEFAULT)[address] [place] [address] 73591 CBC w/ Auto Diffon 3 Erythrocyte distribution width (RBC) [Ratio] 12.7 % Normal 11.5-15.0 [facility] Comment on above: Performed By: #### 1 [id number], 99065586, 1115040 ####[facility] (DEFAULT)[address] [place] [address] Hematocrit (Bld) [Volume fraction] 38.4 % Normal 33.7-40.4 [facility] Comment on above: Performed By: #### 1 [id number], 50002782, 6183096 ####[facility] (DEFAULT)[address] [place] [address] Hemoglobin (Bld) [Mass/Vol] 12.9 g/dL Normal 11.3-15.9 [facility] Comment on above: Performed By: #### 1 [id number], 06502902, 5873893 ####[facility] (DEFAULT)[address] [place] [address] Man Diff? Auto Invalid Interpretation Code [facility] Comment on above: Performed By: #### 1 [id number], [id number], 6446258 ####[facility] (DEFAULT)[address] [place] [address] 55262 MCH (RBC) [Entitic mass] 31 pg Normal 24-34 [facility] Comment on above: Performed By: #### 1 [id number], 86118742, 5951699 ####[facility] (DEFAULT)[address] [place] [address] 89582 MCHC (RBC) [Mass/Vol] 34 g/dL Normal 26-37 [facility] Comment on above: Performed By: #### 1 [id number], 37670084, 5647107 ####[facility] (DEFAULT)[address] [place] [address] 58055 MCV (RBC) [Entitic vol] 92 fL Normal 81-100 [facility] Comment on above: Performed By: #### 1 [id number], [id number], 1291862 ####[facility] (DEFAULT)[address] [place] [address] 32570 Platelet 403 x10 Normal 138-427 [facility] Comment on above: Performed By: #### 1 [id number], [id number], 8907004 ####[facility] (DEFAULT)[address] [place] [address] 08308 Platelet mean volume (Bld) [Entitic vol] 8.4 fL Normal 6.3-10.2 [facility] Comment on above: Performed By: #### 1 [id number], 16666904, 8751000 ####[facility] (DEFAULT)[address] [place] [address] 43142 RBC 4.18 x10 Normal 3.70-5.30 [facility] Comment on above: Performed By: #### 1 [id number], 38214225, 5440413 ####[facility] (DEFAULT)[address] [place] [address] 43951 WBC 12.1 x10 High 3.5-10.5 [facility] Comment on above: Performed By: #### 1 [id number], 92678611, 3927188 ####[facility] (DEFAULT)[address] [place] [address] 00484 UA Bbomv1xj 12-03-2022 UA Bacteria 1+ [facility] Comment on above: Order Comment: Urina lysis Microscopic order added on by [employer] Expert Rules system. Performed By: #### 1 [id number], 8682076, [id number] #### [facility] (DEFAULT) [address] [place] [address] 21811 UA Gran Cast 0-[address] [facility] Comment on above: Order Comment: Urina lysis Microscopic order added on by [employer] Rules system. Performed By: #### 1 [id number], 0681569, [id number] #### [facility] (DEFAULT) [address] [place] [address] 79538 UA Hyal Cast 0-[address] [facility] Comment on above: Order Comment: Urina lysis Microscopic order added on by [employer] Rules system. Performed By: #### 1 [id number], 5643899, 24953382 #### [facility] (DEFAULT) [address] [place] [address] UA Mucous 1+ [facility] Comment on above: Order Comment: Urina lysis Microscopic order added on by [employer] Rules system. Performed By: #### 1 [id number], 2402700, 90595462 #### [facility] (DEFAULT) [address] [place] [address] UA RBC 5-[address] [facility] Comment on above: Order Comment: Urina lysis Microscopic order added on by [employer] Rules system. Performed By: #### 1 [id number], 9076991, 40588192 #### [facility] (DEFAULT) [address] [place] [address] UA Squam Epi Few [facility] Comment on above: Order Comment: Urina lysis Microscopic order added on by [employer] Rules system. Performed By: #### 1 [id number], 1683388, 05577896 #### [facility] (DEFAULT) [address] [place] [address] UA WBC 60-[address] [facility] Comment on above: Order Comment: Urina lysis Microscopic order added on by [employer] Rules system. Performed By: #### 1 [id number], [id number], 33250116 #### [facility] (DEFAULT) [address] [place] [address] UA w Culture if Ind Standard on 12-03-2022 Breakpoint UA [facility] Comment on above: Performed By: #### 1 [id number], 9141656, [id number] #### [facility] (DEFAULT) [address] [place] [address] Color (U) Yellow [facility] Comment on above: Performed By: #### 1 [id number], 9809532, [id number] #### [facility] (DEFAULT) [address] [place] [address] Culture? Indicated Invalid Interpretation Code [facility] Comment on above: Result Comment: Resu lt created by rule GL_MAGR_ADD_UA_CULT Result created by rule GL_MAGR_ADD_UA_CULT Result created by rule GL_MAGR_ADD_UA_CULT1 Result created by rule GL_MAGR_ADD_UA_CULT Performed By: #### 1 [id number], [id number], 95717534 #### [facility] (DEFAULT) [address] [place] [address] 33705 Glucose (U) [Mass/Vol] Negative Normal [facility] Comment on above: Performed By: #### 1 [id number], 1680514, 97705423 #### [facility] (DEFAULT) [address] [place] [address] 67799 Ketones Ql (U) Negative Normal [facility] Comment on above: Performed By: #### 1 [id number], 0354554, 97910713 #### [facility] (DEFAULT) [address] [place] [address] 38536 Micro? Indicated Invalid Interpretation Code [facility] Comment on above: Result Comment: Resu lt created by rule GL_MAGR_ADD_UA_MICRO Performed By: #### 1 [id number], 9532081, 51205224 #### [facility] (DEFAULT) [address] [place] [address] 38159 UA Bilirubin Negative Normal [facility] Comment on above: Performed By: #### 1 [id number], [id number], [id number] #### [facility] (DEFAULT) [address] [place] [address] 54996 UA Blood TRACE Abnormal NEGATIVE [facility] Comment on above: Performed By: #### 1 [id number], [id number], 33484929 #### [facility] (DEFAULT) [address] [place] [address] 17941 UA Clarity CLOUDY Abnormal CLEAR [facility] Comment on above: Performed By: #### 1 [id number], 4360612, 68512792 #### [facility] (DEFAULT) [address] [place] [address] 06143 UA Leuk Est LARGE Abnormal NEGATIVE [facility] Comment on above: Performed By: #### 1 [id number], 6526989, 17861908 #### [facility] (DEFAULT) [address] [place] [address] 46580 UA Nitrite Negative Normal NEGATIVE [facility] Comment on above: Performed By: #### 1 [id number], 9577037, 81673314 #### [facility] (DEFAULT) [address] [place] [address] 91238 UA pH 6.0 Normal 5-8 [facility] Comment on above: Performed By: #### 1 [id number], 0838164, 72101217 #### [facility] (DEFAULT) [address] [place] [address] 33409 UA Protein Negative Normal NEGATIVE [facility] Comment on above: Performed By: #### 1 [id number], 2141417, 98061601 #### [facility] (DEFAULT) [address] [place] [address] 10300 UA Spec Grav 1.025 Normal 1.001-1.035 [facility] Comment on above: Performed By: #### 1 [id number], 2605125, 82537229 #### [facility] (DEFAULT) [address] [place] [address] 95515 UA Urobilinogen 1.0 mg/dL Normal 0.2-1.0 [facility] Comment on above: Performed By: #### 1 [id number], 4762752, 32255130 #### [facility] (DEFAULT) [address] [place] [address] 80844 Urine Source Clean Catch Normal [facility] Comment on above: Performed By: #### 1 [id number], 5455105, [id number] #### [facility] (DEFAULT) [address] [place] [address] 70077 CBC AUTO DIFFon 05-29-2022 BASO # 0.0 103/ul Normal 0.0-0.1 [facility] Comment on above: Performed By: #### C BC #### [facility] [address] [place], [place] [address] Dr. Abdirashid Page Basophils/100 WBC (Bld) 0.3 % Normal 0.2-2.0 [facility] Comment on above: Performed By: #### C BC #### [facility] [address] [place] [address] Dr. Abdirashid Page EO # 0.1 103/ul Normal 0.0-0.7 [facility] Comment on above: Performed By: #### C BC #### [facility] [address] [place] [address] Dr. Abdirashid Page Eosinophils/100 WBC (Bld) 0.5 % Critically low 0.9-7.0 [facility] Comment on above: Performed By: #### C BC #### [facility] [address] [place] [address] Dr. Abdirashid Page Erythrocyte distribution width (RBC) [Ratio] 12.7 % Normal 11.0-15.0 [facility] Comment on above: Performed By: #### C BC #### [facility] [address] [place] [address] Dr. Abdirashid Page Hematocrit (Bld) [Volume fraction] 36.0 % Normal 36.0-48.0 [facility] Comment on above: Performed By: #### C BC #### [facility] [address] [place] [address] Dr. Abdirashid Page Hemoglobin (Bld) [Mass/Vol] 12.0 g/dL Normal 12.0-16.0 [facility] Comment on above: Performed By: #### C BC #### [facility] [address] [place] [address] Dr. Abdirashid Page IG # 0.05 10e3/ul Critically high 0.00-0.03 [facility] Comment on above: Performed By: #### C BC #### [facility] [address] [place] [address] Dr. Abdirashid Page IG % 0.4 % Normal 0.0-0.5 [facility] Comment on above: Performed By: #### C BC #### [facility] [address] [place] [address] Dr. Abdirashid Page LYMPH # 1.5 103/ul Normal 1.2-3.8 [facility] Comment on above: Performed By: #### C BC #### [facility] [address] [place] [address] [address] Abdirashid Page Lymphocytes/100 WBC (Bld) 11.8 % Critically low 20.5-60.0 [facility] Comment on above: Performed By: #### C BC #### [facility] [address] [place] [address] [address] Abdirashid Page MANUAL DIFF REQ NO Normal [facility] Comment on above: Performed By: #### C BC #### [facility] [address] [place] [address] Dr. Abdirashid Page MCH (RBC) [Entitic mass] 31.7 pg Normal 26.7-34.0 [facility] Comment on above: Performed By: #### C BC #### [facility] [address] [place] [address] Dr. Abdirashid Page MCHC (RBC) [Mass/Vol] 33.3 g/dL Normal 29.9-35.2 [facility] Comment on above: Performed By: #### C BC #### [facility] [address] [place] [address] Dr. Abdirashid Page MCV (RBC) [Entitic vol] 95.2 fL Normal 81.0-99.0 [facility] Comment on above: Performed By: #### C BC #### [facility] [address] [place] [address] Dr. Abdirashid Page MONO # 1.1 103/ul Critically high 0.3-0.8 [facility] Comment on above: Performed By: #### C BC #### [facility] [address] [place] [address] Dr. Abdirashid Page Monocytes/100 WBC (Bld) 8.2 % Normal 1.7-12.0 [facility] Comment on above: Performed By: #### C BC #### [facility] [address] [place] [address] Dr. Abdirashid Page NEUT # 10.2 103/ul Critically high 1.4-6.5 [facility] Comment on above: Performed By: #### C BC #### [facility] [address] [place] [address] [address] Abdirashid Page Neutrophils/100 WBC (Bld) 78.8 % Critically high 43.0-75.0 [facility] Comment on above: Performed By: #### C BC #### [facility] [address] [place] [address] [address] Abdirashid Page Platelet mean volume (Bld) [Entitic vol] 9.3 fL Critically low 9.5-13.5 [facility] Comment on above: Performed By: #### C BC #### [facility] [address] [place] [address] [address] Abdirashid Page PLT 435 103/ul Normal 150-450 [facility] Comment on above: Performed By: #### C BC #### [facility] [address] [place] [address] Dr. Abdirashid Page RBC 3.78 106/ul Critically low 4.20-5.40 [facility] Comment on above: Performed By: #### C BC #### [facility] [address] [place] [address] [address] Abdirashid Page WBC 13.0 103/ul Critically high 4.0-11.0 [facility] Comment on above: Performed By: #### C BC #### [facility] [address] [place] [address] HEAD WO CONon [...] calvarium or scalp hematoma. Electronically authenticated by: BANDARMILENA BILL Date: 2022-05-29 15:30 Normal [facility] CULTURE URINEon 05-29-2022 CULTURE URINE Culture Observations : LIGHT GROWTH OF MIXED GENITAL MADELEINE. NO POTENTIAL PATHOGENS SEEN. Normal [facility] Comment on above: Performed By: #### C MP #### [facility] [address] [place] [address] [address] Abdirashid Page ER URINE PROFILEon 3 Bilirubin Ql (U) Negative Normal NEGATIVE [facility] Comment on above: Performed By: #### U MICRO, ERUR #### [facility] [address] [place] [address] [address] Abdirashid Page Clarity (U) CLEAR Normal CLEAR [facility] Comment on above: Performed By: #### U MICRO, ERUR #### [facility] [address] [place] [address] Dr. Abdirashid Page Color (U) YELLOW Normal YELLOW [facility] Comment on above: Performed By: #### U MICRO, ERUR #### [facility] [address] [place] [address] Dr. Abdirashid Page ERUAHD A micrscopic examination will be performed if indicated. Normal [facility] Comment on above: Performed By: #### U MICRO, ERUR #### [facility] [address] [place] [address] [address] Abdirashid Page Glucose Ql (U) 250 mg/dl Abnormal NEGATIVE [facility] Comment on above: Performed By: #### U MICRO, ERUR #### [facility] [address] [place] [address] [address] Abdirashid Page Hemoglobin Ql (U) Negative Normal NEGATIVE [facility] Comment on above: Performed By: #### U MICRO, ERUR #### [facility] [address] [place] [address] [address] Abdirashid Page Ketones Ql (U) Negative Normal NEGATIVE [facility] Comment on above: Performed By: #### U MICRO, ERUR #### [facility] [address] [place] [address] Dr. Abdirashid Page LEUKOCYTES MODERATE Abnormal NEGATIVE [facility] Comment on above: Performed By: #### U MICRO, ERUR #### [facility] [address] [place] [address] [address] Abdirashid Page Nitrite Ql (U) Negative Normal NEGATIVE [facility] Comment on above: Performed By: #### U MICRO, ERUR #### [facility] [address] [place] [address] [address] Abdirashid Page pH (U) 5.5 [pH] Normal 5-9 [facility] Comment on above: Performed By: #### U MICRO, ERUR #### [facility] [address] [place] [address] [address] Abdirashid Page SPEC GRAVITY 1.025 Normal 1.005-<=1.025 [facility] Comment on above: Performed By: #### U MICRO, ERUR #### [facility] [address] [place] [address] Dr. Abdirashid Page UA PROTEIN Negative Normal NEGATIVE/ TRACE [facility] Comment on above: Performed By: #### U MICRO, ERUR #### [facility] [address] [place] [address] [address] Abdirashid Page UR MICRO IND INDICATED Normal [facility] Comment on above: Performed By: #### U MICRO, ERUR #### [facility] [address] [place] [address] [address] Abdirashid Page Urobilinogen Qn (U) 0.2 {Mary Ann'U}/dL Normal 0.2 - 1. 0 [facility] Comment on above: Performed By: #### U MICRO, ERUR #### [facility] [address] [place] [address] Dr. Abdirashid Page POINT OF CARE GLUCOSEon 05-14 Glucose [Mass/Vol] 142 mg/dL Critically high 74-106 [facility] [place] [facility] Comment on above: Performed By: #### C BC #### [facility] [address] [place] [address] Dr. Abdirashid Page PROF 14(COMP METB)on 023 Albumin [Mass/Vol] 3.6 g/dL Normal 3.4-5.0 [facility] Comment on above: Performed By: #### C ETHEL, HSTROPN #### [facility] [address] [place] [address] [address] Abdirashid Page Albumin/Globulin [Mass ratio] 1.2 {ratio} Normal [facility] Comment on above: Performed By: #### C ETHEL, HSTROPN #### [facility] [address] [place] [address] [address] Abdirashid Page ALP [Catalytic activity/Vol] 77 U/L Normal 46-116 [facility] Comment on above: Performed By: #### C ETHEL, HSTROPN #### [facility] [address] [place] [address] Dr. Abdirashid Page ALT [Catalytic activity/Vol] 39 U/L Normal 14-59 [facility] Comment on above: Performed By: #### C ETHEL, HSTROPN #### [facility] [address] [place] [address] [address] Abdirashid Page Anion gap [Moles/Vol] 13.2 mmol/L Normal [facility] Comment on above: Performed By: #### C ETHEL, HSTROPN #### [facility] [address] [place] [address] Dr. Abdirashid Page AST [Catalytic activity/Vol] 20 U/L Normal 15-37 [facility] Comment on above: Performed By: #### C ETHEL, HSTROPN #### [facility] [address] [place] [address] [address] Abdirashid Page Bilirubin [Mass/Vol] 0.4 mg/dL Normal 0.2-1.0 [facility] Comment on above: Performed By: #### C ETHEL, HSTROPN #### [facility] [address] [place] [address] Dr. Abdirashid Page Calcium [Mass/Vol] 9.2 mg/dL Normal 8.5-10.1 [facility] Comment on above: Performed By: #### C ETHEL, HSTROPN #### [facility] [address] [place] [address] [address] Abdirashid Page Chloride [Moles/Vol] 98 mmol/L Normal 98-107 [facility] Comment on above: Performed By: #### C MP, HSTROPN #### [facility] [address] [place] [address] [address] Abdirashid Page CO2 [Moles/Vol] 30.3 mmol/L Normal 21.0-32.0 [facility] Comment on above: Performed By: #### C MP, HSTROPN #### [facility] [address] [address] [address] Abdirashid Page Creatinine [Mass/Vol] 1.58 mg/dL Critically high 0.55-1.02 [facility] Comment on above: Performed By: #### C MP, HSTROPN #### [facility] [address] [place] [address] Dr. Abdirashid Page EGFR-AF MICRONESIAN 40 mL/min/1.73m2 Critically low >=60 [facility] Comment on above: Performed By: #### C MP, HSTROPN #### [facility] [address] [place] [address] Dr. Abdirashid Page EGFR-NON AF MICRONESIAN 33 mL/min/1.73m2 Critically low >=60 [facility] Comment on above: Performed By: #### C MP, HSTROPN #### [facility] [address] [address] [address] Abdirashid Page Globulin (S) [Mass/Vol] 2.9 g/dL Normal [facility] Comment on above: Performed By: #### C MP, HSTROPN #### [facility] [address] [address] [address] Abdirashid Page Glucose [Mass/Vol] 156 mg/dL Critically high 74-106 T [facility] Comment on above: Performed By: #### C MP, HSTROPN #### [facility] [address] [place] [address] Dr. Abdirashid Page Potassium [Moles/Vol] 3.5 mmol/L Normal 3.5-5.1 [facility] Comment on above: Performed By: #### C MP, HSTROPN #### [facility] [address] [address] [address] Abdirashid Page Protein [Mass/Vol] 6.5 g/dL Normal 6.4-8.2 [facility] Comment on above: Performed By: #### C MP, HSTROPN #### [facility] [address] [place] [address] Dr. Abdirashid Page Sodium [Moles/Vol] 138 mmol/L Normal 136-145 [facility] Comment on above: Performed By: #### C MP, HSTROPN #### [facility] [address] [place] [address] Dr. Abdirashid Page Urea nitrogen [Mass/Vol] 26.0 mg/dL Critically high 7.0-18.0 [facility] Comment on above: Performed By: #### C MP, HSTROPN #### [facility] [address] [place] [address] Dr. Abdirashid Page Urea nitrogen/Creatinine [Mass ratio] 16.5 mg/mg Normal [facility] Comment on above: Performed By: #### C MP, HSTROPN #### [facility] [address] [place] [address] Dr. Abdirashid Page TROPONIN, HIGH SENSITIVITYon 05-29-2022 HSTROP 35.4 pg/mL Normal 4.0-51.3 [facility] Comment on above: Result Comment: CUT- OFF POINTS HAVE BEEN ESTABLISHED BASED ON THE FOURTH UNIVERSAL DEFINITIONS OF MYOCARDIAL INFARCTION. THE UPPER REFERENCE LIMIT (URL) OF TROPONIN, DEFINED THE 99TH PERCENTILE OF cTnI DISTRIBUTION IN A REFERENCE POPULATION, HAS BEEN CONFIRMED THE DECISION THRESHOLD FOR ID DIAGNOSIS. Performed By: #### H STROPN #### [facility] [address] [place] [address] Dr. Abdirashid Page HSTROP 36.5 pg/mL Normal 4.0-51.3 [facility] Comment on above: Result Comment: CUT- OFF POINTS HAVE BEEN ESTABLISHED BASED ON THE FOURTH UNIVERSAL DEFINITIONS OF MYOCARDIAL INFARCTION. THE UPPER REFERENCE LIMIT (URL) OF TROPONIN, DEFINED THE 99TH PERCENTILE OF cTnI DISTRIBUTION IN A REFERENCE POPULATION, HAS BEEN CONFIRMED THE DECISION THRESHOLD FOR ID DIAGNOSIS. Performed By: #### C MP, HSTROPN #### [facility] [address] [place] [address] Dr. Abdirashid Page URINE MICROSCOPIC ONLYon BACTERIA TRACE Abnormal NONE SEEN [facility] Comment on above: Performed By: #### U MICRO, ERUR #### [facility] [address] [place] [address] Dr. Abdirashid Page Bacteria identified Cx Nom (U) INDICATED Normal [facility] Comment on above: Performed By: #### U MICRO, ERUR #### [facility] [address] [place] [address] Dr. Abdirashid Page CAST NONE SEEN Normal NONE SEEN [facility] Comment on above: Performed By: #### U MICRO, ERUR #### [facility] [address] [place] [address] Dr. Abdirashid Page Crystals LM Nom (Urine sed) SEEN Abnormal NONE SEEN [facility] Comment on above: Performed By: #### U MICRO, ERUR #### [facility] [address] [place] [address] Dr. Abdirashid Page Epithelial cells LM Ql (Urine sed) MODERATE Abnormal NONE SEEN /RARE [facility] Comment on above: Performed By: #### U MICRO, ERUR #### [facility] [address] [place] [address] Dr. Abdirashid Page MUCOUS NONE SEEN Normal NONE SEEN [facility] Comment on above: Performed By: #### U MICRO, ERUR #### [facility] [address] [place] [address] Dr. Abdirashid Page RBC 2-5 Abnormal 0-2 [facility] Comment on above: Performed By: #### U MICRO, ERUR #### [facility] [address] [place] [address] Dr. Abdirashid Page WBC 10-20 Abnormal NONE SEEN [facility] Comment on above: Performed By: #### U MICRO, ERUR #### [facility] [address] [place] [address] Dr. Abdirashid Page CULTURE URINEon 05-06-2022 CULTURE URINE Culture Observations : MODERATE GROWTH OF MIXED GENITAL MADELEINE. NO POTENTIAL PATHOGENS SEEN. Normal [facility] Comment on above: Performed By: #### C MP #### [facility] [address] [place] [address] Dr. Abdirashid Page UA RANDOM W/MICROSCOPICon BACTERIA SMALL Abnormal NONE SEEN [facility] Comment on above: Performed By: #### U MICRO, ERUR #### [facility] [address] [place] [address] Dr. Abdirashid Page Bilirubin Ql (U) MODERATE Abnormal NEGATIVE [facility] Comment on above: Performed By: #### U MICRO, ERUR #### [facility] [address] [place] [address] Dr. Abdirashid Page CAST NONE SEEN Normal NONE SEEN [facility] Comment on above: Performed By: #### U MICRO, ERUR #### [facility] [address] [place] [address] Dr. Abdirashid Page Clarity (U) CLEAR Normal CLEAR [facility] Comment on above: Performed By: #### U MICRO, ERUR #### [facility] [address] [place] [address] Dr. Abdirashid Page Color (U) LT. YELLOW Normal YELLOW [facility] Comment on above: Performed By: #### U MICRO, ERUR #### [facility] [address] [place] [address] Dr. Abdirashid Page Crystals LM Nom (Urine sed) NONE SEEN Normal NONE SEEN [facility] Comment on above: Performed By: #### U MICRO, ERUR #### [facility] [address] [place] [address] Dr. Abdirashid Page Epithelial cells LM Ql (Urine sed) FEW Abnormal NONE SEEN /RARE [facility] Comment on above: Performed By: #### U MICRO, ERUR #### [facility] [address] [place] [address] Dr. Abdirashid Page Glucose Ql (U) Negative Normal NEGATIVE [facility] Comment on above: Performed By: #### U MICRO, ERUR #### [facility] [address] [address] [address] Abdirashid Page Hemoglobin Ql (U) TRACE-INTACT Abnormal NEGATIVE [facility] Comment on above: Performed By: #### U MICRO, ERUR #### [facility] [address] [address] [address] Abdirashid Page Ketones Ql (U) TRACE Abnormal NEGATIVE [facility] Comment on above: Performed By: #### U MICRO, ERUR #### [facility] [address] [address] [address] Abdirashid Page LEUKOCYTES MODERATE Abnormal NEGATIVE [facility] Comment on above: Performed By: #### U MICRO, ERUR #### [facility] [address] [place] [address] Dr. Abdirashid Page MUCOUS NONE SEEN Normal NONE SEEN [facility] Comment on above: Performed By: #### U MICRO, ERUR #### [facility] [address] [address] [address] Abdirashid Page Nitrite Ql (U) Negative Normal NEGATIVE [facility] Comment on above: Performed By: #### U MICRO, ERUR #### [facility] [address] [address] [address] Abdirashid Page pH (U) 5.5 [pH] Normal 5-9 [facility] Comment on above: Performed By: #### U MICRO, ERUR #### [facility] [address] [place] [address] Dr. Abdirashid Page RBC 0-2 Normal 0-2 [facility] Comment on above: Performed By: #### U MICRO, ERUR #### [facility] [address] [place] [address] Dr. Abdirashid Page SPEC GRAVITY >=1.030 Abnormal 1.005-<=1.025 [facility] Comment on above: Performed By: #### U MICRO, ERUR #### [facility] [address] [place] [address] Dr. Abdirashid Page UA PROTEIN TRACE Normal NEGATIVE/ TRACE [facility] Comment on above: Performed By: #### U MICRO, ERUR #### [facility] [address] [address] [address] Abdirashid Page Urobilinogen Qn (U) 0.2 {Mary Ann'U}/dL Normal 0.2 - 1. 0 [facility] Comment on above: Performed By: #### U MICRO, ERUR #### [facility] [address] [address] [address] Abdirashid Page WBC 20-50 Abnormal NONE SEEN [facility] Comment on above: Performed By: #### U MICRO, ERUR #### [facility] [address] [address] [address] Abdirashid Page US KIDNEYSon 05-06-2022 US [...] BENNIE MORAN Date: 2022-05-06 13:20 Normal [facility] CBC AUTO DIFFon 04-29-2022 BASO # 0.1 103/ul Normal 0.0-0.1 [facility] Comment on above: Performed By: #### U MICRO, ERUR #### [facility] [address] [address] [address] Abdirashid Page Basophils/100 WBC (Bld) 0.4 % Normal 0.2-2.0 [facility] Comment on above: Performed By: #### U MICRO, ERUR #### [facility] [address] [place] [address] Dr. Abdirashid Page EO # 0.1 103/ul Normal 0.0-0.7 [facility] Comment on above: Performed By: #### U MICRO, ERUR #### [facility] [address] [address] [address] Abdirashid Page Eosinophils/100 WBC (Bld) 0.9 % Normal 0.9-7.0 [facility] Comment on above: Performed By: #### U MICRO, ERUR #### [facility] [address] [place] [address] Dr. Abdirashid Page Erythrocyte distribution width (RBC) [Ratio] 13.6 % Normal 11.0-15.0 [facility] Comment on above: Performed By: #### U MICRO, ERUR #### [facility] [address] [place] [address] Dr. Abdirashid Page Hematocrit (Bld) [Volume fraction] 33.4 % Critically low 36.0-48.0 [facility] Comment on above: Performed By: #### U MICRO, ERUR #### [facility] [address] [place] [address] Dr. Abdirashid Page Hemoglobin (Bld) [Mass/Vol] 10.9 g/dL Critically low 12.0-16.0 [facility] Comment on above: Performed By: #### U MICRO, ERUR #### [facility] [address] [place] [address] Dr. Abdirashid Page IG # 0.21 10e3/ul Critically high 0.00-0.[address] [facility] Comment on above: Performed By: #### U MICRO, ERUR #### [facility] [address] [place] [address] Dr. Abdirashid Page IG % 1.5 % Critically high 0.0-0.5 [facility] Comment on above: Performed By: #### U MICRO, ERUR #### [facility] [address] [address] [address] Abdirashid Page LYMPH # 2.8 103/ul Normal 1.2-3.8 [facility] Comment on above: Performed By: #### U MICRO, ERUR #### [facility] [address] [address] [address] Abdirashid Page Lymphocytes/100 WBC (Bld) 19.9 % Critically low 20.5-60.0 [facility] Comment on above: Performed By: #### U MICRO, ERUR #### [facility] [address] [address] [address] Abdirashid Page MANUAL DIFF REQ NO Normal [facility] Comment on above: Performed By: #### U MICRO, ERUR #### [facility] [address] [place] [address] Dr. Adbirashid Page MCH (RBC) [Entitic mass] 31.6 pg Normal 26.7-34.0 [facility] Comment on above: Performed By: #### U MICRO, ERUR #### [facility] [address] [place] [address] Dr. Abdirashid Page MCHC (RBC) [Mass/Vol] 32.6 g/dL Normal 29.9-35.2 [facility] Comment on above: Performed By: #### U MICRO, ERUR #### [facility] [address] [place] [address] Dr. Abdirashid Page MCV (RBC) [Entitic vol] 96.8 fL Normal 81.0-99.0 [facility] Comment on above: Performed By: #### U MICRO, ERUR #### [facility] [address] [place] [address] Dr. Abdirashid Page MONO # 1.3 103/ul Critically high 0.3-0.8 [facility] Comment on above: Performed By: #### U MICRO, ERUR #### [facility] [address] [place] [address] Dr. Abdirashid Page Monocytes/100 WBC (Bld) 9.1 % Normal 1.7-12.0 [facility] Comment on above: Performed By: #### U MICRO, ERUR #### [facility] [address] [address] [address] Abdirashid Page NEUT # 9.5 103/ul Critically high 1.4-6.5 [facility] Comment on above: Performed By: #### U MICRO, ERUR #### [facility] [address] [address] [address] Abdirashid Page Neutrophils/100 WBC (Bld) 68.2 % Normal 43.0-75.0 [facility] Comment on above: Performed By: #### U MICRO, ERUR #### [facility] [address] [address] [address] Abdirashid Page Platelet mean volume (Bld) [Entitic vol] 9.4 fL Critically low 9.5-13.5 [facility] Comment on above: Performed By: #### U MICRO, ERUR #### [facility] [address] [place] [address] Dr. Abdirashid Page PLT 476 103/ul Critically high 150-450 [facility] Comment on above: Performed By: #### U MICRO, ERUR #### [facility] [address] [place] [address] Dr. Abdirashid Page RBC 3.45 106/ul Critically low 4.20-5.40 [facility] Comment on above: Performed By: #### U MICRO, ERUR #### [facility] [address] [place] [address] Dr. Abdirashid Page WBC 14.0 103/ul Critically high 4.0-11.0 [facility] Comment on above: Performed By: #### U MICRO, ERUR #### [facility] [address] [address] [address] Abdirashid Page PROF 14(COMP METB)on 023 Albumin [Mass/Vol] 3.6 g/dL Normal 3.4-5.0 [facility] Comment on above: Performed By: #### C MP #### [facility] [address] [place] [address] Dr. Abdirashid Page Albumin/Globulin [Mass ratio] 1.2 {ratio} Normal [facility] Comment on above: Performed By: #### C MP #### [facility] [address] [place] [address] Dr. Abdirashid Page ALP [Catalytic activity/Vol] 83 U/L Normal 46-116 [facility] Comment on above: Performed By: #### C MP #### [facility] [address] [place] [address] Dr. Abdirashid Page ALT [Catalytic activity/Vol] 24 U/L Normal 14-59 [facility] Comment on above: Performed By: #### C MP #### [facility] [address] [place] [address] Dr. Abdirashid Page Anion gap [Moles/Vol] 14.4 mmol/L Normal [facility] Comment on above: Performed By: #### C MP #### [facility] [address] [place] [address] Dr. Abdirashid Page AST [Catalytic activity/Vol] 15 U/L Normal 15-37 [facility] Comment on above: Performed By: #### C MP #### [facility] [address] [place] [address] Dr. Abdirashid Page Bilirubin [Mass/Vol] 0.3 mg/dL Normal 0.2-1.0 [facility] Comment on above: Performed By: #### C MP #### [facility] [address] [place] [address] Dr. Abdirashid Page Calcium [Mass/Vol] 9.3 mg/dL Normal 8.5-10.1 [facility] Comment on above: Performed By: #### C MP #### [facility] [address] [place] [address] Dr. Abdirashid Page Chloride [Moles/Vol] 100 mmol/L Normal 98-107 [facility] Comment on above: Performed By: #### C MP #### [facility] [address] [place] [address] Dr. Abdirashid Page CO2 [Moles/Vol] 26.8 mmol/L Normal 21.0-32.0 [facility] Comment on above: Performed By: #### C MP #### [facility] [address] [address] [address] Abdirashid Page Creatinine [Mass/Vol] 2.20 mg/dL Critically high 0.55-1.02 [facility] Comment on above: Performed By: #### C MP #### [facility] [address] [address] [address] Abdirashid Page EGFR-AF MICRONESIAN 27 mL/min/1.73m2 Critically low >=60 [facility] Comment on above: Performed By: #### C MP #### [facility] [address] [address] [address] Abdirashid Page EGFR-NON AF MICRONESIAN 22 mL/min/1.73m2 Critically low >=60 [facility] Comment on above: Performed By: #### C MP #### [facility] [address] [address] [address] Abdirashid Page Globulin (S) [Mass/Vol] 3.1 g/dL Normal [facility] Comment on above: Performed By: #### C MP #### [facility] [address] [address] [address] Abdirashid Pgae Glucose [Mass/Vol] 126 mg/dL Critically high 74-106 T [facility] Comment on above: Performed By: #### C MP #### [facility] [address] [address] [address] Abdirashid Page Potassium [Moles/Vol] 4.2 mmol/L Normal 3.5-5.1 [facility] Comment on above: Performed By: #### C MP #### [facility] [address] [address] [address] Abdirashid Page Protein [Mass/Vol] 6.7 g/dL Normal 6.4-8.2 [facility] Comment on above: Performed By: #### C MP #### [facility] [address] [address] [address] Abdirashid Page Sodium [Moles/Vol] 137 mmol/L Normal 136-145 [facility] Comment on above: Performed By: #### C MP #### [facility] [address] [place], [place] [address] Dr. Abdirashid Page Urea nitrogen [Mass/Vol] 39.0 mg/dL Critically high 7.0-18.0 [facility] Comment on above: Performed By: #### C MP #### [facility] [address] [place], [place] [address] Dr. Abdirashid Page Urea nitrogen/Creatinine [Mass ratio] 17.7 mg/mg Normal [facility] Comment on above: Performed By: #### C MP #### [facility] [address] [place], [place] [address] Dr. Abdirashid Page MRI LSPINE WO CONon 04-14-19 MRI LSPINE WO CON EXAMINATION: MRI LSPINE WO CON HISTORY: Spinal stenosis COMPARISON: No [...] GERONIMO LOPEZ Date: 2022-04-14 16:39 Normal [facility] CBC AUTO DIFFon 04-10-2022 BASO # 0.1 103/ul Normal 0.0-0.1 [facility] Comment on above: Performed By: #### C BC #### [facility] [address] [place] [address] Dr. Abdirashid Page Basophils/100 WBC (Bld) 0.5 % Normal 0.2-2.0 [facility] Comment on above: Performed By: #### C BC #### [facility] [address] [place] [address] Dr. Abdirashid Page EO # 0.1 103/ul Normal 0.0-0.7 [facility] Comment on above: Performed By: #### C BC #### [facility] [address] [place] [address] Dr. Abdirashid Page Eosinophils/100 WBC (Bld) 1.1 % Normal 0.9-7.0 [facility] Comment on above: Performed By: #### C BC #### [facility] [address] [place] [address] Dr. Abdirashid Page Erythrocyte distribution width (RBC) [Ratio] 14.2 % Normal 11.0-15.0 [facility] Comment on above: Performed By: #### C BC #### [facility] [address] [place] [address] Dr. Abdirashid Page Hematocrit (Bld) [Volume fraction] 32.7 % Critically low 36.0-48.0 [facility] Comment on above: Performed By: #### C BC #### [facility] [address] [place] [address] Dr. Abdirashid Page Hemoglobin (Bld) [Mass/Vol] 10.9 g/dL Critically low 12.0-16.0 [facility] Comment on above: Performed By: #### C BC #### [facility] [address] [place] [address] Dr. Abdirashid Page IG # 0.22 10e3/ul Critically high 0.00-0.03 [facility] Comment on above: Performed By: #### C BC #### [facility] [address] [place] [address] Dr. Abdirashid Page IG % 2.2 % Critically high 0.0-0.5 [facility] Comment on above: Performed By: #### C BC #### [facility] [address] [place] [address] Dr. Abdirashid Page LYMPH # 2.1 103/ul Normal 1.2-3.8 [facility] Comment on above: Performed By: #### C BC #### [facility] [address] [place] [address] Dr. Abdirashid Page Lymphocytes/100 WBC (Bld) 20.9 % Normal 20.5-60.0 [facility] Comment on above: Performed By: #### C BC #### [facility] [address] [place] [address] Dr. Abdirashid Page MANUAL DIFF REQ NO Normal [facility] Comment on above: Performed By: #### C BC #### [facility] [address] [place] [address] Dr. Abdirashid Page MCH (RBC) [Entitic mass] 31.9 pg Normal 26.7-34.0 [facility] Comment on above: Performed By: #### C BC #### [facility] [address] [place] [address] Dr. Abdirashid Page MCHC (RBC) [Mass/Vol] 33.3 g/dL Normal 29.9-35.2 [facility] Comment on above: Performed By: #### C BC #### [facility] [address] [place] [address] Dr. Abdirashid Page MCV (RBC) [Entitic vol] 95.6 fL Normal 81.0-99.0 [facility] Comment on above: Performed By: #### C BC #### [facility] [address] [place] [address] Dr. Abdirashid Page MONO # 1.0 103/ul Critically high 0.3-0.8 [facility] Comment on above: Performed By: #### C BC #### [facility] [address] [address] [address] Abdirashid Page Monocytes/100 WBC (Bld) 10.1 % Normal 1.7-12.0 [facility] Comment on above: Performed By: #### C BC #### [facility] [address] [address] [address] Abdirashid Page NEUT # 6.4 103/ul Normal 1.4-6.5 [facility] Comment on above: Performed By: #### C BC #### [facility] [address] [address] [address] Abdirashid Page Neutrophils/100 WBC (Bld) 65.2 % Normal 43.0-75.0 [facility] Comment on above: Performed By: #### C BC #### [facility] [address] [address] [address] Abdirashid Page Platelet mean volume (Bld) [Entitic vol] 8.9 fL Critically low 9.5-13.5 [facility] Comment on above: Performed By: #### C BC #### [facility] [address] [address] [address] Abdirashid Page PLT 409 103/ul Normal 150-450 [facility] Comment on above: Performed By: #### C BC #### [facility] [address] [address] [address] Abdirashid Page RBC 3.42 106/ul Critically low 4.20-5.40 [facility] Comment on above: Performed By: #### C BC #### [facility] [address] [address] [address] Abdirashid Page WBC 9.8 103/ul Normal 4.0-11.0 [facility] Comment on above: Performed By: #### C BC #### [facility] [address] [place] [address] Dr. Abdirashid Page PROF 14(COMP METB)on 022 Albumin [Mass/Vol] 3.3 g/dL Critically low 3.4-5.0 [facility] Comment on above: Performed By: #### C MP #### [facility] [address] [address] [address] Abdirashid Page Albumin/Globulin [Mass ratio] 1.0 {ratio} Normal [facility] Comment on above: Performed By: #### C MP #### [facility] [address] [place] [address] Dr. Abdirashid Page ALP [Catalytic activity/Vol] 79 U/L Normal 46-116 [facility] Comment on above: Performed By: #### C MP #### [facility] [address] [place] [address] Dr. Abdirashid Page ALT [Catalytic activity/Vol] 31 U/L Normal 14-59 [facility] Comment on above: Performed By: #### C MP #### [facility] [address] [place] [address] Dr. Abdirashid Page Anion gap [Moles/Vol] 13.3 mmol/L Normal [facility] Comment on above: Performed By: #### C MP #### [facility] [facility] [address] [place] [address] Dr. Abdirashid Page AST [Catalytic activity/Vol] 20 U/L Normal 15-37 [facility] Comment on above: Performed By: #### C MP #### [facility] [address] [place] [address] Dr. Abdirashid Page Bilirubin [Mass/Vol] 0.5 mg/dL Normal 0.2-1.0 [facility] Comment on above: Performed By: #### C MP #### [facility] [address] [place] [address] Dr. Abdirashid Page Calcium [Mass/Vol] 9.2 mg/dL Normal 8.5-10.1 [facility] Comment on above: Performed By: #### C MP #### [facility] [address] [place] [address] Dr. Abdirashid Page Chloride [Moles/Vol] 101 mmol/L Normal 98-107 [facility] Comment on above: Performed By: #### C MP #### [facility] [address] [address] [address] Abdirashid Page CO2 [Moles/Vol] 27.9 mmol/L Normal 21.0-32.0 [facility] Comment on above: Performed By: #### C MP #### [facility] [address] [address] [address] Abdirashid Page Creatinine [Mass/Vol] 1.36 mg/dL Critically high 0.55-1.02 [facility] Comment on above: Performed By: #### C MP #### [facility] [address] [address] [address] Abdirashid Page EGFR-AF MICRONESIAN 47 mL/min/1.73m2 Critically low >=60 [facility] Comment on above: Performed By: #### C MP #### [facility] [address] [address] [address] Abdirashid Page EGFR-NON AF MICRONESIAN 39 mL/min/1.73m2 Critically low >=60 [facility] Comment on above: Performed By: #### C MP #### [facility] [address] [address] [address] Abdirashid Page Globulin (S) [Mass/Vol] 3.4 g/dL Normal [facility] Comment on above: Performed By: #### C MP #### [facility] [address] [address] [address] Abdirashid Page Glucose [Mass/Vol] 120 mg/dL Critically high 74-106 [facility] Comment on above: Performed By: #### C MP #### [facility] [address] [address] [address] Abdirashid Page Potassium [Moles/Vol] 5.2 mmol/L Critically high 3.5-5.1 [facility] Comment on above: Performed By: #### C MP #### [facility] [address] [address] [address] Abdirashid Page Protein [Mass/Vol] 6.7 g/dL Normal 6.4-8.2 [facility] Comment on above: Performed By: #### C MP #### [facility] [address] [address] [address] Abdirashid Page Sodium [Moles/Vol] 137 mmol/L Normal 136-145 [facility] Comment on above: Performed By: #### C MP #### [facility] [address] [address] [address] Abdirashid Page Urea nitrogen [Mass/Vol] 32.0 mg/dL Critically high 7.0-18.0 [facility] Comment on above: Performed By: #### C MP #### [facility] [address] [place] [address] Dr. Abdirashid Page Urea nitrogen/Creatinine [Mass ratio] 23.5 mg/mg Normal [facility] Comment on above: Performed By: #### C MP #### [facility] [address] [place] [address] Dr. Abdirashid Page BNPon 03-27-2022 Natriuretic peptide B (Bld) [Mass/Vol] 455.0 pg/mL Normal <=900.0 [facility] Comment on above: Performed By: #### C MP #### [facility] [address] [place] [address] Dr. Abdirashid Page CARDIAC ROGER ADMITon 022 CK [Catalytic activity/Vol] 61 U/L Normal 26-192 [facility] Comment on above: Performed By: #### C MP #### [facility] [address] [place] [address] Dr. Abdirashid Page CK.MB [Mass/Vol] 3.26 ng/mL Normal <=3.60 [facility] Comment on above: Performed By: #### C MP #### [facility] [address] [place] [address] Dr. Abdirashid Page HSTROP 27.9 pg/mL Normal 4.0-51.3 [facility] Comment on above: Result Comment: CUT- OFF POINTS HAVE BEEN ESTABLISHED BASED ON THE FOURTH UNIVERSAL DEFINITIONS OF MYOCARDIAL INFARCTION. THE UPPER REFERENCE LIMIT (URL) OF TROPONIN, DEFINED THE 99TH PERCENTILE OF cTnI DISTRIBUTION IN A REFERENCE POPULATION, HAS BEEN CONFIRMED THE DECISION THRESHOLD FOR ID DIAGNOSIS. Performed By: #### C MP #### [facility] [id number] Abdirashid Paeg PILAR 113 ng/mL Critically high 9-82 [facility] Comment on above: Performed By: #### C MP #### [facility] [id number] Abdirashid Page CBC AUTO DIFFon 03-27-2022 BASO # 0.1 103/ul Normal 0.0-0.1 [facility] Comment on above: Performed By: #### C BC #### [facility] [address] [address] [address] Abdirashid Page Basophils/100 WBC (Bld) 0.4 % Normal 0.2-2.0 [facility] Comment on above: Performed By: #### C BC #### [facility] [address] [place] [address] Dr. Abdirashid Page EO # 0.1 103/ul Normal 0.0-0.7 [facility] Comment on above: Performed By: #### C BC #### [facility] [address] [place] [address] Dr. Abdirashid Page Eosinophils/100 WBC (Bld) 0.5 % Critically low 0.9-7.0 [facility] Comment on above: Performed By: #### C BC #### [facility] [address] [place] [address] Dr. Abdirashid Page Erythrocyte distribution width (RBC) [Ratio] 13.6 % Normal 11.0-15.0 [facility] Comment on above: Performed By: #### C BC #### [facility] [address] [place] [address] Dr. Abdirashid Page Hematocrit (Bld) [Volume fraction] 34.5 % Critically low 36.0-48.0 [facility] Comment on above: Performed By: #### C BC #### [facility] [address] [place] [address] Dr. Abdirashid Page Hemoglobin (Bld) [Mass/Vol] 11.5 g/dL Critically low 12.0-16.0 [facility] Comment on above: Performed By: #### C BC #### [facility] [address] [address] [address] Abdirashid Page IG # 0.48 10e3/ul Critically high 0.00-0.03 [facility] Comment on above: Performed By: #### C BC #### [facility] [address] [address] [address] Abdirashid Page IG % 3.2 % Critically high 0.0-0.5 [facility] Comment on above: Performed By: #### C BC #### [facility] [address] [address] [address] Abdirashid Page LYMPH # 1.8 103/ul Normal 1.2-3.8 [facility] Comment on above: Performed By: #### C BC #### [facility] [address] [place] [address] Dr. Abdirashid Page Lymphocytes/100 WBC (Bld) 12.1 % Critically low 20.5-60.0 [facility] Comment on above: Performed By: #### C BC #### [facility] [address] [place] [address] Dr. Abdirashid Page MANUAL DIFF REQ NO Normal [facility] Comment on above: Performed By: #### C BC #### [facility] [address] [place] [address] Dr. Abdirashid Page MCH (RBC) [Entitic mass] 31.9 pg Normal 26.7-34.0 [facility] Comment on above: Performed By: #### C BC #### [facility] [address] [place] [address] Dr. Abdirashid Page MCHC (RBC) [Mass/Vol] 33.3 g/dL Normal 29.9-35.2 [facility] Comment on above: Performed By: #### C BC #### [facility] [address] [place] [address] Dr. Abdirashid Page MCV (RBC) [Entitic vol] 95.6 fL Normal 81.0-99.0 [facility] Comment on above: Performed By: #### C BC #### [facility] [address] [address] [address] Abdirashid Page MONO # 1.4 103/ul Critically high 0.3-0.8 [facility] Comment on above: Performed By: #### C BC #### [facility] [address] [place] [address] Dr. Abdirashid Page Monocytes/100 WBC (Bld) 9.6 % Normal 1.7-12.0 [facility] Comment on above: Performed By: #### C BC #### [facility] [address] [place] [address] Dr. Abdirashid Page NEUT # 11.1 103/ul Critically high 1.4-6.5 [facility] Comment on above: Performed By: #### C BC #### [facility] [address] [place] [address] Dr. Abdirashid Page Neutrophils/100 WBC (Bld) 74.2 % Normal 43.0-75.0 [facility] Comment on above: Performed By: #### C BC #### [facility] [address] [place] [address] Dr. Abdirashid Page Platelet mean volume (Bld) [Entitic vol] 9.4 fL Critically low 9.5-13.5 [facility] Comment on above: Performed By: #### C BC #### [facility] [address] [place] [address] Dr. Abdirashid Page PLT 415 103/ul Normal 150-450 [facility] Comment on above: Performed By: #### C BC #### [facility] [address] [place] [address] Dr. Abdirashid Page RBC 3.61 106/ul Critically low 4.20-5.40 [facility] Comment on above: Performed By: #### C BC #### [facility] [address] [place] [address] Dr. Abdirashid Page WBC 15.0 103/ul Critically high 4.0-11.0 [facility] Comment on above: Performed By: #### C BC #### [facility] [address] [place] [address] Dr. Abdirashid Page FREE THYROXINE INDEX T7on FTI 2.70 Normal 1.30-4.50 [facility] Comment on above: Performed By: #### C MP #### [facility] [address] [place] [address] Dr. Abdirashid Page T3U 36.0 % Normal 30.0-39.0 [facility] Comment on above: Performed By: #### C MP #### [facility] [address] [place] [address] Dr. Abdirashid Page T4 [Mass/Vol] 7.50 ug/dL Normal 4.80-13.90 [facility] Comment on above: Performed By: #### C MP #### [facility] [address] [place] [address] Dr. Abdirashid Page IRONon 03-27-2022 Iron [Mass/Vol] 104.0 ug/dL Normal 50.0-170.0 [facility] Comment on above: Performed By: #### C MP #### [facility] [address] [place] [address] Dr. Abdirashid Page PROF 14(COMP METB)on 022 Albumin [Mass/Vol] 3.3 g/dL Critically low 3.4-5.0 [facility] Comment on above: Performed By: #### C MP #### [facility] [address] [place] [address] Dr. Abdirashid Page Albumin/Globulin [Mass ratio] 1.0 {ratio} Normal [facility] Comment on above: Performed By: #### C MP #### [facility] [address] [place] [address] Dr. Abdirashid Page ALP [Catalytic activity/Vol] 69 U/L Normal 46-116 [facility] Comment on above: Performed By: #### C MP #### [facility] [address] [place] [address] Dr. Abdirashid Page ALT [Catalytic activity/Vol] 36 U/L Normal 14-59 [facility] Comment on above: Performed By: #### C MP #### [facility] [address] [address] [address] Abdirashid Page Anion gap [Moles/Vol] 13.6 mmol/L Normal [facility] Comment on above: Performed By: #### C MP #### [facility] [address] [address] [address] Abdirashid Page AST [Catalytic activity/Vol] 16 U/L Normal 15-37 [facility] Comment on above: Performed By: #### C MP #### [facility] [address] [address] [address] Abdirashid Page Bilirubin [Mass/Vol] 0.6 mg/dL Normal 0.2-1.0 [facility] Comment on above: Performed By: #### C MP #### [facility] [address] [address] [address] Abdirashid Page Calcium [Mass/Vol] 9.1 mg/dL Normal 8.5-10.1 [facility] Comment on above: Performed By: #### C MP #### [facility] [address] [place] [address] Dr. Abdirashid Page Chloride [Moles/Vol] 103 mmol/L Normal 98-107 [facility] Comment on above: Performed By: #### C MP #### [facility] [address] [address] [address] Abdirashid Page CO2 [Moles/Vol] 27.4 mmol/L Normal 21.0-32.0 [facility] Comment on above: Performed By: #### C MP #### [facility] [address] [address] [address] Abdirashid Page Creatinine [Mass/Vol] 1.90 mg/dL Critically high 0.55-1.02 [facility] Comment on above: Performed By: #### C MP #### [facility] [address] [address] [address] Abdirashid Page EGFR-AF MICRONESIAN 32 mL/min/1.73m2 Critically low >=60 [facility] Comment on above: Performed By: #### C MP #### [facility] [address] [place] [address] Dr. Abdirashid Page EGFR-NON AF MICRONESIAN 27 mL/min/1.73m2 Critically low >=60 [facility] Comment on above: Performed By: #### C MP #### [facility] [address] [address] [address] Abdirashid Page Globulin (S) [Mass/Vol] 3.4 g/dL Normal [facility] Comment on above: Performed By: #### C MP #### [facility] [address] [address] [address] Abdirashid Page Glucose [Mass/Vol] 122 mg/dL Critically high 74-106 T [facility] Comment on above: Performed By: #### C MP #### [facility] [address] [address] [address] Abdirashid Page Potassium [Moles/Vol] 5.0 mmol/L Normal 3.5-5.1 [facility] Comment on above: Performed By: #### C MP #### [facility] [address] [address] [address] Abdirashid Page Protein [Mass/Vol] 6.7 g/dL Normal 6.4-8.2 [facility] Comment on above: Performed By: #### C MP #### [facility] [address] [address] [address] Abdirashid Page Sodium [Moles/Vol] 139 mmol/L Normal 136-145 [facility] Comment on above: Performed By: #### C MP #### [facility] [address] [address] [address] Abdirashid Page Urea nitrogen [Mass/Vol] 55.0 mg/dL Critically high 7.0-18.0 [facility] Comment on above: Performed By: #### C MP #### [facility] [address] [address] [address] Abdirashid Page Urea nitrogen/Creatinine [Mass ratio] 28.9 mg/mg Normal [facility] Comment on above: Performed By: #### C MP #### [facility] [address] [address] [address] Abdirashid Page TSHon 03-27-2022 TSH 1.585 uIU/mL Normal 0.358-3.740 [facility] Comment on above: Performed By: #### C MP #### [facility] [address] [place], [place] [address] Dr. Abdirashid Page [id number] 11-23-2021 SARS-CoV-2 (COVID-19) RNA KATIA+probe Ql (Unsp spec) Normal [facility] Comment on above: Performed By: #### C OVID #### [facility] [address] [place], [place] [id number] [employer] Dispatcher: Armin Corbett MD [facility] [address] [place] [address] [employer] Dispatcher: Geronimo Callaway MD SARS-CoV-2 (COVID-19) RNA KATIA+probe Ql (Unsp spec) Not detected Normal NOTDET [facility] Comment on above: Result Comment: The specimen is NEGATIVE for SARS-CoV-2, the novel coronavirus associated with COVID-19. A negative result does not rule out COVID-19. Cristian SARS-CoV-2 for use on the Cristian [employer] is a real-time RT-PCR test intended [...] this assay. Fact sheet for Healthcare Providers: https://www.fda.gov/media/385128/download Fact sheet for Patients: https://www.fda.gov/media/960439/download METHODOLOGY: RT-PCR Performed By: #### C OVID #### [facility] [address] [place], [place] [id number] [employer] Dispatcher: Armin Corbett MD [facility] [address] [place] [address] [employer] Dispatcher: MD ANNA Tucker-CoV-2on 11-22-2021 SARS-CoV-2 (COVID-19) RNA KATIA+probe Ql (Unsp spec) .NASOPHARYNGEAL SWAB Normal [facility] Comment on above: Performed By: #### C OVID #### [address] [address] [employer] Dispatcher: Armin Corbett MD [facility] [address] [place] [address] [employer] Dispatcher: MD ANNA Tucker-CoV-2on 11-16-2021 SARS-CoV-2 (COVID-19) RNA KATIA+probe Ql (Unsp spec) Normal [facility] Comment on above: Performed By: #### C OVID #### [address] [address] [employer] Dispatcher: Armin Corbett MD [facility] [address] [place] [address] [employer] Dispatcher: Geronimo Callaway MD SARS-CoV-2 (COVID-19) RNA KATIA+probe Ql (Unsp spec) Not detected Normal [facility] Comment on above: Result Comment: The specimen is NEGATIVE for SARS-CoV-2, the novel coronavirus associated with COVID-19. A negative result does not rule out COVID-19. Cristian SARS-CoV-2 for use on the [employer] is a real-time RT-PCR test intended [...] this assay. Fact sheet for Healthcare Providers: https://www.fda.gov/media/453506/download Fact sheet for Patients: https://www.fda.gov/media/472496/download METHODOLOGY: RT-PCR Performed By: #### C OVID #### [address] [address] [employer] Dispatcher: Armin Corbett MD [facility] [address] [place] [address] [address] [id number] [employer] Dispatcher: Geronimo Callaway MD [id number] 11-15-2021 SARS-CoV-2 (COVID-19) RNA KATIA+probe Ql (Unsp spec) .NASOPHARYNGEAL SWAB Normal [facility] Comment on above: Performed By: #### C OVID #### [address] [address] [employer] Dispatcher: Armin Corbett MD [facility] [address] [place] [address] [place] [address] [employer] Pilot Dispatcher: Geronimo Callaway MD CBC with Diffon 08-16-2021 Abs. Basophil 0.05 k/uL Normal 0.00-0.20 [facility] Comment on above: Performed By: #### C DP, CP, LIPRF, TSH, FT3, VD25, T4, GLYHGB #### [address] [address] [employer] Dispatcher: Armin Corbett MD Abs.Imm.Granulocyte 0.08 k/uL Normal 0.00-0.30 [facility] Comment on above: Performed By: #### C DP, CP, LIPRF, TSH, FT3, VD25, T4, GLYHGB #### [address] [address] [employer] Dispatcher: Armin Corbett MD Abs.Neutrophil (Seg) 11.43 k/uL High 1.50-8.10 [facility] Comment on above: Performed By: #### C DP, CP, LIPRF, TSH, FT3, VD25, T4, GLYHGB #### [address] [address] [employer] Dispatcher: Armin Corbett MD Basophils/100 WBC (Bld) 0 % Normal 0-2 [facility] Comment on above: Performed By: #### C DP, CP, LIPRF, TSH, FT3, VD25, T4, GLYHGB #### [place] [address] [employer] Dispatcher: Armin Corbett MD Eosinophils (Bld) [#/Vol] 0.05 10*3/uL Normal 0.00-0.44 [facility] Comment on above: Performed By: #### C DP, CP, LIPRF, TSH, FT3, VD25, T4, GLYHGB #### [place] [address] [employer] Dispatcher: Armin Corbett MD Eosinophils/100 WBC (Bld) 0 % Low 1-4 [facility] Comment on above: Performed By: #### C DP, CP, LIPRF, TSH, FT3, VD25, T4, GLYHGB #### [place] [address] [employer] Dispatcher: Armin Corbett MD Erythrocyte distribution width (RBC) [Ratio] 13.1 % Normal 11.8-14.4 [facility] Comment on above: Performed By: #### C DP, CP, LIPRF, TSH, FT3, VD25, T4, GLYHGB #### [place] [address] [employer] Dispatcher: Armin Corbett MD Hematocrit (Bld) [Volume fraction] 39.4 % Normal 36.3-47.1 [facility] Comment on above: Performed By: #### C DP, CP, LIPRF, TSH, FT3, VD25, T4, GLYHGB #### [address] [address] [employer] Dispatcher: Armin Corbett MD Hemoglobin (Bld) [Mass/Vol] 12.7 g/dL Normal 11.9-15.1 [facility] Comment on above: Performed By: #### C DP, CP, LIPRF, TSH, FT3, VD25, T4, GLYHGB #### [address] [address] [employer] Dispatcher: Armin Corbett MD Immature granulocytes/100 WBC (Bld) 1 % High 0 [facility] Comment on above: Performed By: #### C DP, CP, LIPRF, TSH, FT3, VD25, T4, GLYHGB #### [place] [address] [employer] Dispatcher: Armin Corbett MD Lymphocytes (Bld) [#/Vol] 2.24 10*3/uL Normal 1.10-3.70 [facility] Comment on above: Performed By: #### C DP, CP, LIPRF, TSH, FT3, VD25, T4, GLYHGB #### [address] [address] [employer] Dispatcher: Armin Corbett MD Lymphocytes/100 WBC (Bld) 15 % Low 24-43 [facility] Comment on above: Performed By: #### C DP, CP, LIPRF, TSH, FT3, VD25, T4, GLYHGB #### [place] [address] [employer] Dispatcher: Armin Corbett MD MCH (RBC) [Entitic mass] 31.4 pg Normal 25.2-33.5 [facility] Comment on above: Performed By: #### C DP, CP, LIPRF, TSH, FT3, VD25, T4, GLYHGB #### [address] [address] [employer] Dispatcher: Armin Corbett MD MCHC (RBC) [Mass/Vol] 32.2 g/dL Normal 28.4-34.8 [facility] Comment on above: Performed By: #### C DP, CP, LIPRF, TSH, FT3, VD25, T4, GLYHGB #### [address] [address] [employer] Dispatcher: Armin Corbett MD MCV (RBC) [Entitic vol] 97.3 fL Normal 82.6-102.9 [facility] Comment on above: Performed By: #### C DP, CP, LIPRF, TSH, FT3, VD25, T4, GLYHGB #### [address] [address] [employer] Dispatcher: Armin Corbett MD Monocytes (Bld) [#/Vol] 1.32 10*3/uL High 0.10-1.20 [facility] Comment on above: Performed By: #### C DP, CP, LIPRF, TSH, FT3, VD25, T4, GLYHGB #### [address] [address] [employer] Dispatcher: Armin Corbett MD Monocytes/100 WBC (Bld) 9 % Normal 3-12 [facility] Comment on above: Performed By: #### C DP, CP, LIPRF, TSH, FT3, VD25, T4, GLYHGB #### [address] [address] [employer] Dispatcher: Armin Corbett MD Neutrophil (Seg) 75 % High 36-65 [facility] Comment on above: Performed By: #### C DP, CP, LIPRF, TSH, FT3, VD25, T4, GLYHGB #### [address] [address] [employer] Dispatcher: Armin Corbett MD NRBC Automated 0.0 per 100 WBC Normal 0.0 [facility] Comment on above: Performed By: #### C DP, CP, LIPRF, TSH, FT3, VD25, T4, GLYHGB #### [address] [address] [employer] Dispatcher: Armin Corbett MD Platelet mean volume (Bld) [Entitic vol] 10.1 fL Normal 8.1-13.5 [facility] Comment on above: Performed By: #### C DP, CP, LIPRF, TSH, FT3, VD25, T4, GLYHGB #### [address] [address] [employer] Dispatcher: Armin Corbett MD Platelets (Bld) [#/Vol] 411 10*3/uL Normal 138-453 [facility] Comment on above: Performed By: #### C DP, CP, LIPRF, TSH, FT3, VD25, T4, GLYHGB #### [address] [address] [employer] Dispatcher: Armin Corbett MD RBC (Bld) [#/Vol] 4.05 10*6/uL Normal 3.95-5.11 [facility] Comment on above: Performed By: #### C DP, CP, LIPRF, TSH, FT3, VD25, T4, GLYHGB #### [address] [address] [employer] Dispatcher: Armin Corbett MD WBC (Bld) [#/Vol] 15.2 10*3/uL High 3.5-11.3 [facility] Comment on above: Performed By: #### C DP, CP, LIPRF, TSH, FT3, VD25, T4, GLYHGB #### [address] [address] [employer] Dispatcher: Armin Corbett MD Comp Metabolic Profon 2021 (cont.) Normal [facility] Comment on above: Result Comment: Aver age GFR for 60-69 years old: 85 mL/min/1.73sq m Chronic Kidney Disease: <60 mL/min/1.73sq m Kidney failure: <15 mL/min/1.73sq m eGFR calculated using average adult body mass. Additional eGFR calculator available at: http://www.QA on Request/multiple_crcl_2012.htm Performed By: #### C DP, CP, LIPRF, TSH, FT3, VD25, T4, GLYHGB #### [address] [address] [employer] Dispatcher: Armin Corbett MD Albumin [Mass/Vol] 4.8 g/dL Normal 3.5-5.2 [facility] Comment on above: Performed By: #### C DP, CP, LIPRF, TSH, FT3, VD25, T4, GLYHGB #### [address] [address] [employer] Dispatcher: Armin Corbett MD Albumin/Glob Ratio 1.9 Normal 1.0-2.5 [facility] Comment on above: Performed By: #### C DP, CP, LIPRF, TSH, FT3, VD25, T4, GLYHGB #### [address] [address] [employer] Dispatcher: Armin Corbett MD Alkaline Phos 91 U/L Normal 35-104 [facility] Comment on above: Performed By: #### C DP, CP, LIPRF, TSH, FT3, VD25, T4, GLYHGB #### [address] [address] [employer] Dispatcher: Armin Corbett MD ALT [Catalytic activity/Vol] 17 U/L Normal 5-33 [facility] Comment on above: Performed By: #### C DP, CP, LIPRF, TSH, FT3, VD25, T4, GLYHGB #### [facility] [employer] [address] [place] [address] [id number] Ship [employer] Dispatcher: Armin Corbett MD Anion gap [Moles/Vol] 19 mmol/L High 9-17 [facility] Comment on above: Performed By: #### C DP, CP, LIPRF, TSH, FT3, VD25, T4, GLYHGB #### [facility] [employer] [address] [place] [address] [id number] [employer] Dispatcher: Armin Corbett MD AST [Catalytic activity/Vol] 17 U/L Normal <32 [facility] Comment on above: Performed By: #### C DP, CP, LIPRF, TSH, FT3, VD25, T4, GLYHGB #### [facility] [employer] [address] [place] [address] [phone] Ship [employer] Dispatcher: Armin Corbett MD Bilirubin [Mass/Vol] 0.27 mg/dL Low 0.3-1.2 [facility] Comment on above: Performed By: #### C DP, CP, LIPRF, TSH, FT3, VD25, T4, GLYHGB #### [facility] [employer] [address] [place] [address] [id number] [employer] Dispatcher: Armin Corbett MD Calcium [Mass/Vol] 9.6 mg/dL Normal 8.6-10.4 [facility] Comment on above: Performed By: #### C DP, CP, LIPRF, TSH, FT3, VD25, T4, GLYHGB #### [facility] [address] [place] [address] [id number] [employer] Dispatcher: Armin Corbett MD Chloride [Moles/Vol] 96 mmol/L Low 98-107 [facility] Comment on above: Performed By: #### C DP, CP, LIPRF, TSH, FT3, VD25, T4, GLYHGB #### [facility] [address] [place] [address] [id number] [employer] Dispatcher: Armin Corbett MD CO2 [Moles/Vol] 20 mmol/L Normal 20-31 [facility] Comment on above: Performed By: #### C DP, CP, LIPRF, TSH, FT3, VD25, T4, GLYHGB #### [address] [id number] Ship [employer] Dispatcher: Armin Corbett MD Creatinine [Mass/Vol] 1.06 mg/dL High 0.50-0.90 [facility] Comment on above: Performed By: #### C DP, CP, LIPRF, TSH, FT3, VD25, T4, GLYHGB #### [address] [id number] Ship [employer] Dispatcher: Armin Corbett MD GFR, Amer >60 Normal >60 [facility] Comment on above: Performed By: #### C DP, CP, LIPRF, TSH, FT3, VD25, T4, GLYHGB #### [address] [id number] Ship Pilot Dispatcher: Armin Corbett MD GFR,non Amer 52 mL/min Low >60 [facility] Comment on above: Performed By: #### C DP, CP, LIPRF, TSH, FT3, VD25, T4, GLYHGB #### [address] [id number] Ship Pilot Dispatcher: Armin Corbett MD Glucose [Mass/Vol] 101 mg/dL High 70-99 [facility] Comment on above: Performed By: #### C DP, CP, LIPRF, TSH, FT3, VD25, T4, GLYHGB #### [address] [address] Ship Pilot Dispatcher: Armin Corbett MD Potassium [Moles/Vol] 4.4 mmol/L Normal 3.7-5.3 [facility] Comment on above: Performed By: #### C DP, CP, LIPRF, TSH, FT3, VD25, T4, GLYHGB #### [employer] [address] [place] [id number] Ship Pilot Dispatcher: Armin Corbett MD Protein [Mass/Vol] 7.3 g/dL Normal 6.4-8.3 [facility] Comment on above: Performed By: #### C DP, CP, LIPRF, TSH, FT3, VD25, T4, GLYHGB #### [facility] [address] [place] [address] [id number] Ship Pilot Dispatcher: Armin Corbett MD Sodium [Moles/Vol] 135 mmol/L Normal 135-144 [facility] Comment on above: Performed By: #### C DP, CP, LIPRF, TSH, FT3, VD25, T4, GLYHGB #### [facility] [address] [place] [address] [phone] Ship [employer] Dispatcher: Armin Corbett MD Urea nitrogen [Mass/Vol] 27 mg/dL High 8-23 [facility] Comment on above: Performed By: #### C DP, CP, LIPRF, TSH, FT3, VD25, T4, GLYHGB #### [facility] [address] [place] [id number] Ship [employer] Dispatcher: Armin Corbett MD Comprehensive Metabolic Pane [facility] 08-16-2021 Albumin [Mass/Vol] 4.8 g/dL 3.5 - 5.2 g/dL [facility] Albumin/Globulin [Mass ratio] 1.9 {ratio} [facility] ALP (Bld) [Catalytic activity/Vol] 91 U/L 35 - 104 U/L [facility] ALT [Catalytic activity/Vol] 17 U/L 5 - 33 U/L [facility] Anion gap [Moles/Vol] 19 mmol/L High 9 - 17 mmol/L [facility] AST [Catalytic activity/Vol] 17 U/L <32 [facility] Bilirubin [Mass/Vol] 0.27 mg/dL Low 0.3 - 1.2 mg/dL [facility] Calcium [Mass/Vol] 9.6 mg/dL 8.6 - 10. 4 mg/dL [facility] Chloride [Moles/Vol] 96 mmol/L Low 98 - 107 mmol/L [facility] CO2 [Moles/Vol] 20 mmol/L 20 - 31 mmol/L [facility] Creatinine [Mass/Vol] 1.06 mg/dL High 0.50 - 0.90 mg/dL [facility] Free PSA/Total PSA [Mass fraction] 7.3 g/dL 6.4 - 8.3 g/dL [facility] GFR >60 >60 mL/min [facility] GFR Non- 52 mL/min Low >60 [facility] GFR/1.73 sq M.predicted MDRD (S/P/Bld) [Vol rate/Area] [facility] Comment on above: Average GFR for 60-6 9 years old: 85 mL/min/1.73sq m Chronic Kidney Disease: <60 mL/min/1.73sq m Kidney failure: <15 mL/min/1.73sq m eGFR calculated using average adult body mass. Additional eGFR calculator available at: http://www.QA on Request/multiple_crcl_2011.htm Glucose [Mass/Vol] 101 mg/dL High 70 - 99 mg/dL [facility] Interpretation and review of laboratory results Abnormal [facility] Potassium [Moles/Vol] 4.4 mmol/L 3.7 - 5.3 mmol/L [facility] Sodium [Moles/Vol] 135 mmol/L 135 - 144 mmol/L [facility] Urea nitrogen (BldV) [Mass/Vol] 27 mg/dL High 8 - 23 mg/dL [facility] Hemoglobin A1Con 08-16-2021 Glucose [Mass/Vol] 146 mg/dL Normal [facility] Comment on above: Result Comment: The ADA and AACC recommend providing the estimated average glucose result to permit better patient understanding of their HBA1c result. Performed By: #### C DP, CP, LIPRF, TSH, FT3, VD25, T4, GLYHGB #### [facility] [address] [place] [address] Ship Pilot Dispatcher: Armin Corbett MD HbA1c (Bld) [Mass fraction] 6.7 % High 4.0-6.0 [facility] Comment on above: Performed By: #### C DP, CP, LIPRF, TSH, FT3, VD25, T4, GLYHGB #### [address] [phone] Ship [employer] Dispatcher: Armin Corbett MD Lipid Prof, Fastingon 2021 Cholesterol [Mass/Vol] 193 mg/dL Normal <200 [facility] Comment on above: Result Comment: Cholesterol Guidelines: <200 Desirable 200-240 Borderline >240 Undesirable Performed By: #### C DP, CP, LIPRF, TSH, FT3, VD25, T4, GLYHGB #### [address] [id number] Ship [employer] Dispatcher: Armin Corbett MD Cholesterol in HDL [Mass/Vol] 57 mg/dL Normal >40 [facility] Comment on above: Result Comment: HDL Guidelines: <40 Undesirable 40-59 Borderline >59 Desirable Performed By: #### C DP, CP, LIPRF, TSH, FT3, VD25, T4, GLYHGB #### [address] [phone] Ship [employer] Dispatcher: Armin Corbett MD Cholesterol in LDL [Mass/Vol] 116 mg/dL Normal 0-130 [facility] Comment on above: Result Comment: LDL Guidelines: <100 Desirable 100-129 Near to/above Desirable 130-159 Borderline >159 Undesirable Direct (measured) LDL and calculated LDL are not interchangeable tests. Performed By: #### C DP, CP, LIPRF, TSH, FT3, VD25, T4, GLYHGB #### [address] [phone] Ship [employer] Dispatcher: Armin Corbett MD Cholesterol.total/C holesterol in HDL [Mass ratio] 3.4 {ratio} Normal <5 [facility] Comment on above: Performed By: #### C DP, CP, LIPRF, TSH, FT3, VD25, T4, GLYHGB #### [employer] [address] [place], [place] [phone] Ship Pilot Dispatcher: Armin Corbett MD Triglyceride,Fastin g 100 mg/dL Normal <150 [facility] Comment on above: Result Comment: Triglyceride Guidelines: <150 Desirable 150-199 Borderline 200-499 High >499 Very high Based on AHA Guidelines for fasting triglyceride, January 2012. Performed By: #### C DP, CP, LIPRF, TSH, FT3, VD25, T4, GLYHGB #### [employer] [address] [place], [place] [phone] Ship [employer] Dispatcher: Armin Corbett MD Lipid, Fastingon 08-16-2021 Cholesterol [Mass/Vol] 193 mg/dL <[address] [facility] Comment on above: Cholesterol Guidelines: <200 Desirable 200-240 Borderline >240 Undesirable Cholesterol in HDL [Mass/Vol] 57 mg/dL >[address] [facility] Comment on above: HDL Guidelines: <40 Undesirable 40-59 Borderline >59 Desirable Cholesterol in LDL [Mass/Vol] 116 mg/dL 0 - 130 mg/dL [facility] Comment on above: LDL Guidelines: <100 Desirable 100-129 Near to/above Desirable 130-159 Borderline >159 Undesirable Direct (measured) LDL and calculated LDL are not interchangeable tests. Cholesterol.total/C holesterol in HDL [Mass ratio] 3.4 {ratio} <[address] [facility] Triglyceride, Fasting 100 mg/dL <[address] [facility] Comment on above: Triglyceride Guidelines: <150 Desirable 150-199 Borderline 200-499 High >499 Very high Based on AHA Guidelines for fasting triglyceride, January 2012. No Panel Informationon 08-[address] [facility] T3, Freeon 08-16-2021 Free T3 [Mass/Vol] 4.17 pg/mL Normal 2.02-4.43 [facility] Comment on above: Performed By: #### C DP, CP, LIPRF, TSH, FT3, VD25, T4, GLYHGB #### [employer] [facility] [place], [place] [phone] Ship Pilot Dispatcher: Armin Corbett MD TSHon 08-16-2021 TSH Qn 3.06 m[IU]/L [facility] Thyroid Stim. Horm.on 2021 Thyroid Stim. Horm. 3.06 uIU/mL Normal 0.30-5.00 [facility] Comment on above: Performed By: #### C DP, CP, LIPRF, TSH, FT3, VD25, T4, GLYHGB #### [facility] [employer] [place] [address] [phone] Ship [employer] Dispatcher: Armin Corbett MD Thyroxine T4on 08-16-2021 T4 [Mass/Vol] 6.5 ug/dL Normal 4.5-10.9 [facility] Comment on above: Performed By: #### C DP, CP, LIPRF, TSH, FT3, VD25, T4, GLYHGB #### [address] [phone] Ship Pilot Dispatcher: Armin Corbett MD Vitamin D 25 OHon 08-16-2021 Vitamin D 25 [place] 57.6 ng/mL Normal >29.9 [facility] Comment on above: Result Comment: Reference Range: Vitamin D status Range Deficiency <20 ng/mL Mild Deficiency 20-30 ng/mL Sufficiency 30-100 ng/mL Toxicity >100 ng/mL Performed By: #### C DP, CP, LIPRF, TSH, FT3, VD25, T4, GLYHGB #### [address] [phone] Ship [employer] Dispatcher: Armin Corbett MD CBC with Auto Differentialon 08-15-2021 Absolute Eos # 0.05 [facility] th Absolute Immature Granulocyte 0.[address] [facility] Absolute Lymph # 2.24 [facility] Absolute [place] # 1.32 High [facility] lt Basophils (Bld) [#/Vol] 0.05 10*3/uL [facility] Basophils/100 WBC (Bld) 0 % 0 - 2 % [facility] Eosinophils/100 WBC (Bld) 0 % Low 1 - 4 % [facility] Hematocrit (Bld) [Volume fraction] 39.4 % 36.3 - 47.1 % [facility] Hemoglobin.gastroin testinal spec 1 Ql (Stl) 12.7 g/dL 11.9 - 15.1 g/dL [facility] Immature granulocytes/100 WBC (Bld) 1 % High [address] [facility] Interpretation and review of laboratory results Abnormal [facility] Lymphocytes/100 WBC (Bld) 15 % Low 24 - 43 % [facility] MCH (RBC) [Entitic mass] 31.4 pg 25.2 - 33.[address] [facility] MCHC (RBC) [Mass/Vol] 32.2 g/dL 28.4 - 34.8 g/dL [facility] MCV (RBC) [Entitic vol] 97.3 fL 82.6 - 102.[address] [facility] Monocytes/100 WBC (Bld) 9 % 3 - 12 % [facility] NRBC Automated 0.0 0.0 per [address] [facility] Platelet distribution width (Bld) [Ratio] 13.1 % 11.8 - 14.4 % [facility] Platelet mean volume (Bld) [Entitic vol] 10.1 fL 8.1 - 13.[address] [facility] Platelets (Bld) [#/Vol] 411 10*3/uL [facility] RBC (Bld) [#/Vol] 4.05 10*6/uL 3.95 - 5.1 1 m/uL [facility] Segmented neutrophils/100 WBC (Bld) 75 % High 36 - 65 % [facility] Segs Absolute 11.43 [facility] W[facility] (Bld) [#/Vol] 15.2 10*3/uL [facility] Vital Signs Date Time Vital Sign Value Performing Clinician Facility 05-28-2023 14:55-0500 Body height 158.75 cm [facility] [employer] 05-28-2023 14:55-0500 Body mass index (BMI) [Ratio] 37.08 kg/m2 [facility] 05-28-2023 14:55-0500 Body surface area Derived from formula 2.03 m2 [facility] 05-28-2023 14:55-0500 Body weight 93.44 kg Diana Colon [facility] 05-28-2023 14:55-0500 Diastolic blood pressure 64 mm[Hg] Diana Colon [facility] 05-28-2023 14:55-0500 Heart rate 80 /min [facility] 05-28-2023 14:55-0500 Systolic blood pressure 122 mm[Hg] Diana [employer] 04-29-2023 15:33-0500 Blood Pressure Location Mnauel SANTILLANL [facility] 04-29-2023 15:33-0500 Diastolic blood pressure 86 mm[Hg] Manuel NILL [facility] 04-29-2023 15:33-0500 Heart rate 72 /min Manuel NILL [facility] 04-29-2023 15:33-0500 Respiratory rate 16 /min Manuel NILL [facility] [place] 04-29-2023 15:33-0500 Systolic blood pressure 130 mm[Hg] Manuel NILL [facility] Encounters Encounter Date Encounter Type Care Provider Facility Start: 06-05-2023 ambulatory Manuel R TYRELLL Facility : [facility] Start: 05-28-2023 Split Srvc Diana Rothman rne Other [facility] Office Start: 05-27-2023 End: 05-28-2023 ambulatory Manuel R TYRELLL Facility: [facility] Start: 05-27-2023 End: 05-27-2023 Patient encounter procedure Manuel SANTILLANL General Surgery Nill/Said [place] Start: 05-27-2023 End: 05-27-[address] Work Phone: [facility] Work Phone: Start: 05-27-2023 End: 05-27-[address] Contreras Work Phone: [facility] Start: 04-29-2023 End: 04-30-2023 ambulatory Manuel R NILL Facility:[facility] Start: 04-29-2023 End: 04-29-2023 Patient encounter procedure Manuel R NILL General Surgery Nill/Said [facility] Start: 04-16-2023 ambulatory Manuel SOO Facility:[facility] Start: 03-24-2023 End: 03-24-2023 ambulatory ERICK MCKEON Not Available Start: 02-16-2023 End: 02-17-2023 ambulatory [facility] Start: 12-29-2022 End: 12-30-[address] Facility:[facility] Start: 12-03-2022 End: 12-04-2022 ambulatory Erick Mckeon Facility:[facility] Start: 07-29-2022 End: 07-29-2022 ambulatory NARENDRANATH LAKSHMIPATHY . Facility:[facility] Start: 07-22-2022 End: 07-22-2022 ambulatory NARENDRANATH LAKSHMIPATHY . Facility:[facility] Start: 07-17-2022 End: 07-18-2022 ambulatory NARENDRANATH LAKSHMIPATHY . Facility:[facility] Start: 07-01-2022 End: 07-01-2022 ambulatory NARENDRANATH LAKSHMIPATHY . Facility:[facility] Start: 06-10-2022 End: 06-11-2022 ambulatory [...] hospital visit by physician Bonnie Mireles PTA [facility] Start: 04-10-2022 End: 04-11-[address] . Facility:[facility] Start: 03-27-2022 End: 03-28-[address] CONTR[address] . Facility:[facility] Start: 03-25-2022 End: 03-26-2022 ambulatory DA[facility]E [facility] Start: 03-24-2022 End: 03-25-[address] [facility] Start: 03-24-2022 End: 03-24-2022 Subsequent hospital visit by physician Bonnie Mireles PTA [facility] Comment on above: Arrived Start: 03-20-2022 End: 03-21-[address] [facility] Start: 03-20-2022 End: 03-20-2022 Subsequent hospital visit by physician Sanam Viveros PT [facility] Physical Therapy Comment on above: Arrived Start: 02-05-2022 End: 02-06-[address] SILVER TRIANA . Facility:[facility] Start: 01-01-2022 End: 01-02-[address] SILVER TRIANA . Facility:[facility] Start: 11-26-2021 End: 11-26-[address] SILVER TRIANA . Facility:[facility] Start: 11-22-2021 End: 11-22-2021 [facility] Covid Screening Comment on above: Arrived Start: 11-22-2021 End: 11-23-[address] [facility] Start: 11-19-2021 End: 11-19-[address] SILVER TRIANA . Facility:[facility] Start: 11-16-[address] SILVER TRIANA . Faci lity:[facility] Start: 11-15-2021 End: 11-16-2021 ambulatory AEV Byers [facility] Start: 11-15-2021 End: 11-15-2021 Subsequent hospital visit by physician [facility] Comment on above: Arrived Start: 10-22-2021 End: 10-23-[address] SILVER TRIANA . Facility:[facility] Start: 09-24-2021 End: 09-24-[address] SILVER TRIANA . Facility:[facility] Start: 08-29-2021 End: 08-30-[address] SILVER TRIANA . Facility:[facility] Start: 08-15-2021 End: 08-16-[address] [facility]ers [facility] Start: 08-15-2021 End: 08-15-2021 Subsequent hospital visit by physician Ave Contreras MD Work Phone: [facility] [place] [facility] Start: 08-13-2021 End: 08-13-[address] SILVER TRIANA . Facility: Procedures Date Procedure Procedure Detail Performing Clinician Start: 05-28-2023 Nerve conduction studies 5-6 studies Diana Colon Start: 08-15-[address] panel [address] Contreras MD Work Phone: Start: 08-15-[address] Contreras MD Work Phone: Start: 01-02-2015 Microscopic observation [Identifier] in Cervix by Cyto stain Ave Contreras MD Work Phone: Arthroplasty of left shoulder Manuel NILL Bladder excision Manuel NIL L Comment on above: back Cholecystectomy Manuel NILL Colonoscopy Manuel NILL Esophagogastroduodenoscopy M ichael NILL Excision of cyst Manuel NIL L Comment on above: back Ostectomy of calcaneus for spur Manuel NILL Radiofrequency ablat ion of nerve root of lumbar spine using fluoroscopic guidance Manuel NILL Repair of joint of left hip Manuel SILVERIO Repair of joint of right hip Manuel SILVERIO Repair of musculoten dinous cuff of shoulder Manuel SILVERIO Plan of Treatment Date Care Activity Detail Author Start: 08-15-2026 Lipid panel Lipids [facility] [employer] Start: 08-28-2022 ambulatory Ambulatory Facility:[facility] 1 Start: [...] Pneumococcal 65+ years Vaccine (1 - PCV) [facility] [employer] [facility] [employer] Start: 12-12-2021 Influenza vaccination M [facility] Start: 11-15-2021 Hemoglobin A1c measurement A1C test (Diabetic or Prediabetic) [facility] [employer] [facility] [employer] Start: 11-11-2021 Influenza vaccination Flu vaccine (# 1) [facility] [employer] [facility] Start: 01-02-2018 Screening for malign ant neoplasm of cervix [facility] Start: 06-26-2014 Creatinine measurement Creatinine [facility] Start: 06-26-2014 Potassium [Moles/vol ume] in Serum or Plasma Potassium [facility] Start: 2012 Screening for osteoporosis DEX A (modify frequency per FRAX score) [facility] [employer] [facility] Start: 2007 Screening for malign ant neoplasm of breast Breast cancer screen [facility] Start: 2007 Shingles vaccine (1 of 2) Kincaid gles vaccine (1 of 2) [facility] Start: 2002 Screening for malign ant neoplasm of colon [facility] Start: 1997 [facility] Start: 1987 Screening for malign ant neoplasm of cervix HPV (without or with Pap) [facility] Start: 1976 DTaP/Tdap/Td vaccine (1 - Tdap) DTaP/Tdap/Td vaccine (1 - Tdap) [facility] Start: 1975 Hepatitis C screening Hepatitis C sc reen [facility] Start: 1972 HIV screening HIV screen [facility] Start: 1969 Depression Screen Depression Screen [facility] Start: 1962 COVID-19 Vaccine (1) COVID-19 Vaccin e (1) [facility] Start: 1957 COVID-19 Vaccine (#1) COVID-19 Vacci ne (#1) [facility] [employer] End: 11-15-2021 COVID-[facility] Work Phone: Comment on above: Once for 1 Occurrenc es starting 11/15/2021 until 11/15/2021 End: 11-22-2021 COVID-19 [facility] Work Phone: Comment on above: Once for 1 Occurrenc es starting 11/22/2021 until 11/22/2021 End: 08-15-2021 Hemoglobin A1c/Hemoglobin.total in Blood [facility] Phone: Comment on above: Once for 1 Occurrenc es starting 08/15/2021 until 08/15/2021 End: 08-15-2021 T4 [facility] Phone: Comment on above: Once for 1 Occurrenc es starting 08/15/2021 until 08/15/2021 End: 08-15-2021 Triiodothyronine (T3) Free [Mass/volume] in Serum or Plasma [facility] Phone: Comment on above: Once for 1 Occurrenc es starting 08/15/2021 until 08/15/2021 End: 08-15-2021 Vitamin D 25 [employer] Work Phone: Comment on above: Once for 1 Occurrenc es starting 08/15/2021 until 08/15/2021 Immunizations Immunization Date Immunization Notes Care Provider Agustin patterson NEGATED: Highlighted row has not occurred!04-29-2023 influenza virus vaccine, unspecified formulation Manuel SILVERIO [facility] Payers Date Payer Category Payer Self-pay 2023 Unknown 2022 Medicare 2014 Unknown [id number] 1.2.84 [id number] 1959 Medicare [id number] 1959 Unknown [id number] 1959 Unknown [id number] 1957 Unknown [id number] 2.16. [id number] 1957 Unknown [id number] 2.16.8 40.1.576007.3.579.2.173 1957 Unknown [id number] 2.16.8 40.1.549525.3.579.2.173 1957 Unknown [id number] 2.16.8 40.1.214971.3.579.2.173 1957 Unknown [id number] 2.16.8 40.1.478481.3.579.2.173 1957 Unknown [id number] 2.16.8 40.1.766612.3.579.2.173 1957 Unknown [id number] 2.16.84 0.1.758990.3.579.2.593 1957 Unknown [id number] 2.16.84 0.1.983383.3.579.2.593 1957 Unknown [id number] 2.16.84 0.1.516013.3.579.2.593 1957 Unknown [id number] 2.16.84 0.1.730002.3.579.2.593 1957 Unknown [id number] 2.16.84 0.1.495669.3.579.2.593 1957 Unknown [id number] 2.16.84 0.1.380660.3.579.2.593 1957 Unknown [id number] 2.16.84 0.1.257689.3.579.2.593 1957 Unknown [id number] 2.16.84 0.1.975479.3.579.2.593 1957 Unknown [id number] 2.16.84 0.1.675565.3.579.2.593 1957 Unknown [id number] 2.16.84 0.1.563197.3.579.2.593 1957 Unknown [id number] 2.16.84 0.1.050353.3.579.2.593 1957 Unknown [id number] 2.16.84 0.1.902373.3.579.2.593 1957 Unknown [id number] 2.16.84 0.1.182057.3.579.2.593 1957 Unknown [id number] 2.16.84 0.1.975552.3.579.2.593 1957 Unknown [id number] 2.16.84 0.1.915670.3.579.2.593 1957 Unknown [id number] 2.16.84 0.1.145464.3.579.2.593 1957 Unknown [id number] 2.16.84 0.1.646740.3.579.2.593 1957 Unknown [id number] 2.16.84 0.1.825058.3.579.2.593 1957 Unknown [id number] 2.16.84 0.1.663710.3.579.2.593 1957 Unknown [id number] 2.16.84 0.1.758573.3.579.2.593 1957 Unknown [id number] 2.16.84 0.1.508864.3.579.2.593 1957 Unknown [id number] 2.16.84 0.1.703964.3.579.2.593 1957 Unknown [id number] 2.16.84 0.1.630432.3.579.2.593 1957 Unknown [id number] 2.16.8 40.1.270049.3.579.2.718 1957 Unknown [id number] 2.16.8 40.1.822523.3.579.2.718 1957 Unknown [id number] 2.16. 840.1.174442.3.579.2.196 1957 Unknown [id number] 1955 Unknown [id number] 2.16.8 [id number] 1955 Unknown [id number] 2.16.8 [id number] 1955 Unknown [id number] 2.16.8 [id number] Unknown [id number] Unknown [id number] 2.16. [id number] Social History Date Type Detail Facility Start: 02-12-2012 End: 04-29-2023 Tobacco smoking status WYIS Ex-smoker [employer] End: 06-11-2011 History of tobacco use Current smoker [employer] Phone: Start: 02-12-2012 End: 05-09-2017 Tobacco use and exposure Smokeless tobacco non-user [employer]: Start: 05-09-2017 Alcohol intake Current drinke r of alcohol (finding) [employer] Phone: Start: 1955 Sex Assigned At Not on file [facility] [employer] Work Phone: End: 06-11-2011 History of tobacco use Cigarette Smoker RAF[facility] [employer] Work Phone: Tobacco smoking status Never Gener al [facility] Sex Assigned At Female [facility] Start: *Tobacco [employer] Start: 1955 Sex Assigned At Female [facility] Functional Status Date Assessment Result Facility 04-29-2023 Functional Status N/A General Mak rgmarcie Lakisha Clinical Notes 08-29-2021 to 04-29-2023 Bonnie Mireles, SQUILGEER - 04/10/2022 3:45 PM Bella Viveros, PT - 03/20/2022 1:30 PM EST Note Date & Type Note Facility 04-29-2023 Note Chief Complaint consultation for nevus HPI Staff 68 year old female presents on consultation from Dr. Contreras for nevus. Reports solid nodule to right neck for approximate;y one year. Denies change since first noted. Denies this being sore or tender. Never been inflamed or drained. History of Present Illness 68 yo female with h/o DMII, htn, combined systolic/diastolic heart failure, hyperlipidemia, GERD, hypothyroidism, lumbar stenosis, referred for skin lesion on neck; patient reports 1 year h/o swelling right neck, slight increase in size, no pain or drainage; no h/o other similar lesions; on baby asa daily, no NSAIDs; no tobacco use. Review of Systems PHQ Score Initial Depression Screen Score: 0 SCORE ROS - Provider Constitutional: no fever, no sweats, no weight loss. Eyes: no glasses, no blurred vision, no visual loss. ENMT: no dentures, no hoarseness, no swallowing difficulties, no hearing loss, no ear infection(s), no nose bleeds. Cardiovascular: normal blood pressure, no chest pain, regular heartbeat, no heart murmur. Respiratory: no shortness of breath, no cough, no asthma, no wheezing. Gastrointestinal: no nausea, no vomiting, no diarrhea, no constipation, no blood in stool, no change in bowel habits, no abdominal pain, no hepatitis. Genitourinary: no kidney stones, no urine infection, no dysuria. Musculoskeletal: no pain, no weakness. Skin: no changing moles, no rash, yes skin lumps. Neurologic: no seizures, no epilepsy, no headache. Psychiatric: no emotional or psychiatric problem. Heme/Lymph: no bleeding problems, no anemia, no blood clots, no transfusions. Allergy/Immunologic: no swollen lymph nodes/glands, no IV drug abuse. Other: Additional ROS info: Except as noted in the above Review of Systems and in the History of Present Illness, all other systems have been reviewed and are negative or noncontributory. Physical Exam Vitals & Measurements HR: 72(Peripheral) RR: 16 BP: 130/86 HT: 64 in HT: 162.5 cm WT: 92.8 kg WT: 204.16 lb BMI: 35.14 skin: 1 cm epidermal cyst right neck, no erythema or drainage, nontender. Assessment/Plan 1. Epidermal cyst of neck (L72.0: Epidermal cyst) plan excisional biopsy under local anesthesia in the office, informed consent obtained. Follow-up No qualifying data available Problem List/Past Medical History Ongoing Acute combined systolic and diastolic heart failure.. Anxiety BMI 35.0-35.9,adult Diabetes mellitus Epidermal cyst of neck Gastroesophageal reflux disease Hypercholesterolemia Hyperlipidemia Hypertensive disorder Hypothyroidism Lumbar spinal stenosis Morbid obesity Obese Historical No qualifying data Procedure/Surgical History Arthroplasty of left hip, Arthroplasty of left shoulder, Arthroplasty of right hip, Cholecystectomy, Colonoscopy, Cystectomy, EGD - esophagogastroduodenoscopy, Excision of calcaneal spur, Excision of cyst, Radiofrequency ablation of nerve root of lumbar spine using fluoroscopic guidance, Rotator cuff repair. Medications Acidophilus Probiotic Blend aspirin 81 mg Oral EC Tab, 81 mg= 1 tab(s), Oral, Daily Cranberry Cytomel 5 mcg Tab, 5 mcg= 1 tab(s), Oral, Daily duloxetine 30 mg Cap-DR, 1 cap(s), Oral, BID Fish Oil 1200 mg oral capsule, 1200 mg= 1 cap(s), Oral, BID hydrochlorothiazide 25 mg Tab, 25 mg= 1 tab(s), Oral, Daily losartan 25 mg Tab, 25 mg= 1 tab(s), Oral, Daily metformin 500 mg Tab, 500 mg= 1 tab(s), Oral, BID metoprolol tartrate 100 mg Tab, 100 mg= 1 tab(s), Oral, BID Pantoprazole [address] Tab, 40 mg= 1 tab(s), Oral, Daily simvastatin 20 mg Tab, 20 mg= 1 tab(s), Oral, qPM Vitamin D3 2000 intl units oral Tab, 2 tab(s), Oral, Daily Allergies Latex (Skin rash) Nickel (Skin rash) Percocet (Itching) Vicodin (Itching) penicillin (Rash) Social History Alcohol - Denies Alcohol Use, 04/29/2023 Substance Abuse - Denies Substance Abuse, 04/29/2023 Tobacco Former smoker, quit more than 30 days ago Tobacco Use:. Never Smokeless Tobacco Use:. Cigarettes, 0.25 per day. Started age 15.0 Years. Stopped age 54 Years., 04/29/2023 Family History Dementia: Mother. Immunizations Vaccine Date Status Comments influenza virus vaccine, inactivated - Not Given Patient Refuses [facility] Comment on above: Result Comment: Elec tronically Signed By: SOO ENRIQUE, Manuel Linares\Date and Time Signed: 04/29/23 16:02 EST 01-01-2023 Note [id number] PERRY [...] or concerns, please call the office at [phone] 7. Follow up as scheduled [facility] 12-30-[address] [facility] Clinical Discharge Summary PERSON INFORMATION Name CARIN ANDERSEN Age 67 Years 1955 Sex FEMALE Language Azeri PCP [address] [facility] Marital Status Single Phone Med Service Observation Acct# Arrival 12/29/2022 08:33:12 Visit Reason SURGERY - LEFT REVERSE TOTAL SHOULDER Acuity LOS 000 26:35 Address: [address] [place], [place] [id number] Comment: PROVIDER INFORMATION VITALS INFORMATION Vital Sign [...] Follow up: With: Address: When: Erick Mckeon [address] [place] [address] [facility] (1) 01/06/2023 10:45 AM DIAGNOSIS Arthritis of left glenohumeral joint Comment: PHYS DOC NOTES [facility] 12-29-2022 Note [id number] [facility] 12-29-2022 Note CLINICAL HISTORY: Po stoperative [...] DO 12/29/22 4:32 pm Technologist: NESSA CHAVARRIA [facility] Comment on above: Order Comment: fawad ace status post shoulder replacement 07-17-2022 Note CONSULTATION [...] our patients to inform us about any [id number] medications or herbal remedies/nutritional supplements/alternative remedies. 2. [...] options with their primary care provider. [facility] 06-10-2022 Note CONSULTATION CONSULTATION DATE: 06/10/2022 [...] to proceed with the outlined plan. [facility] 05-08-2022 Note CONSULTATION CONSULTATION DATE: 05/08/2022 [...] back pain. She did go to Dr. Stepanic's office and they proceeded to do lumbar imaging, lumbar MRI which does show significant disc herniation between L5 and S1. The patient does have a Neurosurgery appointment pending with Dr. Carin Fernandez in [facility]. She also feels she is having [...] May. Patient agrees with this plan. [facility] 05-08-2022 Note CONSULTATION PROCEDURE DATE: 05/08/2022 [...] be followed up in the clinic. [facility] 04-10-2022 History of Present illness Narrative [facility] Inpatient/Observation/Outpatient Rehabilitation Date: 04/10/2022 Patient Name: Carin Andersen [] Inpatient Acute/Observation [x] Outpatient : 1955 [x] Pt cancelled due to: [] No Reason Given [] Sick/ill [x] Other: No reason given to dental receptionist for today's cancelled visit, however SQUILGEER did speak with patient earlier in the week and she stated she had some medical issues going on that she is seeking a doctor's advice for. Therapist/Artificial Plastic Eye Maker will attempt to see this patient, at our earliest opportunity. Bonnie Mireles, YUDITH [id number] Date: 04/10/2022 documented in this encounter [employer] Phone: 03-20-2022 History of Present illness Narrative [facility] Outpatient Physical Therapy Evaluation Date: 03/20/2022 Patient: Carin Andersen : 1955 [facility] #: [id number] Referring Physician: Danae Meyers PA-C Medical Diagnosis: R hip pain, M25.551 Treatment Diagnosis: Low back and R hip pain PT Insurance Information: [place] Total # of Visits Approved: 12 Total [...] and carry a heavy suitcase: Very difficult [place] Total Score: 55 Assessment Assessment: Patient is [...] B hip strengthening to improve lumbar stability. Membership Solicitor Goals Time Frame for Care Home Goals : 6 weeks Membership Solicitor Goal 1: Patient to be safe and independent with HEP. Membership Solicitor Goal 2: Patient to have improved core and B hip strength >/=4/5 all planes for improved lumbar stability. Care Home Goal 3: Patient to have improved lumbar AROM flexion: 4in from floor with no increase in pain. Care Home Goal 4: Patient to report >/=75% improvement in symptoms for improved QOL. Minutes Tracking: Time In: 1330 Time Out: 1410 Minutes: 40 Timed Code Treatment Minutes: 39 Minutes Sanam Viveros PT, DPT 03/20/2022 documented in this encounter [employer] Work Phone: 02-05-2022 Note CONSULTATION PROCEDURE DATE: [...] the office in three months' time. [facility] 01-01-2022 Note CONSULTATION CONSULTATION DATE: 01/01/2022 [...] to 2/10 with sitting. 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 Current medications include diclofenac [...] and patient agrees to move forward. [facility] 10-22-2021 Note CONSULTATION CONSULTATION DATE: 10/22/2021 CHIEF COMPLAINT: Low back pain. HISTORY OF PRESENT ILLNESS: This is a very pleasant, 66-year-old female who has had successful diagnostic medial branch blocks on two separate occasions. Both times afforded the patient 95-100% relief for 24 hours or so. 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 The patient currently reports the pain as [...] DR SILVER TRIANA . 10/29/2021 09:28:00 [facility] 08-29-2021 Note CONSULTATION CONSULTATION DATE: 08/29/2021 [...] Approved by: MALENA GILMORE . 09/02/2021 15:07:00 [facility] Evaluation + Plan note Future Appointments Appointment Date:05/27/2023 02:00:00 PM Scheduled Provider:Manuel SILVERIO MD Location:[facility] Appointment Type: Procedure 30 [facility] Evaluation + Plan note Future Appointments Appointment Date:06/05/2023 02:00:00 PM Scheduled Provider:Manuel SILVERIO MD Location:[facility] Appointment Type: Established 15 General Surgery Ruth Evaluation note No assessment inform ation available [facility] Work Phone: Hospital course Narrative No data available for this section [facility] Discharge instructions No data available for this section General Surgery Ruth Progress note No data available for this section General Surgery [facility] Advance Directives No Advanced Directives Records FoundDocuments on File Type Date Recorded Patient Straw Boss Expl anation ACP-Advance Directive ACP-Power of Date Pitter Latest Code Status on File Code Status Date Activated Date Inactivated Comments Full Code 03/11/2012 4:45 PM 03/12/2012 8:39 AM Full Code 02/12/2012 4:33 PM 02/12/2012 7:14 PM Summary Purpose Family History No Family History Records FoundNo Family History Records FoundNo Family History Records FoundNo Family History Records FoundNo Family History Records FoundNo Family History Records Found No data available for this section No data available for this section No Family History Records FoundNo Family History Records Found Additional Source Comments Care Teams (unrecognized sec tion and content) Sock Knitter Relationship Specialty Start Date End Date Ave Contreras MD [address] [place] [address] PCP - General 12/22/11 Sock Knitter Relationship Specialty Start Date End Date Ave Contreras MD [address] [place] [address] PCP - General 12/22/11 Sock Knitter Relationship Specialty Start Date End Date Ave Contreras MD [address] [place] [address] PCP - General 12/22/11 Sock Knitter Relationship Specialty Start Date End Date Ave Contreras MD [address] [place] [id number] PCP - General 12/22/11 Team Status: Active Member Role Status Dates Ave Contreras MD Primary Care Provider Active Team Status: Inactive Member Role Status Dates Ave Contreras MD Primary Care Provider Active Start: May 27, 2023 End: May 27, 2023 Manuel Silverio MD [facility] Attending Provider Active Start: May 27, 2023 End: May 27, 2023 INFORMATION SOURCE (unrecogn ized section and content) DATE CREATED AUTHOR 08/16/2021 [place] DATE CREATED AUTHOR AUTHOR'S ORGANIZ ATION 05/08/2022 [facility] DATE CREATED AUTHOR AUTHOR'S ORGANIZ ATION 07/30/2022 [facility] DATE CREATED AUTHOR AUTHOR'S ORGANIZ ATION 01/16/2023 [facility] DATE CREATED AUTHOR AUTHOR'S ORGANIZ ATION 03/12/2023 [facility] DATE CREATED AUTHOR AUTHOR'S ORGANIZ ATION 03/26/2023 [facility] EPIC DATE CREATED AUTHOR AUTHOR'S ORGANIZ ATION 05/29/2023 [facility] DATE CREATED AUTHOR AUTHOR'S ORGANIZ ATION 05/30/2023 [facility] Goals (unrecognized section and content) Goals may be documented in a n alternate section FOR RECORDS PERTAINING TO PATIENTS WHO ARE [...] BE BASED ON THE PRIMARY CLINICAL RECORDS. [facility] [employer] [facility]. provides no warranty or guarantee of the accuracy or completeness of information in this document.
--- OUTSIDE RECORDS SUMMARY | 2023-06-05 11:50 | XMS_ITS | CCD ---
Author Name Unknown Address [address] [place] [address] Organization [facility] Care Team Providers Care Radio Operator Name Role Phone Ave Contreras MD Primary Care Provider [phone] Referring Unavailable AVE CONTRERAS Primary Care Unavailable Ave Contreras MD Primary Care Provider [phone] Ave Contreras MD Primary Care Provider [phone] AVE CONTRERAS Primary Care Unavailable DANAE MEYERS [...] EZRA ., DR DORADO Primary Care Unavailable KAMILAH ., DR SILVER Duke Consulting Unavailable EMMANUEL LOVELL Consulting Unavailable CHIQUIS MCCLURE Consulting Unavailable TRIANA ., DR SILVER Duke Admitting Unavailable TRIANA ., DR SILVER Duke Attending Unavailable EZRA ., DR DORADO Primary Care Unavailable MEYERS ., MR DANAE Admitting Unavailable MEYERS ., MR DANAE Attending Unavailable EZRA ., DR DORADO Primary Care Unavailable JOHN, DR EGRONIMO Pires Consulting Unavailable MEYERS ., MR DANAE [...] DR DORADO Primary Care Unavailable LAKSHMIPATHY ., [place] Consulting Darline vailable TRIANA ., DR SILVER [...] Consulting Darline vailable HOY ., DR DORADO Admitting Unavailable HOY ., DR DORADO Attending Unavailable HOY ., DR DORADO Primary Care Unavailable HOY ., DR DORADO Consulting Unavailable TRIANA ., DR SILVER Duke Admitting Unavailable TRIANA ., DR SILVER Duke Attending Unavailable HOY ., DR DORADO Primary Care Unavailable TRIANA ., DR SILVER Duke Consulting Unavailable BANDAR MARY Unavailable HOY ., DR DORADO Admitting Unavailable [...] Attending Unavailable Ave Contreras Primary Care Physician [phone] Diana Colon Primary Care Physician Diana Jimenez Unavailable MD Ave Quevedo Primary Care Provider [phone] MD Manuel Silverio Attending Provider [phone] Ave Contreras Primary Care Unavailable Manuel Silverio Attending Unavailable Manuel Silverio Admitting Unavailable Manuel SILVERIO Attending Unavailable Ave Contreras Referring Unavailable Manuel SILVERIO Attending Unavailable Manuel SILVERIO Attending Unavailable Ave Contreras Referring Unavailable Allergies Allergy Classification Reported Allergen(s) Allergy Type Date of Onset Reaction(s) Facility (8 sources) Acetaminophen / HYDROcodone; Translations: [acetaminophen-hy drocodone] Drug Allergy 1 Itching, Itching (finding) [employer] Work Phone: (8 sources) Acetaminophen / oxyCODONE; Translations: [acetaminophen-ox ycodone] Drug Allergy 1 Itching, Itching (finding) [facility] Phone: (13 sources) Latex; Translations: [Latex] Propensity to adverse reactions to drug 1 Other (See Comments), Eruption of skin (disorder) [facility] (13 sources) nickel sulfate; Translations: [Nickel] Drug Allergy 4 Eruption of skin (disorder) [facility] (12 sources) Penicillins; Translations: [Penicillins] Propensity to adverse reactions to drug 1 Rash [facility] Work Phone: (4 sources) Acetaminophen / HYDROcodone; Translations: [Vicodin] Drug Allergy 3 [facility] (4 sources) Acetaminophen / oxyCODONE; Translations: [Percocet] Drug Allergy 3 [facility] (2 sources) Latex Drug allergy (disorder) 3 [facility] (1 source) Leucine Drug Allergy 3 [facility] (4 sources) Penicillin; Translations: [penicillin] Drug Allergy Eruption of skin (disorder) [facility] Repository (3 sources) HYDROcodone; Translations: [HYDROcodone] Drug Allergy 3 [facility] Repository (2 sources) Acetaminophen; Translations: [acetaminophen] Drug Allergy 3 [facility] (1 source) homatropine / HYDROcodone; Translations: [Hydrocodone Compound] Drug Allergy [facility] [employer] (2 sources) oxyCODONE; Translations: [oxycodone] Drug Allergy 3 [facility] (1 source) Acetaminophen Drug Allergy 3 [facility] Rep[facility] (1 source) Latex Drug allergy (disorder) 3 [facility] (1 source) nickel Drug Allergy 3 [facility] Rep[facility] (1 source) oxyCODONE Drug Allergy 3 [facility] Repository Medications Current Medications Medication Drug Class(es) [...] daily take 2 tablets by mouth once reinaldo ly metoprolol (TOPROL-XL) 50 MG XL tablet [...] 04/20/23 Status: Ordered take 1 tablet by valeria th once daily in the evening simvastatin 40 mg tablet take 1 tablet ( 40 mg) by oral route once daily in the evening Vitamin D3 2000 intl units oral Tab (2 sources) Start: 04-20-2023 take 2 tablets by mouth once daily Vitamin D3 1999 intl units oral Tab = 2 tab(s), [...] UNSPECIFIED] Onset: 06-02-2022 Other aftercare (1 source) terminologist (current) use of aspirin; Translations: [INTERMEDIATE CURRENT USE OF ASPIRIN] Onset: 06-02-2022 Episodic Other aftercare (1 source) Other terminal make up operator (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 therapy; Translations: [OTH REGASIFICATION PLANT OPERATOR CURRENT DRUG THERAPY] Onset: 06-02-2022 Episodic Other aftercare (1 source) terminologist (current) use of oral hypoglycemic drugs; Translations: [INTERMEDIATE USE ORAL HYPOGLYCEMIC DX] Onset: 06-02-2022 Episodic [...] Test Name Value Interpretation Reference Range Facility Pathology Noteon 06-01-2023 Pathology Note [id number]#1.0 0TIFF Normal [facility] Ambulatory Visit Summaryon 0 05-27-2023 Ambulatory Visit Summary CARIN ANDERSEN :1955 Visit Date:05/27/2023 Ambulatory Visit Instructions Your Care Team Attending Physician - Manuel SILVERIO MD Primary Care Physician - Ave Contreras MD Referring Physician - Ave Contreras MD This [...] With: Manuel SILVERIO MD Where: General Surgery Nill/Steve Banuelos Normal [facility] General Surgery Office/Clini c Noteon 05-27-2023 General [...] inactivated - Not Given Patient Refuses Normal [facility] Comment on above: Result Comment: Elec tronically Signed By: SOO ENRIQUE, Manuel Linares\Date and Time Signed: 05/27/23 19:27 EST Tyson 05-27-2023 L Specimen: [id number] Received: 05/28/23-7 Status: PERLA Last Num: [id number] Spec Type: Surgical Subm Dr: Manuel Silverio MD FACS Tissues: A Skin Cyst (EPIDERM CYST NCECK) Procedures: HE, Gross/Micro L3 Age/ Patient Sex Location Account Attending Physician Carin Andersen 68/F LABELL [id number] Manuel Silverio MD FACS SPEC NUM: [id number] RECD: 05/28/23 STATUS: PERLA LAST NUM: [id number] BONIFACIO: 05/27/23- SUBM DR: Manuel Silverio MD FACS ENTERED: 05/28/23 [facility] DR: Alexandrea Banuelos SPEC TYPE: Surgical DEPT: JACINTA CUTLER ENTERED BY: [id number] RECV BY: [id number] ORDERED: HE, Gross/Micro L3 ORDERED: HE, Gross/Micro [...] in one cassette labeled A1. CPT Codes 17774 ---- ---- Specimen: [id number] Received: 05/28/23 Status: PERLA Last Num: [id number] Spec Type: Surgical Subm Dr: Manuel Silverio MD FACS Tissues: A Skin Cyst (EPIDERM CYST NCECK) Procedures: HE, Gross/Jaqui L3 ---- Patient: Carin Andersen [id number] (Continued) ---- Signed (signature on file) Jordon Vincent MD 05/30/23 1047 [facility] Ambulatory Visit Summaryon 0 04-29-2023 Ambulatory Visit [...] Tab) cranberry (Cranberry) duloxetine (duloxetine 30 mg Alvarez-) hydrochlorothiazide (hydrochlorothiazide 25 mg Tab) lactobacillus acidophilus [...] Follow-Up Appointments Thursday 2:00 PM EST With: SOO ENRIQUE, Manuel Patino Where: General Surgery Soo/Steve Banuelos Normal [facility] Facesheeton 04-29-2023 Facesheet [id number] .00TIFF [facility] Physician Referralon 024 Physician Referral [id number]#1.0 0TIFF Normal [facility] Physician Referral [id number]#1.0 0TIFF [facility] Coding Queryon 01-09-2023 Coding Query [id number]#1.00 [facility] MAGR Postoperative Recordon 01-01-2023 MAGR Postoperative Record MAGR Phase II Record Summary Primary Physician: Erick Mckeon DO Finalized Date/Time: 01/01/23 07:41:18 Pt. Name: CARIN ANDERSEN/Sex: 1955 FEMALE Med Rec #: [id number] Physician: Erick Mckeon DO Financial #: [id number] Pt. Type: O Room/Bed: [facility]/1 Admit/Disch: 12/29/22 08:33:12 - 12/30/22 15:10:00 Institution: [...] understanding of discharge instructions. General Comments: 2 SOUTH PHASE II Finalized By: Deanne Perera RN Document Signatures Signed By: Deanne Perera RN 01/01/23 07:41 [facility] Coding Summaryon 12-31-2022 Coding Summary HTMLBase 64 NdpfmxigTZh7kOw+PGhlYW Q+RU3BRKDfJ14drZOvuI0v R5VVGZgOTireVQHWYThPRf BrnvIrGF8vwSNxMQNw IC8+IV0hVAFvLebavBQfb6 H5qGX5C45hvs2qIKvjiLU9 VGMlGoBrknnlc8mflOw9XG cuNmluOyBt RIIznU53YCF9tE79Kr22xM RauQRgm6dboDq8DpTsCMLh FJY2oAsyKQjci9MlFFOxI3 3xjKOwe9X7 FUDrkQurgIIiOqUvgOX0nF 0zKPtceqgti2uheiesJuv0 ue35wETue5C4qNQ9F8Lixe F7IYNzdNMm GtxebKJPsT1jnqlus5vqsb bcOeLbNAXhYHh1ABv4FDZx jCmpIxEcDX13VPZ5GXTnbq MbA3FjOEYz pEfnUyX7f5T8Rv5QP8ZEEm liM5WUTESZUNwlaIZ+PC90 wl52I6DxUqmtMiy5MRQbIC N3jRZ5lC2o QHVnYFjkd4U0xNJ6R6Sbrr Inme5ka1nmVFWhUDanH55w tELvi3J4ZKTmbGR5ITCfmJ avSlYmzN89 Oyc+AOSsoZsvg5TwXmpmh6 ety3fweDq6ZxenOZXtezSy xEamBQT2f5RnIk3zMOKxtZ T6uUZ5uO7i CdDcPsU6HNbtV220PjMfoH WwLqikV81vY3OheXD+PHRy Rbw0IOEjcHphLP0oZ0WyNZ RpbmctbGVm wGhpPD7aWFIullepYDNmvS 8rOBYwD4u6NfVgLiA8WEyd M8SlGKAonvwnFm80nJ2uPq VnGcQ8GQyp S3PnlhB9FNNwbDEsPRmbQI I3C86ps5P3SRBgDZBrVFT7 hEO9bT6uaWrbxlbvsQKpeV sgdmVydGlj XDlvCJzgH412GTGfeXkdRl NvZGluZyBEYXRlOiAgMDkv MjAvMjAyMzwvdGQ+PHRkIH E7lZoeNKQu gYBzQUauWh4wtDhmcPvkQO 7pVLDzmwpkVEAihN1kOANw oWMapRivBD3rESIkwayyn7 28DbXcGIL2 ORMpvCBtC1PdpZ0pYmSeOM PyLAQkG2IkpLEeFJriO558 QLvsMrU3KKAnvpUtX9SkOL FsaWduOiB0 m5I0Vg0Lq0BuiylnM3MfoL GgDiVbEcgxWPg1X3GyQbgl dHI+ZF27USGhHV01TJz5GJ N8bGrpZUzx BMXnV7AutT1bVfPiSYKmGK RkOyc+PHRhYmxlIHdpZHRo GGgoHAAdXvEihMxaQV8vRv 9yZGVyLWNv wLtuqRItJfTty1lnIEViPD juDE8twEcaY1AjhSO2HALb n3d3Yh29Q94mO0QdkWR+PG YjnJJ9gXJ9 eY6wQfJwBwC0AXtcO781Gu CmzBCwEinkb7ijn5lsxRk1 CdL0XWOtsfMkaUbiHKW6u0 RzVh03N14q IHdpZHRoPSIxNSUiIHZhbG zxpl4diF3bKl8+PGNvbCB3 fSN8aV2xTsQlSrH5YQgvH6 49InRvcCIv Ouvoa1rvc0xxoEz3UxWaQQ ScooZlfGnkFQW1j8UoJd26 J3SltQsat6OjGld7kv35xC Fms4Z0sLU1 X9KxDNAbchgwsDSyuCelBZ 4rJTBiyjgrLIMkdM9lICAu C6w8ErRyJoN0HTesZ9Hqkt U0EHGcpBJo SABtqHKZoC3xlzmrv0jhcv ykTvQnIBAcGIn6JWu7AUFs xKtpTeVdCLR5SeI4CXT7kU PycP2ybRmh rocatN7hNsb+EJT1mGLnhG PQWZ8fBgmooIF+PHRkIHN0 fDouDKgxRNAzeG1jYTHrN0 i8DaTiOcO3 AJkyY2VomtY7DIQdnERrLB LonJBCdO3awantl8dykpkx UgCwLWEpVJa0WTo2QXOxzK duOiBsZWZ0 HyH8YUL8fRNbyH1uuLwcrw vuhI1gBnu+QmlydGggRGF0 ISw6A3LgIae3CCLveKftNA 0ncGFkZGlu Fo6zwOsxfBqzQI5uKXDqkp dsk283WjWum5wsKLGfrGBd CCloPJP6R22eg7D1JIEfJN XgAJX7vCQ1 fC5fmAslqidxyZOzyDsevw MuzVefOKflFRxtS554PWGi iHmgAxHoVUt4Q1LbGoc1SC LuwIokWY7r pAIjRGtsOt1hgYepyEgtFD 5tIRRrpbvqf806RhDls4ci TSIdcWUyDDrxUSX4X78bl4 O9MYAmRMPp EAV8cWG5pO4cbPezpdrffI VmdDsgdmVydGljYWwtYWxp Z513NZNkkBaiCdGwuNi2C6 FfQrr1CZAa wXawRK7pvECmOWhhEs7kiA aidGsvZJ3wYDDuqtflk307 ChDyx8vxABQhsVIzRQcfRT J1T99vj5A1 AITeALSfGSU8uKF4tB8rqJ lnbjogbGVmdDsgdmVydGlj IHpqSDxoX439FJObyWcdLb BhdGllbnQg WYhnHIz2T3QmVjnqgFL+PC 53FWMeER06lLIenSMyp9hg pVh3MqMeZGMsTPL0jOrmVL ahg9JeUXJg T17fmRXhn0A8KJKtlEgjtU ZjCoPqhXR9vY5dQLskhthk s2thytzrOlsbi8yaom65gI 92M05mKZzd ZHRoPSIzMCUiIHZhbGlnbj 7imS3hVg4+PLLflJA3pLE6 pJ5yNSFvRoK5RNioR149Tn RvcCIvPjxj l0ldy3mroGo1LxG8YWTfhg XweMqgOJQ8g0FvJf25L92w IHdpZHRoPSIyMCUiIHZhbG ubia0exN3v Ii8+ZEItjUS5rDV6fZ4gZk VeIyM9TUvhM627JuKufBTk MubbY56aC5UurAI+PHRyPj n3TLJolNfg ZL5rkOPtBVbcGp0dXSM0Nv TvDkLeMZtjL7KsBUCivrdb pzijzEN9YBJgFAJbhR41Bz 9udDogMTBw yZCNzS9djmchp1xqqkhqEp WrQFCeHLb0GSx0MUOxuKfv EdJcLAX1GsI1KQU4aQMbaI 1hbGlnbjog qX6wQ4RrOWKsmuzjKq61hJ 9dYuLiVzL2VShhUhc+Sk9O OOPmWNSHVi4LJUtaIKcFSt wvdGQ+PHRk CFK6bPvtWUpdYXMuaQ1xUP OaC8t0GpTwSwG0CBncX7Rp PMDgsnikHi94eY4gEhMwOr W1NOeeG0Dj fuR5UHFywIRfZCkuVMH2D4 7id0Q5AQHmVRAnXBC1pLC7 xG7bnBsqydheoRXjaSdebe VydGljYWwt YBraQ683HKGbkRpzTdMiJw L4MyD3QOg3S3ZvEht5BUSb qJqoOM9uqGWvDUvmQh4inT kfySghRO0m PLGduquxHBZmxX2rAZYjtF CboHpmRF5gEUNusytfs296 OaRzDNJ6DDYwyTMrP3DekF 9yOiAjMDAw FPCwS8GrcHJbMXctY317WU dyQlO0NEAonnFfV2HdWXVs xMaiOrJ2w3V2Nr50NEDHSR FyczwvdGQ+ XNHwHUH2lZbzEXwvCKHulV 3rOQWhP7h1EvPoUjI6ZAjq R0BpICYpntxhOx56iC9oXt YmZoP5TZof H8BrxkJ6MLIfaTTzETnkQW L4K78nh1Z2AWJwMVZsVSP3 kFT9cK2ehQgbenbehPCtbR sgdmVydGlj QIhoTXffP752VOEwmYqsCb ZFTUFMRTwvdGQ+PHRkIHN0 wPhpPIabISUhvL8vOBBcL0 e6ItEsDiF5 QGeyY6EbLEOhdxcwIw05sV 3aFoSpQwO5EVgiE4HmhkD4 WAUcnSAhRDuzMCZ0O55gc7 M9HDBwRIHv OFL0tUX9tA0veXtdgbispK VmdDsgdmVydGljYWwtYWxp Y512PPAwqUmfDb4xs4Utmv F8jU4vGS95 KQ99H6KpSmckmMPyhMJ+PH RhYmxlIHdpZHRoPScxMDAl MhSqdIouFT0pXl1wFUYyTZ NvbGxhcHNl MkKfr1eaFDLjWVuqOV8wvW buY7PwwGC6DWEyb8d0Nf98 L97yJ8CkvJQ+GPEhuWU3tF O2bD3sQtSg HdD2BYplO175CyLrkQDbVi pfe7hol3qhxFi1VkAoKVYq rbGnjIzlCOP1h9PaNj17S1 9sIHdpZHRo OUTpUHSdMBWqoQodde1ttF 9wIi8+KVJyhXI2dOM5jK4y PvRoJaW5YCnhE606JcNjlD LgTmmdA61p U9JpqWD+NEDyDgd6GJWbnD gcEX0rnOCvBSvfXb3nQIE2 GpIfIhOxMQmjY5GiKUPesb ctcmlnaHQ6 BEFgQPHisH04Yj6ilOeoCz 0nGVZxWEC9YZAkkUJfK7Sp jK3wAdNhEOOpUSCuF9HpwT YzFYyqY441 HEahVeQ1OAHdtuLfG1MnOV IcbYykYzK3q9S7Zi0IiOgm nUNhSS1rNhSyCRl1F1SgEv v3DLAtyNze JW5qqHBeWUisQw6myHntqJ fpQE0hFEXkpauwq255LsJv z9avLLOhcKUzHQsvSJH4B3 2ch6Y2GLGj OKXfFNG8vDZ7rE3jcXtple ogbGVmdDsgdmVydGljYWwt GWyxY352EVLiyLfxWxJQBb v3R8JzOft9 TCZvmZcmDH7lpMBdVWwhDt 6jsTnzyOfhEB6kOJImpttd u920ZzHva7hdTRKloMFjIJ unYFN2M89i b8O9XYCkTUKpTUD8bSJ5aZ 1hbGlnbjogbGVmdDsgdmVy hYtnWPzlZQalH683YXDjjX enFr5ULbl4 A4LiDpa0BMWxkXsrUC2mzR FkNQawAt5blNrmsVxeLZ1p URKxvgtkn837LkEwc8qzTK EwcHQgVGlt GOF8V41yp2M9AAJaRWNmHY A4dBN3jV8gmNkaybyoiERl dDsgdmVydGljYWwtYWxpZ2 46IHRvcDsn PlBheWVyOjwvdGQ+PC90cj 71F0YcQkmrSug8CIJyXZN6 bZY1rG0qCMKgWUbhu0C2mB C6R7UcleGe ci1 (more content not included)... [facility] Consent Formson 12-31-2022 Consent Forms [id number]#1.00 [facility] Discharge Instructionson Discharge Instructions [id number]#1.00 [facility] Outside Recordson 12-31-2022 Outside Records [id number]#1.00 [facility] Provider Orderson 12-31-2022 Provider Orders [id number].. [id number]#1.00 [facility] Telemetry Stripson Telemetry Strips [id number]#1.0 0OTGTIFF [facility] Consultation/Specialist Note on 12-30-2022 Consultation/Specia list [...] MAGDALENO PITTS [Verified on: 12/30/2022 08:48 EDT] MAGDALENO PITTS [facility] Discharge Noteon 12-30-2022 Discharge Note discharge aurora calle reviewed with patient and daughter, belongings packed, skin wam and dry, foam dressing dry, polar care sent home with patient, denies pain, awaiting wheelchair to private vehicle. [Electronically Signed on: 12/30/2022 15:08 EDT] Ariela Dewitt RN [Verified on: 12/30/2022 15:08 EDT] Ariela Dewitt RN [facility] Discharge Note patient refusing discharge instructions at this time, patient is choosing to wait for daughter to be her for instructions, when daughter arrives will review discharge instructions. [Electronically Signed on: 12/30/2022 13:57 EDT] Ariela Dewitt RN [Verified on: 12/30/2022 13:57 EDT] Ariela Dewitt RN [facility] Inpatient Patient Summaryon 12-30-2022 [place] [address] Patient Discharge Instructions Name: CARIN ANDERSEN : 1955 Patient Address: [address] [place] [address] Primary Care Provider: Name: AVE CONTRERAS After you are discharged if you find you have any questions, please, call [phone] ext [phone] to speak to a nurse. The Pharmacy [...] alcohol and/or drug addiction problems; contact the [facility] 03/11 Crisis Hotline -Text 4HIDI lf 672441. If you received any narcotics, sedation, or [...] business decisions or sign any legal documents [facility] would like to thank you for allowing us to assist you with your healthcare needs. The following includes patient education materials and information regarding your injury/illness. CARIN ANDERSEN has been given the following list of follow-up instructions, prescriptions, and patient education materials: Follow-up Instructions With: Address: When: Erick Mckeon [address] [place] [address], [address] [place] [address] Business (1) 01/06/2023 10:45 AM Medications During [...] times a da (more content not included)... [facility] Anesthesia Noteon 12-29-2022 Anesthesia Note Patient: CARIN ANDERSEN Age: 67 years Sex: FEMALE : 1955 Associated Diagnoses: None Author: Aramis Kelley MD Postoperative Information Post Operative Note: Operative Day. Anesthetic utilized: General. Health Status Allergies: Allergic Reactions (All) Moderate Latex- Blister. Percocet- Itching. Vicodin- Itching. Mild Nickel- Rash. Penicillin- Rash. Problem list: All Problems Hypertension / SNOMED CT 9917898735 / Confirmed Type 2 diabetes mellitus / SNOMED CT 640515769 / Confirmed Physical Examination Vital Signs (last 24 hrs) Last Charted Heart Rate Monitored L 58 bpm (DEC 29 13:31) Resp Rate 16 br/min (DEC 29 13:31) SBP 114 mmHg (DEC 29:) DBP 68 mmHg (DEC 29:) Review / Management Condition: Stable. Assessment Anesthetic outcome No anesthetic complications noted. Adequate pain relief. awake, no pain. Hydration appears adequate. No Complaint of nausea and vomiting. Plan Transfer/ Discharge: Patient can be discharged from PACU when criteria met. Condition good. [Electronically Signed on: 12/29/2022 13:36 EDT] Aramis Kelley MD [Verified on: 12/29/2022 13:36 EDT] Aramis Kelley MD [facility] Anesthesia Note Patient: CARIN ANDERSEN Age: 67 [...] list: All Problems Hypertension / SNOMED CT 7777384273 / Confirmed Type 2 diabetes mellitus / SNOMED CT 631110340 / Confirmed Histories Family History: Entire family history is negative. Procedure history: Cholecystectomy (04835552). Back (368977527). Comments: 12/03/2022 13:11 Kimberly Soto RN cyst removed Hip arthroplasty (417615573). Arthroscopic repair of rotator cuff. (0521886035). Heel (997983649). Comments: 12/03/2022 13:11 Kimberly Soto RN heel [...] 18 10:40) Resp Rate 14 br/min (DEC 29 [...] Oriented. Review / Management Laboratory Results Plan [place] [employer]esthesi[employer] (ASA) physical status classification: [...] on: 12/29/2022 10:46 EDT] Aramis Kelley MD [facility] MAGR Intraoperative Recordon 12-29-2022 MAGR Intraoperative Record MAGR Intra-Op Record Summary Primary Physician: Erick Mckeon DO Finalized Date/Time: 12/29/22 13:29:31 Pt. Name: CARIN ANDERSENN /Sex: 1955 FEMALE Med Rec #: [id number] Physician: Erick Mckeon DO Financial #: [id number] Pt. Type: D Room/Bed: [facility] Admit/Disch: 12/29/22 08:33:12 - Institution: Case Times [...] Andrew DO Role Performed Surgeon - Primary Promotional Model Anesthesiologist of Record Time In 12/29/22 11:28:00 12/29/22 11:14:00 12/29/22 11:14:00 Time Out 12/29/22 13:05:00 12/29/22 13:25:00 12/29/22 13:25:00 Procedure Arthroplasty Shoulder Arthroplasty Shoulder Arthroplasty Shoulder Total Reverse(Left) Total Reverse(Left) Total Reverse(Left) Last Modified By: Radha Tai RN, Diane RN Kokinda, Diane RN 12/29/22 13:25:19 12/29/22 13:25:19 12/29/22 13:25:19 Entry 4 Entry 5 Entry 6 Case Attendee Montez Villatoro Regina CSFA CST Bloemer, Kelly CST CST Role Performed Tube Skiver Tube Skiver Scrub Personnel Time In 12/29/22 11:14:00 12/29/22 [...] Prep Agents (Im.270) (more content not included)... [facility] MAGR Intraoperative Record MAGR Intra-Op Record Summary Primary Physician: Finalized Date/Time: 12/29/22 11:13:51 Pt. Name: ANDERSENFANNYCARINPOLLY PHILLIPS /Sex: 1955 FEMALE Med Rec #: [id number] Physician: Erick Mckeon DO Financial #: [id number] Pt. Type: D Room/Bed: [facility] Admit/Disch: 12/29/22 08:33:12 - Institution: Case Times [...] Slauterbeck, Linda RN Role Performed Anesthesiologist of Promotional Model Promotional Model Record Time In 12/29/22 10:25:00 12/29/22 10:23:00 [...] Airway D (more content not included)... [facility] [place] PAC[place] Record [facility] [place] PACU Record Summary Primary Physician: Erick Mckeon DO Finalized Date/Time: 12/29/22 14:30:30 Pt. Name: CARIN ANDERSEN D.O.B./Sex: 1955 FEMALE Med Rec #: [id number] Physician: Erick Mckeon DO Financial #: [id number] Pt. Type: D Room/Bed: 227/1 Admit/Disch: 12/29/22 08:33:12 - Institution: PACU Case Times MAGR Entry 1 In PACU I 12/29/22 13:25:00 Discharge from PACU 12/29/22 14:14:00 I Last Modified By: James Rhoades RN 12/29/22 14:30:27 Finalized By: James Rhoades RN Document Signatures Signed By: James Rhoades RN 12/29/22 14:30 [facility] MAGR Preoperative Recordon 0 12-29-2022 MAGR Preoperative Record MAGR Pre-Op Record Summary Primary Physician: Erick Mckeon DO Finalized Date/Time: 12/29/22 14:30:46 Pt. Name: CARIN ANDERSEN JACQUELINE /Sex: 1955 FEMALE Med Rec #: [id number] Physician: Erick Mckeon DO Financial #: [id number] Pt. Type: D Room/Bed: 227/1 Admit/Disch: 12/29/22 08:33:12 - Institution: Pre-Op Case [...] By: James Rhoades RN 12/29/22 14:30 [facility] Nutrition Noteon 12-29-2022 Nutrition Note Pt [...] Will monitor wts, intake and labs. [facility] Operative Report - Surgeon/P pietro 12-29-2022 Operative Report - Surgeon/Physician Preoperative diagnosis: Primary osteoarthritis left shoulder Postoperative diagnosis: Same Procedure: Reverse total shoulder replacement left Surgeon: Bobbi Mckeon D.O. Anesthesia: General Indications for surgery: Radiographic findings consistent with arthritis progressive pain symptoms with loss of function and failure of conservative treatment Estimated blood loss: 100 Complications: No complications Findings: Rfqm-[id number]-[id number] and flattening of the humeral head and [...] 12/29/2022 13:39 EDT] Erick Mckeon DO [facility] POCT Glucose Levelon 023 Glucose [Mass/Vol] 108 mg/dL Normal 74-118 [facility] Comment on above: Performed By: #### 4 [id number] ####[facility] (DEFAULT)[address] [place] [address] Glucose [Mass/Vol] 113 mg/dL Normal 74-118 [facility] Comment on above: Performed By: #### 4 [id number] ####[facility] (DEFAULT)[address] [place] [address] Patient Handouton 12-29-[address] PERRY [...] or concerns, please call the office at [phone] 7. Follow up as scheduled [facility] Progress Note - Nurseon 12-12 Progress Note [...] on: 12/29/2022 15:56 EDT] Netta Henriquez RN [facility] Progress Note - Nurseon 12-12 Progress Note - Nurse Pre op phone call, spoke with patient. Confirmed time of arrival for 0600 on 12/29/22. Reviewed pre op instructions. Patient questioned if we got the ECHO results? States that her family doctor Dr. Contreras ([place]) had ordered it for clearance for the [...] on: 12/26/2022 10:08 EDT] Maximiliano Collado RN [facility] C Urineon 12-05-2022 C Urine Urine Culture [...] <=4 Verified Tri/Sulf S <=2/38 Verified [facility] Comment on above: Performed By: #### 1 [id number] #### [facility] (DEFAULT) [address] [place] [address] Coding Summaryon 12-05-2022 [facility] XdqosjvbSCb3uCz+PGhlYW Q+BR1VOKBrZ26ofLIchI3b H2OHLJdMYeorPKIOMDhSTq UkunTyYO9nfNEjWCWb IC8+AF4iRQZpFxgzoEUhf8 A2oAB3S75lsb2kIWkjmWR9 JMHsXfFaeyroc0nuiTv3SC cuNmluOyBt IFApyJ06RQK1mK42Fe94eZ NhgVSed2oxpBf1WvPoAFKx VAJ0jHjlLKkuh9NyJQHpV5 2wtMMbw0H3 VDGicBoakZNvGkYmiFG5pQ 7sRUkwzspul8fbleldLvz4 sr11mRQoo5Q7iYD5V3Fmvd L1NAWfhEXw PlftkHXBgF8dhnyfa2rpcb acBgZgGBUyDSq0RZo3HJPv yHysTeRuCN56VUY8UFGndv KoQ3GyQUQk kVuuDmN8h3T6Ej7QO4JXQi osR0OQHEGFFOijnEE+PC90 ht52X4LxBgaoNkk3DVFnOO O8lCE0zL6x OQAaQNjod2G4iUM0O7Jlkt Ccdp8eh8khWJQwPBirE90h fDIqv8T3LMHqjYO5PVBzbT saMmUmiE23 Oyc+BYAwoAlty0SkKmnpu1 dza5uowUk3XzfyUDLaxpSq uNsgZXU1k0TfYb2mQCXpfC J3lTZ0kU4h QeMkSjH8SOyzW708VcCefJ QeMiilK69rY5CduLD+PHRy Fpx0VEIfzNkcWJ3yZ0PfXE RpbmctbGVm yLodEM4pOTWoechtNCDpzQ 8nWXTvS2k9QtWwDrN0XLzp T6VyMRCijlguRx94mW7oMc CdIdZ2GVku D9NmmyH7HKEcmIGuIAlvCO T9W26yt3J3OTLmDZMeBMP2 oOS0sY0bzRretbgddTLdyT sgdmVydGlj BXkvDKezC038ANZqnCpsKj NvZGluZyBEYXRlOiAgMDgv MjUvMjAyMzwvdGQ+PHRkIH H2cGojGQCi wLKuQPpaUu9hxOvdgUkwJA 2nTHAqpofpMLFitY1sSRHr mNUwcRsoTQ4tNINoflyny0 49ZmMbHDQ4 GUIugXTaE5RjxH6jYgZuKA BsZFZrX9AvfHViPIdmT360 NMxtXbN8ZBYbnrMsY6XfNF FsaWduOiB0 w6R2Qp0Wi7ExlacqT4MtaG MqWzDrRjrtKGk6J2TjOazj dHI+DC33LJHsVR43VTe8LI M9fSjaOGey OCIrN0BekP0vEoBsMNLjLK RkOyc+PHRhYmxlIHdpZHRo AXuiBYTuIaZrrGlfUH1mYi 9yZGVyLWNv jQhccDFdAzRwe7smZZOnSU opIP5edUpdN9YjuIH3KHMw s0g2As08E12sO7OkkLZ+PG ZzbQZ0wLB4 aY3vRtIqOdD1EYxwC052Ta DxcUMeAzcbu7eej4urdGv2 KkE1YPOmcoJerPpyCDU8j4 JaCn51A82f IHdpZHRoPSIxNSUiIHZhbG tewg0vdS2xOh6+PGNvbCB3 hUW1hX4cGmHqDyT7CKdoB3 49InRvcCIv Parbl4wpk8maaCt4XcFeNH WccbZkwRzzUIY6m6JuSv40 H6CakVwbt2KbLry2ta50aQ Mne6U7sSR7 Y1GpJCYfksbqbJPyzAqpUN 7qIUQwhavdCRFqnJ6pDAZt G7h1IkQxClG4UFceZ0Zfao D0CRSepGHp FGLoxLIAwE5uhrwvs6cfwt lpDzJnZGIcNUi9EKs4BCGz uJgxNoVpPFQ4JjB8CXU4yZ TadT3kmLfa sqawvJ6bWhk+SLO4nKMjyG TDHQ8qLceeyIG+PHRkIHN0 vCyfCZarUCAudL5eVXNiZ6 i1WoUsHsE2 EXfcS6SyzbE7JFIkrDDnTE UgcVYDcW0ajnboy5azgvvj ZzBvLKFpJBz5ZLz6HZOcuX duOiBsZWZ0 KwG4YUP9sGQfmV1ltJotxp jczJ1lGvy+QmlydGggRGF0 MBr4E6DpOph2UZCidShzXZ 0ncGFkZGlu Ko0pyCcojKkkHW9tLPSgyl tmg338JxApg7moYFLzcGVu ATtfLOR0J69jv7M1FLAkLU ZiWHG7bUH4 wU6ykSxroodoeAVteKhxod DywItuAXxvJFczK258DAEw wUwuVmPxGVb8F4IpUuw5AT YfvShtFC5v tLEbUGjfXs7ydVwaqMnnXV 8hKCGxsbasj801AhLap1me XSMeeVMeROjkHFS3K62rr3 H5IMSrPTUi AOG9oJX5mQ5ldMphexagdE VmdDsgdmVydGljYWwtYWxp R539JZIsjExiCkMsoOa6G8 JqGzv1YLCo rTpwNL4lpIMpRJzyHi3beW jilUnpHE5oJVLldoywz446 WoTwl9bvZNNxbJVuUUbhMC W0K15lz9B2 ZOXwZBYhEZY0qOV2mT5yaC lnbjogbGVmdDsgdmVydGlj OMoqGBfrP375FJYhuUkdYx BhdGllbnQg BMfdCPf8T1NdMnenaKT+PC 70HZUmQR52fLTcjLSyq2wd mGw5CcTaFMZoARM6hAbbKT fyz0DdJMFe W99cgFOgn7D8ABWrqNkbbK UrCmKfbFU7iZ2pSQpxbnef h8awjgjhJsvvq8oktr64tM 66E08jUUmr ZHRoPSIzMCUiIHZhbGlnbj 0lqY4uJi6+KGVqwQV1uUU5 lA5dBHSmHlN5JUubP226Mr RvcCIvPjxj r4fpd7wgdSh9IoS5QHPcji SxrCspKGF0d3ObEe02U91u IHdpZHRoPSIyMCUiIHZhbG srqm8moX2m Ii8+NWQydVN4hLY3pG1hBw HfDkK1WZmlZ158UqAavLOp LtllB20cL5LzbKO+PHRyPj j0ABEfhDye DD8nuUVdMDrgGa8tDEX3Xz PkHcSvNYguK3SsWYHrbout zvwshHY0TNQwPSMqlF09Ah 9udDogMTBw tNLLwS1odlrix3hbcmchMr MgMWCvGXk4UCb4XDNnuBfc ImAzWMN6MlP4RBH0kOVfyV 1hbGlnbjog oT4fQ6QbLGRnylizNp13fN 7tIiXpXkF5SZkkMww+Sk9O IZWyCUWEAw6CMNfnIZhLQv wvdGQ+PHRk MHY6kLnxLSumZCEenM4hTE CaK1w7QvKzWnF3SWjiK5Md BXPxqhxbWo04rM8qHaAgJq Z0CFqoT1Ob nrI3SSCyyBJrFSsaRJR4D9 9tr7C7HMZbIUVuFCI0bRH9 hA9dyNiibtfqmBNmyGgqmp VydGljYWwt CMrjS415HQCnaQycKrYfSz K7UdS3HUi5A0VtBxk2AIBk rTcmXW9seXTaXRxpTx5jlT utuDtjEE4a CMLrrqfeLMPaoE2fYHHedA EbcOtgKT4wQIFcnribe422 PmAjHEE4UFWlnXHlX5LioO 9yOiAjMDAw YZMgE6HybLJbBTnhR011GR kfHuG6QPWmscClW6EzOCNf sThfAlE0o8U3Sj57FMGWTO FyczwvdGQ+ RGPbBWX3rQtqEDmeZXCdgL 4rOLXwD0c4JcCjPsF4YFah D0CdINMlxwizLt94tA6eTj TbPzI9JCzn Y5BrnsF2WMFzkJWeOSgeQC U7N44pq8A8OLVbOYUnWYV3 sIO7tS6rsCjlsoputVEbkJ sgdmVydGlj SBbcWAsqM259INWfmEsiVe ZFTUFMRTwvdGQ+PHRkIHN0 iHyaPUpxPSJtpS3cNRQeB0 m0JgVnSpX8 IQhaZ4QvODDdenbqSs28uD 6wQqRaEjO4QOopR9IhzhC1 TNVllFYvNAtfRQS5J00hl5 E5IAFeYNGi KUE2jXT1fP6tvZjggyqbnB VmdDsgdmVydGljYWwtYWxp R416YMZnqXsdQo9VEL35GN 01Q4IeHatv dGFibGU+PHRhYmxlIHdpZH IyPLckBODxUuQbhKhfIE2c Aj2tEAKxCHNxmLnswQAoDh Rkj9noNGXz ONbtMC2otMimU8ImnEM2SO Zbw0b7Kp01W27qN3YimMD+ UBLzgFG8zOS8zG1fBtXvMf E6DVktM806 AdNbrCHxAsado1blu8nqpK k1TeAwWRCbtvUrdXbaJEV0 g7VgWq54N23yTCurXUXaOV IyMCUiIHZh cQyysc1dhL9sNa1+PGNvbC I6zWJ4zC8wNyJtLnO8PXlh Z934EoMmlIBqYprjT26nR9 JvdXA+PHRy Gzk6BGFutYeoQV1omBCqOF sgCl1nPZB7DjPsPhUiEFbn N4GzAGPiixqwixfjwQL5LC IdVQWqvV45 Hu4mnEueSb7nSFPsECD1CI IveJPiD1NzsU5sGgFtREGv QHAzS3UvwMQnIDbeZ951HR qqFiK6CQBy axGgY1KrXZYgwUwoDiN2f5 L1Zd3WiLmzsZFmYJ8rQuUp ZUz4A6XkWoc4FYShgDbmEX 0ncGFkZGlu Hh2pkCwqeNatQP1oNKDjkj oum575IuPzv6wjKTKbwPYc SXqtPMO3X74ek5N4JIRyYY OhLHV0eVF0 nA8mzQtenlbtyVIugOhlyl LqqWtnUZyxTTsoC173UCMj hGpdKvMQSjc7P2TfNba7DJ BvrNtnSS0z fOGmFMbnPd4piIecpPorMQ 8aPXEendrok848XbQhv2vc BACqiBMpYYzsANX4D28mn8 R6IGEnBGQg WAR6bLI0fN9orGhrstlndY VmdDsgdmVydGljYWwtYWxp G526WRVuyBuiYf8TOzr8X4 UoPac6BDRi mBikQD5ayNGsEDuzMh8ksK pbpOweFV2mFQZwkgzts615 DhLyd6shYLAhpCAqLGsqIW J2L32wi3R3 XCTnIIYoIVM1yLD9bS8lcL lnbjogbGVmdDsgdmVydGlj WKemFMtlT167YMKqmDftTu BheWVyOjwv dGQ+QF92ya95T9RnUyfsVp w6LSAkGJI3gNF6xH3oMLTv YRzsf8I9zJQ5S3WvzqCknh 8ll0boOGId ZTo (more content not included)... [facility] C MRSA Screenon 12-04-2022 C MRSA Screen Negative [facility] Comment on above: Performed By: #### 1 [id number] ####[facility] (DEFAULT)[address] [place] [address] Provider Orderson 12-04-2022 Provider Orders [id number]#[id number] TGTIFF [facility] .Auto Diff 1on 12-03-2022 Auto Charles Mix % 10 % Normal 1-12 [facility] Comment on above: Performed By: #### 1 [id number], [id number], [id number] ####[facility] (DEFAULT)[address] [place] [address] 44743 Baso Abs# 0.1 x10 Normal 0.0-0.2 [facility] Comment on above: Performed By: #### 1 [id number], [id number], [id number] ####[facility] (DEFAULT)[address] [place] [address] 49930 Basophils/100 WBC (Bld) 0.5 % Normal 0.2-2.0 [facility] Comment on above: Performed By: #### 1 [id number], [id number], [id number] ####[facility] (DEFAULT)[address] [place] [address] 65080 Eos Abs# 0.1 x10 Normal 0.0-0.4 [facility] Comment on above: Performed By: #### 1 [id number], [id number], [id number] ####[facility] (DEFAULT)[address] [place] [address] 20378 Eosinophils/100 WBC (Bld) 1.1 % Normal 0.9-4.0 [facility] Comment on above: Performed By: #### 1 [id number], [id number], [id number] ####[facility] (DEFAULT)[address] [place] [address] 71344 Lymph Abs# 2.1 x10 Normal 1.3-2.9 [facility] Comment on above: Performed By: #### 1 [id number], [id number], [id number] ####[facility] (DEFAULT)[address] [place] [address] 19389 Lymphocytes/100 WBC (Bld) 18 % Normal 14-48 [facility] Comment on above: Performed By: #### 1 [id number], [id number], [id number] ####[facility] (DEFAULT)[address] [place] [address] 41616 Charles Mix Abs# 1.2 x10 High 0.0-0.8 [facility] Comment on above: Performed By: #### 1 [id number], [id number], [id number] ####[facility] (DEFAULT)[address] [place] [address] 30429 Neut Abs# 8.6 x10 Normal 1.5-9.2 [facility] Comment on above: Performed By: #### 1 [id number], [id number], [id number] ####[facility] (DEFAULT)[address] [place] [address] 01662 Neutrophils/100 WBC (Bld) 71 % Normal 44-88 [facility] Comment on above: Performed By: #### 1 [id number], [id number], [id number] ####[facility] (DEFAULT)[address] [place] [address] 85232 BMP Standardon 12-03-2022 eGFR Non AA 49 mL/min/1.73m2 Invalid Interpretation Code [facility] Comment on above: Performed By: #### 1 [id number], [id number], [id number] ####[facility] (DEFAULT)[address] [place] [address] 05882 eGFR AA 59 mL/min/1.73m2 Invalid Interpretation Code [facility] Comment on above: Performed By: #### 1 [id number], [id number], [id number] ####[facility] (DEFAULT)[address] [place] [address] 18598 Anion gap [Moles/Vol] 12.9 mmol/L Normal 5.0-19.0 [facility] Comment on above: Performed By: #### 1 [id number], [id number], [id number] ####[facility] (DEFAULT)[address] [place] [address] 46873 Calcium [Mass/Vol] 9.2 mg/dL Normal 8.9-10.3 [facility] Comment on above: Performed By: #### 1 [id number], [id number], [id number] ####[facility] (DEFAULT)[address] [place] [address] 89723 Chloride [Moles/Vol] 98 mmol/L Low 101-111 [facility] Comment on above: Performed By: #### 1 [id number], [id number], [id number] ####[facility] (DEFAULT)[address] [place] [address] 28390 CO2 [Moles/Vol] 28 mmol/L Normal 21-32 [facility] Comment on above: Performed By: #### 1 [id number], [id number], [id number] ####[facility] (DEFAULT)[address] [place] [address] 51619 Creatinine [Mass/Vol] 1.12 mg/dL Normal 0.60-1.30 [facility] Comment on above: Performed By: #### 1 [id number], [id number], [id number] ####[facility] (DEFAULT)[address] [place] [address] 48100 Glucose [Mass/Vol] 110.0 mg/dL Normal 74.0-118.[address] [facility] Comment on above: Performed By: #### 1 [id number], [id number], [id number] ####[facility] (DEFAULT)[address] [place] [address] 90894 Osmolality 273 mOsm/L Invalid Interpretation Code [facility] Comment on above: Performed By: #### 1 [id number], [id number], [id number] ####[facility] (DEFAULT)[address] [place] [address] 85474 Potassium [Moles/Vol] 3.9 mmol/L Normal 3.6-5.1 [facility] Comment on above: Performed By: #### 1 [id number], [id number], [id number] ####[facility] (DEFAULT)[address] [place] [address] 00102 Sodium [Moles/Vol] 135.0 mmol/L Low 136.0-144.[address] [facility] Comment on above: Performed By: #### 1 [id number], [id number], [id number] ####[facility] (DEFAULT)[address] [place] [address] 54812 Urea nitrogen [Mass/Vol] 20 mg/dL Normal 8-26 [facility] Comment on above: Performed By: #### 1 [id number], [id number], [id number] ####[facility] (DEFAULT)[address] [place] [address] 37198 Urea nitrogen/Creatinine [Mass ratio] 17.8 mg/mg High 4.6-16.2 [facility] Comment on above: Performed By: #### 1 [id number], [id number], [id number] ####[facility] (DEFAULT)[address] [place] [address] CBC w/ Auto Diffon 3 Erythrocyte distribution width (RBC) [Ratio] 12.7 % Normal 11.5-15.0 [facility] Comment on above: Performed By: #### 1 [id number], [id number], [id number] ####[facility] (DEFAULT)[address] [place] [address] Hematocrit (Bld) [Volume fraction] 38.4 % Normal 33.7-40.4 [facility] Comment on above: Performed By: #### 1 [id number], [id number], [id number] ####[facility] (DEFAULT)[address] [place] [address] Hemoglobin (Bld) [Mass/Vol] 12.9 g/dL Normal 11.3-15.9 [facility] Comment on above: Performed By: #### 1 [id number], [id number], 6554852 ####[facility] (DEFAULT)[address] [place] [address] Man Diff? Auto Invalid Interpretation Code [facility] Comment on above: Performed By: #### 1 [id number], [id number], [id number] ####[facility] (DEFAULT)[address] [place] [address] 82050 MCH (RBC) [Entitic mass] 31 pg Normal 24-34 [facility] Comment on above: Performed By: #### 1 [id number], [id number], [id number] ####[facility] (DEFAULT)[address] [place] [address] 54625 MCHC (RBC) [Mass/Vol] 34 g/dL Normal 26-37 [facility] Comment on above: Performed By: #### 1 [id number], [id number], [id number] ####[facility] (DEFAULT)[address] [place] [address] 54729 MCV (RBC) [Entitic vol] 92 fL Normal 81-100 [facility] Comment on above: Performed By: #### 1 [id number], [id number], [id number] ####[facility] (DEFAULT)[address] [place] [address] 54541 Platelet 403 x10 Normal 138-427 [facility] Comment on above: Performed By: #### 1 [id number], [id number], [id number] ####[facility] (DEFAULT)[address] [place] [address] 49077 Platelet mean volume (Bld) [Entitic vol] 8.4 fL Normal 6.3-10.2 [facility] Comment on above: Performed By: #### 1 [id number], [id number], [id number] ####[facility] (DEFAULT)[address] [place] [address] RBC 4.18 x10 Normal 3.70-5.30 [facility] Comment on above: Performed By: #### 1 [id number], [id number], [id number] ####[facility] (DEFAULT)[address] [place] [address] WBC 12.1 x10 High 3.5-10.5 [facility] Comment on above: Performed By: #### 1 [id number], [id number], [id number] ####[facility] (DEFAULT)[address] [place] [address] UA Dicke6qz 12-03-2022 UA Bacteria 1+ Normal [facility] Comment on above: Order Comment: Urina lysis Microscopic order added on by [employer] Rules system. Performed By: #### 1 [id number], [id number], [id number] #### [facility] (DEFAULT) [address] [place] [address] 48333 UA Gran Cast 0-5 Normal [facility] Comment on above: Order Comment: Urina lysis Microscopic order added on by [employer] Rules system. Performed By: #### 1 [id number], [id number], [id number] #### [facility] (DEFAULT) [address] [place] [address] 70621 UA Hyal Cast 0-5 [facility] Comment on above: Order Comment: Urina lysis Microscopic order added on by [employer] Rules system. Performed By: #### 1 [id number], [id number], [id number] #### [facility] (DEFAULT) [address] [place] [address] UA Mucous 1+ [facility] Comment on above: Order Comment: Urina lysis Microscopic order added on by [employer] Rules system. Performed By: #### 1 [id number], [id number], [id number] #### [facility] (DEFAULT) [address] [place] [address] UA RBC 5-10 [facility] Comment on above: Order Comment: Urina lysis Microscopic order added on by [employer] Rules system. Performed By: #### 1 [id number], [id number], [id number] #### [facility] (DEFAULT) [address] [place] [address] UA Squam Epi Few [facility] Comment on above: Order Comment: Urina lysis Microscopic order added on by [employer] Rules system. Performed By: #### 1 [id number], [id number], [id number] #### [facility] (DEFAULT) [address] [place] [address] UA WBC 60-70 [facility] Comment on above: Order Comment: Urina lysis Microscopic order added on by [employer] Rules system. Performed By: #### 1 [id number], [id number], [id number] #### [facility] (DEFAULT) [address] [place] [address] UA w Culture if Ind Standard on 12-03-2022 Breakpoint UA [facility] Comment on above: Performed By: #### 1 [id number], [id number], [id number] #### [facility] (DEFAULT) [address] [place] [address] Color (U) Yellow [facility] Comment on above: Performed By: #### 1 [id number], [id number], [id number] #### [facility] (DEFAULT) [address] [place] [address] 91399 Culture? Indicated Invalid Interpretation Code [facility] Comment on above: Result Comment: Resu lt created by rule GL_MAGR_ADD_UA_CULT Result created by rule GL_MAGR_ADD_UA_CULT Result created by rule GL_MAGR_ADD_UA_CULT1 Result created by rule GL_MAGR_ADD_UA_CULT Performed By: #### 1 [id number], [id number], [id number] #### [facility] (DEFAULT) [address] [place] [address] 22688 Glucose (U) [Mass/Vol] Negative Normal [facility] Comment on above: Performed By: #### 1 [id number], [id number], [id number] #### [facility] (DEFAULT) [address] [place] [address] 23497 Ketones Ql (U) Negative Normal [facility] Comment on above: Performed By: #### 1 [id number], [id number], [id number] #### [facility] (DEFAULT) [address] [place] [address] 73598 Micro? Indicated Invalid Interpretation Code [facility] Comment on above: Result Comment: Resu lt created by rule GL_MAGR_ADD_UA_MICRO Performed By: #### 1 [id number], [id number], [id number] #### [facility] (DEFAULT) [address] [place] [address] 80297 UA Bilirubin Negative Normal [facility] Comment on above: Performed By: #### 1 [id number], [id number], [id number] #### [facility] (DEFAULT) [address] [place] [address] 66793 UA Blood TRACE Abnormal NEGATIVE [facility] Comment on above: Performed By: #### 1 [id number], [id number], [id number] #### [facility] (DEFAULT) [address] [place] [address] 75741 UA Clarity CLOUDY Abnormal CLEAR [facility] Comment on above: Performed By: #### 1 [id number], [id number], [id number] #### [facility] (DEFAULT) [address] [place] [address] 63417 UA Leuk Est LARGE Abnormal NEGATIVE [facility] Comment on above: Performed By: #### 1 [id number], [id number], [id number] #### [facility] (DEFAULT) [address] [place] [address] 51951 UA Nitrite Negative Normal NEGATIVE [facility] Comment on above: Performed By: #### 1 [id number], [id number], [id number] #### [facility] (DEFAULT) [address] [place] [address] 48676 UA pH 6.0 Normal 5-8 [facility] Comment on above: Performed By: #### 1 [id number], [id number], [id number] #### [facility] (DEFAULT) [address] [place] [address] 50693 UA Protein Negative Normal NEGATIVE [facility] Comment on above: Performed By: #### 1 [id number], [id number], [id number] #### [facility] (DEFAULT) [address] [place] [address] 34533 UA Spec Grav 1.025 Normal 1.001-1.035 [facility] Comment on above: Performed By: #### 1 [id number], [id number], [id number] #### [facility] (DEFAULT) [address] [place] [address] 88170 UA Urobilinogen 1.0 mg/dL Normal 0.2-1.0 [facility] Comment on above: Performed By: #### 1 [id number] #### [facility] (DEFAULT) [address] [place] [address] 14661 Urine Source Clean Catch Normal [facility] Comment on above: Performed By: #### 1 [id number] #### [facility] (DEFAULT) [address] [place] [address] [id number] CBC AUTO DIFFon 05-29-2022 BASO # 0.0 103/ul Normal 0.0-0.1 [facility] Comment on above: Performed By: #### C BC #### [facility] [address] [address] [address] Abdirashid Page Basophils/100 WBC (Bld) 0.3 % Normal 0.2-2.0 [facility] Comment on above: Performed By: #### C BC #### [facility] [address] [place] [address] Dr. Abdirashid Page EO # 0.1 103/ul Normal 0.0-0.7 [facility] Comment on above: Performed By: #### C BC #### [facility] [address] [place] [address] Dr. Abdirashid Page Eosinophils/100 WBC (Bld) 0.5 % Critically low 0.9-7.0 [facility] Comment on above: Performed By: #### C BC #### [facility] [address] [place] [address] Dr. Abdirashid Page Erythrocyte distribution width (RBC) [Ratio] 12.7 % Normal 11.0-15.0 [facility] Comment on above: Performed By: #### C BC #### [facility] [address] [place] [address] Dr. Abdirashid Page Hematocrit (Bld) [Volume fraction] 36.0 % Normal 36.0-48.0 [facility] Comment on above: Performed By: #### C BC #### [facility] [address] [place] [address] Dr. Abdirashid Page Hemoglobin (Bld) [Mass/Vol] 12.0 g/dL Normal 12.0-16.0 [facility] Comment on above: Performed By: #### C BC #### [facility] [address] [place] [address] Dr. Abdirashid Page IG # 0.05 10e3/ul Critically high 0.00-0.03 [facility] Comment on above: Performed By: #### C BC #### [facility] [address] [place] [address] Dr. Abdirashid Page IG % 0.4 % Normal 0.0-0.5 [facility] Comment on above: Performed By: #### C BC #### [facility] [address] [place] [address] Dr. Abdirashid Page LYMPH # 1.5 103/ul Normal 1.2-3.8 [facility] Comment on above: Performed By: #### C BC #### [facility] [address] [place] [address] Dr. Abdirashid Page Lymphocytes/100 WBC (Bld) 11.8 % Critically low 20.5-60.0 [facility] Comment on above: Performed By: #### C BC #### [facility] [address] [place] [address] Dr. Abdirashid Page MANUAL DIFF REQ NO Normal [facility] Comment on above: Performed By: #### C BC #### [facility] [address] [place] [address] Dr. Abdirashid Page MCH (RBC) [Entitic mass] 31.7 pg Normal 26.7-34.0 [facility] Comment on above: Performed By: #### C BC #### [facility] [address] [place] [address] Dr. Abdirashid Page MCHC (RBC) [Mass/Vol] 33.3 g/dL Normal 29.9-35.2 [facility] Comment on above: Performed By: #### C BC #### [facility] [address] [place] [address] Dr. Abdirashid Page MCV (RBC) [Entitic vol] 95.2 fL Normal 81.0-99.0 [facility] Comment on above: Performed By: #### C BC #### [facility] [address] [place] [address] Dr. Abdirashid Page MONO # 1.1 103/ul Critically high 0.3-0.8 [facility] Comment on above: Performed By: #### C BC #### [facility] [address] [place] [address] Dr. Abdirashid Page Monocytes/100 WBC (Bld) 8.2 % Normal 1.7-12.0 [facility] Comment on above: Performed By: #### C BC #### [facility] [address] [place] [address] Dr. Abdirashid Page NEUT # 10.2 103/ul Critically high 1.4-6.5 [facility] Comment on above: Performed By: #### C BC #### [facility] [id number] Abdirashid Page Neutrophils/100 WBC (Bld) 78.8 % Critically high 43.0-75.0 [facility] Comment on above: Performed By: #### C BC #### [facility] [address] [place] [address] Dr. Abdirashid Page Platelet mean volume (Bld) [Entitic vol] 9.3 fL Critically low 9.5-13.5 [facility] Comment on above: Performed By: #### C BC #### [facility] [address] [place] [address] Dr. Abdirashid Page PLT 435 103/ul Normal 150-450 [facility] Comment on above: Performed By: #### C BC #### [facility] [address] [place] [address] Dr. Abdirashid Page RBC 3.78 106/ul Critically low 4.20-5.40 [facility] Comment on above: Performed By: #### C BC #### [facility] [address] [place], [place] [id number] Dr. Abdirashid Page WBC 13.0 103/ul Critically high 4.0-11.0 [facility] Comment on above: Performed By: #### C BC #### [facility] [address] [place] [address] Dr. Abdirashid Page CT HEAD WO CONon [...] BANDAR BILL Date: 2022-05-29 15:30 Normal [facility] CULTURE URINEon 05-29-2022 CULTURE URINE Culture Observations : LIGHT GROWTH OF MIXED GENITAL MADELEINE. NO POTENTIAL PATHOGENS SEEN. Normal [facility] Comment on above: Performed By: #### C MP #### [facility] [address] [place] [address] Dr. Abdirashid Page ER URINE PROFILEon 3 Bilirubin Ql (U) Negative Normal NEGATIVE [facility] Comment on above: Performed By: #### U MICRO, ERUR #### [facility] [address] [place] [address] Dr. Abdirashid Page Clarity (U) CLEAR Normal CLEAR [facility] Comment on above: Performed By: #### U MICRO, ERUR #### [facility] [address] [place] [address] Dr. Abdirashid Page Color (U) YELLOW Normal YELLOW [facility] Comment on above: Performed By: #### U MICRO, ERUR #### [facility] [address] [place] [address] Dr. Abdirashid Page ERUAHD A micrscopic examination will be performed if indicated. Normal [facility] Comment on above: Performed By: #### U MICRO, ERUR #### [facility] [address] [place] [address] Dr. Abdirashid Page Glucose Ql (U) 250 mg/dl Abnormal NEGATIVE [facility] Comment on above: Performed By: #### U MICRO, ERUR #### [facility] [address] [place] [address] Dr. Abdirashid Page Hemoglobin Ql (U) Negative Normal NEGATIVE [facility] Comment on above: Performed By: #### U MICRO, ERUR #### [facility] [address] [address] [address] Abdirashid Page Ketones Ql (U) Negative Normal NEGATIVE [facility] Comment on above: Performed By: #### U MICRO, ERUR #### [facility] [address] [place] [address] Dr. Abdirashid Page LEUKOCYTES MODERATE Abnormal NEGATIVE [facility] Comment on above: Performed By: #### U MICRO, ERUR #### [facility] [address] [address] [address] Abdirashid Page Nitrite Ql (U) Negative Normal NEGATIVE [facility] Comment on above: Performed By: #### U MICRO, ERUR #### [facility] [address] [place] [address] Dr. Abdirashid Page pH (U) 5.5 [pH] Normal 5-9 [facility] Comment on above: Performed By: #### U MICRO, ERUR #### [facility] [address] [place] [address] Dr. Abdirashid Page SPEC GRAVITY 1.025 Normal 1.005-<=1.025 [facility] Comment on above: Performed By: #### U MICRO, ERUR #### [facility] [address] [place] [address] Dr. Abdirashid Page UA PROTEIN Negative Normal NEGATIVE/ TRACE [facility] Comment on above: Performed By: #### U MICRO, ERUR #### [facility] [address] [place] [address] Dr. Abdirashid Page UR MICRO IND INDICATED Normal [facility] Comment on above: Performed By: #### U MICRO, ERUR #### [facility] [address] [place] [address] Dr. Abdirashid Page Urobilinogen Qn (U) 0.2 {Mary Ann'U}/dL Normal 0.2 - 1. 0 [facility] Comment on above: Performed By: #### U MICRO, ERUR #### [facility] [address] [place] [address] Dr. Abdirashid Page POINT OF CARE GLUCOSEon - Glucose [Mass/Vol] 142 mg/dL Critically high 74-106 [facility] Comment on above: Performed By: #### C BC #### [facility] [address] [place] [address] Dr. Abdirashid Page PROF 14(COMP METB)on 023 Albumin [Mass/Vol] 3.6 g/dL Normal 3.4-5.0 [facility] Comment on above: Performed By: #### C ETHEL, HSTROPN #### [facility] [address] [place] [address] Dr. Abdirashid Page Albumin/Globulin [Mass ratio] 1.2 {ratio} Normal [facility] Comment on above: Performed By: #### C ETHEL, HSTROPN #### [facility] [address] [place] [address] Dr. Abdirashid Page ALP [Catalytic activity/Vol] 77 U/L Normal 46-116 [facility] Comment on above: Performed By: #### C ETHEL, HSTROPN #### [facility] [address] [place] [address] Dr. Abdirashid Page ALT [Catalytic activity/Vol] 39 U/L Normal 14-59 [facility] Comment on above: Performed By: #### C ETHEL, HSTROPN #### [facility] [address] [place] [address] Dr. Abdirashid Page Anion gap [Moles/Vol] 13.2 mmol/L Normal [facility] Comment on above: Performed By: #### C ETHEL, HSTROPN #### [facility] [address] [place] [address] Dr. Abdirashid Page AST [Catalytic activity/Vol] 20 U/L Normal 15-37 [facility] Comment on above: Performed By: #### C MP, HSTROPN #### [facility] [address] [place] [address] Dr. Abdirashid Page Bilirubin [Mass/Vol] 0.4 mg/dL Normal 0.2-1.0 [facility] Comment on above: Performed By: #### C ETHEL, HSTROPN #### [facility] [address] [address] [address] Abdirashid Page Calcium [Mass/Vol] 9.2 mg/dL Normal 8.5-10.1 [facility] Comment on above: Performed By: #### C MP, HSTROPN #### [facility] [address] [address] [address] Abdirashid Page Chloride [Moles/Vol] 98 mmol/L Normal 98-107 [facility] Comment on above: Performed By: #### C MP, HSTROPN #### [facility] [address] [address] [address] Abdirashid Page CO2 [Moles/Vol] 30.3 mmol/L Normal 21.0-32.0 [facility] Comment on above: Performed By: #### C MP, HSTROPN #### [facility] [address] [place] [address] Dr. Abdirashid Page Creatinine [Mass/Vol] 1.58 mg/dL Critically high 0.55-1.02 [facility] Comment on above: Performed By: #### C MP, HSTROPN #### [facility] [address] [address] [address] Abdirashid Page EGFR-AF UGANDAN 40 mL/min/1.73m2 Critically low >=60 [facility] Comment on above: Performed By: #### C MP, HSTROPN #### [facility] [address] [address] [address] Abdirashid Page EGFR-NON AF UGANDAN 33 mL/min/1.73m2 Critically low >=60 [facility] Comment on above: Performed By: #### C MP, HSTROPN #### [facility] [address] [address] [address] Abdirashid Page Globulin (S) [Mass/Vol] 2.9 g/dL Normal [facility] Comment on above: Performed By: #### C MP, HSTROPN #### [facility] [address] [address] [address] Abdirashid Page Glucose [Mass/Vol] 156 mg/dL Critically high 74-106 [facility] Comment on above: Performed By: #### C MP, HSTROPN #### [facility] [address] [address] [address] Abdirashid Page Potassium [Moles/Vol] 3.5 mmol/L Normal 3.5-5.1 [facility] Comment on above: Performed By: #### C MP, HSTROPN #### [facility] [address] [place] [address] Dr. Abdirashid Page Protein [Mass/Vol] 6.5 g/dL Normal 6.4-8.2 [facility] Comment on above: Performed By: #### C MP, HSTROPN #### [facility] [address] [place] [address] Dr. Abdirashid Page Sodium [Moles/Vol] 138 mmol/L Normal 136-145 [facility] Comment on above: Performed By: #### C MP, HSTROPN #### [facility] [address] [place] [address] Dr. Abdirashid Page Urea nitrogen [Mass/Vol] 26.0 mg/dL Critically high 7.0-18.0 [facility] Comment on above: Performed By: #### C MP, HSTROPN #### [facility] [address] [place] [address] Dr. Abdirashid Page Urea nitrogen/Creatinine [Mass ratio] 16.5 mg/mg Normal [facility] Comment on above: Performed By: #### C MP, HSTROPN #### [facility] [address] [place] [address] Dr. Abdirashid Page TROPONIN, HIGH SENSITIVITYon 05-29-2022 HSTROP 35.4 pg/mL Normal 4.0-51.3 [facility] Comment on above: Result Comment: CUT- OFF POINTS HAVE BEEN ESTABLISHED BASED ON THE FOURTH UNIVERSAL DEFINITIONS OF MYOCARDIAL INFARCTION. THE UPPER REFERENCE LIMIT (URL) OF TROPONIN, DEFINED THE 99TH PERCENTILE OF cTnI DISTRIBUTION IN A REFERENCE POPULATION, HAS BEEN CONFIRMED THE DECISION THRESHOLD FOR OK DIAGNOSIS. Performed By: #### H STROPN #### [facility] [address] [place] [address] Dr. Abdirashid Page HSTROP 36.5 pg/mL Normal 4.0-51.3 [facility] Comment on above: Result Comment: CUT- OFF POINTS HAVE BEEN ESTABLISHED BASED ON THE FOURTH UNIVERSAL DEFINITIONS OF MYOCARDIAL INFARCTION. THE UPPER REFERENCE LIMIT (URL) OF TROPONIN, DEFINED THE 99TH PERCENTILE OF cTnI DISTRIBUTION IN A REFERENCE POPULATION, HAS BEEN CONFIRMED THE DECISION THRESHOLD FOR OK DIAGNOSIS. Performed By: #### C MP, HSTROPN #### [facility] [address] [address] [address] Abdirashid Page URINE MICROSCOPIC ONLYon BACTERIA TRACE Abnormal NONE SEEN [facility] Comment on above: Performed By: #### U MICRO, ERUR #### [facility] [address] [place] [address] Dr. Abdirashid Page Bacteria identified Cx Nom (U) INDICATED Normal [facility] Comment on above: Performed By: #### U MICRO, ERUR #### [facility] [address] [place] [address] Dr. Abdirashid Page CAST NONE SEEN Normal NONE SEEN [facility] Comment on above: Performed By: #### U MICRO, ERUR #### [facility] [address] [place] [address] Dr. Abdirashid Page Crystals LM Nom (Urine sed) SEEN Abnormal NONE SEEN [facility] Comment on above: Performed By: #### U MICRO, ERUR #### [facility] [address] [place] [address] Dr. Abdirashid Page Epithelial cells LM Ql (Urine sed) MODERATE Abnormal NONE SEEN /RARE [facility] Comment on above: Performed By: #### U MICRO, ERUR #### [facility] [address] [place] [address] Dr. Abdirashid Page MUCOUS NONE SEEN Normal NONE SEEN [facility] Comment on above: Performed By: #### U MICRO, ERUR #### [facility] [address] [place] [address] Dr. Abdirashid Page RBC 2-5 Abnormal 0-2 [facility] Comment on above: Performed By: #### U MICRO, ERUR #### [facility] [address] [place] [address] Dr. Abdirashid Page WBC 10-20 Abnormal NONE SEEN [facility] Comment on above: Performed By: #### U MICRO, ERUR #### [facility] [address] [place] [address] Dr. Abdirashid Page CULTURE URINEon 05-06-2022 CULTURE URINE Culture Observations : MODERATE GROWTH OF MIXED GENITAL MADELEINE. NO POTENTIAL PATHOGENS SEEN. Normal [facility] Comment on above: Performed By: #### C MP #### [facility] [address] [place] [address] Dr. Abdirashid Page UA RANDOM W/MICROSCOPICon BACTERIA SMALL Abnormal NONE SEEN [facility] Comment on above: Performed By: #### U MICRO, ERUR #### [facility] [address] [place] [address] Dr. Abdirashid Page Bilirubin Ql (U) MODERATE Abnormal NEGATIVE [facility] Comment on above: Performed By: #### U MICRO, ERUR #### [facility] [address] [place] [address] Dr. Abdirashid Page CAST NONE SEEN Normal NONE SEEN [facility] Comment on above: Performed By: #### U MICRO, ERUR #### [facility] [address] [place] [address] Dr. Abdirashid Page Clarity (U) CLEAR Normal CLEAR [facility] Comment on above: Performed By: #### U MICRO, ERUR #### [facility] [address] [place] [address] Dr. Abdirashid Page Color (U) LT. YELLOW Normal YELLOW [facility] Comment on above: Performed By: #### U MICRO, ERUR #### [facility] [address] [place] [address] Dr. Abdirashid Page Crystals LM Nom (Urine sed) NONE SEEN Normal NONE SEEN [facility] Comment on above: Performed By: #### U MICRO, ERUR #### [facility] [address] [place] [address] Dr. Abdirashid Page Epithelial cells LM Ql (Urine sed) FEW Abnormal NONE SEEN /RARE [facility] Comment on above: Performed By: #### U MICRO, ERUR #### [facility] [address] [address] [address] Abdirashid Page Glucose Ql (U) Negative Normal NEGATIVE [facility] Comment on above: Performed By: #### U MICRO, ERUR #### [facility] [address] [address] [address] Abdirashid Page Hemoglobin Ql (U) TRACE-INTACT Abnormal NEGATIVE [facility] Comment on above: Performed By: #### U MICRO, ERUR #### [facility] [address] [address] [address] Abdirashid Page Ketones Ql (U) TRACE Abnormal NEGATIVE [facility] Comment on above: Performed By: #### U MICRO, ERUR #### [facility] [address] [address] [address] Abdirashid Paeg LEUKOCYTES MODERATE Abnormal NEGATIVE [facility] Comment on above: Performed By: #### U MICRO, ERUR #### [facility] [address] [address] [address] Abdirashid Page MUCOUS NONE SEEN Normal NONE SEEN [facility] Comment on above: Performed By: #### U MICRO, ERUR #### [facility] [address] [address] [address] Abdirashid Page Nitrite Ql (U) Negative Normal NEGATIVE [facility] Comment on above: Performed By: #### U MICRO, ERUR #### [facility] [address] [address] [address] Abdirashid Page pH (U) 5.5 [pH] Normal 5-9 [facility] Comment on above: Performed By: #### U MICRO, ERUR #### [facility] [address] [address] [address] Abdirashid Page RBC 0-2 Normal 0-2 [facility] Comment on above: Performed By: #### U MICRO, ERUR #### [facility] [address] [address] [address] Abdirashid Page SPEC GRAVITY >=1.030 Abnormal 1.005-<=1.025 [facility] Comment on above: Performed By: #### U MICRO, ERUR #### [facility] [address] [address] [address] Abdirashid Page UA PROTEIN TRACE Normal NEGATIVE/ TRACE [facility] Comment on above: Performed By: #### U MICRO, ERUR #### [facility] [address] [place], [place] [address] Dr. Abdirashid Page Urobilinogen Qn (U) 0.2 {Mary Ann'U}/dL Normal 0.2 - 1. 0 [facility] Comment on above: Performed By: #### U MICRO, ERUR #### [facility] [address] [address] [address] Abdirashid Page WBC 20-50 Abnormal NONE SEEN [facility] Comment on above: Performed By: #### U MICRO, ERUR #### [facility] [address] [address] [address] Abdirashid Page US KIDNEYSon 05-06-2022 US [...] BENNIE MORAN Date: 2022-05-06 13:20 Normal [facility] CBC AUTO DIFFon 04-29-2022 BASO # 0.1 103/ul Normal 0.0-0.1 [facility] Comment on above: Performed By: #### U MICRO, ERUR #### [facility] [address] [place] [address] Dr. Abdirashid Page Basophils/100 WBC (Bld) 0.4 % Normal 0.2-2.0 [facility] Comment on above: Performed By: #### U MICRO, ERUR #### [facility] [address] [place] [address] Dr. Abdirashid Page EO # 0.1 103/ul Normal 0.0-0.7 [facility] Comment on above: Performed By: #### U MICRO, ERUR #### [facility] [address] [place] [address] Dr. Abdirashid Page Eosinophils/100 WBC (Bld) 0.9 % Normal 0.9-7.0 [facility] Comment on above: Performed By: #### U MICRO, ERUR #### [facility] [address] [place] [address] Dr. Abdirashid Page Erythrocyte distribution width (RBC) [Ratio] 13.6 % Normal 11.0-15.0 [facility] Comment on above: Performed By: #### U MICRO, ERUR #### [facility] [address] [place] [address] Dr. Abdirashid Page Hematocrit (Bld) [Volume fraction] 33.4 % Critically low 36.0-48.0 [facility] Comment on above: Performed By: #### U MICRO, ERUR #### [facility] [address] [place] [address] Dr. Abdirashid Page Hemoglobin (Bld) [Mass/Vol] 10.9 g/dL Critically low 12.0-16.0 [facility] Comment on above: Performed By: #### U MICRO, ERUR #### [facility] [address] [place] [address] Dr. Abdirashid Page IG # 0.21 10e3/ul Critically high 0.00-0.03 [facility] Comment on above: Performed By: #### U MICRO, ERUR #### [facility] [address] [address] [address] Abdirashid Page IG % 1.5 % Critically high 0.0-0.5 [facility] Comment on above: Performed By: #### U MICRO, ERUR #### [facility] [address] [address] [address] Abdirashid Page LYMPH # 2.8 103/ul Normal 1.2-3.8 [facility] Comment on above: Performed By: #### U MICRO, ERUR #### [facility] [address] [address] [address] Abdirashid Page Lymphocytes/100 WBC (Bld) 19.9 % Critically low 20.5-60.0 [facility] Comment on above: Performed By: #### U MICRO, ERUR #### [facility] [address] [address] [address] Abdirashid Page MANUAL DIFF REQ NO Normal [facility] Comment on above: Performed By: #### U MICRO, ERUR #### [facility] [address] [address] [address] Abdirashid Page MCH (RBC) [Entitic mass] 31.6 pg Normal 26.7-34.0 [facility] Comment on above: Performed By: #### U MICRO, ERUR #### [facility] [address] [address] [address] Abdirashid Page MCHC (RBC) [Mass/Vol] 32.6 g/dL Normal 29.9-35.2 [facility] Comment on above: Performed By: #### U MICRO, ERUR #### [facility] [address] [address] [address] Abdirashid Page MCV (RBC) [Entitic vol] 96.8 fL Normal 81.0-99.0 [facility] Comment on above: Performed By: #### U MICRO, ERUR #### [facility] [address] [address] [address] Abdirashid Page MONO # 1.3 103/ul Critically high 0.3-0.8 [facility] Comment on above: Performed By: #### U MICRO, ERUR #### [facility] [address] [address] [address] Abdirashid Page Monocytes/100 WBC (Bld) 9.1 % Normal 1.7-12.0 [facility] Comment on above: Performed By: #### U MICRO, ERUR #### [facility] [address] [address] [address] Abdirashid Page NEUT # 9.5 103/ul Critically high 1.4-6.5 [facility] Comment on above: Performed By: #### U MICRO, ERUR #### [facility] [address] [place] [address] Dr. Abdirashid Page Neutrophils/100 WBC (Bld) 68.2 % Normal 43.0-75.0 [facility] Comment on above: Performed By: #### U MICRO, ERUR #### [facility] [address] [place] [address] Dr. Abdirashid Page Platelet mean volume (Bld) [Entitic vol] 9.4 fL Critically low 9.5-13.5 [facility] Comment on above: Performed By: #### U MICRO, ERUR #### [facility] [address] [place] [address] Dr. Abdirashid Page PLT 476 103/ul Critically high 150-450 [facility] Comment on above: Performed By: #### U MICRO, ERUR #### [facility] [address] [place] [address] Dr. Abdirashid Page RBC 3.45 106/ul Critically low 4.20-5.40 [facility] Comment on above: Performed By: #### U MICRO, ERUR #### [facility] [address] [place] [address] Dr. Abdirashid Page WBC 14.0 103/ul Critically high 4.0-11.0 [facility] Comment on above: Performed By: #### U MICRO, ERUR #### [facility] [address] [place] [address] Dr. Abdirashid Page PROF 14(COMP METB)on 023 Albumin [Mass/Vol] 3.6 g/dL Normal 3.4-5.0 [facility] Comment on above: Performed By: #### C MP #### [facility] [address] [place] [address] Dr. Abdirashid Page Albumin/Globulin [Mass ratio] 1.2 {ratio} Normal [facility] Comment on above: Performed By: #### C MP #### [facility] [address] [place] [address] Dr. Abdirashid Page ALP [Catalytic activity/Vol] 83 U/L Normal 46-116 [facility] Comment on above: Performed By: #### C MP #### [facility] [address] [place] [address] Dr. Abdirashid Page ALT [Catalytic activity/Vol] 24 U/L Normal 14-59 [facility] Comment on above: Performed By: #### C MP #### [facility] [address] [place] [address] Dr. Abdirashid Page Anion gap [Moles/Vol] 14.4 mmol/L Normal [facility] Comment on above: Performed By: #### C MP #### [facility] [address] [place] [address] Dr. Abdirashid Page AST [Catalytic activity/Vol] 15 U/L Normal 15-37 [facility] Comment on above: Performed By: #### C MP #### [facility] [address] [place] [address] Dr. Abdirashid Page Bilirubin [Mass/Vol] 0.3 mg/dL Normal 0.2-1.0 [facility] Comment on above: Performed By: #### C MP #### [facility] [address] [place] [address] Dr. Abdirashid Page Calcium [Mass/Vol] 9.3 mg/dL Normal 8.5-10.1 [facility] Comment on above: Performed By: #### C MP #### [facility] [address] [place] [address] Dr. Abdirashid Page Chloride [Moles/Vol] 100 mmol/L Normal 98-107 [facility] Comment on above: Performed By: #### C MP #### [facility] [address] [address] [address] Abdirashid Page CO2 [Moles/Vol] 26.8 mmol/L Normal 21.0-32.0 [facility] Comment on above: Performed By: #### C MP #### [facility] [address] [address] [address] Abdirashid Page Creatinine [Mass/Vol] 2.20 mg/dL Critically high 0.55-1.02 [facility] Comment on above: Performed By: #### C MP #### [facility] [address] [address] [address] Abdirashid Page EGFR-AF UGANDAN 27 mL/min/1.73m2 Critically low >=60 [facility] Comment on above: Performed By: #### C MP #### [facility] [address] [address] [address] Abdirashid Page EGFR-NON AF UGANDAN 22 mL/min/1.73m2 Critically low >=60 [facility] Comment on above: Performed By: #### C MP #### [facility] [address] [address] [address] Abdirashid Page Globulin (S) [Mass/Vol] 3.1 g/dL Normal [facility] Comment on above: Performed By: #### C MP #### [facility] [address] [address] [address] Abdirahsid Page Glucose [Mass/Vol] 126 mg/dL Critically high 74-106 [facility] Comment on above: Performed By: #### C MP #### [facility] [address] [address] [address] Abdirashid Page Potassium [Moles/Vol] 4.2 mmol/L Normal 3.5-5.1 [facility] Comment on above: Performed By: #### C MP #### [facility] [address] [address] [address] Abdirashid Page Protein [Mass/Vol] 6.7 g/dL Normal 6.4-8.2 [facility] Comment on above: Performed By: #### C MP #### [facility] [address] [place], [place] [address] Dr. Abdirashid Page Sodium [Moles/Vol] 137 mmol/L Normal 136-145 [facility] Comment on above: Performed By: #### C MP #### [facility] [address] [place], [place] [address] Dr. Abdirashid Page Urea nitrogen [Mass/Vol] 39.0 mg/dL Critically high 7.0-18.0 [facility] Comment on above: Performed By: #### C MP #### [facility] [address] [place], [place] [address] Dr. Abdirashid Page Urea nitrogen/Creatinine [Mass ratio] 17.7 mg/mg Normal [facility] Comment on above: Performed By: #### C MP #### [facility] [address] [place], [place] [address] Dr. Abdirashid Page MRI LSPINE WO CONon [...] GERONIMO LOPEZ Date: 2022-04-14 16:39 Normal [facility] CBC AUTO DIFFon 04-10-2022 BASO # 0.1 103/ul Normal 0.0-0.1 [facility] Comment on above: Performed By: #### C BC #### [facility] [address] [place] [address] Dr. Abdirashid Page Basophils/100 WBC (Bld) 0.5 % Normal 0.2-2.0 [facility] Comment on above: Performed By: #### C BC #### [facility] [address] [place] [address] Dr. Abdirashid Page EO # 0.1 103/ul Normal 0.0-0.7 [facility] Comment on above: Performed By: #### C BC #### [facility] [address] [place] [address] Dr. Abdirashid Page Eosinophils/100 WBC (Bld) 1.1 % Normal 0.9-7.0 [facility] Comment on above: Performed By: #### C BC #### [facility] [address] [place] [address] Dr. Abdirashid Page Erythrocyte distribution width (RBC) [Ratio] 14.2 % Normal 11.0-15.0 [facility] Comment on above: Performed By: #### C BC #### [facility] [address] [place] [address] Dr. Abdirashid Page Hematocrit (Bld) [Volume fraction] 32.7 % Critically low 36.0-48.0 [facility] Comment on above: Performed By: #### C BC #### [facility] [address] [place] [address] Dr. Abdirashid Page Hemoglobin (Bld) [Mass/Vol] 10.9 g/dL Critically low 12.0-16.0 [facility] Comment on above: Performed By: #### C BC #### [facility] [address] [place] [address] Dr. Abdirashid Page IG # 0.22 10e3/ul Critically high 0.00-0.03 [facility] Comment on above: Performed By: #### C BC #### [facility] [address] [place] [address] Dr. bAdirashid Page IG % 2.2 % Critically high 0.0-0.5 [facility] Comment on above: Performed By: #### C BC #### [facility] [address] [place] [address] Dr. Abdirashid Page LYMPH # 2.1 103/ul Normal 1.2-3.8 [facility] Comment on above: Performed By: #### C BC #### [facility] [address] [place] [address] Dr. Abdirashid Page Lymphocytes/100 WBC (Bld) 20.9 % Normal 20.5-60.0 [facility] Comment on above: Performed By: #### C BC #### [facility] [address] [place] [address] Dr. Abdirashid Page MANUAL DIFF REQ NO Normal [facility] Comment on above: Performed By: #### C BC #### [facility] [address] [place] [address] Dr. Abdirashid Page MCH (RBC) [Entitic mass] 31.9 pg Normal 26.7-34.0 [facility] Comment on above: Performed By: #### C BC #### [facility] [address] [place] [address] Dr. Abdirashid Page MCHC (RBC) [Mass/Vol] 33.3 g/dL Normal 29.9-35.2 [facility] Comment on above: Performed By: #### C BC #### [facility] [address] [place] [address] Dr. Abdirashid Page MCV (RBC) [Entitic vol] 95.6 fL Normal 81.0-99.0 [facility] Comment on above: Performed By: #### C BC #### [facility] [address] [place] [address] [address] Abdirashid Page MONO # 1.0 103/ul Critically high 0.3-0.8 [facility] Comment on above: Performed By: #### C BC #### [facility] [address] [place] [address] [address] Abdirashid Page Monocytes/100 WBC (Bld) 10.1 % Normal 1.7-12.0 [facility] Comment on above: Performed By: #### C BC #### [facility] [address] [place] [address] Dr. Abdirashid Page NEUT # 6.4 103/ul Normal 1.4-6.5 [facility] Comment on above: Performed By: #### C BC #### [facility] [address] [place] [address] Dr. Abdirashid Page Neutrophils/100 WBC (Bld) 65.2 % Normal 43.0-75.0 [facility] Comment on above: Performed By: #### C BC #### [facility] [address] [place] [address] Dr. Abdirashid Page Platelet mean volume (Bld) [Entitic vol] 8.9 fL Critically low 9.5-13.5 [facility] Comment on above: Performed By: #### C BC #### [facility] [address] [place] [address] Dr. Abdirashid Page PLT 409 103/ul Normal 150-450 [facility] Comment on above: Performed By: #### C BC #### [facility] [address] [place] [address] Dr. Abdirashid Page RBC 3.42 106/ul Critically low 4.20-5.40 [facility] Comment on above: Performed By: #### C BC #### [facility] [address] [place] [address] Dr. Abdirashid Page WBC 9.8 103/ul Normal 4.0-11.0 [facility] Comment on above: Performed By: #### C BC #### [facility] [address] [place] [address] [address] Abdirashid Page PROF 14(COMP METB)on 022 Albumin [Mass/Vol] 3.3 g/dL Critically low 3.4-5.0 [facility] Comment on above: Performed By: #### C MP #### [facility] [address] [place] [address] Dr. Abdirashid Page Albumin/Globulin [Mass ratio] 1.0 {ratio} Normal [facility] Comment on above: Performed By: #### C MP #### [facility] [address] [place] [address] Dr. Abdirashid Page ALP [Catalytic activity/Vol] 79 U/L Normal 46-116 [facility] Comment on above: Performed By: #### C MP #### [facility] [address] [place] [address] Dr. Abdirashid Page ALT [Catalytic activity/Vol] 31 U/L Normal 14-59 [facility] Comment on above: Performed By: #### C MP #### [facility] [address] [place] [address] Dr. Abdirashid Page Anion gap [Moles/Vol] 13.3 mmol/L Normal [facility] Comment on above: Performed By: #### C MP #### [facility] [address] [place] [address] Dr. Abdirashid Page AST [Catalytic activity/Vol] 20 U/L Normal 15-37 [facility] Comment on above: Performed By: #### C MP #### [facility] [address] [place] [address] Dr. Abdirashid Page Bilirubin [Mass/Vol] 0.5 mg/dL Normal 0.2-1.0 [facility] Comment on above: Performed By: #### C MP #### [facility] [address] [place] [address] [address] Abdirashid Page Calcium [Mass/Vol] 9.2 mg/dL Normal 8.5-10.1 [facility] Comment on above: Performed By: #### C MP #### [facility] [address] [place] [address] [address] Abdirashid Page Chloride [Moles/Vol] 101 mmol/L Normal 98-107 [facility] Comment on above: Performed By: #### C MP #### [facility] [address] [place] [address] [address] Abdirashid Page CO2 [Moles/Vol] 27.9 mmol/L Normal 21.0-32.0 [facility] Comment on above: Performed By: #### C MP #### [facility] [address] [place] [address] [address] Abdirashid Page Creatinine [Mass/Vol] 1.36 mg/dL Critically high 0.55-1.02 [facility] Comment on above: Performed By: #### C MP #### [facility] [address] [place] [address] [address] Abdirashid Page EGFR-AF UGANDAN 47 mL/min/1.73m2 Critically low >=60 [facility] Comment on above: Performed By: #### C MP #### [facility] [address] [place] [address] [address] Abdirashid Page EGFR-NON AF UGANDAN 39 mL/min/1.73m2 Critically low >=60 [facility] Comment on above: Performed By: #### C MP #### [facility] [address] [place] [address] [address] Abdirashid Page Globulin (S) [Mass/Vol] 3.4 g/dL Normal [facility] Comment on above: Performed By: #### C MP #### [facility] [address] [place] [address] [address] Abdirashid Page Glucose [Mass/Vol] 120 mg/dL Critically high 74-106 [facility] Comment on above: Performed By: #### C MP #### [facility] [address] [place] [address] [address] Abdirashid Page Potassium [Moles/Vol] 5.2 mmol/L Critically high 3.5-5.1 [facility] Comment on above: Performed By: #### C MP #### [facility] [address] [place] [address] [address] Abdirashid Page Protein [Mass/Vol] 6.7 g/dL Normal 6.4-8.2 [facility] Comment on above: Performed By: #### C MP #### [facility] [address] [place] [address] [address] Abdirashid Page Sodium [Moles/Vol] 137 mmol/L Normal 136-145 [facility] Comment on above: Performed By: #### C MP #### [facility] [address] [place] [address] [address] Abdirashid Page Urea nitrogen [Mass/Vol] 32.0 mg/dL Critically high 7.0-18.0 [facility] Comment on above: Performed By: #### C MP #### [facility] [address] [place] [address] Dr. Abdirashid Page Urea nitrogen/Creatinine [Mass ratio] 23.5 mg/mg Normal [facility] Comment on above: Performed By: #### C MP #### [facility] [address] [place] [address] Dr. Abdirashid Page BNPon 03-27-2022 Natriuretic peptide B (Bld) [Mass/Vol] 455.0 pg/mL Normal <=900.0 [facility] Comment on above: Performed By: #### C MP #### [facility] [address] [place] [address] Dr. Abdirashid Page CARDIAC ROGER ADMITon 022 CK [Catalytic activity/Vol] 61 U/L Normal 26-192 [facility] Comment on above: Performed By: #### C MP #### [facility] [address] [place] [address] Dr. Abdirashid Page CK.MB [Mass/Vol] 3.26 ng/mL Normal <=3.60 [facility] Comment on above: Performed By: #### C MP #### [facility] [address] [place] [address] Dr. Abdirashid Page HSTROP 27.9 pg/mL Normal 4.0-51.3 [facility] Comment on above: Result Comment: CUT- OFF POINTS HAVE BEEN ESTABLISHED BASED ON THE FOURTH UNIVERSAL DEFINITIONS OF MYOCARDIAL INFARCTION. THE UPPER REFERENCE LIMIT (URL) OF TROPONIN, DEFINED THE 99TH PERCENTILE OF cTnI DISTRIBUTION IN A REFERENCE POPULATION, HAS BEEN CONFIRMED THE DECISION THRESHOLD FOR OK DIAGNOSIS. Performed By: #### C MP #### [facility] [address] [place] [address] Dr. Abdirashid Page PILAR 113 ng/mL Critically high 9-82 [facility] Comment on above: Performed By: #### C MP #### [facility] [address] [place] [address] Dr. Abdirashid Page CBC AUTO DIFFon 03-27-2022 BASO # 0.1 103/ul Normal 0.0-0.1 [facility] Comment on above: Performed By: #### C BC #### [facility] [address] [place] [address] Dr. Abdirashid Page Basophils/100 WBC (Bld) 0.4 % Normal 0.2-2.0 [facility] Comment on above: Performed By: #### C BC #### [facility] [address] [place] [address] Dr. Abdirashid Page EO # 0.1 103/ul Normal 0.0-0.7 [facility] Comment on above: Performed By: #### C BC #### [facility] [address] [place] [address] Dr. Abdirashid Page Eosinophils/100 WBC (Bld) 0.5 % Critically low 0.9-7.0 [facility] Comment on above: Performed By: #### C BC #### [facility] [address] [place] [address] Dr. Abdirashid Page Erythrocyte distribution width (RBC) [Ratio] 13.6 % Normal 11.0-15.0 [facility] Comment on above: Performed By: #### C BC #### [facility] [address] [place] [address] Dr. Abdirashid Page Hematocrit (Bld) [Volume fraction] 34.5 % Critically low 36.0-48.0 [facility] Comment on above: Performed By: #### C BC #### [facility] [address] [place] [address] [address] Abdirashid Page Hemoglobin (Bld) [Mass/Vol] 11.5 g/dL Critically low 12.0-16.0 [facility] Comment on above: Performed By: #### C BC #### [facility] [address] [place] [address] [address] Abdirashid Page IG # 0.48 10e3/ul Critically high 0.00-0.03 [facility] Comment on above: Performed By: #### C BC #### [facility] [address] [place] [address] Dr. Abdirashid Page IG % 3.2 % Critically high 0.0-0.5 [facility] Comment on above: Performed By: #### C BC #### [facility] [address] [place] [address] Dr. Abdirashid Page LYMPH # 1.8 103/ul Normal 1.2-3.8 [facility] Comment on above: Performed By: #### C BC #### [facility] [address] [place] [address] Dr. Abdirashid Page Lymphocytes/100 WBC (Bld) 12.1 % Critically low 20.5-60.0 [facility] Comment on above: Performed By: #### C BC #### [facility] [address] [place] [address] Dr. Abdirashid Page MANUAL DIFF REQ NO Normal [facility] Comment on above: Performed By: #### C BC #### [facility] [address] [place] [address] Dr. Abdirashid Page MCH (RBC) [Entitic mass] 31.9 pg Normal 26.7-34.0 [facility] Comment on above: Performed By: #### C BC #### [facility] [address] [place] [address] Dr. Abdirashid Page MCHC (RBC) [Mass/Vol] 33.3 g/dL Normal 29.9-35.2 [facility] Comment on above: Performed By: #### C BC #### [facility] [id number] Abdirashid Page MCV (RBC) [Entitic vol] 95.6 fL Normal 81.0-99.0 [facility] Comment on above: Performed By: #### C BC #### [facility] [id number] Abdirashid Page MONO # 1.4 103/ul Critically high 0.3-0.8 [facility] Comment on above: Performed By: #### C BC #### [facility] [address] [place] [address] [address] Abdirashid Page Monocytes/100 WBC (Bld) 9.6 % Normal 1.7-12.0 [facility] Comment on above: Performed By: #### C BC #### [facility] [address] [place] [address] [address] Abdirashid Page NEUT # 11.1 103/ul Critically high 1.4-6.5 [facility] Comment on above: Performed By: #### C BC #### [facility] [address] [place] [address] [address] Abdirashid Page Neutrophils/100 WBC (Bld) 74.2 % Normal 43.0-75.0 [facility] Comment on above: Performed By: #### C BC #### [facility] [address] [place] [address] [address] Abdirashid Page Platelet mean volume (Bld) [Entitic vol] 9.4 fL Critically low 9.5-13.5 [facility] Comment on above: Performed By: #### C BC #### [facility] [address] [place] [address] [address] Abdirashid Page PLT 415 103/ul Normal 150-450 [facility] Comment on above: Performed By: #### C BC #### [facility] [id number] Abdirashid Page RBC 3.61 106/ul Critically low 4.20-5.40 [facility] Comment on above: Performed By: #### C BC #### [facility] [address] [place] [address] [address] Abdirashid Page WBC 15.0 103/ul Critically high 4.0-11.0 [facility] Comment on above: Performed By: #### C BC #### [facility] [address] [place] [address] Dr. Abdirashid Page FREE THYROXINE INDEX T7on FTI 2.70 Normal 1.30-4.50 [facility] Comment on above: Performed By: #### C MP #### [facility] [address] [place] [address] Dr. Abdirashid Page T3U 36.0 % Normal 30.0-39.0 [facility] Comment on above: Performed By: #### C MP #### [facility] [address] [place] [address] Dr. Abdirashid Page T4 [Mass/Vol] 7.50 ug/dL Normal 4.80-13.90 [facility] Comment on above: Performed By: #### C MP #### [facility] [address] [place] [address] Dr. Abidrashid Page IRONon 03-27-2022 Iron [Mass/Vol] 104.0 ug/dL Normal 50.0-170.0 [facility] Comment on above: Performed By: #### C MP #### [facility] [address] [place] [address] Dr. Abdirashid Page PROF 14(COMP METB)on 022 Albumin [Mass/Vol] 3.3 g/dL Critically low 3.4-5.[address] [facility] Comment on above: Performed By: #### C MP #### [facility] [address] [place] [address] Dr. Abdirashid Page Albumin/Globulin [Mass ratio] 1.0 {ratio} Normal [facility] Comment on above: Performed By: #### C MP #### [facility] [address] [place] [address] Dr. Abdirashid Page ALP [Catalytic activity/Vol] 69 U/L Normal 46-116 [facility] Comment on above: Performed By: #### C MP #### [facility] [address] [place] [address] [address] Abdirashid Page ALT [Catalytic activity/Vol] 36 U/L Normal 14-59 [facility] Comment on above: Performed By: #### C MP #### [facility] [address] [place] [address] [address] Abdirashid Page Anion gap [Moles/Vol] 13.6 mmol/L Normal [facility] Comment on above: Performed By: #### C MP #### [facility] [address] [address] [address] Abdirashid Page AST [Catalytic activity/Vol] 16 U/L Normal 15-37 [facility] Comment on above: Performed By: #### C MP #### [facility] [address] [place] [address] Dr. Abdirashid Page Bilirubin [Mass/Vol] 0.6 mg/dL Normal 0.2-1.0 [facility] Comment on above: Performed By: #### C MP #### [facility] [address] [place] [address] Dr. Abdirashid Page Calcium [Mass/Vol] 9.1 mg/dL Normal 8.5-10.1 [facility] Comment on above: Performed By: #### C MP #### [facility] [address] [place] [address] Dr. Abdirashid Page Chloride [Moles/Vol] 103 mmol/L Normal 98-107 [facility] Comment on above: Performed By: #### C MP #### [facility] [address] [place] [address] Dr. Abdirashid Page CO2 [Moles/Vol] 27.4 mmol/L Normal 21.0-32.0 [facility] Comment on above: Performed By: #### C MP #### [facility] [address] [place] [address] Dr. Abdirashid Page Creatinine [Mass/Vol] 1.90 mg/dL Critically high 0.55-1.02 [facility] Comment on above: Performed By: #### C MP #### [facility] [address] [place] [address] Dr. Abdirashid Page EGFR-AF UGANDAN 32 mL/min/1.73m2 Critically low >=60 [facility] Comment on above: Performed By: #### C MP #### [facility] [address] [address] [address] Abdirashid Page EGFR-NON AF UGANDAN 27 mL/min/1.73m2 Critically low >=60 [facility] Comment on above: Performed By: #### C MP #### [facility] [address] [place] [address] [address] Abdirashid Page Globulin (S) [Mass/Vol] 3.4 g/dL Normal [facility] Comment on above: Performed By: #### C MP #### [facility] [address] [address] [address] Abdirashid Page Glucose [Mass/Vol] 122 mg/dL Critically high 74-106 [facility] Comment on above: Performed By: #### C MP #### [facility] [address] [address] [address] Abdirashid Page Potassium [Moles/Vol] 5.0 mmol/L Normal 3.5-5.1 [facility] Comment on above: Performed By: #### C MP #### [facility] [address] [place] [address] [address] Abdirashid Page Protein [Mass/Vol] 6.7 g/dL Normal 6.4-8.2 [facility] Comment on above: Performed By: #### C MP #### [facility] [address] [address] [address] Abdirashid Page Sodium [Moles/Vol] 139 mmol/L Normal 136-145 [facility] Comment on above: Performed By: #### C MP #### [facility] [address] [address] [address] Abdirashid Page Urea nitrogen [Mass/Vol] 55.0 mg/dL Critically high 7.0-18.0 [facility] Comment on above: Performed By: #### C MP #### [facility] [address] [address] [address] Abdirashid Page Urea nitrogen/Creatinine [Mass ratio] 28.9 mg/mg Normal [facility] Comment on above: Performed By: #### C MP #### [facility] [address] [place], [place] [address] Dr. Abdirashid Page TSHon 03-27-2022 TSH 1.585 uIU/mL Normal 0.358-3.740 [facility] Comment on above: Performed By: #### C MP #### [facility] [address] [place], [place] [address] Dr. Abdirashid Page [id number] 11-23-2021 SARS-CoV-2 (COVID-19) RNA KATIA+probe Ql (Unsp spec) Normal [facility] Comment on above: Performed By: #### C OVID #### [facility] [address] [place] [address] [employer] Supervisor: Armin Corbett MD [facility] [address] [place] [address] [employer] Supervisor: Geronimo Callaway MD SARS-CoV-2 (COVID-19) RNA KATIA+probe Ql (Unsp spec) Not detected Normal [facility] Comment on above: Result Comment: The specimen is NEGATIVE for SARS-CoV-2, the novel coronavirus associated with COVID-19. A negative result does not rule out COVID-19. Cristian SARS-CoV-2 for use on the [facility] [employer] is a real-time RT-PCR test intended [...] this assay. Fact sheet for Healthcare Providers: https://www.fda.gov/media/728293/download Fact sheet for Patients: https://www.fda.gov/media/464837/download METHODOLOGY: RT-PCR Performed By: #### C OVID #### [address] [address] [employer] Supervisor: Armin Corbett MD [address] [place] [address] [employer] Supervisor: Geronimo Callaway MD [id number] 11-22-2021 SARS-CoV-2 (COVID-19) RNA KATIA+probe Ql (Unsp spec) .NASOPHARYNGEAL SWAB Normal [facility] Comment on above: Performed By: #### C OVID #### [address] [address] [employer] Supervisor: Armin Corbett MD [address] [place] [address] [employer] Supervisor: Geronimo Callaway MD [id number] 11-16-2021 SARS-CoV-2 (COVID-19) RNA KATIA+probe Ql (Unsp spec) Normal [facility] Comment on above: Performed By: #### C OVID #### [address] [address] [employer] Supervisor: Armin Corbett MD [facility] [address] [place] [address] [place] [address] [employer] Supervisor: Geronimo Callaway MD SARS-CoV-2 (COVID-19) RNA KATIA+probe Ql (Unsp spec) Not detected [facility] Comment on above: Result Comment: The specimen is NEGATIVE for SARS-CoV-2, the novel coronavirus associated with COVID-19. A negative result does not rule out COVID-19. Cristian SARS-CoV-2 for use on the [employer] is a real-time RT-PCR test intended [...] this assay. Fact sheet for Healthcare Providers: https://www.fda.gov/media/428140/download Fact sheet for Patients: https://www.fda.gov/media/010018/download METHODOLOGY: RT-PCR Performed By: #### C OVID #### [address] [address] [employer] Supervisor: Armin Corbett MD [address] [place] [address] [employer] Supervisor: Geronimo Callaway MD [id number] 11-15-2021 SARS-CoV-2 (COVID-19) RNA KATIA+probe Ql (Unsp spec) .NASOPHARYNGEAL SWAB Normal [facility] Comment on above: Performed By: #### C OVID #### [address] [address] [employer] Supervisor: Armin Corbett MD [address] [place] [address] [employer] Supervisor: Geronimo Callaway MD CBC with Diffon 08-16-2021 Abs. Basophil 0.05 k/uL Normal 0.00-0.20 [facility] Comment on above: Performed By: #### C DP, CP, LIPRF, TSH, FT3, VD25, T4, GLYHGB #### [address] [id number] [employer] Supervisor: Armin Corbett MD Abs.Imm.Granulocyte 0.08 k/uL Normal 0.00-0.30 [facility] Comment on above: Performed By: #### C DP, CP, LIPRF, TSH, FT3, VD25, T4, GLYHGB #### [facility] [employer] [address] [place] [phone] [employer] Supervisor: Armin Corbett MD Abs.Neutrophil (Seg) 11.43 k/uL High 1.50-8.10 [facility] Comment on above: Performed By: #### C DP, CP, LIPRF, TSH, FT3, VD25, T4, GLYHGB #### [facility] [employer] [address] [place] [address] [employer] Supervisor: Armin Corbett MD Basophils/100 WBC (Bld) 0 % Normal 0-2 [facility] Comment on above: Performed By: #### C DP, CP, LIPRF, TSH, FT3, VD25, T4, GLYHGB #### [place] [address] [employer] Supervisor: Armin Corbett MD Eosinophils (Bld) [#/Vol] 0.05 10*3/uL Normal 0.00-0.44 [facility] Comment on above: Performed By: #### C DP, CP, LIPRF, TSH, FT3, VD25, T4, GLYHGB #### [facility] [employer] [address] [place] [address] [employer] Supervisor: Armin Corbett MD Eosinophils/100 WBC (Bld) 0 % Low 1-4 [facility] Comment on above: Performed By: #### C DP, CP, LIPRF, TSH, FT3, VD25, T4, GLYHGB #### [facility] [employer] [address] [place] [address] [employer] Supervisor: Armin Corbett MD Erythrocyte distribution width (RBC) [Ratio] 13.1 % Normal 11.8-14.4 [facility] Comment on above: Performed By: #### C DP, CP, LIPRF, TSH, FT3, VD25, T4, GLYHGB #### [address] [address] [employer] Supervisor: Armin Corbett MD Hematocrit (Bld) [Volume fraction] 39.4 % Normal 36.3-47.1 [facility] Comment on above: Performed By: #### C DP, CP, LIPRF, TSH, FT3, VD25, T4, GLYHGB #### [address] [address] [employer] Supervisor: Armin Corbett MD Hemoglobin (Bld) [Mass/Vol] 12.7 g/dL Normal 11.9-15.1 [facility] Comment on above: Performed By: #### C DP, CP, LIPRF, TSH, FT3, VD25, T4, GLYHGB #### [address] [address] [employer] Supervisor: Armin Corbett MD Immature granulocytes/100 WBC (Bld) 1 % High 0 [facility] Comment on above: Performed By: #### C DP, CP, LIPRF, TSH, FT3, VD25, T4, GLYHGB #### [address] [address] [employer] Supervisor: Armin Corbett MD Lymphocytes (Bld) [#/Vol] 2.24 10*3/uL Normal 1.10-3.70 [facility] Comment on above: Performed By: #### C DP, CP, LIPRF, TSH, FT3, VD25, T4, GLYHGB #### [address] [address] [employer] Supervisor: Armin Corbett MD Lymphocytes/100 WBC (Bld) 15 % Low 24-43 [facility] Comment on above: Performed By: #### C DP, CP, LIPRF, TSH, FT3, VD25, T4, GLYHGB #### [address] [phone] [employer] Supervisor: Armin Corbett MD MCH (RBC) [Entitic mass] 31.4 pg Normal 25.2-33.5 [facility] Comment on above: Performed By: #### C DP, CP, LIPRF, TSH, FT3, VD25, T4, GLYHGB #### [address] [phone] [employer] Supervisor: Armin Corbett MD MCHC (RBC) [Mass/Vol] 32.2 g/dL Normal 28.4-34.8 [facility] Comment on above: Performed By: #### C DP, CP, LIPRF, TSH, FT3, VD25, T4, GLYHGB #### [address] [address] [employer] Supervisor: Armin Corbett MD MCV (RBC) [Entitic vol] 97.3 fL Normal 82.6-102.9 [facility] Comment on above: Performed By: #### C DP, CP, LIPRF, TSH, FT3, VD25, T4, GLYHGB #### [address] [address] [employer] Supervisor: Armin Corbett MD Monocytes (Bld) [#/Vol] 1.32 10*3/uL High 0.10-1.20 [facility] Comment on above: Performed By: #### C DP, CP, LIPRF, TSH, FT3, VD25, T4, GLYHGB #### [address] [address] [employer] Supervisor: Armin Corbett MD Monocytes/100 WBC (Bld) 9 % Normal 3-12 [facility] Comment on above: Performed By: #### C DP, CP, LIPRF, TSH, FT3, VD25, T4, GLYHGB #### [address] [phone] [employer] Supervisor: Armin Corbett MD Neutrophil (Seg) 75 % High 36-65 [facility] Comment on above: Performed By: #### C DP, CP, LIPRF, TSH, FT3, VD25, T4, GLYHGB #### [address] [address] [employer] Supervisor: Armin Corbett MD NRBC Automated 0.0 per 100 WBC Normal 0.0 [facility] Comment on above: Performed By: #### C DP, CP, LIPRF, TSH, FT3, VD25, T4, GLYHGB #### [address] [address] [employer] Supervisor: Armin Corbett MD Platelet mean volume (Bld) [Entitic vol] 10.1 fL Normal 8.1-13.5 [facility] Comment on above: Performed By: #### C DP, CP, LIPRF, TSH, FT3, VD25, T4, GLYHGB #### [address] [address] [employer] Supervisor: Armin Corbett MD Platelets (Bld) [#/Vol] 411 10*3/uL Normal 138-453 [facility] Comment on above: Performed By: #### C DP, CP, LIPRF, TSH, FT3, VD25, T4, GLYHGB #### [address] [address] [employer] Supervisor: Armin Corbett MD RBC (Bld) [#/Vol] 4.05 10*6/uL Normal 3.95-5.11 [facility] Comment on above: Performed By: #### C DP, CP, LIPRF, TSH, FT3, VD25, T4, GLYHGB #### [address] [address] [employer] Supervisor: Armin Corbett MD WBC (Bld) [#/Vol] 15.2 10*3/uL High 3.5-11.3 [facility] Comment on above: Performed By: #### C DP, CP, LIPRF, TSH, FT3, VD25, T4, GLYHGB #### [address] [phone] [employer] Supervisor: Armin Corbett MD Comp Metabolic Profon 2021 (cont.) Normal [facility] Comment on above: Result Comment: Aver age GFR for 60-69 years old: 85 mL/min/1.73sq m Chronic Kidney Disease: <60 mL/min/1.73sq m Kidney failure: <15 mL/min/1.73sq m eGFR calculated using average adult body mass. Additional eGFR calculator available at: http://www.[facility]/multiple_crcl_2011.htm Performed By: #### C DP, CP, LIPRF, TSH, FT3, VD25, T4, GLYHGB #### [address] [phone] [employer] Supervisor: Armin Corbett MD Albumin [Mass/Vol] 4.8 g/dL Normal 3.5-5.2 [facility] Comment on above: Performed By: #### C DP, CP, LIPRF, TSH, FT3, VD25, T4, GLYHGB #### [facility] [employer] [address] [place] [address] [phone] [employer] Supervisor: Armin Corbett MD Albumin/Glob Ratio 1.9 Normal 1.0-2.5 [facility] Comment on above: Performed By: #### C DP, CP, LIPRF, TSH, FT3, VD25, T4, GLYHGB #### [address] [address] [employer] Supervisor: Armin Corbett MD Alkaline Phos 91 U/L Normal 35-104 [facility] Comment on above: Performed By: #### C DP, CP, LIPRF, TSH, FT3, VD25, T4, GLYHGB #### [address] [address] [employer] Supervisor: Armin Corbett MD ALT [Catalytic activity/Vol] 17 U/L Normal 5-33 [facility] Comment on above: Performed By: #### C DP, CP, LIPRF, TSH, FT3, VD25, T4, GLYHGB #### [address] [address] [employer] Supervisor: Armin Corbett MD Anion gap [Moles/Vol] 19 mmol/L High 9-17 [facility] Comment on above: Performed By: #### C DP, CP, LIPRF, TSH, FT3, VD25, T4, GLYHGB #### [address] [address] [employer] Supervisor: Armin Corbett MD AST [Catalytic activity/Vol] 17 U/L Normal <32 [facility] Comment on above: Performed By: #### C DP, CP, LIPRF, TSH, FT3, VD25, T4, GLYHGB #### [address] [address] [employer] Supervisor: Armin Corbett MD Bilirubin [Mass/Vol] 0.27 mg/dL Low 0.3-1.2 [facility] Comment on above: Performed By: #### C DP, CP, LIPRF, TSH, FT3, VD25, T4, GLYHGB #### [address] [address] [employer] Supervisor: Armin Corbett MD Calcium [Mass/Vol] 9.6 mg/dL Normal 8.6-10.4 [facility] Comment on above: Performed By: #### C DP, CP, LIPRF, TSH, FT3, VD25, T4, GLYHGB #### [address] [address] [employer] Supervisor: Armin Corbett MD Chloride [Moles/Vol] 96 mmol/L Low 98-107 [facility] Comment on above: Performed By: #### C DP, CP, LIPRF, TSH, FT3, VD25, T4, GLYHGB #### [facility] [employer] [address] [place] [phone] [employer] Supervisor: Armin Corbett MD CO2 [Moles/Vol] 20 mmol/L Normal 20-31 [facility] Comment on above: Performed By: #### C DP, CP, LIPRF, TSH, FT3, VD25, T4, GLYHGB #### [facility] [employer] [address] [place] [address] [employer] Supervisor: Armin Corbett MD Creatinine [Mass/Vol] 1.06 mg/dL High 0.50-0.90 [facility] Comment on above: Performed By: #### C DP, CP, LIPRF, TSH, FT3, VD25, T4, GLYHGB #### [facility] [employer] [address] [place] [address] [employer] Supervisor: Armin Corbett MD GFR, Amer >60 Normal >60 [facility] Comment on above: Performed By: #### C DP, CP, LIPRF, TSH, FT3, VD25, T4, GLYHGB #### [facility] [employer] [address] [place] [address] [employer] Supervisor: Armin Corbett MD GFR,non Amer 52 mL/min Low >60 [facility] Comment on above: Performed By: #### C DP, CP, LIPRF, TSH, FT3, VD25, T4, GLYHGB #### [facility] [employer] [address] [place] [address] [employer] Supervisor: Armin Corbett MD Glucose [Mass/Vol] 101 mg/dL High 70-99 [facility] Comment on above: Performed By: #### C DP, CP, LIPRF, TSH, FT3, VD25, T4, GLYHGB #### [facility] [employer] [address] [place] [address] [employer] Supervisor: Armin Corbett MD Potassium [Moles/Vol] 4.4 mmol/L Normal 3.7-5.3 [facility] Comment on above: Performed By: #### C DP, CP, LIPRF, TSH, FT3, VD25, T4, GLYHGB #### [facility] [employer] [address] [place] [address] [employer] Supervisor: Armin Corbett MD Protein [Mass/Vol] 7.3 g/dL Normal 6.4-8.3 [facility] Comment on above: Performed By: #### C DP, CP, LIPRF, TSH, FT3, VD25, T4, GLYHGB #### [facility] [employer] [address] [place] [address] [employer] Supervisor: Armin Corbett MD Sodium [Moles/Vol] 135 mmol/L Normal 135-144 [facility] Comment on above: Performed By: #### C DP, CP, LIPRF, TSH, FT3, VD25, T4, GLYHGB #### [facility] [employer] [address] [place] [address] [employer] Supervisor: Armin Corbett MD Urea nitrogen [Mass/Vol] 27 mg/dL High 8-23 [facility] Comment on above: Performed By: #### C DP, CP, LIPRF, TSH, FT3, VD25, T4, GLYHGB #### [facility] [employer] [address] [place] [address] [employer] Supervisor: Armin Corbett MD Comprehensive Metabolic Pane [facility] 08-16-2021 Albumin [Mass/Vol] 4.8 g/dL 3.5 - 5.2 g/dL [facility] Albumin/Globulin [Mass ratio] 1.9 {ratio} [facility] ALP (Bld) [Catalytic activity/Vol] 91 U/L 35 - 104 U/L [facility] ALT [Catalytic activity/Vol] 17 U/L 5 - 33 U/L [facility] Anion gap [Moles/Vol] 19 mmol/L High 9 - 17 mmol/L [facility] AST [Catalytic activity/Vol] 17 U/L <32 [facility] Bilirubin [Mass/Vol] 0.27 mg/dL Low 0.3 - 1.2 mg/dL [facility] Calcium [Mass/Vol] 9.6 mg/dL 8.6 - 10. 4 mg/dL [facility] Chloride [Moles/Vol] 96 mmol/L Low 98 - 107 mmol/L [facility] CO2 [Moles/Vol] 20 mmol/L 20 - 31 mmol/L [facility] Creatinine [Mass/Vol] 1.06 mg/dL High 0.50 - 0.90 mg/dL [facility] Free PSA/Total PSA [Mass fraction] 7.3 g/dL 6.4 - 8.3 g/dL [facility] GFR >60 >60 mL/min [facility] GFR Non- 52 mL/min Low >60 [facility] GFR/1.73 sq M.predicted MDRD (S/P/Bld) [Vol rate/Area] [facility] Comment on above: Average GFR for 60-6 9 years old: 85 mL/min/1.73sq m Chronic Kidney Disease: <60 mL/min/1.73sq m Kidney failure: <15 mL/min/1.73sq m eGFR calculated using average adult body mass. Additional eGFR calculator available at: http://www.[facility]/multiple_crcl_2012.htm Glucose [Mass/Vol] 101 mg/dL High 70 - 99 mg/dL [facility] Interpretation and review of laboratory results Abnormal [facility] Potassium [Moles/Vol] 4.4 mmol/L 3.7 - 5.3 mmol/L [facility] Sodium [Moles/Vol] 135 mmol/L 135 - 144 mmol/L [facility] Urea nitrogen (BldV) [Mass/Vol] 27 mg/dL High 8 - 23 mg/dL [facility] Hemoglobin A1Con 08-16-2021 Glucose [Mass/Vol] 146 mg/dL Normal [facility] Comment on above: Result Comment: The ADA and AACC recommend providing the estimated average glucose result to permit better patient understanding of their HBA1c result. Performed By: #### C DP, CP, LIPRF, TSH, FT3, VD25, T4, GLYHGB #### [address] [phone] [employer] Supervisor: Armin Corbett MD HbA1c (Bld) [Mass fraction] 6.7 % High 4.0-6.0 [facility] Comment on above: Performed By: #### C DP, CP, LIPRF, TSH, FT3, VD25, T4, GLYHGB #### [address] [phone] [employer] Supervisor: Armin Corbett MD Lipid Prof, Fastingon 2021 Cholesterol [Mass/Vol] 193 mg/dL Normal <200 [facility] Comment on above: Result Comment: Cholesterol Guidelines: <200 Desirable 200-240 Borderline >240 Undesirable Performed By: #### C DP, CP, LIPRF, TSH, FT3, VD25, T4, GLYHGB #### [address] [phone] [employer] Supervisor: Armin Corbett MD Cholesterol in HDL [Mass/Vol] 57 mg/dL Normal >40 [facility] Comment on above: Result Comment: HDL Guidelines: <40 Undesirable 40-59 Borderline >59 Desirable Performed By: #### C DP, CP, LIPRF, TSH, FT3, VD25, T4, GLYHGB #### [address] [phone] [employer] Supervisor: Armin Corbett MD Cholesterol in LDL [Mass/Vol] 116 mg/dL Normal 0-130 [facility] Comment on above: Result Comment: LDL Guidelines: <100 Desirable 100-129 Near to/above Desirable 130-159 Borderline >159 Undesirable Direct (measured) LDL and calculated LDL are not interchangeable tests. Performed By: #### C DP, CP, LIPRF, TSH, FT3, VD25, T4, GLYHGB #### [address] [phone] [employer] Supervisor: Armin Corbett MD Cholesterol.total/C holesterol in HDL [Mass ratio] 3.4 {ratio} Normal <5 [facility] Comment on above: Performed By: #### C DP, CP, LIPRF, TSH, FT3, VD25, T4, GLYHGB #### [employer] [facility] [place] [address] [employer] Supervisor: Armin Corbett MD Triglyceride,Fastin g 100 mg/dL Normal <150 [facility] Comment on above: Result Comment: Triglyceride Guidelines: <150 Desirable 150-199 Borderline 200-499 High >499 Very high Based on AHA Guidelines for fasting triglyceride, January 2012. Performed By: #### C DP, CP, LIPRF, TSH, FT3, VD25, T4, GLYHGB #### [facility] [facility] [place] [address] [employer] Supervisor: Armin Corbett MD Lipid, Fastingon 08-16-2021 Cholesterol [Mass/Vol] 193 mg/dL <200 [facility] Comment on above: Cholesterol Guidelines: <200 Desirable 200-240 Borderline >240 Undesirable Cholesterol in HDL [Mass/Vol] 57 mg/dL >40 [facility] Comment on above: HDL Guidelines: <40 Undesirable 40-59 Borderline >59 Desirable Cholesterol in LDL [Mass/Vol] 116 mg/dL 0 - 130 mg/dL [facility] Comment on above: LDL Guidelines: <100 Desirable 100-129 Near to/above Desirable 130-159 Borderline >159 Undesirable Direct (measured) LDL and calculated LDL are not interchangeable tests. Cholesterol.total/C holesterol in HDL [Mass ratio] 3.4 {ratio} <5 [facility] Triglyceride, Fasting 100 mg/dL <150 [facility] Comment on above: Triglyceride Guidelines: <150 Desirable 150-199 Borderline 200-499 High >499 Very high Based on AHA Guidelines for fasting triglyceride, January 2012. No Panel Informationon 08-16 [facility] T3, Freeon 08-16-2021 Free T3 [Mass/Vol] 4.17 pg/mL Normal 2.02-4.43 [facility] Comment on above: Performed By: #### C DP, CP, LIPRF, TSH, FT3, VD25, T4, GLYHGB #### [facility] [employer] [address] [place] [phone] [employer] Supervisor: Armin Corbett MD TSHon 08-16-2021 TSH Qn 3.06 m[IU]/L [facility] Thyroid Stim. Horm.on 2021 Thyroid Stim. Horm. 3.06 uIU/mL Normal 0.30-5.00 [facility] Comment on above: Performed By: #### C DP, CP, LIPRF, TSH, FT3, VD25, T4, GLYHGB #### [facility] [employer] [address] [place] [address] [employer] Supervisor: Armin Corbett MD Thyroxine T4on 08-16-2021 T4 [Mass/Vol] 6.5 ug/dL Normal 4.5-10.9 [facility] Comment on above: Performed By: #### C DP, CP, LIPRF, TSH, FT3, VD25, T4, GLYHGB #### [facility] [employer] [address] [place] [address] [phone] [employer] Supervisor: Armin Corbett MD Vitamin D 25 OHon 08-16-2021 Vitamin D 25 OH 57.6 ng/mL Normal >29.9 [facility] Comment on above: Result Comment: Reference Range: Vitamin D status Range Deficiency <20 ng/mL Mild Deficiency 20-30 ng/mL Sufficiency 30-100 ng/mL Toxicity >100 ng/mL Performed By: #### C DP, CP, LIPRF, TSH, FT3, VD25, T4, GLYHGB #### [address] [address] [employer] Supervisor: Armin Corbett MD CBC with Auto Differentialon 08-15-2021 Absolute Eos # 0.05 [facility] th Absolute Immature Granulocyte 0.08 [facility] Absolute Lymph # 2.24 [facility] alth Absolute [place] # 1.32 High [facility] lt Basophils (Bld) [#/Vol] 0.05 10*3/uL [facility] Basophils/100 WBC (Bld) 0 % 0 - 2 % [facility] Eosinophils/100 WBC (Bld) 0 % Low 1 - 4 % [facility] Hematocrit (Bld) [Volume fraction] 39.4 % 36.3 - 47.1 % [facility] Hemoglobin.gastroin testinal spec 1 Ql (Stl) 12.7 g/dL 11.9 - 15.1 g/dL [facility] Immature granulocytes/100 WBC (Bld) 1 % High 0 [facility] Interpretation and review of laboratory results Abnormal [facility] Lymphocytes/100 WBC (Bld) 15 % Low 24 - 43 % [facility] MCH (RBC) [Entitic mass] 31.4 pg 25.2 - 33.5 pg [facility] MCHC (RBC) [Mass/Vol] 32.2 g/dL 28.4 - 34.8 g/dL [facility] MCV (RBC) [Entitic vol] 97.3 fL 82.6 - 102.9 fL [facility] Monocytes/100 WBC (Bld) 9 % 3 - 12 % [facility] NRBC Automated 0.0 0.0 per 100 WBC [facility] Platelet distribution width (Bld) [Ratio] 13.1 % 11.8 - 14.4 % [facility] Platelet mean volume (Bld) [Entitic vol] 10.1 fL 8.1 - 13.5 fL [facility] Platelets (Bld) [#/Vol] 411 10*3/uL [facility] RBC (Bld) [#/Vol] 4.05 10*6/uL 3.95 - 5.1 1 m/uL [facility] Segmented neutrophils/100 WBC (Bld) 75 % High 36 - 65 % [facility] Segs Absolute [facility] [#/Vol] 15.2 10*3/uL [facility] Vital Signs Date Time Vital Sign Value Performing Clinician Facility 05-28-2023 14:55-0500 Body height 158.75 cm [facility] 05-28-2023 14:55-0500 Body mass index (BMI) [Ratio] 37.08 kg/m2 [facility] 05-28-2023 14:55-0500 Body surface area Derived from formula 2.03 [facility] 05-28-2023 14:55-0500 Body [facility] 93.44 [facility] 05-28-2023 14:55-0500 Diastolic blood pressure 64 mm[Hg] [facility] 05-28-2023 14:55-0500 Heart rate 80 /min [facility] 05-28-2023 14:55-0500 Systolic blood pressure 122 mm[Hg] [facility] 04-29-2023 15:33-0500 Blood Pressure Location Manuel SILVERIO [facility] [place] 04-29-2023 15:33-0500 Diastolic blood pressure 86 mm[Hg] Manuel SILVERIO [facility] [place] 04-29-2023 15:33-0500 Heart rate 72 /min Manuel SILVERIO [facility] [place] 04-29-2023 15:33-0500 Respiratory rate 16 /min Manuel SILVERIO [facility] [place] 04-29-2023 15:33-0500 Systolic blood pressure 130 mm[Hg] Manuel SILVERIO [facility] [place] Encounters Encounter Date Encounter Type Care Provider Facility Start: 06-05-2023 ambulatory Manuel SILVERIO Facility :[facility] Start: 05-28-2023 Split Srvc Diana Rothman rne Other [facility] Start: 05-27-2023 End: 05-28-[address] Facility:[facility] Start: 05-27-2023 End: 05-27-2023 Patient encounter procedure Manuel R NILL General Surgery Nill/Said [place] Start: 05-27-2023 End: 05-27-[address] Work Phone: [facility] Work Phone: Start: 05-27-2023 End: 05-27-[address] Contreras Work Phone: [facility] [place] [facility] Start: 04-29-2023 End: 04-30-[address]reras Facility: [place] Start: 04-29-2023 End: 04-29-2023 Patient encounter procedure Manuel R NILL General Surgery Nill/Said [place] Start: 04-16-2023 ambulatory Manuel SOO Facility:[facility] [place] Start: 03-24-2023 End: 03-24-2023 ambulatory ERICK Del Valle LINDA Not Available Start: 02-16-2023 End: 02-17-2023 ambulatory Flaquito Palacio MD Facility: [place] Start: 12-29-2022 End: 12-30-[address] Facility:[facility] Start: 12-03-2022 End: 12-04-2022 ambulatory Erick Mckeon Facility:[facility] Start: 07-29-2022 End: 07-29-2022 ambulatory NARENDRANATH LAKSHMIPATHY . Facility: Start: 07-22-2022 End: 07-22-2022 ambulatory NARENDRANATH LAKSHMIPATHY [...] hospital visit by physician Bonnie Mireles PTA [facility] Physical Therapy Start: 04-10-2022 End: 04-11-[address] . Facility:[facility] Start: 03-27-2022 End: 03-28-[address] CONTR[address] . Facility:[facility] Start: 03-25-2022 End: 03-26-[address] [facility] Start: 03-24-2022 End: 03-25-[address] [facility] [facility] Start: 03-24-2022 End: 03-24-2022 Subsequent hospital visit by physician Bonnie Mireles PTA [facility] Physical Therapy Comment on above: Arrived Start: 03-20-2022 End: 03-21-[address] [facility] Start: 03-20-2022 End: 03-20-2022 Subsequent hospital visit by physician Sanam Viveros PT [facility] Physical Therapy Comment on above: Arrived Start: 02-05-2022 End: 02-06-[address] SILVER TRIANA . Facility:[facility] Start: 01-01-2022 End: 01-02-[address] SILVER TRIANA . Facility:[facility] Start: 11-26-2021 End: 11-26-[address] SILVER TRIANA . Facility:[facility] Start: 11-22-2021 End: 11-22-2021 Subsequent hospital visit by physician [facility] Covid Screening Schedule [facility] Covid Screening Comment on above: Arrived Start: 11-22-2021 End: 11-23-[address] [facility] Start: 11-19-2021 End: 11-19-[address] SILVER TRIANA . Facility:[facility] Start: 11-16-[address] SILVER TRIANA . Faci lity:[facility] Start: 11-15-2021 End: 11-16-[address] [facility] Start: 11-15-2021 End: 11-15-2021 [facility] Covid Screening Comment on above: Arrived Start: 10-22-2021 End: 10-23-[address] SILVER TRIANA . Facility:[facility] Start: 09-24-2021 End: 09-24-[address] SILVER TRIANA . Facility:[facility] Start: 08-29-2021 End: 08-30-[address] SILVER TRIANA . Facility:[facility] Start: 08-15-2021 End: 08-16-[address] [facility] [facility] Start: 08-15-2021 End: 08-15-2021 Subsequent hospital visit by physician Ave Contreras MD Work Phone: [facility] Start: 08-13-2021 End: 08-13-2021 [...] Work Phone: Arthroplasty of left shoulder Manuel SILVERIO Bladder excision Manuel NIL L Comment on above: back Cholecystectomy Manuel SILVERIO Colonoscopy Manuel SANTILLANL Esophagogastroduodenoscopy Michael SILVERIO Excision of cyst Manuel Evans Comment on above: back Ostectomy of calcaneus for spur Manuel SILVERIO Radiofrequency ablat ion of nerve root of lumbar spine using fluoroscopic guidance Manuel SILVERIO Repair of joint of left hip Manuel SILVERIO Repair of joint of right hip Manuel SILVERIO Repair of musculoten dinous cuff of shoulder Manuel SILVERIO Plan of Treatment Date Care Activity Detail Author Start: 08-15-2026 Lipid panel Lipids [facility] Start: 08-28-2022 ambulatory Ambulatory Facility:[facility] 1 Start: [...] Pneumococcal 65+ years Vaccine (1 - PCV) [facility] Start: 12-12-2021 Influenza vaccination [facility] Start: 11-15-2021 Hemoglobin A1c measurement A1C test (Diabetic or Prediabetic) [facility] Start: 11-11-2021 Influenza vaccination Flu vaccine (# 1) [facility] Start: 01-02-2018 Screening for malign ant neoplasm of cervix [facility] Start: 06-26-2014 Creatinine measurement Creatinine [facility] Start: 06-26-2014 Potassium [Moles/vol ume] in Serum or Plasma Potassium [facility] Start: 2012 Screening for osteoporosis DEX A (modify frequency per FRAX score) [facility] Start: 2007 Screening for malign ant neoplasm of breast Breast cancer screen [facility] Start: 2007 Shingles vaccine (1 of 2) Kincaid gles vaccine (1 of 2) [facility] Start: 2002 Screening for malign ant neoplasm of colon [facility] Start: 1997 Lipid panel Lipids [facility] Start: 1987 Screening for malign ant neoplasm of cervix HPV (without or with Pap) [facility] Start: 1976 DTaP/Tdap/Td vaccine (1 - Tdap) DTaP/Tdap/Td vaccine (1 - Tdap) [facility] Start: 1975 Hepatitis C screening Hepatitis C sc reen [facility] Start: 1972 HIV screening HIV screen [facility] Start: 1969 Depression Screen Depression Screen [facility] Start: 1962 COVID-19 Vaccine (1) COVID-19 Vaccin e (1) [facility] Start: 1957 COVID-19 Vaccine (#1) COVID-19 Vacci ne (#1) [facility] [place] End: 11-15-2021 COVID-19 [facility] Phone: Comment on above: Once for 1 Occurrenc es starting 11/15/2021 until 11/15/2021 End: 11-22-2021 COVID-19 [facility]: Comment on above: Once for 1 Occurrenc es starting 11/22/2021 until 11/22/2021 End: 08-15-2021 Hemoglobin A1c/Hemoglobin.total in Blood [facility] [employer] Work Phone: Comment on above: Once for 1 Occurrenc es starting 08/15/2021 until 08/15/2021 End: 08-15-2021 T4 [facility] Work Phone: Comment on above: Once for 1 Occurrenc es starting 08/15/2021 until 08/15/2021 End: 08-15-2021 Triiodothyronine (T3) Free [Mass/volume] in Serum or Plasma [facility] Phone: Comment on above: Once for 1 Occurrenc es starting 08/15/2021 until 08/15/2021 End: 08-15-2021 Vitamin D 25 Hydroxy [facility] Phone: Comment on above: Once for 1 Occurrenc es starting 08/15/2021 until 08/15/2021 Immunizations Immunization Date Immunization Notes Care Provider Fa leonardo NEGATED: Highlighted row has not occurred!04-29-2023 influenza virus vaccine, unspecified formulation Manuel SANTILLANNathan [facility] [place] Payers Date Payer Category Payer Self-pay 2023 Unknown 2022 Medicare 2014 Unknown [id number] [id number] 1959 Medicare [id number] 1959 Unknown [id number] 1959 Unknown [id number] 1957 Unknown [id number] 2.16. 840.1.491037.3.579.2.175 1957 Unknown [id number] 2.16.8 40.1.299222.3.579.2.173 1957 Unknown [id number] 2.16.8 40.1.277792.3.579.2.173 1957 Unknown [id number] 2.16.8 40.1.437340.3.579.2.173 1957 Unknown [id number] 2.16.8 40.1.237509.3.579.2.173 1957 Unknown [id number] 2.16.8 40.1.225028.3.579.2.173 1957 Unknown [id number] 2.16.84 0.1.436003.3.579.2.593 1957 Unknown [id number] 2.16.84 0.1.989698.3.579.2.593 1957 Unknown [id number] 2.16.84 0.1.102586.3.579.2.593 1957 Unknown [id number] 2.16.84 0.1.782185.3.579.2.593 1957 Unknown [id number] 2.16.84 0.1.262510.3.579.2.593 1957 Unknown [id number] 2.16.84 0.1.543743.3.579.2.593 1957 Unknown [id number] 2.16.84 0.1.695223.3.579.2.593 1957 Unknown [id number] 2.16.84 0.1.819108.3.579.2.593 1957 Unknown [id number] 2.16.84 0.1.201289.3.579.2.593 1957 Unknown [id number] 2.16.84 0.1.728083.3.579.2.593 1957 Unknown [id number] 2.16.84 0.1.026666.3.579.2.593 1957 Unknown [id number] 2.16.84 0.1.055884.3.579.2.593 1957 Unknown [id number] 2.16.84 0.1.448716.3.579.2.593 1957 Unknown [id number] 2.16.84 0.1.841706.3.579.2.593 1957 Unknown [id number] 2.16.84 0.1.301239.3.579.2.593 1957 Unknown [id number] 2.16.84 0.1.319072.3.579.2.593 1957 Unknown [id number] 2.16.84 0.1.132976.3.579.2.593 1957 Unknown [id number] 2.16.84 0.1.421436.3.579.2.593 1957 Unknown [id number] 2.16.84 0.1.748028.3.579.2.593 1957 Unknown [id number] 2.16.84 0.1.767434.3.579.2.593 1957 Unknown [id number] 2.16.84 0.1.119880.3.579.2.593 1957 Unknown [id number] 2.16.84 0.1.593253.3.579.2.593 1957 Unknown [id number] 2.16.84 0.1.618848.3.579.2.593 1957 Unknown [id number] 2.16.8 40.1.211223.3.579.2.718 1957 Unknown [id number] 2.16.8 40.1.234756.3.579.2.718 1957 Unknown [id number] 2.16. 840.1.543881.3.579.2.196 1957 Unknown [id number] 2.16.840 .1.375161.3.579.2.1259 1957 Unknown [id number] 2.16.8 40.1.778233.3.579.2.727 1957 Unknown [id number] 2.16.8 40.1.944620.3.579.2.727 1957 Unknown [id number] 2.16.8 40.1.701819.3.579.2.727 Unknown [id number] Unknown [id number] 2.16. 840.1.270770.3.441 Social History Date Type Detail Facility Start: 02-12-2012 End: 04-29-2023 Tobacco smoking status NHIS Ex-smoker [facility] End: 06-11-2011 History of tobacco use Current smoker [facility] Phone: Start: 02-12-2012 End: 05-09-2017 Tobacco use and exposure Smokeless tobacco non-user [facility] Phone: Start: 05-09-2017 Alcohol intake Current drinke r of alcohol (finding) [facility] Work Phone: Start: 1955 Sex Assigned At Not on file [facility] [employer] Phone: End: 06-11-2011 History of tobacco use Cigarette Smoker [facility] Work Phone: Tobacco smoking status Never [facility] [place] Sex Assigned At Female [facility] Start: *[facility] Start: 1955 Sex Assigned At Female F [facility] Functional Status Date Assessment Result Facility 04-29-2023 Functional Status N/A General Mak mar[facility] Clinical Notes 08-29-2021 to 04-29-2023 Bonnie Mireles, SLIDER ASSEMBLER - 04/10/2022 3:45 PM ESTStavo Viveros, PT - 03/20/2022 1:30 PM EST [...] vaccine, inactivated - Not Given Patient Refuses [facility] Comment on above: Result Comment: Elec tronically Signed By: SOO ENRIQUE, Manuel Linares\Date and Time Signed: 04/29/23 16:02 EST 01-01-2023 Note [id number]#1.00[facility] 12-30-[address] PERRY POST [...] or concerns, please call the office at [phone] 7. Follow up as scheduled [facility] 12-30-2022 Note [facility] Clinical Discharge Summary PERSON INFORMATION Name CARIN ANDERSEN Age 67 Years 1955 Sex FEMALE Language Yoruba [address]CP [address] Marital Status Single Phone Med Service Observation Acct# Arrival 12/29/2022 08:33:12 Visit Reason SURGERY - LEFT REVERSE TOTAL SHOULDER Acuity LOS 000 26:35 Address: [address] [place] [address] Comment: PROVIDER INFORMATION VITALS INFORMATION Vital Sign [...] Follow up: With: Address: When: Erick Mckeon [address] [place] [address], [address] [place] [address] [facility] (1) 01/06/2023 10:45 AM DIAGNOSIS Arthritis of left glenohumeral joint Comment: PHYS DOC NOTES [facility] 12-29-2022 Note [id number] [facility] 12-29-2022 Note CLINICAL HISTORY: Po stoperative [...] DO 12/29/22 4:32 pm Technologist: NESSA CHAVARRIA [facility] Comment on above: Order Comment: fawad [...] our patients to inform us about any askj-aat-knxxepf medications or herbal remedies/nutritional supplements/alternative remedies. 2. [...] options with their primary care provider. [facility] 06-10-2022 Note CONSULTATION CONSULTATION DATE: 06/10/2022 [...] to proceed with the outlined plan. [facility] 05-08-2022 Note CONSULTATION CONSULTATION DATE: 05/08/2022 [...] appointment pending with Dr. Carin Fernandez in [facility]. She also feels she is having [...] May. Patient agrees with this plan. [facility] 05-08-2022 Note CONSULTATION PROCEDURE DATE: 05/08/2022 [...] be followed up in the clinic. [facility] 04-10-2022 History of Present illness Narrative [facility] Inpatient/Observation/Outpatient Rehabilitation Date: 04/10/2022 Patient Name: Carin Andersen [] Inpatient Acute/Observation [x] Outpatient : 1955 [x] Pt cancelled due to: [] No Reason Given [] Sick/ill [x] Other: No reason given to blanket washer for today's cancelled visit, however SLIDER ASSEMBLER did speak with patient earlier in the week and she stated she had some medical issues going on that she is seeking a doctor's advice for. Therapist/Ship Engineer will attempt to see this patient, at our earliest opportunity. Bonnie Mireles PTA [id number] Date: 04/10/2022 documented in this encounter [facility] [employer] Work Phone: 03-20-2022 History of Present illness Narrative [facility] Outpatient Physical Therapy Evaluation Date: 03/20/2022 Patient: Carin Andersen : 1955 CSN #: [id number] Referring Physician: Danae Meyers PA-C Medical Diagnosis: R hip pain, M25.551 Treatment Diagnosis: Low back and R hip pain PT Insurance Information: [employer] Total # of Visits Approved: 12 Total # of Visits to Date: 1 No Show: 0 Canceled Appointment: 0 Subjective Subjective: Patient reports hx of back pain for years and R hip pain started recently. Had xrays for R hip on Thursday that showed trochanteric bursitis and liner of JONATHAN is wearing down. MRI pending insurance approval. /10 pain after work and being on her [...] and carry a heavy suitcase: Very difficult [place] Total Score: 55 Assessment Assessment: Patient is [...] B hip strengthening to improve lumbar stability. [employer] Logger Goals Time Frame for Longterm Goals : 6 weeks [employer] Logger Goal 1: Patient to be safe and independent with HEP. [employer] Logger Goal 2: Patient to have improved core and B hip strength >/=4/5 all planes for improved lumbar stability. Longterm Goal 3: Patient to have improved lumbar AROM flexion: 4in from floor with no increase in pain. [employer] Logger Goal 4: Patient to report >/=75% improvement in symptoms for improved QOL. Minutes Tracking: Time In: 1330 Time Out: 1410 Minutes: 40 Timed Code Treatment Minutes: 39 Minutes Sanam Viveros PT, DPT 03/20/2022 documented in this encounter [facility] Phone: 02-05-2022 Note CONSULTATION PROCEDURE DATE: PREOPERATIVE [...] the office in three months' time. [facility] 01-01-2022 Note CONSULTATION CONSULTATION DATE: 01/01/2022 [...] to 2/10 with sitting. 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 Current medications include diclofenac [...] and patient agrees to move forward. [facility] 10-22-2021 Note CONSULTATION CONSULTATION DATE: 10/22/2021 CHIEF COMPLAINT: Low back pain. HISTORY OF PRESENT ILLNESS: This is a very pleasant, 66-year-old female who has had successful diagnostic medial branch blocks on two separate occasions. Both times afforded the patient 95-100% relief for 24 hours or so. 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 The patient currently reports the pain as [...] patient understands and would like to proceed. [facility] Signed and Approved by: DR SILVER TRIANA . 10/29/2021 09:28:00 [facility] 08-29-2021 Note CONSULTATION CONSULTATION DATE: 08/29/2021 This [...] be followed up in the office post-procedure. [facility] Signed and Approved by: MALENA GILMORE . 09/02/2021 15:07:00 [facility] Evaluation + Plan note Future Appointments Appointment Date:05/27/2023 02:00:00 PM Scheduled Provider:Manuel SILVERIO MD Location:[facility] Appointment Type: Procedure 30 [facility] [place] Evaluation + Plan note Future Appointments Appointment Date:06/05/2023 02:00:00 PM Scheduled Provider:Manuel SILVERIO MD Location:[facility] Appointment Type: Established 15 [facility] [place] Evaluation note No assessment inform ation available [facility] Work Phone: Hospital course Narrative No data available for this section [facility] [place] [facility] Discharge instructions No data available for this section [facility] [place] Progress note No data available for this section [facility] [place] Advance Directives No Advanced Directives Records FoundDocuments on File Type Date Recorded Patient Youth Coordinator Expl anation ACP-Advance Directive ACP-Power of Estate Planner Latest Code Status on File Code Status [...] Care Teams (unrecognized sec tion and content) Radio Operator Relationship Specialty Start Date End Date Ave Contreras MD [address] [place] [address] PCP - General 12/22/11 Radio Operator Relationship Specialty Start Date End Date Ave Contreras MD [address] [place] [id number] PCP - General 12/22/11 Radio Operator Relationship Specialty Start Date End Date Ave Contreras MD [address] [place] [id number] PCP - General 12/22/11 Radio Operator Relationship Specialty Start Date End Date Ave Contreras MD [address] [place] [id number] PCP - General 12/22/11 Team Status: Active Member Role Status Dates Ave Contreras MD Primary Care Provider Active Team Status: Inactive Member Role Status Dates Ave Contreras MD Primary Care Provider Active Start: May 27, 2023 End: May 27, 2023 Manuel Silverio MD [facility] Attending Provider Active Start: May 27, 2023 End: May 27, 2023 INFORMATION SOURCE (unrecogn ized section and content) DATE CREATED AUTHOR 08/16/2021 [facility] DATE CREATED AUTHOR AUTHOR'S ORGANIZ ATION 05/08/2022 [facility] DATE CREATED AUTHOR AUTHOR'S ORGANIZ ATION 07/30/2022 [facility] DATE CREATED AUTHOR AUTHOR'S ORGANIZ ATION 01/16/2023 [facility] DATE CREATED AUTHOR AUTHOR'S ORGANIZ ATION 03/12/2023 [facility] DATE CREATED AUTHOR AUTHOR'S ORGANIZ ATION 03/26/2023 [facility] dical [facility] DATE CREATED AUTHOR AUTHOR'S ORGANIZ ATION 05/30/2023 [facility] DATE CREATED AUTHOR AUTHOR'S ORGANIZ ATION 06/02/2023 [facility] Goals (unrecognized section and content) Goals may [...] BE BASED ON THE PRIMARY CLINICAL RECORDS. [email or web address] [facility] provides no warranty or guarantee of the accuracy or completeness of information in this document.
== END 2023-06-01 10:26 | disposition home or self-care (01) ==
LOC: LAB 10:25
PROVIDERS: PCP Family Medicine; Visit Provider Surgery
DX: L72.0 Epidermal cyst (principal)
CPT/HCPCS: 88304

== ENCOUNTER 2024-07-01 11:25 | Outpatient (OUT) | payer MEDICARE, SELFPAY ==
--- NOTE | 2024-07-01 | XR_ITS ---
[address] [address] Patient Name: MIK ANDERSEN MRN: [id number] date: 1955 Sex: F Assigned Patient Location: Current Patient Location: Accession/Order Number: [id number] Exam Date: 07/01/2024 12:46 Report Date: 07/01/2024 12:47 At the request of: BROCK DOMINGO MD Procedure: XR lumbar spine min 4V LUMBAR SPINE - 4 views CLINICAL HISTORY: Chronic back pain. COMPARISON: Lumbar spine 04/16/2023 FINDINGS: Posterior hardware fixation L4-S1 without evidence of hardware complication. Vertebral body heights appear maintained. Scattered endplate and facet joint degenerative changes. No pathological motion on flexion or extension views. XR/XR lumbar spine min 4V IMPRESSION: NO HARDWARE COMPLICATION. Impression dictated by: Pablo Mike Jr. DDonatoODonato07/01/2024 12:47 PM Dictation Location: [place] [address] Electronically authenticated by: [id number] Y Date: 07/01/2024 12:47
== END 2024-07-01 11:26 | disposition home or self-care (01) ==
LOC: EC 11:26
PROVIDERS: PCP Family Medicine; Visit Provider Orthopaedic Surgery Orthopaedic Surgery of the Spine
DX: Z98.1 Arthrodesis status (principal)
CPT/HCPCS: 72110